=== PATIENT | female | born 1955 | race Caucasian/White ===

== ENCOUNTER 2017-11-18 17:45 | Emergency (ER) | payer OTHER, SELFPAY ==
[2017-11-18] MEDS ORDERED: NA CHLORIDE 0.9% 1,000 ML ONE (18:39)
[2017-11-18 18:56] LABS: Absolute Lymphocytes (CBC) 1.9 K/uL (0.7-4.9); Absolute Monocytes 0.8 K/uL (0.1-1.3); Absolute Neutrophil 6.5 K/uL (1.8-8.0); Basophils % 1.4 % (0-1.3); Eosinophils % 2.8 % (0-4.4); Hematocrit 41.7 % (36.0-45.0); Lymphocytes % 19.9 % (15.3-44.8); MCH 32.5 pg (27.0-35.0); MCV 95.5 fL (80-100); MPV 9.7 fL (7.6-11.3); Monocytes % 8.4 % (3.3-12.3); RBC Red Blood Cell Count 4.37 M/uL (3.86-4.86)
--- NOTE | 2017-11-18 18:59 | RAD REPORT ---
EXAM DESCRIPTION: RAD - Chest Single View - 11/18/2017 6:53 pm CLINICAL HISTORY: COUGH Chest pain. COMPARISON: <Comparisons> FINDINGS: Portable technique limits examination quality. The lungs are grossly clear. The heart is normal in size. No displaced fractures. IMPRESSION: No acute intrathoracic process suspected.
[2017-11-18 19:07] LABS: Protime INR 0.9
[2017-11-18 19:08] LABS: ALT/SGPT 48 U/L (12-78); AST/SGOT 67 U/L (15-37); Albumin 2.7 g/dL (3.4-5.0); Alkaline Phosphatase 821 U/L (45-117); BUN Blood Urea Nitrogen 10 mg/dL (7-18); Bicarbonate 29 mmol/L (21-32); Bilirubin Direct 1.7 mg/dL (0-0.2); CKMB Creatine Kinase MB 1.7 ng/mL (0.3-3.6); Creatine Phosphokinase 54 U/L (26-192); Glucose Level 81 mg/dL (74-106); Magnesium 1.9 mg/dL (1.8-2.4); NT PRO-BNP 77 pg/mL (<125); Phosphorus 3.3 mg/dL (2.5-4.9); Potassium 3.4 mmol/L (3.5-5.1); Sodium Level 144 mmol/L (136-145)
--- NOTE | 2017-11-18 19:50 | RAD REPORT ---
EXAM DESCRIPTION: US - Renal Ultrasound-Complete - 11/18/2017 7:35 pm CLINICAL HISTORY: hyperkalemia COMPARISON: ABDOMINAL EXAM COMPLETE dated 07/14/2011BDOMINAL EXAM COMPLETE dated 07/14/2011 FINDINGS: Both kidneys are normal in size, shape and echotexture. The right kidney measures 9.4 x 4.7 x 3.0 cm. No hydronephrosis. Echogenic structure measuring 7 mm i n the inferior pole could represent a stone. The left kidney measures 10.0 x 5.3 x 5.1 cm. No hydronephrosis, focal mass or perinephric fluid. The urinary bladder is incompletely distended without gross abnormality seen. IMPRESSION: 7 mm echogenic structure in the inferior pole right kidney may represent a stone.
--- NOTE | 2017-11-18 19:57 | ER ---
Nurse's Notes [facility] Name: Adilene Vines Age: 62 yrs Sex: Female : 1955 Arrival Date: 11/18/2017 Time: 17:49 Bed 16 Private MD: Gurvinder Black Diagnosis: Person with feared health complaint in whom no diagnosis is made;Liver disease, unspecified Presentation: 11/18 17:54 Presenting complaint: Patient states: Sent by PCP for high K+. Transition of care: aj patient was not received from another setting of care. Onset of symptoms was November 18, 2017. Risk Assessment: Do you want to hurt yourself or someone else? Patient reports no desire to harm self or others. Initial Sepsis Screen: Does the patient meet any 2 criteria? No. Patient's initial sepsis screen is negative. Does the patient have a suspected source of infection? No. Patient's initial sepsis screen is negative. Care prior to arrival: None. 17:54 Method Of Arrival: Ambulatory 17:54 Acuity: ESAU 3 aj Triage Assessment: 17:55 General: Appears in no apparent distress. comfortable, Behavior is calm, cooperative, aj appropriate for age. Pain: Denies pain. Neuro: Level of Consciousness is awake, alert, obeys commands, Oriented to person, place, time, situation, Appropriate for age. Cardiovascular: Denies chest pain. Respiratory: Airway is patent Respiratory effort is even, unlabored, Respiratory pattern is regular, symmetrical. Derm: Skin is intact, is healthy with good turgor, Skin is pink, warm \T\ dry. normal. Historical: - Allergies: 17:55 PENICILLINS; aj 17:55 Sulfa (Sulfonamide Antibiotics); aj 17:55 Bactrim; aj - Home Meds: 17:55 metoprolol tartrate 25 mg Oral tab 1 tab 2 times per day [Active]; losartan 50 mg oral aj tab 1 tab once daily [Active]; Prednisone Oral [Active]; - PMHx: 17:55 Hypertension; aj 18:00 Polio; rb1 - PSHx: 18:00 Tubal ligation; rb1 - Immunization history:: Adult Immunizations up to date. - Social history:: Smoking status: Patient uses tobacco products, smokes one pack cigarettes per day. - Ebola Screening: : Patient negative for fever greater than or equal to 101.5 degrees Fahrenheit, and additional compatible Ebola Virus Disease symptoms Patient denies exposure to infectious person Patient denies travel to an Ebola-affected area in the 21 days before illness onset No symptoms or risks identified at this time. Screenin:00 Abuse screen: Denies threats or abuse. Nutritional screening: No deficits noted. rb1 Tuberculosis screening: No symptoms or risk factors identified. Fall Risk None identified. Assessment: 18:00 General: Appears in no apparent distress. comfortable, slender, Behavior is calm, rb1 cooperative. Pain: Denies pain. Neuro: Level of Consciousness is awake, alert, obeys commands, Oriented to person, place, time, situation. Cardiovascular: Capillary refill < 3 seconds is brisk in bilateral fingers. Respiratory: Airway is patent Respiratory effort is even, unlabored, Respiratory pattern is regular, symmetrical. GI: No signs and/or symptoms were reported involving the gastrointestinal system. : No signs and/or symptoms were reported regarding the genitourinary system. Derm: Skin is pink, warm \T\ dry. Musculoskeletal: Range of motion: limited in right leg Due to polio. 19:46 Reassessment: Patient appears in no apparent distress at this time. Patient and/or aa1 family updated on plan of care and expected duration. Pain level reassessed. Patient is alert, oriented x 3, equal unlabored respirations, skin warm/dry/pink. Awaiting provider reassessment. 20:14 Reassessment: Patient appears in no apparent distress at this time. Patient is alert, aa1 oriented x 3, equal unlabored respirations, skin warm/dry/pink. Discussed d/c \T\ f/u instructions with pt; denies questions or concerns at this time. Vital Signs: 17:55 BP 186 / 105; Pulse 90; Resp 20; Temp 98.8; Pulse Ox 99% on R/A; Weight 43.54 kg; aj Height 5 ft. 4 in. (162.56 cm); 19:46 BP 170 / 87; Pulse 81; Resp 16; Pulse Ox 100% on R/A; Pain 0/10; aa1 20:14 BP 160 / 90; Pulse 79; Resp 16; Pulse Ox 100% on R/A; Pain 0/10; aa1 17:55 Body Mass Index 16.48 (43.54 kg, 162.56 cm) ED Course: 17:49 Patient arrived in ED. as 17:50 Gurvinder Black is Private Physician. as 17:54 Triage completed. aj 17:55 Arm band placed on left wrist. Patient placed in an exam room. aj 18:00 Patient has correct armband on for positive identification. Bed in low position. Call rb1 light in reach. Side rails up X 1. teletypesetter monitor on. Pulse ox on. NIBP on. 18:06 Tiffany Brown FNP-C is [facility]. snw 18:06 Yogi Nagy MD is Attending Physician. snw 18:33 Marie Vega, ANGIE is Primary Nurse. rb1 18:44 Initial lab(s) drawn, by nm, sent to lab. Inserted saline lock: 22 gauge in left dh3 antecubital area, using aseptic technique. Blood collected. 18:46 Ultrasound completed. Patient tolerated well. sg3 18:51 X-ray completed. Portable x-ray completed in exam room. Patient tolerated procedure la2 well. 18:54 XRAY Chest (1 view) In Process Unspecified. EDWI 18:54 EKG done, by ED staff, reviewed by Tiffany WETZEL. 3 19:00 Report given to ANGIE Herron. rb1 19:40 Urine collected: clean catch specimen, alisa colored. aa1 19:54 Gurvinder Black is Referral Physician. snw 20:14 No provider procedures requiring assistance completed. IV discontinued, intact, aa1 bleeding controlled, No redness/swelling at site. Pressure dressing applied. Administered Medications: 18:40 Drug: NS 0.9% 1000 ml Route: IV; Rate: 75 ml/hr; Site: left antecubital; rb1 20:13 Follow up: IV Status: Completed infusion aa1 Outcome: 19:56 Discharge ordered by . snw 20:14 Discharged to home ambulatory. aa1 20:14 Condition: good 20:14 Discharge instructions given to patient, Instructed on discharge instructions, follow up and referral plans. medication usage, Demonstrated understanding of instructions, follow-up care, medications, Prescriptions given X 1. 20:16 Patient left the ED. aa1 Signatures: Dispatcher [employer] EDWI Germaine Carty RN RN aa1 Cyn Delong RN RN Tiffany Hand FNP-C FNP-Chuckw Esther Johnson Rebecca, RN RN rb1 Mey Penn [address] [facility] Carolee Machuca sg3 Corrections: (The following items were deleted from the chart) 19:35 19:34 In radiology for Rp Exam Complete+US.RAD.BRZ. EDMS sg3
--- NOTE | 2017-11-18 19:57 | EDPHYS ---
Physician Documentation [facility] Name: Adilene Vines Age: 62 yrs Sex: Female : 1955 Arrival Date: 11/18/2017 Time: 17:49 Bed 16 Private MD: Gurvinder Black ED Physician Yogi Nagy HPI: 11/18 18:20 This 62 yrs old Female presents to ER via Ambulatory with complaints of snw Abnormal Lab Results. 18:20 Pt states she went to [place] PCP yesterday for some labwork 2nd to severe itching. Pt snw was dx autoimmune hepatitis three years ago but "didn't do anything about that information" because she feels okay. Dr. Boyce called pt to day with K+ level of 7.1 and directed her to come to ED immediately. Onset: The symptoms/episode began/occurred at an unknown time. Severity of symptoms: At their worst the symptoms were very mild. It is unknown whether or not the patient has had similar symptoms in the past. as noted. Historical: - Allergies: 17:55 PENICILLINS; aj 17:55 Sulfa (Sulfonamide Antibiotics); aj 17:55 Bactrim; aj - Home Meds: 17:55 metoprolol tartrate 25 mg Oral tab 1 tab 2 times per day [Active]; losartan 50 mg oral aj tab 1 tab once daily [Active]; Prednisone Oral [Active]; - PMHx: 17:55 Hypertension; aj 18:00 Polio; rb1 - PSHx: 18:00 Tubal ligation; rb1 - Immunization history:: Adult Immunizations up to date. - Social history:: Smoking status: Patient uses tobacco products, smokes one pack cigarettes per day. - Ebola Screening: : Patient negative for fever greater than or equal to 101.5 degrees Fahrenheit, and additional compatible Ebola Virus Disease symptoms Patient denies exposure to infectious person Patient denies travel to an Ebola-affected area in the 21 days before illness onset No symptoms or risks identified at this time. ROS: 18:17 Constitutional: Negative for fever, chills, and weight loss, Eyes: Negative for injury, snw pain, redness, and discharge, ENT: Negative for injury, pain, and discharge, Neck: Negative for injury, pain, and swelling, Cardiovascular: Negative for chest pain, palpitations, and edema, Respiratory: Negative for shortness of breath, cough, wheezing, and pleuritic chest pain, Abdomen/GI: Negative for abdominal pain, nausea, vomiting, diarrhea, and constipation, Back: Negative for injury and pain, : Negative for injury, bleeding, discharge, and swelling, MS/Extremity: Negative for injury and deformity, Skin: Negative for injury, rash, and discoloration, severe itching Neuro: Negative for headache, weakness, numbness, tingling, and seizure, Psych: Negative for depression, anxiety, suicide ideation, homicidal ideation, and hallucinations. Exam: 18:17 Head/Face: Normocephalic, atraumatic. Eyes: Pupils equal round and reactive to light, snw extra-ocular motions intact. Lids and lashes normal. Conjunctiva and sclera are non-icteric and not injected. Cornea within normal limits. Periorbital areas with no swelling, redness, or edema. 18:17 Neck: Trachea midline, no thyromegaly or masses palpated, and no cervical lymphadenopathy. Supple, full range of motion without nuchal rigidity, or vertebral point tenderness. No Meningismus. Chest/axilla: Normal chest wall appearance and motion. Nontender with no deformity. No lesions are appreciated. Cardiovascular: Regular rate and rhythm with a normal S1 and S2. No gallops, murmurs, or rubs. Normal PMI, no JVD. No pulse deficits. Respiratory: Lungs have equal breath sounds bilaterally, clear to auscultation and percussion. No rales, rhonchi or wheezes noted. No increased work of breathing, no retractions or nasal flaring. Abdomen/GI: Soft, non-tender, with normal bowel sounds. No distension or tympany. No guarding or rebound. No evidence of tenderness throughout. Back: No spinal tenderness. No costovertebral tenderness. Full range of motion. MS/ Extremity: Pulses equal, no cyanosis. Neurovascular intact. Full, normal range of motion. Neuro: Awake and alert, GCS 15, oriented to person, place, time, and situation. Cranial nerves II-XII grossly intact. Motor strength 5/5 in all extremities. Sensory grossly intact. Cerebellar exam normal. Normal gait. Psych: Awake, alert, with orientation to person, place and time. Behavior, mood, and affect are within normal limits. 18:17 Constitutional: The patient appears alert, awake, comfortable. 18:17 Constitutional: The patient appears frail, cachectic 18:17 ENT: Mouth: is normal, Dental exam: missing teeth, diffusely. 18:17 Skin: Appearance: Color: dusky, Temperature: normal temperature, Moisture: dry, swelling, is not appreciated. Vital Signs: 17:55 BP 186 / 105; Pulse 90; Resp 20; Temp 98.8; Pulse Ox 99% on R/A; Weight 43.54 kg; aj Height 5 ft. 4 in. (162.56 cm); 19:46 BP 170 / 87; Pulse 81; Resp 16; Pulse Ox 100% on R/A; Pain 0/10; aa1 20:14 BP 160 / 90; Pulse 79; Resp 16; Pulse Ox 100% on R/A; Pain 0/10; aa1 17:55 Body Mass Index 16.48 (43.54 kg, 162.56 cm) aj MDM: 18:06 Patient medically screened. snw 20:01 Data reviewed: vital signs, nurses notes. Data interpreted: Pulse oximetry: on room air snw is 100 %. Interpretation: normal. Counseling: I had a detailed discussion with the patient and/or guardian regarding: the historical points, exam findings, and any diagnostic results supporting the discharge/admit diagnosis, the presence of at least one elevated blood pressure reading (>120/80) during this emergency department visit, lab results, the need for outpatient follow up, for definitive care, to return to the emergency department if symptoms worsen or persist or if there are any questions or concerns that arise at home. Special discussion: Based on the history and exam findings, there is no indication for further emergent testing or inpatient evaluation. I discussed with the patient/guardian the need to see the primary care provider for further evaluation of the symptoms. 11/18 18:12 Order name: Basic Metabolic Panel; Complete Time: 19:14 snw 11/18 18:12 Order name: CBC with Diff; Complete Time: 19:05 snw 11/18 18:12 Order name: Ckmb; Complete Time: 19:14 snw 11/18 18:12 Order name: CPK; Complete Time: 19:14 snw 11/18 18:12 Order name: LFT's; Complete Time: 19:14 snw 11/18 18:12 Order name: Magnesium; Complete Time: 19:14 11/18 18:12 Order name: NT PRO-BNP; Complete Time: 19:14 11/18 18:12 Order name: PT-INR; Complete Time: 19:14 11/18 18:12 Order name: Ptt, Activated; Complete Time: 19:14 11/18 18:12 Order name: Troponin (emerg Dept Use Only); Complete Time: 19:23 11/18 18:12 Order name: Phosphorus; Complete Time: 19:14 11/18 18:12 Order name: Hepatitis Panel 11/18 18:13 Order name: LDH; Complete Time: 19:14 11/18 18:13 Order name: Uric Acid; Complete Time: 19:14 11/18 18:12 Order name: XRAY Chest (1 view); Complete Time: 19:01 11/18 18:12 Order name: EKG; Complete Time: 18:13 11/18 18:12 Order name: Cardiac monitoring; Complete Time: 18:45 11/18 18:12 Order name: EKG - Nurse/Tech; Complete Time: 18:45 11/18 18:12 Order name: IV Saline Lock; Complete Time: 18:45 11/18 18:12 Order name: Labs collected and sent; Complete Time: 18:45 11/18 18:12 Order name: O2 Per Protocol; Complete Time: 18:45 11/18 18:12 Order name: O2 Sat Monitoring; Complete Time: 18:45 11/18 18:12 Order name: Urine Dipstick-Ancillary (obtain specimen); Complete Time: 19:45 11/18 18:17 Order name: US Rp Exam Complete; Complete Time: 19:52 11/18 19:49 Order name: Urine Dipstick--Ancillary (enter results); Complete Time: 21:34 ms Administered Medications: 18:40 Drug: NS 0.9% 1000 ml Route: IV; Rate: 75 ml/hr; Site: left antecubital; rb1 20:13 Follow up: IV Status: Completed infusion aa1 Disposition: 11/19 07:12 Co-signature as Attending Physician, Yogi Nagy MD I agree with the assessment and kdr plan of care. Disposition: 11/18/17 19:56 Discharged to Home. Impression: Person with feared health complaint in whom no diagnosis is made, Liver disease, unspecified. - Condition is Stable. - Discharge Instructions: Pruritus. - Prescriptions for Vistaril 25 mg Oral capsule - take 1 capsule by ORAL route At bedtime; 14 capsule. - Medication Reconciliation Form, Thank You Letter, Antibiotic Education, Prescription Opioid Use form. - Follow up: Gurvinder Black; When: 2 - 3 days; Reason: Recheck today's complaints, Continuance of care, Re-evaluation by your physician. Follow up: Emergency Department; When: As needed; Reason: Worsening of condition. Signatures: Dispatcher [employer] EDMS Germaine Carty RN RN aa1 Cyn Delong RN RN aj Rittger, Kevin, MD MD kdr Tiffany Brown, INVESTIGATOR NARCOTICS-C INVESTIGATOR NARCOTICS-Csnw Marie Vega, RN RN rb1 Corrections: (The following items were deleted from the chart) 11/18 20:16 19:56 11/18/2017 19:56 Discharged to Home. Impression: Person with feared health aa1 complaint in whom no diagnosis is made; Liver disease, unspecified. Condition is Stable. Forms are Medication Reconciliation Form, Thank You Letter, Antibiotic Education, Prescription Opioid Use. Follow up: Gurvinder Black; When: 2 - 3 days; Reason: Recheck today's complaints, Continuance of care, Re-evaluation by your physician. Follow up: Emergency Department; When: As needed; Reason: Worsening of condition. snw
[2017-11-18 20:08] LABS: Urine Blood NEGATIVE (NEG); Urine Glucose NEGATIVE (NEG); Urine Protein NEGATIVE (NEG); Urine Specific Gravity 1.015 (1.005-1.030); Urine pH 6.5 (5.0-7.0)
--- NOTE | 2017-11-19 09:32 | EKG ---
Test Date: 2017-11-18 Test Time: 18:50:07 Graphics Coordinator: MARIA ELENA MEASUREMENT RESULTS: Intervals: Rate: 75 CA: 130 QRSD: 74 QT: 402 QTc: 448 [place]: P: 72 CA: 130 QRS: 50 T: -69 INTERPRETIVE STATEMENTS: Normal sinus rhythm Possible Anterior infarct, age undetermined T wave abnormality, consider inferolateral ischemia Abnormal ECG No previous ECG available for comparison Electronically Signed On 11-19-17 09:31:45 CDT by Paulo Lawton
[2017-11-21 18:06] LABS: HBsAG Nonreactive (Nonreactive); Hepatitis A IgM Antibody Nonreactive
== END 2017-11-18 20:16 | disposition home or self-care (01) ==
LOC: ER 17:45
DX: Z71.1 Person with feared health complaint in whom no diagnosis is made (principal); K76.9 Liver disease, unspecified; I10 Essential (primary) hypertension; F17.210 Nicotine dependence, cigarettes, uncomplicated
CPT/HCPCS: 36415; 71045; 76770; 80048; 80074; 80076; 81003; 82550; 82553; 83615; 83735; 83880; 84100; 84484; 84550; 85025; 85610; 85730; 93005; 96360; 96361; 99284; J7030

== ENCOUNTER 2018-11-25 10:33 | Emergency (ER) | payer SELFPAY ==
[2018-11-25] MEDS ORDERED: SILVER NITRATE 1 APPL TOP ONE (10:59)
--- NOTE | 2018-11-25 11:12 | EDPHYS ---
Physician Documentation [facility] Name: Adilene Vines Age: 63 yrs Sex: Female : 1955 Arrival Date: 11/25/2018 Time: 10:35 Bed 18 Private MD: ED Physician Antony Hernandez HPI: 11/25 11:05 This 63 yrs old Female presents to ER via Ambulatory with complaints of Nose cp Bleed. 11:05 The patient presents with a nose bleed, occurred from an unknown cause, causative cp factors include: unknown, and the bleeding resolved prior to arrival. Onset: The symptoms/episode began/occurred today, but patient reports frequent nose bleeds over past 3 days. Associated signs and symptoms: Pertinent negatives: fever, trauma. Severity of symptoms: in the emergency department the symptoms have resolved. Historical: - Allergies: 10:38 Bactrim; hj 10:38 PENICILLINS; hj 10:38 Sulfa (Sulfonamide Antibiotics); hj - PMHx: 10:38 Hypertension; Polio; hj - PSHx: 10:38 Tubal ligation; hj - Immunization history:: Adult Immunizations. - Social history:: Smoking status: Patient uses tobacco products, Patient/guardian denies using alcohol, street drugs. - Ebola Screening: : Patient negative for fever greater than or equal to 101.5 degrees Fahrenheit, and additional compatible Ebola Virus Disease symptoms Patient denies exposure to infectious person Patient denies travel to an Ebola-affected area in the 21 days before illness onset. ROS: 11:07 Constitutional: Negative for body aches, chills, fever, poor PO intake. cp 11:07 ENT: Positive for nose bleed, Negative for drainage from ear(s), ear pain, difficulty cp swallowing, difficulty handling secretions. 11:07 Respiratory: Negative for cough, shortness of breath, wheezing. 11:07 Abdomen/GI: Negative for abdominal pain, nausea, vomiting, and diarrhea. 11:07 Skin: Negative for rash. 11:07 Neuro: Negative for dizziness, headache, weakness. 11:07 All other systems are negative. Exam: 11:09 Constitutional: The patient appears in no acute distress, alert, awake, non-toxic, well cp developed, well nourished. 11:09 Head/Face: Normocephalic, atraumatic. cp 11:09 Eyes: Periorbital structures: appear normal, Conjunctiva: normal, no exudate, no injection, Sclera: no appreciated abnormality, Lids and lashes: appear normal, bilaterally. 11:09 ENT: External ear(s): are unremarkable, Ear canal(s): are normal, clear, TM's: dullness, bilaterally, Nose: External nose: no obvious acute abnormality, Nasal septum: is midline, Nasal mucosa: Dried blood. bleeding, is not appreciated, is noted from both nares, nasal drainage, is not appreciated, and is seen coming from both nares, Mouth: Lips: moist, Oral mucosa: pink and intact, moist, Posterior pharynx: is normal, airway is patent, no erythema, no exudate. 11:09 Neck: ROM/movement: is normal, is supple, without pain, no range of motions limitations, no nuchal rigidity. 11:09 Chest/axilla: Inspection: normal. 11:09 Cardiovascular: Rate: normal. 11:09 Respiratory: the patient does not display signs of respiratory distress, Respirations: normal, no use of accessory muscles, no retractions, no splinting, no tachypnea. 11:09 Skin: no rash present. Vital Signs: 10:38 BP 155 / 80; Pulse 71; Resp 18; Temp 97.9(O); Pulse Ox 100% on R/A; Weight 44.45 kg; hj Height 5 ft. 4 in. (162.56 cm); Pain 0/10; 10:38 Body Mass Index 16.82 (44.45 kg, 162.56 cm) hj MDM: 10:43 Patient medically screened. cp 11:11 Data reviewed: vital signs, nurses notes, and as a result, I will discharge patient. cp 11:11 Counseling: I had a detailed discussion with the patient and/or guardian regarding: the cp historical points, exam findings, and any diagnostic results supporting the discharge/admit diagnosis, to return to the emergency department if symptoms worsen or persist or if there are any questions or concerns that arise at home. 11/25 11:03 Order name: Urine Dipstick--Ancillary (enter results) bd Administered Medications: No medications were administered Disposition: 11:30 Chart complete. cp Disposition: 11/25/18 11:11 Discharged to Home. 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 - Condition is Stable. - Discharge Instructions: Nosebleed, Adult. - Medication Reconciliation Form, Thank You Letter, Antibiotic Education, Prescription Opioid Use form. - Follow up: Emergency Department; When: As needed; Reason: Worsening of condition. - Problem is new. - Symptoms are resolved. Addendum: 11/27/2018 19:41 Co-signature as Attending Physician, Antony Hernandez MD. r n Signatures: Dispatcher [employer] EDND William Stubbs, BIT TAPPER BIT TAPPER em Antony Hernandez MD MD rn Joaquin, Henry, RN RN Tyrese Almanzar PA PA cp Corrections: (The following items were deleted from the chart) 11/25 10:40 10:39 Social history: Smoking status: Patient uses tobacco products, Patient/guardian denies using street drugs, 11:24 11:11 11/25/2018 11:11 Discharged to Home. 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 em Condition is Stable. Forms are Medication Reconciliation Form, Thank You Letter, Antibiotic Education, Prescription Opioid Use. Follow up: Emergency Department; When: As needed; Reason: Worsening of condition. Problem is new. Symptoms are resolved. cp
--- NOTE | 2018-11-25 11:12 | ER ---
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 Transition of care: patient was not received from another setting of care. Onset of symptoms was November 25, 2018. Risk Assessment: Do you want to hurt yourself or someone else? Patient reports no desire to harm self or others. Initial Sepsis Screen: Does the patient meet any 2 criteria? No. Patient's initial sepsis screen is negative. Does the patient have a suspected source of infection? No. Patient's initial sepsis screen is negative. Care prior to arrival: None. 10:35 Method Of Arrival: Ambulatory 10:35 Acuity: ESAU 4 hj Triage Assessment: 10:39 General: Appears in no apparent distress. uncomfortable, slender, Behavior is calm, hj cooperative, appropriate for age. Pain: Denies pain. Historical: - Allergies: 10:38 Bactrim; hj 10:38 PENICILLINS; hj 10:38 Sulfa (Sulfonamide Antibiotics); hj - PMHx: 10:38 Hypertension; Polio; hj - PSHx: 10:38 Tubal ligation; hj - Immunization history:: Adult Immunizations. - Social history:: Smoking status: Patient uses tobacco products, Patient/guardian denies using alcohol, street drugs. - Ebola Screening: : Patient negative for fever greater than or equal to 101.5 degrees Fahrenheit, and additional compatible Ebola Virus Disease symptoms Patient denies exposure to infectious person Patient denies travel to an Ebola-affected area in the 21 days before illness onset. Screenin:39 Abuse screen: Denies threats or abuse. Denies injuries from another. Nutritional hj screening: No deficits noted. Tuberculosis screening: No symptoms or risk factors identified. Fall Risk None identified. Assessment: 10:55 General: Appears in no apparent distress. comfortable, Behavior is calm, cooperative. em Pain: Denies pain. Neuro: Level of Consciousness is awake, alert, obeys commands, Oriented to person, place, time, situation. Cardiovascular: Capillary refill < 3 seconds Patient's skin is warm and dry. Respiratory: Airway is patent Respiratory effort is even, unlabored, Respiratory pattern is regular, symmetrical. GI: Abdomen is flat, Patient currently denies nausea, vomiting. EENT: Nares are clear Oral mucosa is moist. Throat is clear is pink. Derm: Skin is intact, is healthy with good turgor, Skin is pink, warm \T\ dry. Musculoskeletal: Capillary refill < 3 seconds, Range of motion: intact in all extremities. Vital Signs: 10:38 BP 155 / 80; Pulse 71; Resp 18; Temp 97.9(O); Pulse Ox 100% on R/A; Weight 44.45 kg; hj Height 5 ft. 4 in. (162.56 cm); Pain 0/10; 10:38 Body Mass Index 16.82 (44.45 kg, 162.56 cm) ED Course: 10:35 Patient arrived in ED. hj 10:38 Triage completed. hj 10:38 Arm band placed on. hj 10:40 Patient has correct armband on for positive identification. Bed in low position. Call hj light in reach. Side rails up X 1. Adult w/ patient. 10:42 William Stubbs LVN is Primary Nurse. em 10:42 Tyrese Gay PA is PHCP. cp 10:43 Antony Hernandez MD is Attending Physician. cp 11:19 No provider procedures requiring assistance completed. Patient did not have IV access em during this emergency room visit. 11:23 No provider procedures requiring assistance completed. Patient did not have IV access em during this emergency room visit. Administered Medications: No medications were administered Outcome: 11:11 Discharge ordered by MD. cp 11:23 Discharged to home ambulatory, with friend. em 11:23 Condition: good 11:23 Discharge instructions given to patient, friend, Instructed on discharge instructions, follow up and referral plans. Demonstrated understanding of instructions, follow-up care. 11:24 Patient left the ED. em Signatures: William Stubbs LVN LVN em Shayne Olivera RN RN hj Tyrese Gay PA PA cp Corrections: (The following items were deleted from the chart) 10:40 10:39 Social history: Smoking status: Patient uses tobacco products, Patient/guardian hj denies using street drugs, 10:40 10:38 44.45 kg; Height 5 ft. 4 in.; BMI: 16.8; Pain 0/10; hj hj 10:41 10:38 Pulse 71bpm; Resp 18bpm; Pulse Ox 100% RA; Temp 97.9F Oral; 44.45 kg; Height 5 hj ft. 4 in.; BMI: 16.8; Pain 0/10; hj
[2018-11-25 12:20] LABS: Urine Blood TRACE (NEG); Urine Glucose NEGATIVE (NEG); Urine Protein NEGATIVE (NEG)
== END 2018-11-25 11:24 | disposition home or self-care (01) ==
LOC: ER 10:33
DX: R04.0 Epistaxis (principal); I10 Essential (primary) hypertension; Z72.0 Tobacco use; Z88.1 Allergy status to other antibiotic agents; Z88.0 Allergy status to penicillin; Z88.2 Allergy status to sulfonamides
CPT/HCPCS: 81003; 99281

== ENCOUNTER 2019-02-28 08:30 | Day surgery (SDC) | payer OTHER ==
[2019-02-28] MEDS ORDERED: NA CHLORIDE 0.9% 1,000 ML ONE (09:13)
[2019-02-28] MEDS ORDERED: FENTANYL CITR 100 MCG/2 ML ONE (09:45)
[2019-02-28] MEDS ORDERED: MIDAZOLAM HCL 2 MG/2 ML INJ ONE (09:45)
[2019-02-28] MEDS ORDERED: NALOXONE 0.4 MG/ML VIAL ONE (09:46)
[2019-02-28] MEDS ORDERED: FLUMAZENIL 0.1 MG/ML (5 mL VIAL) IV ONE (09:46)
--- NOTE | 2019-02-28 11:14 | RAD REPORT ---
EXAM DESCRIPTION: US - Liver Biopsy Procedure - 02/28/2019 10:39 am CLINICAL HISTORY: N Elevated liver function tests, right upper quadrant pain COMPARISON: No comparisons FINDINGS: Preoperative diagnosis: Elevated liver function tests.. Post operative diagnosis: Same. Conscious Sedation: IV conscious sedation was utilized for 45 minutes with fentanyl and midazolam. Fluoroscopy time: None Contrast used: None Estimated blood loss: Minimal Specimens:2x 18 gauge 2 cm specimens The right upper quadrant was prepped and draped in the usual sterile fashion. 1% lidocaine was infilt rated into the subcutaneous tissues for local anesthesia. Real time ultrasound scanning of the right upper quadrant demonstrated fatty infiltration of the liver. Under ultrasound guidance, using a 18-ga uge, 6 cm long, 2 cm throw core biopsy gun, 2 specimens were obtained of this lesion and sent to path ology for evaluation. There were no complications. IMPRESSION: Successful ultrasound-guided nonfocal liver biopsy. 45 minutes of IV conscious sedation was utilized.
[2019-02-28 13:37] VITALS: BP 104/50; TEMP 97.7; O2SAT 100
== END 2019-02-28 14:00 | disposition home or self-care (01) ==
LOC: DS 08:30
PROVIDERS: ATTEND Internal Medicine Gastroenterology
DX: K73.9 Chronic hepatitis, unspecified (principal); K74.60 Unspecified cirrhosis of liver; K83.09 Other cholangitis; K76.0 Fatty (change of) liver, not elsewhere classified
CPT/HCPCS: 88313; 88307; 47000; J2250; J3010; J7030; 88305; J2310

== ENCOUNTER 2019-07-04 17:11 | Emergency (ER) | payer OTHER ==
--- NOTE | 2019-07-04 18:23 | ER ---
Nurse's Notes [facility] Name: Adilene Vines Age: 64 yrs Sex: Female : 1955 Arrival Date: 07/04/2019 Time: 17:14 Bed 10 Private MD: Diagnosis: Low back pain Presentation: 07/03 17:21 Chief complaint: Patient states: Lifted something the wrong way about a month ago and jl7 my back is still hurting. Coronavirus screen: The patient has NOT traveled to a country currently being monitored by the [facility] within the last 14 days. Proceed with normal triage procedures. The patient has NOT had contact with any known and/or suspected case of coronavirus. Proceed with normal triage procedures. Ebola Screen: No symptoms or risks identified at this time. Initial Sepsis Screen: Does the patient meet any 2 criteria? No. Patient's initial sepsis screen is negative. Does the patient have a suspected source of infection? No. Patient's initial sepsis screen is negative. Risk Assessment: Do you want to hurt yourself or someone else? Patient reports no desire to harm self or others. Onset of symptoms was June 05, 2019. 17:21 Method Of Arrival: Ambulatory [facility] 17:21 Acuity: ESAU 3 jl7 Triage Assessment: 17:25 General: Appears in no apparent distress. uncomfortable, Behavior is calm, cooperative, jl7 appropriate for age. Pain: Complains of pain in back Pain currently is 3 out of 10 on a pain scale. at worst was 10 out of 10 on a pain scale. Musculoskeletal: Range of motion: intact in all extremities. Historical: - Allergies: 17:25 Bactrim; jl7 17:25 PENICILLINS; jl7 17:25 Sulfa (Sulfonamide Antibiotics); jl7 17:25 Levaquin; jl7 - Home Meds: 17:25 losartan 50 mg Oral tab 1 tab once daily [Active]; metoprolol tartrate 25 mg Oral tab 1 jl7 tab 2 times per day [Active]; Prednisone Oral [Active]; - PMHx: 17:25 Hypertension; Polio; jl7 - PSHx: 17:25 Tubal ligation; jl7 - Immunization history:: Adult Immunizations not up to date. - Social history:: Smoking status: Patient reports the use of cigarette tobacco products, smokes one pack cigarettes per day. Screenin/13 00:08 Abuse screen: Denies threats or abuse. Denies injuries from another. ls4 Assessment: 07/03 18:19 Neuro: Level of Consciousness is awake, alert, obeys commands, Oriented to person, ls4 place, time, situation, Floor Director are equal bilaterally Moves all extremities. Gait is steady, Speech is normal, Facial symmetry appears normal, Pupils are PERRLA, Reports Denies. Respiratory: No deficits noted. Airway is patent Respiratory effort is even, unlabored, Breath sounds are clear bilaterally. Musculoskeletal: Circulation, motion, and sensation intact. Capillary refill < 3 seconds, Range of motion: intact in all extremities, Swelling absent Reports. Vital Signs: 17:21 BP 192 / 100; Pulse 86; Resp 16 S; Temp 98.5(TE); Pulse Ox 99% on R/A; Weight 42.64 kg jl7 (R); Height 5 ft. 4 in. (162.56 cm) (R); Pain 3/10; 17:21 Body Mass Index 16.13 (42.64 kg, 162.56 cm) jl7 ED Course: 17:14 Patient arrived in ED. mr 17:24 Triage completed. jl7 17:25 Arm band placed on right wrist. jl7 17:26 Patient placed in waiting room, Patient notified of wait time. jl7 17:42 Andreia Lowery RN is Primary Nurse. ls4 17:44 Yogi Ngay MD is Attending Physician. kdr Administered Medications: 18:25 Drug: Motrin 600 mg Route: PO; aj1 18:35 Not Given (Other intervention used): TORadol 10 mg PO once dm5 Outcome: 18:22 Discharge ordered by . kdr 18:54 Patient left the ED. aj1 Signatures: Jo Arango RN RN aj1 Yogi Nagy MD MD [facility] Mavis Butler ANGIE Cruz RN jl7 Andreia Lowery RN RN ls4 Deedee Tesfaye RN dm5
--- NOTE | 2019-07-04 18:24 | EDPHYS ---
Physician Documentation [facility] Name: Adilene Vines Age: 64 yrs Sex: Female : 1955 Arrival Date: 07/04/2019 Time: 17:14 Bed 10 Private MD: ED Physician Yogi Nagy HPI: 07/04 07:09 This 64 yrs old Female presents to ER via Ambulatory with complaints of Back kdr Pain. 07:09 The patient presents with pain that is chronic, and decreased range of motion, and an kdr injury. The symptoms are located in the low back. Onset: The symptoms/episode began/occurred gradually, 1 month(s) ago. The pain does not radiate. Associated signs and symptoms: The patient has no apparent associated signs or symptoms. The problem was sustained when bending over, when lifting heavy object. Modifying factors: The patient symptoms are alleviated by nothing, the patient symptoms are aggravated by any movement, bending, lifting, movement. Severity of symptoms: At their worst the symptoms were mild, in the emergency department the symptoms are unchanged. The patient has not experienced similar symptoms in the past. The patient has not recently seen a physician. Historical: - Allergies: 07/03 17:25 Bactrim; jl7 17:25 PENICILLINS; jl7 17:25 Sulfa (Sulfonamide Antibiotics); jl7 17:25 Levaquin; jl7 - Home Meds: 17:25 losartan 50 mg Oral tab 1 tab once daily [Active]; metoprolol tartrate 25 mg Oral tab 1 jl7 tab 2 times per day [Active]; Prednisone Oral [Active]; - PMHx: 17:25 Hypertension; Polio; jl7 - PSHx: 17:25 Tubal ligation; jl7 - Immunization history:: Adult Immunizations not up to date. - Social history:: Smoking status: Patient reports the use of cigarette tobacco products, smokes one pack cigarettes per day. ROS: 07/04 07:09 Constitutional: Negative for fever, chills, and weight loss, Eyes: Negative for injury, kdr pain, redness, and discharge, Neck: Negative for injury, pain, and swelling, Cardiovascular: Negative for chest pain, palpitations, and edema, Respiratory: Negative for shortness of breath, cough, wheezing, and pleuritic chest pain, Abdomen/GI: Negative for abdominal pain, nausea, vomiting, diarrhea, and constipation, : Negative for injury, bleeding, discharge, and swelling, MS/Extremity: Negative for injury and deformity, Skin: Negative for injury, rash, and discoloration, Neuro: Negative for headache, weakness, numbness, tingling, and seizure activity. Psych: Negative for depression, anxiety, suicide ideation, homicidal ideation, and hallucinations, Allergy/Immunology: Negative for hives, rash, and allergies, Endocrine: Negative for neck swelling, polydipsia, polyuria, polyphagia, and marked weight changes. Back: Positive for injury or acute deformity, pain at rest, pain with movement, of the low back area. Exam: 07:09 Constitutional: This is a well developed, well nourished patient who is awake, alert, kdr and in no acute distress. Head/Face: Normocephalic, atraumatic. Eyes: Pupils equal round and reactive to light, extra-ocular motions intact. Lids and lashes normal. Conjunctiva and sclera are non-icteric and not injected. Cornea within normal limits. Periorbital areas with no swelling, redness, or edema. Neck: Trachea midline, no thyromegaly or masses palpated, and no cervical lymphadenopathy. Supple, full range of motion without nuchal rigidity, or vertebral point tenderness. No Meningismus. Chest/axilla: Normal chest wall appearance and motion. Nontender with no deformity. No lesions are appreciated. Cardiovascular: Regular rate and rhythm with a normal S1 and S2. No gallops, murmurs, or rubs. Normal PMI, no JVD. No pulse deficits. Respiratory: Lungs have equal breath sounds bilaterally, clear to auscultation and percussion. No rales, rhonchi or wheezes noted. No increased work of breathing, no retractions or nasal flaring. Abdomen/GI: Soft, non-tender, with normal bowel sounds. No distension or tympany. No guarding or rebound. No evidence of tenderness throughout. Skin: Warm, dry with normal turgor. Normal color with no rashes, no lesions, and no evidence of cellulitis. MS/ Extremity: Pulses equal, no cyanosis. Neurovascular intact. Full, normal range of motion. Neuro: Awake and alert, GCS 15, oriented to person, place, time, and situation. Cranial nerves II-XII grossly intact. Motor strength 5/5 in all extremities. Sensory grossly intact. Cerebellar exam normal. Normal gait. Psych: Awake, alert, with orientation to person, place and time. Behavior, mood, and affect are within normal limits. 07:09 Back: pain, that is very mild, of the low back area, ROM is painful, with all movement, normal spinal alignment noted, CVA tenderness, is absent. Vital Signs: 07/03 17:21 BP 192 / 100; Pulse 86; Resp 16 S; Temp 98.5(TE); Pulse Ox 99% on R/A; Weight 42.64 kg jl7 (R); Height 5 ft. 4 in. (162.56 cm) (R); Pain 3/10; 17:21 Body Mass Index 16.13 (42.64 kg, 162.56 cm) jl7 MDM: 18:22 Patient medically screened. kdr 07/04 07:18 Data reviewed: vital signs, nurses notes. Counseling: I had a detailed discussion with kdr the patient and/or guardian regarding: the historical points, exam findings, and any diagnostic results supporting the discharge/admit diagnosis, the need for outpatient follow up. Administered Medications: 07/03 18:25 Drug: Motrin 600 mg Route: PO; aj1 18:35 Not Given (Other intervention used): TORadol 10 mg PO once dm5 Disposition: 07/04/19 18:22 Discharged to Home. Impression: Low back pain. - Condition is Stable. - Discharge Instructions: Musculoskeletal Pain, Back Pain, Adult, Gnyr-rn-[id number]. - Prescriptions for Cyclobenzaprine 10 mg Oral Tablet - take 1 tablet by ORAL route every 8 hours As needed; 15 tablet. Tramadol 50 mg Oral Tablet - take 1 tablet by ORAL route every 8 hours as needed; 12 tablet. - Medication Reconciliation Form, Thank You Letter form. - Follow up: Private Physician; When: 2 - 3 days; Reason: If symptoms return, Further diagnostic work-up, Recheck today's complaints, Continuance of care, Re-evaluation by your physician. - Problem is an ongoing problem. - Symptoms have improved. Signatures: Jo Arango RN RN aj1 Deedee Tesfaye RN RN dm5 Yogi Nagy MD MD kdr Leal, Jahala, RN RN jl7 Corrections: (The following items were deleted from the chart) 18:54 18:22 07/04/2019 18:22 Discharged to Home. Impression: Low back pain. Condition is aj1 Stable. Forms are Medication Reconciliation Form, Thank You Letter, Antibiotic Education, Prescription Opioid Use. Follow up: Private Physician; When: 2 - 3 days; Reason: If symptoms return, Further diagnostic work-up, Recheck today's complaints, Continuance of care, Re-evaluation by your physician. Problem is an ongoing problem. Symptoms have improved. kdr
[2019-07-04] MEDS ORDERED: IBUPROFEN 200 MG TAB PO ONE (18:42)
[2019-07-04] MEDS ORDERED: IBUPROFEN 400 MG TAB ONE (18:43)
[2019-07-04] MEDS ORDERED: KETOROLAC 10 MG TAB PO ONE (19:00)
== END 2019-07-04 18:54 | disposition home or self-care (01) ==
LOC: ER 17:11
DX: M54.5 Low back pain (principal); I10 Essential (primary) hypertension; F17.210 Nicotine dependence, cigarettes, uncomplicated; Z88.0 Allergy status to penicillin; Z88.1 Allergy status to other antibiotic agents; Z88.2 Allergy status to sulfonamides
CPT/HCPCS: 99282

== ENCOUNTER 2020-09-02 14:01 | Emergency (ER) | payer OTHER ==
--- OUTSIDE RECORDS SUMMARY | 2020-09-02 14:03 | XMS REPORT | Continuity of Care Document ---
:1955 Author Organization [facility] t Address [address] [place] [address] Care Team Providers Name Role Phone Radiology Attending Clinician Unavailable Problems Condition Condition Condition Status Onset Resolution Last Treating Co mments Source Name Details Category Date Date Treatment Clinician Date Underweigh Underweigh Problem Active 2020-0 [facility] t t 7-13 Family 00:00: Practic 00 e Chronic Chronic Problem Active 2020-0 [facility] insomnia Insomnia - Family 00:00: Practic 00 e At risk At Risk Problem Active 2020-0 [facility] [place] 09-18 Fami ly 00:00: Practic 00 e Hyperlipid Hyperlipid Problem Active 2020-0 [facility] emia emia - Family 00:00: Practic 00 e Hypertensi Hypertensi Problem Active 2020-0 [facility] ve ve -27 Family disorder Disorder 00:00: Practi c 00 e Gastroesop Gastroesop Problem Active 2020-0 [facility] hageal hageal - Family reflux Reflux 00:00: Practic disease Disease 00 e Cirrhosis Cirrhosis Problem Active 2020-0 [facility] liver of Liver 5- Family 00:00: Practic 00 e Arthritis Arthritis Problem Active 2020-0 Roshni debora 5-27 Family 00:00: Practic 00 e Allergies, Adverse Reactions, Alerts Allergy Allergy Status Severity Reaction(s) Onset Inactive Treating Comm ents Source Name Type Date Date Clinician Bactrim Allergy Active Moderate Itching Harrsi ge to Family substanc Practic e e Levaquin Allergy Active Moderate Nausea Harris ge to to severe Family substanc Practic e e PENICILL Allergy Active Mild to Hives Vill[facility] e INS to moderate Family substanc Practic e e SULFA Allergy Active Mild to Itching [place] (SULFONA to moderate Family MIDE substanc Practic ANTIBIOT e e ICS) Social History Smoking Status Start Date Stop Date Source Light Tobacco Smoker [facility] josselyn Practice Medications Ordered Filled Start Stop Current Ordering Indication Dosage Frequency Signature Comments Components Source Medication Medication Date Date Medication? Clinician (SIG) Name Name acetaminoph acetaminoph No 1 Q6H acetaminop [place] en 300 en 300 hen 300 Family mg-codeine mg-codeine mg-codeine Practic 30 mg 30 mg 30 mg e tablet Take tablet Take tablet 1 tablet 1 tablet Take 1 every 6 every 6 tablet hours by hours by every 6 oral route oral route hours by as needed. as needed. oral route as needed. atorvastati atorvastati No [address] [facility] n 40 mg n 40 mg in 40 mg Famil y tablet Take tablet Take tablet Practic 1 tablet 1 tablet Take 1 e every day every day tablet by oral by oral every day route. route. by oral route. cholestyram cholestyram No 1packet cholestyra [facility] ine (with ine (with (s) mine (with Family sugar) 4 sugar) 4 sugar) 4 Pra ctic gram powder gram powder gram e for susp in for susp in powder for a packet a packet susp in a Take 1 Take 1 packet packet by packet by Take 1 oral route. oral route. packet by oral route. hydroxyzine hydroxyzine hydroxyzin [facility] HCl 50 mg HCl 50 mg e HCl 50 F amily tablet Take tablet Take mg tablet Practic 1 tablet 1 tablet Take 1 e twice a day twice a day tablet by oral by oral twice a route. route. day by oral route. lactulose lactulose No 15mL Q1D lactulose [facility] 10 gram/15 10 gram/15 10 gram/15 Family mL (15 mL) mL (15 mL) mL (15 mL) Practic oral oral oral e solution solution solution Take 15 mL Take 15 mL Take 15 mL every day every day every day by oral by oral by oral route. route. route. lisinopril lisinopril lisinopril [facility] 20 mg 20 mg 20 mg Family tablet Take tablet Take tablet Practic 1 tablet 1 tablet Take 1 e every day every day tablet by oral by oral every day route. route. by oral route. melatonin melatonin No 1capsul Q1D melatonin [facility] 10 mg 10 mg e(s) 10 mg Family capsule capsule capsule Practi c Take 1 Take 1 Take 1 e capsule capsule capsule every day every day every day by oral by oral by oral route as route as route as needed. needed. needed. metoprolol metoprolol No [address] [facility] tartrate 25 tartrate 25 tartrate Family mg tablet mg tablet 25 mg Prac tic Take 1 Take 1 tablet e tablet tablet Take 1 twice a day twice a day tablet by oral by oral twice a route. route. day by oral route. omeprazole omeprazole No omeprazole [facility] 40 mg 40 mg 40 mg Family capsule,del capsule,del capsule,de Practic ayed ayed layed e release release release Take 1 Take 1 Take 1 capsule capsule capsule every day every day every day by oral by oral by oral route. route. route. ursodiol ursodiol No 1capsul BID ursodiol [facility] 300 mg 300 mg e(s) 300 mg Family capsule capsule capsule Practi c Take 1 Take 1 Take 1 e capsule capsule capsule twice a day twice a day twice a by oral by oral day by route. route. oral route. Vital Signs Vital Name Observation Time Observation Value Comments Source Height 2019-11-04 00:00:00 64 [in_i] [facility] BMI (Body Mass 2019-11-04 00:00:00 14.8 kg/m2 [facility] Practice Body Weight 2019-11-04 00:00:00 86 [lb_av] [facility] Procedures This patient has no known procedures. Encounters Start End Encounter Admission Attending Care Care Encounter Source Date/Time Date/Time Type Type Clinicians Facility Department ID 2020-08-03 2020-08-03 Outpatient [facility] [id number] [facility] 00:00:00 00[facility]00[facility]00 [facility] 2020-07-02 2020-07-02 Outpatient [facility] [id number] [facility] 00:00:00 00[facility]00[facility] 2020-07-01 2020-07-01 Outpatient [facility] [id number] [facility] 00:00:00 00[facility]00:00 [facility] 2020-02-11 2020-02-[address] [facility] [id number] [facility] 13:23:00 13:23:00 2020-01-30 2020-01-[address] [facility] [id number] [facility] 12:38:00 12:38:00 2019-11-04 2019-11-04 Newton Alexander [facility] [place] - [id number] 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 [address] [facility] [email or web address] [address] [phone] , Ph. 2019-09-18 2019-09-18 Salima Corea [facility] [place] - [id number] [facility] 00:00:00 00:00:00 Ige-Odunug [facility] josselyn seay SPOOLING SUPERVISOR: Medical - [place] ho [address] [email or web address] [address] [phone] , Ph. 2019-07-16 2019-07-16 [facility] Radiology [facility] [id number] 16:41:00 23:59:00 Encounter [place] [id number] [place] [id number] [place] [id number] Results This patient has no known results.
--- NOTE | 2020-09-02 14:17 | EDPHYS ---
Physician Documentation [facility] Name: Adilene Vines Age: 65 yrs Sex: Female : 1955 Arrival Date: 09/02/2020 Time: 14:02 Bed Waiting Private MD: ED Physician Tyrese Ferro HPI: 09/02 14:33 This 65 yrs old Female presents to ER via Ambulatory with complaints of Poss kb Shingles. 14:33 The patient's rash thought to be caused by an unknown cause. The rash is located on the kb right jaw and right cheek. The rash can be described as erythematous, vesicular. Onset: The symptoms/episode began/occurred 1 week(s) ago. Associated signs and symptoms: Pertinent positives: burning sensation, itching, Pain. Severity of symptoms: At their worst the symptoms were moderate in the emergency department the symptoms are unchanged. The patient has not experienced similar symptoms in the past. The patient has not recently seen a physician. Historical: - Allergies: 14:13 Bactrim; em 14:13 Levaquin; em 14:13 PENICILLINS; em 14:13 Sulfa (Sulfonamide Antibiotics); em - PMHx: 14:13 Hypertension; Polio; Cirrhosis; em - PSHx: 14:13 Tubal ligation; em - Immunization history:: Adult Immunizations up to date. - Social history:: Smoking status: Patient reports the use of cigarette tobacco products, smokes one pack cigarettes per day. ROS: 14:32 Constitutional: Negative for fever, chills, and weight loss, Eyes: Negative for injury, kb pain, redness, and discharge. 14:32 Skin: Positive for rash, of the right jaw and right cheek. 14:32 All other systems are negative. Exam: 14:31 Constitutional: This is a well developed, well nourished patient who is awake, alert, kb and in no acute distress. Head/Face: Normocephalic, atraumatic. ENT: Moist Mucous membranes Respiratory: Respirations even and unlabored. No increased work of breathing, no retractions or nasal flaring. MS/ Extremity: Pulses equal, no cyanosis. Neurovascular intact. Full, normal range of motion. Neuro: Awake and alert, GCS 15, oriented to person, place, time, and situation. Moves all extremities. Normal gait. Psych: Awake, alert, with orientation to person, place and time. Behavior, mood, and affect are within normal limits. 14:31 Skin: consistent with zoster, on the right cheek and right jaw. Vital Signs: 14:10 BP 203 / 111; Pulse 80; Resp 18; Temp 97.3; Pulse Ox 100% on R/A; Weight 44 kg; Height em 5 ft. 4 in. (162.56 cm); Pain 7/10; 14:10 Body Mass Index 16.65 (44.00 kg, 162.56 cm) em MDM: 14:16 Patient medically screened. kb 14:31 Data reviewed: vital signs, nurses notes. Data interpreted: Pulse oximetry: on room air kb is 100 %. Interpretation: normal. Counseling: I had a detailed discussion with the patient and/or guardian regarding: the historical points, exam findings, and any diagnostic results supporting the discharge/admit diagnosis, the need for outpatient follow up, a family practitioner, to return to the emergency department if symptoms worsen or persist or if there are any questions or concerns that arise at home. Administered Medications: No medications were administered Disposition: 09/03 09:21 Co-signature as Attending Physician, Tyrese Ferro MD I agree with the assessment and derek plan of care. Disposition: 09/02/20 14:16 Discharged to Home. Impression: Zoster [herpes zoster]. - Condition is Stable. - Discharge Instructions: Shingles. - Prescriptions for Prednisone 20 mg Oral Tablet - take 1 tablet by ORAL route once daily for 5 days; 5 tablet. Valtrex 1 g Oral Tablet - take 1 tablet by ORAL route every 8 hours for 7 days; 21 tablet. - Medication Reconciliation Form, Thank You Letter, Antibiotic Education, Prescription Opioid Use form. - Follow up: Emergency Department; When: As needed; Reason: Worsening of condition. Follow up: Private Physician; When: 2 - 3 days; Reason: Recheck today's complaints, Continuance of care, Re-evaluation by your physician. Signatures: Leana Kumari, PACKAGING SUPERVISOR-C PACKAGING SUPERVISOR-Tyrese Kelley MD MD cha Munoz, Edgar, RN RN em Corrections: (The following items were deleted from the chart) 09/02 14:21 14:16 09/02/2020 14:16 Discharged to Home. Impression: Zoster [herpes zoster]. em Condition is Stable. Forms are Medication Reconciliation Form, Thank You Letter, Antibiotic Education, Prescription Opioid Use. Follow up: Emergency Department; When: As needed; Reason: Worsening of condition. Follow up: Private Physician; When: 2 - 3 days; Reason: Recheck today's complaints, Continuance of care, Re-evaluation by your physician. kb
--- NOTE | 2020-09-02 14:17 | ER ---
Nurse's Notes [facility] Name: Adilene Vines Age: 65 yrs Sex: Female : 1955 Arrival Date: 09/02/2020 Time: 14:02 Bed Waiting Private MD: Diagnosis: Zoster [herpes zoster] Presentation: 09/02 14:10 Chief complaint: Patient states: rash that started on face that itches/taylor/stings, em told her to come to the ED for possible shingles, denies fever. Coronavirus screen: Client denies travel out of the [place] in the last 14 days. Ebola Screen: Patient negative for fever greater than or equal to 101.5 degrees Fahrenheit, and additional compatible Ebola Virus Disease symptoms Patient denies exposure to infectious person. Patient denies travel to an Ebola-affected area in the 21 days before illness onset. No symptoms or risks identified at this time. Initial Sepsis Screen: Does the patient meet any 2 criteria? No. Patient's initial sepsis screen is negative. Does the patient have a suspected source of infection? No. Patient's initial sepsis screen is negative. Risk Assessment: Do you want to hurt yourself or someone else? Patient reports no desire to harm self or others. Onset of symptoms was September 02, 2020. 14:10 Method Of Arrival: Ambulatory em 14:10 Acuity: ESAU 4 em Historical: - Allergies: 14:13 Bactrim; em 14:13 Levaquin; em 14:13 PENICILLINS; em 14:13 Sulfa (Sulfonamide Antibiotics); em - PMHx: 14:13 Hypertension; Polio; Cirrhosis; em - PSHx: 14:13 Tubal ligation; em - Immunization history:: Adult Immunizations up to date. - Social history:: Smoking status: Patient reports the use of cigarette tobacco products, smokes one pack cigarettes per day. Screenin:10 Abuse screen: Denies threats or abuse. Nutritional screening: No deficits noted. em Tuberculosis screening: No symptoms or risk factors identified. Fall Risk None identified. Assessment: 14:10 General: Appears in no apparent distress. comfortable, Behavior is calm, cooperative, em appropriate for age, Denies fever. Pain: Complains of pain in face Pain currently is 7 out of 10 on a pain scale. Neuro: Level of Consciousness is awake, alert, obeys commands, Oriented to person, place, time, situation, Denies weakness paresthesias headache. Cardiovascular: Denies chest pain, Capillary refill < 3 seconds Patient's skin is warm and dry. Respiratory: Airway is patent Respiratory effort is even, unlabored, Respiratory pattern is regular, symmetrical. GI: Patient currently denies nausea, vomiting. Derm: Skin is intact, Skin is pink, warm \T\ dry. Rash noted that is itchy, vesicular, on face. Musculoskeletal: Capillary refill < 3 seconds, Range of motion: intact in all extremities. Vital Signs: 14:10 BP 203 / 111; Pulse 80; Resp 18; Temp 97.3; Pulse Ox 100% on R/A; Weight 44 kg; Height em 5 ft. 4 in. (162.56 cm); Pain 7/10; 14:10 Body Mass Index 16.65 (44.00 kg, 162.56 cm) em ED Course: 14:02 Patient arrived in ED. ds1 14:10 Patient has correct armband on for positive identification. em 14:12 Triage completed. em 14:13 Arm band placed on. em 14:13 No provider procedures requiring assistance completed. Patient did not have IV access em during this emergency room visit. 14:15 Leana Kumari FNP-C is [facility]. kb 14:15 Tyrese Ferro MD is Attending Physician. kb Administered Medications: No medications were administered Outcome: 14:13 Discharged to home ambulatory. em 14:13 Condition: good 14:13 Discharge instructions given to patient, Instructed on discharge instructions, follow up and referral plans. medication usage, Demonstrated understanding of instructions, follow-up care, medications, wound care, Prescriptions given X 2. 14:16 Discharge ordered by . kb 14:21 Patient left the ED. em Signatures: Leana Kumari FNP-C FNP-Ckb Munoz, Edgar RN RN Kelly Henderson ds1
[2020-09-02 14:52] VITALS: BP 203/111; TEMP 97.3; O2SAT 100
== END 2020-09-02 14:21 | disposition home or self-care (01) ==
LOC: ER 14:01
DX: B02.9 Zoster without complications (principal); I10 Essential (primary) hypertension; F17.210 Nicotine dependence, cigarettes, uncomplicated; Z88.0 Allergy status to penicillin; Z88.1 Allergy status to other antibiotic agents; Z88.2 Allergy status to sulfonamides
CPT/HCPCS: 99282

== ENCOUNTER 2020-09-14 17:21 | Emergency (ER) | payer OTHER ==
--- OUTSIDE RECORDS SUMMARY | 2020-09-14 17:24 | XMS REPORT | Continuity of Care Document ---
:1955 Author Organization [facility] t Address [address] [place] [address] Care Team Providers Name Role Phone Radiology Attending Clinician Unavailable Problems Condition Condition Condition Status Onset Resolution Last Treating Co mments Source Name Details Category Date Date Treatment Clinician Date Underweigh Underweigh Problem Active 2020-0 [facility] t t 7-13 Family 00:00: Practic 00 e Chronic Chronic Problem Active 2020-0 [facility] insomnia Insomnia - Family 00:00: Practic 00 e At risk At Risk Problem Active 2020-0 [facility] Fami ly 00:00: Practic 00 e Hyperlipid [...] Date Clinician Bactrim Allergy Active Moderate Itching Harris ge to Family substanc Practic e e [...] Date Stop Date Source Light Tobacco Smoker [facility] josselyn Practice Medications Ordered Filled Start [...] needed. atorvastati atorvastati No 1 Q1D atorvastat [facility] n 40 mg n 40 mg in 40 mg Famil y tablet Take tablet Take tablet Practic 1 tablet 1 tablet Take 1 e every day every day tablet by oral by oral every day route. route. by oral route. cholestyram cholestyram No 1packet cholestyra [facility] ine (with ine (with (s) mine (with Family sugar) 4 sugar) 4 sugar) 4 Pra ctic gram powder gram powder gram e for susp in for susp in powder for a packet a packet susp in a Take 1 Take 1 packet packet by packet by Take 1 oral route. oral route. packet by oral route. hydroxyzine hydroxyzine hydroxyzin [facility] HCl 50 mg HCl 50 mg e HCl 50 F amily tablet Take tablet Take mg tablet Practic 1 tablet 1 tablet Take 1 e twice a day twice a day tablet by oral by oral twice a route. route. day by oral route. lactulose lactulose No 15mL Q1D lactulose [facility] 10 gram/15 10 gram/15 10 gram/15 Family mL (15 mL) mL (15 mL) mL (15 mL) Practic oral oral oral e solution solution solution Take 15 mL Take 15 mL Take 15 mL every day every day every day by oral by oral by oral route. route. route. lisinopril lisinopril lisinopril [facility] 20 mg 20 mg 20 mg Family tablet Take tablet Take tablet Practic 1 tablet 1 tablet Take 1 e every day every day tablet by oral by oral every day route. route. by oral route. melatonin melatonin No 1capsul Q1D melatonin [facility] 10 mg 10 mg e(s) 10 mg Family capsule capsule capsule Practi c Take 1 Take 1 Take 1 e capsule capsule capsule every day every day every day by oral by oral by oral route as route as route as needed. needed. needed. metoprolol metoprolol No 1 BID metoprolol [facility] tartrate 25 tartrate 25 tartrate Family mg tablet mg tablet 25 mg Prac tic Take 1 Take 1 tablet e tablet tablet Take 1 twice a day twice a day tablet by oral by oral twice a route. route. day by oral route. omeprazole omeprazole No omeprazole [facility] 40 mg 40 mg 40 mg Family capsule,del capsule,del capsule,de Practic ayed ayed layed e release release release Take 1 Take 1 Take 1 capsule capsule capsule every day every day every day by oral by oral by oral route. route. route. ursodiol ursodiol No 1capsul BID ursodiol [facility] 300 mg 300 mg e(s) 300 mg Family capsule capsule capsule Practi c Take 1 Take 1 Take 1 e capsule capsule capsule twice a day twice a day twice a by oral by oral day by route. route. oral route. Vital Signs Vital Name Observation Time Observation Value Comments Source Height 2019-11-04 00:00:00 64 [in_i] [facility] BMI (Body Mass 2019-11-04 00:00:00 14.8 kg/m2 [facility]) Practice Body Weight 2019-11-04 00:00:00 86 [lb_av] [facility] Procedures This patient has no known procedures. Encounters Start End Encounter Admission Attending Care Care Encounter Source Date/Time Date/Time Type Type Clinicians Facility Department ID 2020-09-02 2020-09-02 Outpatient [facility] [id number] [facility] 00:00:00 [facility]00:00 [facility] 2020-08-03 2020-08-03 Outpatient [facility] [id number] [facility] 00:00:00 00[facility]00:00 [facility] 2020-07-02 2020-07-02 Outpatient [facility] [id number] [facility] St 00:00:00 00[facility]00:00 [facility] 2020-07-01 2020-07-01 Outpatient [facility] [id number] [facility] 00:00:00 00:00:00 [facility] 2020-02-11 2020-02-11 Outpatient [facility] MED [id number] [facility] 13:23:00 13:23:00 2020-01-30 2020-01-30 Outpatient [facility] MED [id number] [facility] 12:38:00 12:38:00 2019-11-04 2019-11-04 Newton Alexander [facility] [place] - [id number] [facility] 00:00:00 00:00:00 Jamaal INSULATION POWER UNIT TENDER: [facility] [address] [facility] - Prac tic [facility] [email or web address] [address] [place] [id number] , Ph. 2019-09-18 2019-09-18 Salima Corea [facility] [place] - [id number] [facility] 00:00:00 00:00:00 Ige-Odunug [facility] josselyn seay NP: Medical - Practi [address] [email or web address] [facility], [address] [id number] , Ph. 2019-07-16 2019-07-16 [facility] Radiology [facility] [id number] 16:41:00 23:59:00 Encounter Camilo [id number] Mike [id number] [place] [id number] Results This patient has no known results.
--- NOTE | 2020-09-14 18:38 | RAD REPORT ---
EXAM DESCRIPTION: RAD - Shoulder Left 2 View - 09/14/2020 6:26 pm CLINICAL HISTORY: Pain;Deformity FINDINGS: Mildly impacted fracture of the proximal left humerus is seen. No dislocation is evident.
--- NOTE | 2020-09-14 19:12 | EDPHYS ---
Physician Documentation [facility] Name: Adilene Vines Age: 65 yrs Sex: Female : 1955 Arrival Date: 09/14/2020 Time: 17:21 Bed 18 Private MD: ED Physician Tyrese Ferro HPI: 09/14 19:08 This 65 yrs old Female presents to ER via Wheelchair with complaints of Fall pm1 Injury, Arm Pain. 19:08 Details of fall: The patient fell from an upright position, while walking. Onset: The pm1 symptoms/episode began/occurred just prior to arrival. Associated injuries: The patient sustained proximal left bicep. Severity of symptoms: in the emergency department the symptoms are unchanged. The patient has not experienced similar symptoms in the past. The patient has not recently seen a physician. Patient with fall prior to arrival. braced her fall with right arm stretched out. No headache, head injury, neck pain, LOC. Historical: - Allergies: 17:56 Levaquin; ca1 17:56 Bactrim; ca1 17:56 PENICILLINS; ca1 17:56 Sulfa (Sulfonamide Antibiotics); ca1 - Home Meds: 17:56 losartan 50 mg Oral tab 1 tab once daily [Active]; metoprolol tartrate 25 mg Oral tab 1 ca1 tab 2 times per day [Active]; 17:57 atorvastatin oral oral [Active]; ca1 - PMHx: 17:56 Cirrhosis; Hypertension; Polio; ca1 17:57 High Cholesterol; ca1 - PSHx: 17:56 Tubal ligation; ca1 - Immunization history:: Client reports receiving the 1st dose of the Covid vaccine, Blaze Pneumococcal vaccine is not up to date, Flu vaccine is not up to date. - Social history:: Smoking status: Patient reports the use of cigarette tobacco products, smokes one pack cigarettes per day. ROS: 19:08 Constitutional: Negative for fever, chills, and weight loss, Cardiovascular: Negative pm1 for chest pain, palpitations, and edema, Respiratory: Negative for shortness of breath, cough, wheezing, and pleuritic chest pain, Abdomen/GI: Negative for abdominal pain, nausea, vomiting, diarrhea, and constipation, Back: Negative for injury and pain. 19:08 Skin: Negative for injury, rash, and discoloration, Neuro: Negative for headache, weakness, numbness, tingling, and seizure. 19:08 MS/extremity: Positive for pain, of the left shoulder, Negative for deformity. Exam: 19:08 Constitutional: This is a well developed, well nourished patient who is awake, alert, pm1 and in no acute distress. Head/Face: Normocephalic, atraumatic. Eyes: Pupils equal round and reactive to light, extra-ocular motions intact. Lids and lashes normal. Conjunctiva and sclera are non-icteric and not injected. Cornea within normal limits. Periorbital areas with no swelling, redness, or edema. ENT: Nares patent. No nasal discharge, no septal abnormalities noted. Tympanic membranes are normal and external auditory canals are clear. Oropharynx with no redness, swelling, or masses, exudates, or evidence of obstruction, uvula midline. Mucous membranes moist. Neck: Trachea midline, no thyromegaly or masses palpated, and no cervical lymphadenopathy. Supple, full range of motion without nuchal rigidity, or vertebral point tenderness. No Meningismus. Chest/axilla: Normal chest wall appearance and motion. Nontender with no deformity. No lesions are appreciated. 19:08 Back: No spinal tenderness. No costovertebral tenderness. Full range of motion. Skin: Warm, dry with normal turgor. Normal color with no rashes, no lesions, and no evidence of cellulitis. 19:08 Cardiovascular: Exam negative for acute changes, Rate: normal, Rhythm: regular, Pulses: no pulse deficits are appreciated. 19:08 Respiratory: Exam negative for acute changes, respiratory distress, shortness of breath. 19:08 Musculoskeletal/extremity: Extremities: grossly normal except: noted in the left bicep: tenderness, There is no evidence of laceration, puncture, the left hand Sensation intact. 19:08 Neuro: Exam negative for acute changes, Orientation: is normal, Mentation: is normal, Motor: is normal, moves all fours. Vital Signs: 17:53 BP 152 / 90; Pulse 70; Resp 18 S; Temp 97.8(TE); Pulse Ox 100% on R/A; Weight 44.45 kg ca1 (R); Height 5 ft. 4 in. (162.56 cm) (R); Pain 8/10; 17:53 Body Mass Index 16.82 (44.45 kg, 162.56 cm) ca1 MDM: 19:02 Patient medically screened. pm1 19:08 Data reviewed: vital signs. Data interpreted: Pulse oximetry: on room air is 100 %. pm1 Interpretation: normal. Counseling: I had a detailed discussion with the patient and/or guardian regarding: the historical points, exam findings, and any diagnostic results supporting the discharge/admit diagnosis, radiology results, the need for outpatient follow up, for definitive care, a orthopedic surgeon, to return to the emergency department if symptoms worsen or persist or if there are any questions or concerns that arise at home. 09/14 17:57 Order name: Shoulder Left (2 View) XRAY; Complete Time: 19:01 ca1 09/14 19:08 Order name: Sling; Complete Time: 19:26 pm1 Administered Medications: 19:23 Drug: traMADol 50 mg Route: PO; jm8 Disposition: 09/15 10:03 Co-signature as Attending Physician, Tyrese Ferro MD I agree with the assessment and derek plan of care. Disposition: 09/14/20 19:11 Discharged to Home. Impression: Mildly impacted fracture of proximal left humerus. - Condition is Stable. - Discharge Instructions: Humerus Fracture Treated With Immobilization, How to Use a Sling. - Prescriptions for Tramadol 50 mg Oral Tablet - take 1 tablet by ORAL route every 8 hours as needed; 12 tablet. - Medication Reconciliation Form, Thank You Letter, Antibiotic Education, Prescription Opioid Use form. - Follow up: Emergency Department; When: As needed; Reason: Worsening of condition. Follow up: Private Physician; When: 2 - 3 days; Reason: Recheck today's complaints, Continuance of care, Re-evaluation by your physician. - Problem is new. - Symptoms have improved. Signatures: Dispatcher [employer] [facility] Tyrese Ferro MD MD cha Marinas, Patrick, NUCLEAR RADIATION ENGINEER NUCLEAR RADIATION ENGINEER pm1 Dulce Ramirez RN RN ca1 Marcos Johnson RN RN jm8 Corrections: (The following items were deleted from the chart) 09/14 19:44 19:11 09/14/2020 19:11 Discharged to Home. Impression: Mildly impacted fracture of jm8 proximal left humerus. Condition is Stable. Forms are Medication Reconciliation Form, Thank You Letter, Antibiotic Education, Prescription Opioid Use. Follow up: Emergency Department; When: As needed; Reason: Worsening of condition. Follow up: Private Physician; When: 2 - 3 days; Reason: Recheck today's complaints, Continuance of care, Re-evaluation by your physician. Problem is new. Symptoms have improved. pm1
--- NOTE | 2020-09-14 19:12 | ER ---
Nurse's Notes [facility] Name: Adilene Vines Age: 65 yrs Sex: Female : 1955 Arrival Date: 09/14/2020 Time: 17:21 Bed 18 Private MD: Diagnosis: Mildly impacted fracture of proximal left humerus Presentation: 09/14 17:53 Chief complaint: Patient states: Slipped and fell 3 - 4 hrs [employer]. Swelling and pain on L ca1 shoulder. Denies LOC. Denies hitting head. Coronavirus screen: Client denies travel out of the [place] in the last 14 days. At this time, the client does not indicate any symptoms associated with coronavirus-19. Ebola Screen: Patient negative for fever greater than or equal to 101.5 degrees Fahrenheit, and additional compatible Ebola Virus Disease symptoms Patient denies exposure to infectious person. Patient denies travel to an Ebola-affected area in the 21 days before illness onset. No symptoms or risks identified at this time. Initial Sepsis Screen: Does the patient meet any 2 criteria? No. Patient's initial sepsis screen is negative. Does the patient have a suspected source of infection? No. Patient's initial sepsis screen is negative. Risk Assessment: Do you want to hurt yourself or someone else? Patient reports no desire to harm self or others. Onset of symptoms was September 14, 2020. 17:53 Method Of Arrival: Wheelchair ca1 17:53 Acuity: ESAU 3 ca1 Historical: - Allergies: 17:56 Levaquin; ca1 17:56 Bactrim; ca1 17:56 PENICILLINS; ca1 17:56 Sulfa (Sulfonamide Antibiotics); ca1 - Home Meds: 17:56 losartan 50 mg Oral tab 1 tab once daily [Active]; metoprolol tartrate 25 mg Oral tab 1 ca1 tab 2 times per day [Active]; 17:57 atorvastatin oral oral [Active]; ca1 - PMHx: 17:56 Cirrhosis; Hypertension; Polio; ca1 17:57 High Cholesterol; ca1 - PSHx: 17:56 Tubal ligation; ca1 - Immunization history:: Client reports receiving the 1st dose of the Covid vaccine, [place] Pneumococcal vaccine is not up to date, Flu vaccine is not up to date. - Social history:: Smoking status: Patient reports the use of cigarette tobacco products, smokes one pack cigarettes per day. Screenin:42 Abuse screen: Denies threats or abuse. Denies injuries from another. Nutritional jm8 screening: No deficits noted. Tuberculosis screening: No symptoms or risk factors identified. Fall Risk Fall in past 12 months (25 points). Assessment: 19:38 General: Appears in no apparent distress. uncomfortable, Behavior is calm, cooperative, jm8 appropriate for age. Pain: Complains of pain in left shoulder Pain began 3 hours ago. Aggravated by repositioning, weight bearing. Neuro: No deficits noted. Level of Consciousness is awake, alert, obeys commands, Oriented to person, place, time. Cardiovascular: No deficits noted. Respiratory: No deficits noted. Reports Airway is patent Trachea midline Respiratory effort is even, unlabored, Respiratory pattern is regular, symmetrical. GI: No deficits noted. No signs and/or symptoms were reported involving the gastrointestinal system. : No deficits noted. No signs and/or symptoms were reported regarding the genitourinary system. EENT: No deficits noted. No signs and/or symptoms were reported regarding the EENT system. Derm: No deficits noted. No signs and/or symptoms reported regarding the dermatologic system. Musculoskeletal: Range of motion: limited in left shoulder and left elbow Bony deformity noted of left shoulder Swelling present in left shoulder. Vital Signs: 17:53 BP 152 / 90; Pulse 70; Resp 18 S; Temp 97.8(TE); Pulse Ox 100% on R/A; Weight 44.45 kg ca1 (R); Height 5 ft. 4 in. (162.56 cm) (R); Pain 8/10; 17:53 Body Mass Index 16.82 (44.45 kg, 162.56 cm) ca1 ED Course: 17:21 Patient arrived in ED. as 17:55 Triage completed. ca1 17:56 Arm band placed on right wrist. ca1 17:56 Affected limb iced. ca1 18:15 Patient placed in an exam room, on a stretcher. ll1 18:26 Shoulder Left (2 View) XRAY In Process Unspecified. EDMS 18:41 Nancy Lang RN is Primary Nurse. jl7 19:00 Ronal Cormier NP is PHCP. pm1 19:00 Tyrese Ferro MD is Attending Physician. pm1 19:42 Patient has correct armband on for positive identification. Bed in low position. Call jm8 light in reach. Side rails up X2. 19:42 No provider procedures requiring assistance completed. Patient did not have IV access jm8 during this emergency room visit. Administered Medications: 19:23 Drug: traMADol 50 mg Route: PO; jm8 Outcome: 19:11 Discharge ordered by . pm1 19:43 Discharged to home ambulatory, with family. jm8 19:43 Condition: good 19:43 Discharge instructions given to patient, Instructed on discharge instructions, follow up and referral plans. medication usage, Demonstrated understanding of instructions, follow-up care, medications. 19:44 Patient left the ED. jm8 Signatures: Dispatcher [employer] EDMS Esther Johnson Patrick, SHARIFA PAPER FINAL INSPECTOR pm1 Nancy Lang RN RN jl7 Dulce Ramirez RN RN ca1 Odessa Whitman RN RN ll1 Marcos Johnson RN RN jm8 Corrections: (The following items were deleted from the chart) 19:42 19:38 Pain: Complains of pain in left shoulder Pain currently is 10 out of 10 on a pain jm8 scale. Pain began 1 hour ago. Aggravated by repositioning, weight bearing, jm8
[2020-09-14] MEDS ORDERED: TRAMADOL HCL 50 MG TAB ONE (19:37)
[2020-09-14 20:31] VITALS: BP 152/90; TEMP 97.8; O2SAT 100
== END 2020-09-14 19:44 | disposition home or self-care (01) ==
LOC: ER 17:21
DX: S42.202A Unspecified fracture of upper end of left humerus, initial encounter for closed fracture (principal); I10 Essential (primary) hypertension; E78.00 Pure hypercholesterolemia, unspecified; F17.210 Nicotine dependence, cigarettes, uncomplicated; W19.XXXA Unspecified fall, initial encounter; Y93.01 Activity, walking, marching and hiking; Z88.0 Allergy status to penicillin; Z88.1 Allergy status to other antibiotic agents; Z88.2 Allergy status to sulfonamides
CPT/HCPCS: 99283

== ENCOUNTER 2020-10-10 13:32 | Emergency (ER) | payer OTHER ==
--- OUTSIDE RECORDS SUMMARY | 2020-10-10 13:35 | XMS REPORT | Continuity of Care Document ---
:1955 Author Organization [facility] t Address [address] [place] [address] Care Team Providers Name Role Phone Mena Russo Attending Clinician Radiology Attending Clinician Unavailable Problems Condition Condition Condition Status Onset Resolution Last Treating Co mments Source Name Details Category Date Date Treatment Clinician Date LAB Diagnosis Active 2019-042020-02-11 Mem oria 0-20 13:31:00 l LABH 00:00: Keldron 00 Active 02/11/2020 [facility] Diagnosis Active 2019-042020-09-29 Mem oria VISIT 0-09 14:02:00 l CLINIC 00:00: Keldron VISIT 00 Active 01/31/2020 [facility] K74.60 - Diagnosis Active 2019-11-18 M emoria UNSPECIFIE 11-03 13:56:00 l D K74.60 - 00:01: Celso jacobs CIRRHOSIS UNSPECIFIE 00 OF LIVER D CIRRHOSIS OF LIVER Active 11/04/2019 [facility] Donn Underweigh Underweigh Problem Active 2020- V illage t t 7- Family 00:00: Practic 00 e Chronic Chronic Problem Active 2019- [place] insomnia Insomnia - Family 00:00: Practic 00 e At risk At Risk Problem Active 2019- [place] for falls for Falls 09-18 Fami ly 00:00: Practic 00 e Gastroesop Gastroesop Problem Active 2019- V illage hageal hageal 09-17 Family reflux Reflux 00:00: Practic disease Disease 00 e Arthritis Arthritis Problem Active 2020- Roshni debora -27 Family 00:00: Practic 00 e NEW Diagnosis Active 2019-10-28 Mem oria ENCOUTNER/ 09-07 12:31:00 l REFERRAL NEW 00:00: Donn ENCOUTNER/ 00 REFERRAL Active 09/08/2019 [facility] Cirrhosis Problem Active 2020-02-20 Me moria of liver 23:55:53 l (disorder) Celso jacobs Cirrhosis of liver (disorder) Active Problem 02/20/2020 [facility] EDDC Esophageal Problem Active 2020-02-20 M emoria varices 23:55:53 l (disorder) Celso n Esophageal varices (disorder) Active Problem 02/20/2020 [facility] Hyperlipid Problem Active 2020-02-20 M emoria emia 23:55:53 l (disorder) Celso jacobs Hyperlipid emia (disorder) Active Problem 02/20/2020 [facility] EDPR Hypertensi Problem Active 2020-02-20 M emoria ve 23:55:53 l disorder, Donn systemic Hypertensi arterial ve (disorder) disorder, systemic arterial (disorder) Active Problem 02/20/2020 [facility] EDPR Portal Problem Active 2020-02-20 Memor ia hypertensi 23:55:53 l on Portal Donn (disorder) hypertensi on (disorder) Active Problem 02/20/2020 [facility] Primary Problem Active 2020-02-20 Lew janneth biliary 23:55:53 l cirrhosis Primary Herm lois (disorder) biliary cirrhosis (disorder) Active Problem 02/20/2020 [facility] EDPR PERSONS Diagnosis Active 2020-02-11 Az moria ENCOUNTERI 13:31:00 l NG HEALTH PERSONS Herm lois SERVICES ENCOUNTERI IN HEALTH SERVICES IN Active [facility] Imaging of Problem Resolve 2020-02-20 2020-02-20 Memoria genitourin d 7-14 23:55:53 23:55:53 l gary system Imaging 00:00: Her calvert abnormal of 00 (finding) genitourin gary system abnormal (finding) Resolved 11/05/2019 Problem 02/20/2020 [facility] EDPR Allergies, Adverse Reactions, Alerts Allergy Allergy Status [...] MIDE substanc Practic ANTIBIOT e e ICS) penicill penicill Active Memori a ins<sup> ins<sup> l 1</sup> 1</sup> Donn sulfa sulfa Active Memoria drugs<sheth drugs<sheth l p>2</sup p>2</sup Celso n > > Levaquin Levaquin Active Memori a <sup>3</ <sup>3</ l sup> sup> Donn Bactrim< Bactrim< Active Memori a sup>4</s sup>4</s l up> up> Donn Social History Social Habit Start Date Stop Date Quantity Comments Source Social History 2019-10-28 2019-10-28 [facility] ermann 19:06:57 19:06:57 Smoking Status Start Date Stop Date Source Light Tobacco Smoker [facility] Medications Ordered Filled Start Stop Current Ordering Indication Dosage Frequency Signature Comments Components Source Medication Medication Date Date Medication? Clinician (SIG) Name Name obeticholic 2019-04 Yes See Memori a acid 5 mg 0-27 Instructio l oral tablet 18:58: ns, 1 tab H ermann 00 PO three times per week, # 36 tab, 3 Refill(s), Pharmacy: [facility] [place], 162.56, cm, 01/30/20 12:37:00 CDT, Height, 41.136, kg, 01/30/20 12:37:00 CDT, Weight Melatonin 5 2019-04 Yes 5 mg = 1 Me moria MG 0-08 tab, SL, l Sublingual 17:47: Bedtime, 0 H ermann Tablet 00 Refill(s) acetaminoph acetaminoph No 1 Q6H acetaminop [place] [...] needed. atorvastati atorvastati No 1 Q1D atorvastat [facility] n 40 mg n 40 mg in 40 mg Famil y tablet Take tablet Take tablet Practic 1 tablet 1 tablet Take 1 e every day every day tablet by oral by oral every day route. route. by oral route. cholestyram cholestyram No 1packet cholestyra [place] ine (with ine (with (s) mine (with Family sugar) 4 sugar) 4 sugar) 4 Pra ctic gram powder gram powder gram e for susp in for susp in powder for a packet a packet susp in a Take 1 Take 1 packet packet by packet by Take 1 oral route. oral route. packet by oral route. hydroxyzine hydroxyzine No hydroxyzin [place] HCl 50 mg HCl 50 mg e HCl 50 F amily tablet Take tablet Take mg tablet Practic 1 tablet 1 tablet Take 1 e twice a day twice a day tablet by oral by oral twice a route. route. day by oral route. lactulose lactulose No 15mL Q1D lactulose [facility] 10 gram/15 10 gram/15 10 gram/15 Family mL (15 mL) mL (15 mL) mL (15 mL) Practic oral oral oral e solution solution solution Take 15 mL Take 15 mL Take 15 mL every day every day every day by oral by oral by oral route. route. route. lisinopril lisinopril No lisinopril [facility] 20 mg 20 mg 20 mg Family tablet Take tablet Take tablet Practic 1 tablet 1 tablet Take 1 e every day every day tablet by oral by oral every day route. route. by oral route. melatonin melatonin No 1capsul Q1D melatonin [facility] 10 mg 10 mg e(s) 10 mg Family capsule capsule capsule Practi c Take 1 Take 1 Take 1 e capsule capsule capsule every day every day every day by oral by oral by oral route as route as route as needed. needed. needed. metoprolol metoprolol No 1 BID metoprolol [facility] tartrate 25 tartrate 25 tartrate Family mg tablet mg tablet 25 mg Prac tic Take 1 Take 1 tablet e tablet tablet Take 1 twice a day twice a day tablet by oral by oral twice a route. route. day by oral route. omeprazole omeprazole omeprazole [facility] 40 mg 40 mg 40 mg Family capsule,del capsule,del capsule,de Practic ayed ayed layed e release release release Take 1 Take 1 Take 1 capsule capsule capsule every day every day every day by oral by oral by oral route. route. route. ursodiol ursodiol No 1capsul BID ursodiol [place] 300 mg 300 mg e(s) 300 mg Family capsule capsule capsule Practi c Take 1 Take 1 Take 1 e capsule capsule capsule twice a day twice a day twice a by oral by oral day by route. route. oral route. Vital Signs Vital Name Observation Time Observation Value Comments Source Height 2019-11-04 00:00:00 64 [in_i] [facility] BMI (Body Mass 2019-11-04 00:00:00 14.8 kg/m2 [facility] Family Index) Practice Body Weight 2019-11-04 00:00:00 86 [lb_av] [facility] Height 2020-01-30 17:37:00 162.56 cm Petra Pop Weight 2020-01-30 17:37:00 Petra Pop BMI Calculated 2020-01-30 17:37:00 Yvonne Johansen Procedures Procedure Date / Time Performed Performing Clinician [place] e EGD 2019-12-16 05:00:00 Petra calvert (esophagogastroduodenosco py) gastric outlet reduction Colonoscopy 2019-12-06 05:00:00 Petra calvert Biopsy 2019-01-16 05:00:00 Petra calvert MRI Petra Pop Ultrasound [facility] Donn Encounters Start End Encounter Admission Attending Care Care Encounter Source Date/Time Date/Time Type Type Clinicians Facility Department ID 2020-09-29 Outpatient [facility] MED [id number] 14:00:11 2020-09-02 2020-09-02 Outpatient [facility] [id number] 2020-08-03 2020-08-03 Outpatient [facility] [id number] [facility] 2020-07-02 2020-07-02 Outpatient [facility] [id number] [facility] 2020-07-01 2020-07-01 Outpatient [facility] [id number] [facility] 2020-02-17 2020-02-18 Outpatient [id number] 14:12:51 23:59:59 00 2020-02-11 2020-02-11 Outpatient Russo, [facility] [id number] 13:23:00 23:59:00 Shira 94 Mena 2020-02-11 2020-02-11 Outpatient [facility] MED [id number] [facility] 13:23:00 13:23:00 2020-01-30 2020-01-30 Outpatient Russo, [facility] [id number] 12:38:00 23:59:00 Shira 00 Mena 2020-01-30 2020-01-30 Outpatient [facility] MED [id number] [facility] 12:38:00 12:38:00 2019-11-04 2019-11-04 Newton Alexander [facility] [place] - [id number] [facility] 00:00:00 00:00:00 Jamaal VISUAL DEVELOPER: [facility] [address] [facility], [facility] [email or web address] [address] [place] [phone] , Ph. 2019-09-18 2019-09-18 Salima Corea [facility] [place] [id number] [facility] 00:00:00 00:00:00 [facility]ena VISUAL DEVELOPER: Medical - Practi c [address] [email or web address] [facility], [address] [address] , Ph. 2019-07-16 2019-07-[address] [facility] [id number] 16:41:00 23:59:00 Encounter [place] [id number] [place] [id number] [place] [id number] Results Test Description Test Time Test Comments Results Result Comments Source CHEM PANEL 2020-01-30 19:50:00 Test Item Value Reference Range Interpretation Comme nts A/G Ratio (test code = A/G Ratio) 0.7 1 0.7-1.6 [facility]UAOVUIBTJH6330-71-44 19:[facility].2[facility] 2020-01-30 19:50:0016.4[facility] XcthcyyXZHEWACRYK9107-36-12 19:50:0011.5[facility] CdxulpoVCFFIIZVMI6982-99-46 19:50:005.0[facility] VgydcgvOOCFBYKVOG6394-03-00 19:50:000.9[facility] GqislooHHVPTOONGZ5969-31-77 19:50:003.4[facility] Keldron [id number] 19:50:000.8[facility] OfwbkklENJVQDENUO6227-07-56 19:50:000.6 [facility] NingofeEAOAXXYLAC3955-21-25 19:50:000.3[facility]ann[facility]OLOGY 2020-01-30 19:50:005.1[facility] VpltxrvRKBAKAFASG3617-68-58 19:50:004.48[facility] OwvriqoIGOMEVNWWR2256-43-02 19:50:0012.5[facility] KfnhgpeNPYJLMONOK4738-09-75 19:50:0038.5[facility] GobytnkFMAVQDVMNQ6119-65-06 19:50:0086.0[facility] Donn [id number] 19:50:00 Test Item Value Reference Range Interpretation Comments MCH (test code = MCH) 28.0 pg 27.0-31.0 [facility] IdcgoaiSEHNQSUFOY0602-47-35 19:50:0032.5[facility]ann[facility]OLOGY 2020-01-30 19:50:0020.2[facility] UrwhdtuXGIQGTSBSJ3323-63-83 19:50:40789Biikdnwl UbkbmcjSEAEATGTOU1397-30-02 19:50:009.4[facility] MojzetiAQCEFNOXJM7463-32-83 19:50:00 Test Item Value Reference Range Interpretation Comments PT (test code = PT) 12.4 s 12.0-14.7 [facility] FdjwseuPVMMFKVVVC2513-84-09 19:50:00 Test Item Value Reference Range Interpretation Comments INR (test code = INR) 0.92 1 0.85-1.17 [facility]annTUMOR [id number] 19:50:003.6[facility]annCHEM PANEL 2020-01-30 19:50:0082[facility] HermannCHEM [id number] 19:50:009[facility] HermannCHEM [id number] 19:50:000.73[facility]annCHEM [id number] 19:50:00973Zfmemadf HermannCHEM LZBWE9536-83-11 19:50:004.4[facility] HermannCHEM [id number] 19:50:17415Ndqdvvig HermannCHEM YFKEZ6079-59-40 19:50:0027 [facility]annCHEM [id number] 19:50:009.1[facility]annCHEM PANEL 2020-01-30 19:50:009.4[facility]annCHEM [id number] 19:50:0086[facility]annCHEM [id number] 19:50:008.2[facility]annCHEM [id number] 19:50:003.3[facility]annCHEM [id number] 19:50:0037[facility]annCHEM [id number] 19:50:0059[facility]annCHEM [id number] 19:50:74052 [facility]annCHE[facility] UXMJI0112-22-11 19:50:002.0[facility]annCHEM PANEL 2020-01-30 19:50:001.6[facility] HermannCHEM [id number] 19:50:000.4[facility] HermannCHEM [id number] 19:50:004.9[facility] Keldron
--- NOTE | 2020-10-10 14:14 | RAD REPORT ---
EXAM DESCRIPTION: Gay Single View10/10/2020 1:54 pm CLINICAL HISTORY: Shortness of breath COMPARISON: 2014 FINDINGS: Small bilateral pleural effusions with mild bibasilar atelectasis. Upper lobes appear clear. Heart is normal size. Old left humeral fracture
[2020-10-10] MEDS ORDERED: NA CHLORIDE 0.9% 1,000 ML ONE (14:48)
[2020-10-10] MEDS ORDERED: CEFTRIAXONE/SWI 1gm 1 GM/10 ML SYR ONE (14:48)
[2020-10-10 15:20] LABS: Absolute Lymphocytes (CBC) 3.1 K/uL (0.7-4.9); Basophils % 0.1 % (0-1.3); Hematocrit 36.2 % (36.0-45.0); Lymphocytes % 21.2 % (15.3-44.8); MPV 9.1 fL (7.6-11.3); RBC Red Blood Cell Count 3.98 M/uL (3.86-4.86)
[2020-10-10 15:29] LABS: Protime INR 1.04
[2020-10-10 15:45] LABS: Bilirubin Direct 5.1 mg/dL (0-0.2); CKMB Creatine Kinase MB 2.3 ng/mL (1.0-3.6); Protein, Total 6.2 g/dL (6.4-8.2); Troponin (Emerg Dept Use Only) 0.22 ng/mL (0.0-0.045)
[2020-10-10 15:46] LABS: Potassium 2.9 mmol/L (3.5-5.1)
[2020-10-10 15:47] LABS: Bilirubin Total 5.7 mg/dL (0.2-1.0)
[2020-10-10] MEDS ORDERED: D50W 50 ML IV ONE (15:55)
[2020-10-10] MEDS ORDERED: D5 0.45 NS 1,000 ML IV ONE ×2 (15:56→22:07)
[2020-10-10] MEDS ORDERED: KCL 20 MEQ/100 mL IVPB 20 MEQ/100 ML BAG IV ONE ×2 (16:25→19:50)
[2020-10-10] MEDS ORDERED: METRONIDAZOLE 500mg IVPB 500 MG/100 ML BAG IV ONE (16:26)
[2020-10-10 16:33] LABS: Thyroid Stimulating Hormone 1.59 uIU/mL (0.360-3.740)
[2020-10-10 16:39] LABS: Urine Blood Negative (Negative); Urine Glucose Trace (Negative); Urine Protein Trace (Negative); Urine Specific Gravity 1.015 (1.005-1.030)
[2020-10-10 16:41] LABS: Platelet Estimate DECR; Toxic Granulation PRESENT
[2020-10-10 16:43] LABS: Anisocytosis 1+; Blood Morphology Comment NOTED (NOT SEEN); Polychromasia SLIGHT
--- NOTE | 2020-10-10 17:05 | RAD REPORT ---
EXAM DESCRIPTION: US - Abdomen Exam Limited - 10/10/2020 4:44 pm CLINICAL HISTORY: Abdominal pain. COMPARISON: 2019 FINDINGS: Small stone within the neck the gallbladder. The gallbladder wall is not thickened. Common bile duct measures millimeters. Liver has a nodular contour. Hepatopetal flow Tiny amount of ascites IMPRESSION: Cholelithiasis Mild dilatation of the common bile duct may indicate a nonvisualized stone within the duct. Liver has a nodular contour probably indicating cirrhosis.
[2020-10-10] MEDS ORDERED: NOREPINEPHRINE 4mg/D5W 250mL 4 MG/250 ML BAG IV ONE (17:20)
[2020-10-10] MEDS ORDERED: NA CHLORIDE 0.9% 250 ML ONE (18:30)
[2020-10-10] MEDS ORDERED: VANCOMYCIN 1 GM/VIAL ONE (18:30)
[2020-10-10] MEDS ORDERED: ONDANSETRON 4 MG/2 ML VIAL ONE (19:07)
[2020-10-10] MEDS ORDERED: FENTANYL CITR 100 MCG/2 ML ONE (19:07)
--- NOTE | 2020-10-10 20:55 | EDPHYS ---
Physician Documentation [facility] Name: Adilene Vines Age: 65 yrs Sex: Female : 1955 Arrival Date: 10/10/2020 Time: 13:35 Bed 4 Private MD: ED Physician Maximino Silva HPI: 10/10 13:39 This 65 yrs old Female presents to ER via Unassigned with complaints of Low ma2 Blood Sugar, Blood Pressure Problem. 13:39 Onset: The symptoms/episode began/occurred gradually, 3 hour(s) ago. Associated signs ma2 and symptoms: Pertinent negatives: anorexia, diarrhea, dry skin. The patient has experienced similar episodes in the past. here with weakness and bp was 80/50 by ems, feels lightheaded, bs was low, does not take any hypoglycemics. Historical: - Allergies: 13:45 Bactrim; ph 13:45 Levaquin; ph 13:45 PENICILLINS; ph 13:45 Sulfa (Sulfonamide Antibiotics); ph - Home Meds: 13:45 atorvastatin 40 mg oral tab 1 tab [Active]; ursodiol 300 mg Oral cap 1 cap 2 times per ph day [Active]; omeprazole 40 mg Oral cpDR 1 cap once daily [Active]; hydroxyzine HCl 50 mg Oral tab 1 tab 4 times per day for Urticaria [Active]; lisinopril-hydrochlorothiazide 10-12.5 mg oral tab 1 tab once daily [Active]; benzonatate 100 mg oral cap 1 cap 3 times per day [Active]; metoprolol tartrate 25 mg Oral tab 1 tab 2 times per day [Active]; Tylenol-Codeine #3 300-30 mg oral tab 1 tab every 4-6 hours [Active]; - PMHx: 13:45 Cirrhosis; High Cholesterol; Hypertension; Polio; ph - PSHx: 13:45 Tubal ligation; ph - Immunization history:: Client reports receiving the 1st dose of the Covid vaccine, Nba and Nba vaccine. - Social history:: The patient lives alone, Smoking status: Patient reports the use of cigarette tobacco products, smokes one pack cigarettes per day. Patient/guardian denies using alcohol, street drugs. ROS: 13:39 Constitutional: Negative for fever, chills, and weight loss. ma2 13:39 All other systems are negative. Exam: 13:39 Constitutional: This is a well developed, well nourished patient who is awake, alert, ma2 and in no acute distress. Head/Face: Normocephalic, atraumatic. Eyes: Pupils equal round and reactive to light, extra-ocular motions intact. Lids and lashes normal. Conjunctiva and sclera are non-icteric and not injected. Cornea within normal limits. Periorbital areas with no swelling, redness, or edema. ENT: Nares patent. No nasal discharge, no septal abnormalities noted. Tympanic membranes are normal and external auditory canals are clear. Oropharynx with no redness, swelling, or masses, exudates, or evidence of obstruction, uvula midline. Mucous membranes moist. Neck: Trachea midline, no thyromegaly or masses palpated, and no cervical lymphadenopathy. Supple, full range of motion without nuchal rigidity, or vertebral point tenderness. No Meningismus. Chest/axilla: Normal chest wall appearance and motion. Nontender with no deformity. No lesions are appreciated. Cardiovascular: Regular rate and rhythm with a normal S1 and S2. No gallops, murmurs, or rubs. Normal PMI, no JVD. No pulse deficits. Respiratory: Lungs have equal breath sounds bilaterally, clear to auscultation and percussion. No rales, rhonchi or wheezes noted. No increased work of breathing, no retractions or nasal flaring. Abdomen/GI: Soft, non-tender, with normal bowel sounds. No distension or tympany. No guarding or rebound. No evidence of tenderness throughout. Back: No spinal tenderness. No costovertebral tenderness. Full range of motion. Female : Normal external genitalia. MS/ Extremity: Pulses equal, no cyanosis. Neurovascular intact. Full, normal range of motion. Neuro: Awake and alert, GCS 15, oriented to person, place, time, and situation. Cranial nerves II-XII grossly intact. Motor strength 5/5 in all extremities. Sensory grossly intact. Cerebellar exam normal. Normal gait. Vital Signs: 13:36 BP 84 / 53; Pulse 77; Resp 18; Temp 97.3; Pulse Ox 98% on R/A; Weight 40.82 kg; Height ph 5 ft. 4 in. (162.56 cm); 14:30 BP 71 / 52; Pulse 86; Resp 16; Pulse Ox 92% on R/A; ph 15:00 BP 67 / 44; Pulse 82; Resp 14; Pulse Ox 94% on R/A; ph 15:34 BP 85 / 62; Pulse 89; Resp 18; Pulse Ox 95% on R/A; ph 15:53 BP 74 / 48; Pulse 87; Resp 18; Pulse Ox 98% on 3 lpm NC; ph 16:21 BP 82 / 64; Pulse 95; Resp 19; Pulse Ox 97% on 3 lpm NC; ph 16:38 BP 80 / 48; Pulse 88; Resp 16; Pulse Ox 98% on 3 lpm NC; ph 17:00 BP 78 / 52; Pulse 86; Resp 18; Pulse Ox 96% on 3 lpm NC; ph 17:30 BP 72 / 48; Pulse 89; Resp 16; Pulse Ox 98% on 3 lpm NC; ph 18:00 BP 81 / 54; Pulse 85; Resp 18; Pulse Ox 100% on 3 lpm NC; ph 18:30 BP 79 / 55; Pulse 81; Resp 16; Pulse Ox 98% on 3 lpm NC; ph 19:07 BP 70 / 50; Pulse 83; Resp 18; Pulse Ox 97% on 3 lpm NC; ph 19:25 BP 80 / 55; Pulse 86; Resp 12; Temp 98(O); Pulse Ox 99% on 2 lpm NC; lp1 19:45 BP 93 / 52; Pulse 87; Resp 16; Pulse Ox 100% on 3 lpm NC; mw2 20:15 BP 100 / 58; Pulse 83; Resp 15; Pulse Ox 98% on 2 lpm NC; lp1 20:30 BP 106 / 56; Pulse 86; Resp 15; Pulse Ox 99% on 2 lpm NC; lp1 20:45 BP 116 / 62; Pulse 88; Resp 17; Pulse Ox 98% on 2 lpm NC; lp1 21:00 BP 105 / 57; Pulse 82; Resp 13; Pulse Ox 99% on 2 lpm NC; lp1 21:30 BP 106 / 60; Pulse 88; Resp 17; Pulse Ox 100% on 2 lpm NC; lp1 21:58 BP 104 / 53; Pulse 86; Resp 19; Pulse Ox 99% on 2 lpm NC; lp1 22:05 BP 113 / 55; Pulse 86; Resp 17; Pulse Ox 99% on 2 lpm NC; lp1 13:36 Body Mass Index 15.45 (40.82 kg, 162.56 cm) ph Procedures: 18:18 Central Line: the site was prepped with Betadine, in sterile fashion, a triple lumen ma2 catheter was inserted, in the right femoral vein, in 2 attempts. placement was verified, by blood return, the site was dressed with 4X4s, Tegaderm, using sterile technique, the patient tolerated the procedure, well. MDM: 13:39 Differential diagnosis: DKA, hyperglycemia, hyperthyroidism, hypoglycemic episode, ma2 hypothyroidism. 13:42 Patient medically screened. ut2 20:50 Data reviewed: vital signs, nurses notes, old medical records, lab test result(s), [facility] cardiac enzymes, CBC, electrolytes, urinalysis, EKG, radiologic studies, plain films, ultrasound. Data interpreted: Pulse oximetry: on room air is 100 %. Interpretation: normal. Counseling: I had a detailed discussion with the patient and/or guardian regarding: the historical points, exam findings, and any diagnostic results supporting the discharge/admit diagnosis, lab results, radiology results, the need to transfer to another facility, for higher level of care, [facility] does not immediately have the required specialist. Response to treatment: the patient's symptoms have mildly improved after treatment. 10/10 13:39 Order name: C-Reactive Protein [facility] 10/10 13:39 Order name: Amylase, Serum [facility] 10/10 13:39 Order name: Basic Metabolic Panel [facility] 10/10 13:39 Order name: Blood Culture Adult (2) [facility] 10/10 13:39 Order name: CBC with Diff [facility] 10/10 13:39 Order name: Ckmb [facility] 10/10 13:39 Order name: CPK [facility] 10/10 13:39 Order name: Lactate [facility] 10/10 13:39 Order name: LFT's [facility] 10/10 13:39 Order name: Lipase; Complete Time: 15:48 [facility] 10/10 13:39 Order name: Procalcitonin; Complete Time: 18:03 [facility] 10/10 13:39 Order name: Protime (+inr); Complete Time: 15:48 [facility] 10/10 13:39 Order name: Ptt, Activated; Complete Time: 15:48 [facility] 10/10 13:39 Order name: Troponin (emerg Dept Use Only); Complete Time: 15:48 ut2 10/10 13:39 Order name: C-Reactive Protein; Complete Time: 15:48 EDMS 10/10 13:39 Order name: Amylase; Complete Time: 15:48 [facility] 10/10 13:40 Order name: Basic Metabolic Panel; Complete Time: 15:48 EDMS 10/10 13:40 Order name: Blood Culture EDAL 10/10 13:40 Order name: CBC with Automated Diff; Complete Time: 18:03 MS 10/10 13:40 Order name: CKMB Creatine Kinase MB; Complete Time: 15:48 EDMS 10/10 13:40 Order name: Creatine Phosphokinase; Complete Time: 15:48 [facility] 10/10 13:40 Order name: Lactate; Complete Time: 15:27 [facility] 10/10 13:40 Order name: Liver (Hepatic) Function; Complete Time: 15:48 [facility] 10/10 13:41 Order name: TSH; Complete Time: 18:03 [facility] 10/10 13:41 Order name: T4 Free; Complete Time: 18:03 ut10/10 13:51 Order name: Glucose, Ancillary Testing; Complete Time: 14:12 [facility] 10/10 15:46 Order name: Glucose, Ancillary Testing [facility] 10/10 15:55 Order name: SARS-COV-2 RT PCR; Complete Time: 16:29 [facility] 10/10 13:39 Order name: Chest Single View XRAY; Complete Time: 15:27 [facility] 10/10 13:39 Order name: Accucheck; Complete Time: 13:48 [facility] 10/10 13:39 Order name: Cardiac monitoring; Complete Time: 13:48 [facility] 10/10 13:39 Order name: EKG - Nurse/Tech; Complete Time: 13:48 ut10/10 13:39 Order name: IV Saline Lock - Large Bore; Complete Time: 15:50 ut10/10 13:39 Order name: Labs collected and sent; Complete Time: 15:50 [facility] 10/10 13:39 Order name: O2 Per Protocol; Complete Time: 13:48 ut10/10 13:39 Order name: O2 Sat Monitoring; Complete Time: 13:48 [facility] 10/10 13:39 Order name: Urine Dipstick-Ancillary (obtain specimen); Complete Time: 16:37 ma2 10/10 15:51 Order name: US Abdomen Limited; Complete Time: 18:03 ma2 10/10 16:38 Order name: Urine Dipstick-Ancillary; Complete Time: 18:03 EDMS 10/10 16:41 Order name: Manual Differential; Complete Time: 18:03 EDMS 10/10 18:45 Order name: Lactate Sepsis 2 HR Follow-up; Complete Time: 19:19 EDMS 10/10 19:31 Order name: Glucose, Ancillary Testing; Complete Time: 19:49 EDMS Administered Medications: 14:55 Drug: NS 0.9% (30 ml/kg) 30 ml/kg Route: IV; Rate: bolus; Site: right wrist; ph 14:55 Drug: Rocephin (cefTRIAXone) 1 grams Route: IV; Rate: calculated rate; Site: right ph wrist; 15:30 Follow up: Response: No adverse reaction; IV Status: Completed infusion ph 15:41 Drug: D50W 50 ml Route: IVP; Site: right antecubital; jd3 19:28 Follow up: Response: No adverse reaction; Blood sugar is elevated ph 15:46 Drug: D5-1/2 NS 1000 ml Route: IV; Rate: 150 ml/hr; Site: right wrist; ph 22:16 Follow up: IV Status: Infusion continued upon transfer lp1 16:19 Drug: Potassium Chloride 20 mEq Route: IV; Rate: calculated rate; Site: right wrist; ph 19:24 Follow up: IV Status: Completed infusion; IV Intake: 100ml lp1 19:28 Follow up: IV Status: Completed infusion ph 16:20 Drug: Flagyl (metroNIDAZOLE) 500 mg Volume: 100 ml; Route: IVPB; Rate: 200 ml/hr; ph Infused Over: 30 mins; Site: right forearm; 17:00 Follow up: Response: No adverse reaction; IV Status: Completed infusion; IV Intake: ph 100ml 18:40 Drug: vancoMYCIN 1 grams Route: IVPB; Infused Over: 2 hrs; Site: right femoral; ph 18:40 Drug: Levophed (norepinephrine) (4 mg/250 mL D5W 4 mcg/min Route: IV; Rate: calculated ph rate; Site: right femoral; 19:24 Follow up: Rate change 10 mcg/min lp1 22:16 Follow up: IV Status: Infusion continued upon transfer lp1 18:58 Drug: Zofran (Ondansetron) 4 mg Route: IVP; Site: right antecubital; ph 19:27 Follow up: Response: No adverse reaction ph 19:00 Drug: fentaNYL (PF) 25 mcg Route: IVP; Site: right antecubital; ph 19:27 Follow up: Response: No adverse reaction; Pain is decreased ph 19:59 Drug: Potassium Chloride 20 mEq Route: IV; Rate: calculated rate; Site: right femoral; lp1 Disposition: 10/10/20 20:54 Transfer ordered to Other Acute Care Facility. Diagnosis are Sepsis, Choledocolithiasis, Cholangitis. - Reason for transfer: Higher level of care. - [facility] - Condition is Critical. - Problem is new. - Symptoms have improved. Signatures: Dispatcher [employer] EDMS Gretta Mclean RN RN lp1 Meredith Fong ph D, RN [employer]Navies, Jonathon, RN RN jd3 Miriam Crespo MD MD ma2 Maximino Silva MD MD [id number] Corrections: (The following items were deleted from the chart) 14:45 13:40 CORONAVIRUS+MR.LAB.BRZ ordered. EDAL EDMS 22:26 20:54 10/10/2020 20:54 Transfer ordered to Other Acute Care Facility. Diagnosis is lp1 Sepsis; Choledocolithiasis; Cholangitis. Reason for transfer: Higher level of care. [facility]. Condition is Critical. Problem is new. Symptoms have improved. mh7
--- NOTE | 2020-10-10 20:55 | ER ---
Nurse's Notes [facility] Name: Adilene Vines Age: 65 yrs Sex: Female : 1955 Arrival Date: 10/10/2020 Time: 13:35 Bed 4 Private MD: Diagnosis: Sepsis;Choledocolithiasis;Cholangitis Presentation: 10/10 13:36 Chief complaint: EMS states: Generalized weakness and decreased appetite x " a few ph weeks", worse today, initial BP 77/44 and BGL 55, IV to LAC and approx 500 mL NS given, 15 gram of oral glucose also given, pt A\\T\\O x 4 upon arrival to ED, sling to L arm from previous injury. Coronavirus screen: Client denies travel out of the [place] in the last 14 days. Ebola Screen: No symptoms or risks identified at this time. Initial Sepsis Screen: Does the patient meet any 2 criteria? Mean Arterial Pressure (MAP) < 65. Does the patient have a suspected source of infection? No. Patient's initial sepsis screen is negative. Risk Assessment: Do you want to hurt yourself or someone else? Patient reports no desire to harm self or others. Onset of symptoms was October 10, 2020. 13:36 Method Of Arrival: EMS: [facility] ph 13:36 Acuity: ESAU 2 ph 13:46 Care prior to arrival: IV initiated. 20 GA, in the right wrist, Glucose check: 55. ph Historical: - Allergies: 13:45 Bactrim; ph 13:45 Levaquin; ph 13:45 PENICILLINS; ph 13:45 Sulfa (Sulfonamide Antibiotics); ph - Home Meds: 13:45 atorvastatin 40 mg oral tab 1 tab [Active]; ursodiol 300 mg Oral cap 1 cap 2 times per ph day [Active]; omeprazole 40 mg Oral cpDR 1 cap once daily [Active]; hydroxyzine HCl 50 mg Oral tab 1 tab 4 times per day for Urticaria [Active]; lisinopril-hydrochlorothiazide 10-12.5 mg oral tab 1 tab once daily [Active]; benzonatate 100 mg oral cap 1 cap 3 times per day [Active]; metoprolol tartrate 25 mg Oral tab 1 tab 2 times per day [Active]; Tylenol-Codeine #3 300-30 mg oral tab 1 tab every 4-6 hours [Active]; - PMHx: 13:45 Cirrhosis; High Cholesterol; Hypertension; Polio; ph - PSHx: 13:45 Tubal ligation; ph - Immunization history:: Client reports receiving the 1st dose of the Covid vaccine, Nba and Nba vaccine. - Social history:: The patient lives alone, Smoking status: Patient reports the use of cigarette tobacco products, smokes one pack cigarettes per day. Patient/guardian denies using alcohol, street drugs. Screenin:46 Abuse screen: Denies threats or abuse. Denies injuries from another. Nutritional ph screening: No deficits noted. Tuberculosis screening: No symptoms or risk factors identified. Fall Risk Fall in past 12 months (25 points). No secondary diagnosis (0 pts). IV access (20 points). Ambulatory Aid- None/Bed Rest/Nurse Assist (0 pts). Gait- Weak (10 pts.). Mental Status- Oriented to own ability (0 pts). Total Crisostomo Fall Scale indicates High Risk Score (45 or more points). Fall prevention measures have been instituted. Side Rails Up X 2 Placed Close to Nursing Station Frequent Obs/Assessments Occuring As available patient and family educated on Fall Prevention Program and Strategies. Assessment: 13:47 General: Appears in no apparent distress. comfortable, slender, Behavior is calm, ph cooperative, appropriate for age, Denies fever, feeling ill. Pain: Complains of pain in left arm and right leg. Neuro: Level of Consciousness is awake, alert, obeys commands, Oriented to person, place, time, situation, Reports dizziness, weakness " all over". Cardiovascular: Capillary refill < 3 seconds in bilateral fingers Patient's skin is warm and dry. Respiratory: Airway is patent Respiratory effort is even, unlabored, Respiratory pattern is regular, symmetrical. GI: Reports decreased appetite Patient currently denies abdominal pain, diarrhea, nausea, vomiting. : No signs and/or symptoms were reported regarding the genitourinary system. Derm: Skin is intact, Skin is pink, warm \\T\\ dry. Musculoskeletal: Circulation, motion, and sensation intact. Range of motion: intact in all extremities. 14:45 Reassessment: Patient appears in no apparent distress at this time. Patient and/or ph family updated on plan of care and expected duration. Pain level reassessed. Patient is alert, oriented x 3, equal unlabored respirations, skin warm/dry/pink. Lab at bedside for blood draw. 15:45 Reassessment: Patient appears in no apparent distress at this time. Patient and/or ph family updated on plan of care and expected duration. Pain level reassessed. Pt in bed w/ eyes closed, warming blanket in place, pt drowsy/lethargic but responds to verbal stimuli, BP 74/48 and FSBG 43, ERP notified, see MAR for orders. 16:34 Reassessment: Patient appears in no apparent distress at this time. Patient and/or ph family updated on plan of care and expected duration. Pain level reassessed. Patient is alert, oriented x 3, equal unlabored respirations, skin warm/dry/pink. Pt m ore awake and alert, assisted onto bedpan but pt unable to urinate, straight cath preformed to drain bladder, approx 350 mL yellow urine obtained, US at bedside for abdominal study. 17:45 Reassessment: Patient appears in no apparent distress at this time. Patient and/or ph family updated on plan of care and expected duration. Pain level reassessed. Patient is alert, oriented x 3, equal unlabored respirations, skin warm/dry/pink. Dr Crespo at bedside for central line placement. 19:15 Reassessment: Patient talking on phone. General: Appears in no apparent distress. lp1 Behavior is calm, cooperative. Pain: Denies pain. Neuro: Level of Consciousness is awake, alert, obeys commands, Oriented to person, place, time, situation. Cardiovascular: Patient's skin is warm and dry. Respiratory: Respiratory effort is even, unlabored. GI: Abdomen is flat. : No signs and/or symptoms were reported regarding the genitourinary system. Derm: Skin is intact, is thin, Skin is dry, Skin is normal. Musculoskeletal: Circulation, motion, and sensation intact. 20:30 Reassessment: Patient talking on phone to family member. Neuro: Level of Consciousness 1 is awake, alert, obeys commands. Respiratory: Respiratory effort is even, unlabored. 21:20 Reassessment: Assisted patient with bedpan. 1 21:40 Reassessment: Nurse to Nurse report called to ANGIE Guzmán for patient transfer to [address] [facility]. 21:55 Reassessment: PHI at bedside for patient transfer. lp1 Vital Signs: 13:36 BP 84 / 53; Pulse 77; Resp 18; Temp 97.3; Pulse Ox 98% on R/A; Weight 40.82 kg; Height ph 5 ft. 4 in. (162.56 cm); 14:30 BP 71 / 52; Pulse 86; Resp 16; Pulse Ox 92% on R/A; ph 15:00 BP 67 / 44; Pulse 82; Resp 14; Pulse Ox 94% on R/A; ph 15:34 BP 85 / 62; Pulse 89; Resp 18; Pulse Ox 95% on R/A; ph 15:53 BP 74 / 48; Pulse 87; Resp 18; Pulse Ox 98% on 3 lpm NC; ph 16:21 BP 82 / 64; Pulse 95; Resp 19; Pulse Ox 97% on 3 lpm NC; ph 16:38 BP 80 / 48; Pulse 88; Resp 16; Pulse Ox 98% on 3 lpm NC; ph 17:00 BP 78 / 52; Pulse 86; Resp 18; Pulse Ox 96% on 3 lpm NC; ph 17:30 BP 72 / 48; Pulse 89; Resp 16; Pulse Ox 98% on 3 lpm NC; ph 18:00 BP 81 / 54; Pulse 85; Resp 18; Pulse Ox 100% on 3 lpm NC; ph 18:30 BP 79 / 55; Pulse 81; Resp 16; Pulse Ox 98% on 3 lpm NC; ph 19:07 BP 70 / 50; Pulse 83; Resp 18; Pulse Ox 97% on 3 lpm NC; ph 19:25 BP 80 / 55; Pulse 86; Resp 12; Temp 98(O); Pulse Ox 99% on 2 lpm NC; lp1 19:45 BP 93 / 52; Pulse 87; Resp 16; Pulse Ox 100% on 3 lpm NC; mw2 20:15 BP 100 / 58; Pulse 83; Resp 15; Pulse Ox 98% on 2 lpm NC; lp1 20:30 BP 106 / 56; Pulse 86; Resp 15; Pulse Ox 99% on 2 lpm NC; lp1 20:45 BP 116 / 62; Pulse 88; Resp 17; Pulse Ox 98% on 2 lpm NC; lp1 21:00 BP 105 / 57; Pulse 82; Resp 13; Pulse Ox 99% on 2 lpm NC; lp1 21:30 BP 106 / 60; Pulse 88; Resp 17; Pulse Ox 100% on 2 lpm NC; lp1 21:58 BP 104 / 53; Pulse 86; Resp 19; Pulse Ox 99% on 2 lpm NC; lp1 22:05 BP 113 / 55; Pulse 86; Resp 17; Pulse Ox 99% on 2 lpm NC; lp1 13:36 Body Mass Index 15.45 (40.82 kg, 162.56 cm) ph ED Course: 13:35 Patient arrived in ED. ph 13:37 Miriam Crespo MD is Attending Physician. ma2 13:40 Triage completed. ph 13:40 Arm band placed on Patient placed in an exam room, on a stretcher, on surveillance monitor, ph on pulse oximetry. 13:46 Patient has correct armband on for positive identification. Bed in low position. Call ph light in reach. Side rails up X 1. Pulse ox on. NIBP on. environmental monitoring technician on. Door closed. Noise minimized. Warm blanket given. 13:52 Chest Single View XRAY In Process Unspecified. EDMS 13:58 Initial lab(s) drawn, by ED staff, sent to lab. EKG done, by ED staff, reviewed by [facility] Miriam Crespo MD. 14:08 Emory Elizalde, ANGIE is Primary Nurse. jd3 14:46 COVID swab sent to lab. [facility] 15:59 Primary Nurse role handed off by Emory Elizalde, RN ph 15:59 Meredith Fong, RN is Primary Nurse. ph 16:44 US Abdomen Limited In Process Unspecified. EDMS 17:28 initiated transfer to [facility], per pts request. bd 18:10 Assisted provider with central line placement. Set up central line tray. Triple lumen ph line placed in right femoral. Line placed by Meredith Fong RN Placement verified by blood return, Dressed with Tape, Tegaderm, Blood was collected. Patient tolerated well. Before procedure, did Practitioner(s) obtain informed consent? Yes. Patient \\T\\ family education about procedure, CLABSI prevention and S/S of infection? Yes. Time-out/Briefing performed prior to start of procedure? Yes. Was handwashing/sanitizing done immediately prior to procedure? Yes. Was patient positioned to in a way to prevent air embolism? Yes. Was procedure site sterilized? Yes, with chlorhexidine. Was the site allowed to dry? Yes. Was local anesthetic and/or sedation utilized? Yes. During the procedure, did the Practitioner(s) maintain a sterile field? Yes. Were unused ports clamped during insertion? Yes. Was a 2nd qualified MD obtained after 3 unsuccessful insertion attempts? No. Was blood aspirated from each lumen? Yes. After the procedure, did the Practitioner(s) clean the site and apply a sterile dressing? Yes. Patient transferred, IV remains in place. 18:13 pt denied at [facility] due to no icu beds at this time, per Rafat Oconnell. bd 18:14 [place] [facility] bd 18:21 pt declined at [facility] due to no ICU beds, per RUTH Danielle. bd 18:23 initiated transfer to [facility]. bd 18:31 closest [facility] with available beds is [facility], per Ines, provider bd declines facility. 18:37 initiated transfer to [facility]. 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 bd 19:06 initiated transfer to [facility]. bd 19:08 Attending Physician role handed off by Miriam Crespo MD mh7 19:08 Maximino Silva MD is Attending Physician. mh7 19:16 Primary Nurse role handed off by Meredith Fong, RN mw2 19:23 Gretta Mclean, RN is Primary Nurse. lp1 19:44 [facility] denied. mw2 19:48 initiated a transfer with Akiko from [facility] Transfer Center. mw2 20:00 [facility] denied due to capacity. mw2 20:02 initiated a transfer with Yoly from [facility] Transfer Center. mw2 20:09 [facility] denied due to capacity. mw2 20:20 initiated a transfer with [place] from [facility] transfer. mw2 20:[address] Silva with Dr. Francisco from [facility]. mw2 20:42 administrative approval given by [place] Benites/ patient has been accepted to [address]/ Dr. Francisco accepted the patient in transfer/ report to be called to [phone]. Administered Medications: 14:55 Drug: NS 0.9% (30 ml/kg) 30 ml/kg Route: IV; Rate: bolus; Site: right wrist; ph 14:55 Drug: Rocephin (cefTRIAXone) 1 grams Route: IV; Rate: calculated rate; Site: right ph wrist; 15:30 Follow up: Response: No adverse reaction; IV Status: Completed infusion ph 15:41 Drug: D50W 50 ml Route: IVP; Site: right antecubital; jd3 19:28 Follow up: Response: No adverse reaction; Blood sugar is elevated ph 15:46 Drug: D5-1/2 NS 1000 ml Route: IV; Rate: 150 ml/hr; Site: right wrist; ph 22:16 Follow up: IV Status: Infusion continued upon transfer lp1 16:19 Drug: Potassium Chloride 20 mEq Route: IV; Rate: calculated rate; Site: right wrist; ph 19:24 Follow up: IV Status: Completed infusion; IV Intake: 100ml lp1 19:28 Follow up: IV Status: Completed infusion ph 16:20 Drug: Flagyl (metroNIDAZOLE) 500 mg Volume: 100 ml; Route: IVPB; Rate: 200 ml/hr; ph Infused Over: 30 mins; Site: right forearm; 17:00 Follow up: Response: No adverse reaction; IV Status: Completed infusion; IV Intake: ph 100ml 18:40 Drug: vancoMYCIN 1 grams Route: IVPB; Infused Over: 2 hrs; Site: right femoral; ph 18:40 Drug: Levophed (norepinephrine) (4 mg/250 mL D5W 4 mcg/min Route: IV; Rate: calculated ph rate; Site: right femoral; 19:24 Follow up: Rate change 10 mcg/min lp1 22:16 Follow up: IV Status: Infusion continued upon transfer lp1 18:58 Drug: Zofran (Ondansetron) 4 mg Route: IVP; Site: right antecubital; ph 19:27 Follow up: Response: No adverse reaction ph 19:00 Drug: fentaNYL (PF) 25 mcg Route: IVP; Site: right antecubital; ph 19:27 Follow up: Response: No adverse reaction; Pain is decreased ph 19:59 Drug: Potassium Chloride 20 mEq Route: IV; Rate: calculated rate; Site: right femoral; lp1 Intake: 17:00 IV: 100ml; Total: 100ml. ph 19:24 IV: 100ml; Total: 200ml. lp1 Outcome: 20:54 ER care complete, transfer ordered by . mh7 22:16 Transferred by helicopter to other acute care facility: [place] [address] Area. Transfer form completed. X-rays sent w/ patient. 22:16 critical 22:16 Instructed on the need for transfer. 22:26 Patient left the ED. 1 Signatures: Dispatcher [employer] EDMS Montse Terrazas Laura, RN RN 1 Meredith Fong RN RN Alex, [place] [facility] Emory Elizalde RN RN jd3 Miriam Crespo MD MD [facility] Melvin Carvalho [facility] Maximino Silva MD MD 7 Corrections: (The following items were deleted from the chart) 19:26 19:25 BP 80 / 55; Pulse 86bpm; Resp 12bpm; Pulse Ox 99% 2 lpm Nasal Cannula; 1 1 20:51 20:20 initiated a transfer with [place] from [facility] transfer [place] [id number] 22:15 22:14 Reassessment: PHI at bedside for patient transfer lp1 1
[2020-10-10 22:52] VITALS: TEMP 98
[2020-10-10 23:04] VITALS: O2SAT 99
[2020-10-10 23:06] VITALS: BP 113/55
== END 2020-10-10 22:26 ==
LOC: ER 13:32
PROC: 06HM33Z Insertion of Infusion Device into Right Femoral Vein, Percutaneous Approach (ICD-10-PCS; principal; 2020-10-10)
DX: A41.9 Sepsis, unspecified organism (principal); K80.30 Calculus of bile duct with cholangitis, unspecified, without obstruction; E78.00 Pure hypercholesterolemia, unspecified; I10 Essential (primary) hypertension; K74.60 Unspecified cirrhosis of liver; F17.210 Nicotine dependence, cigarettes, uncomplicated; Z20.822 Contact with and (suspected) exposure to COVID-19; Z88.0 Allergy status to penicillin; Z88.1 Allergy status to other antibiotic agents; Z88.2 Allergy status to sulfonamides
CPT/HCPCS: 93005; 87040 ×2; 85025; 80048; 36415; 82150; 82550; 87205 ×3; 85610; 82947 ×3; 80076; 83605 ×2; 85730; 84443; 81003; 84484; 82553; 84439; 83690; 84145; 86140; 71045; 76705; 36556; U0003; J3480 ×2; J3010; J3370; J0696; J7799 ×2; J7050; J7030; J2405

== ENCOUNTER 2020-12-28 19:19 | Inpatient (IN) | payer OTHER ==
--- OUTSIDE RECORDS SUMMARY | 2020-12-28 19:24 | XMS REPORT | Continuity of Care Document ---
:1955 Author Organization [facility] t Address [address] [place] [address] Care Team Providers Name Role Phone Catherine Matthew Attending Clinician Unavailable Robbie Francisco Attending Clinician Unavailable Radiology Attending Clinician Unavailable Catherine Matthew Admitting Clinician Unavailable Physician, Primary or Family Admitting Clinician Unavailabl e Payers Payer Name Policy Type Policy Number Effective Date Expiration Date S ource Problems Condition Condition Condition Status Onset Resolution Last Treating Co mments Source Name Details Category Date Date Treatment Clinician Date Underweigh Underweigh Problem Active 2019-0 [facility] ill[facility] t t - Family 00:00: Practic 00 e Chronic Chronic Problem Active 2019- [facility] insomnia Insomnia 11-03 Family 00:00: Practic 00 e At risk At Risk Problem Active [facility] for falls for Falls 09-18 Fami ly 00:00: Practic 00 e Hyperlipid Hyperlipid Problem Active 2020-0 V illage emia emia 09-17 Family 00:00: Practic 00 e Hypertensi Hypertensi Problem Active 2020-0 [facility] ill[facility] ve ve 09-17 Family disorder Disorder 00:00: Practi c 00 e Gastroesop Gastroesop Problem Active 2020-0 V illage hageal hageal 09-17 Family reflux Reflux 00:00: Practic disease Disease 00 e Cirrhosis Cirrhosis Problem Active 2020-0 Roshni debora of liver of Liver 09-17 Family 00:00: Practic 00 e Arthritis Arthritis Problem Active 2020-0 Roshni debora 5-27 Family 00:00: Practic 00 e Allergies, Adverse Reactions, Alerts Allergy Allergy Status Severity Reaction(s) Onset Inactive Treating Comm ents Source Name Type Date Date Clinician Penicill DA [facility] 10[facility]10 [facility] Sulfa DA Active U [facility] (Sulfona 10-10 Corpus mide 00:00: [facility] Antibiot 00 Medical ics) Center sulfamet DA Active [facility] hoxazole 10-10 [facility] 00:[facility] trimetho DA [facility] prim 10-10 [facility] 00:[facility] levoflox DA Active [facility] acin 10-10 [facility] Bactrim Allergy Active Moderate Itching Harris ge [...] Date Stop Date Source Light Tobacco Smoker [place] [facility] josselyn Practice Medications Ordered Filled Start Stop Current Ordering Indication Dosage Frequency Signature Comments Components Source Medication Medication Date Date Medication? Clinician (SIG) Name Name keo acetaminoph No 1 Q6H acetaminop [facility] en 300 en 300 hen 300 Family mg-codeine mg-codeine mg-codeine Practic 30 mg 30 mg 30 mg e tablet Take tablet Take tablet 1 tablet 1 tablet Take 1 every 6 every 6 tablet hours by hours by every 6 oral route oral route hours by as needed. as needed. oral route as needed. atorvastati atorvastati No 1 Q1D atorvastat [place] n 40 mg n 40 mg in 40 mg Famil y tablet Take tablet Take tablet Practic 1 tablet 1 tablet Take 1 e every day every day tablet by oral by oral every day route. route. by oral route. cholestyram cholestyram No 1packet cholestyra [facility] ine (with ine (with (s) mine (with Family sugar) 4 sugar) 4 sugar) 4 Pra ctic gram powder gram powder gram e for susp in for susp in powder for a packet a packet susp in a Take 1 Take 1 packet packet by packet by Take 1 oral route. oral route. packet by oral route. hydroxyzine hydroxyzine No hydroxyzin [facility] HCl 50 mg HCl 50 mg e HCl 50 F amily tablet Take tablet Take mg tablet Practic 1 tablet 1 tablet Take 1 e twice a day twice a day tablet by oral by oral twice a route. route. day by oral route. lactulose lactulose No 15mL Q1D lactulose [facility] 10 gram/15 10 gram/15 10 gram/15 Family mL (15 mL) mL (15 mL) mL (15 mL) Practic oral oral oral e solution solution solution Take 15 mL Take 15 mL Take 15 mL every day every day every day by oral by oral by oral route. route. route. lisinopril lisinopril No lisinopril [facility] 20 mg 20 mg 20 mg Family tablet Take tablet Take tablet Practic 1 tablet 1 tablet Take 1 e every day every day tablet by oral by oral every day route. route. by oral route. melatonin melatonin No 1capsul Q1D melatonin [facility] 10 mg 10 mg e(s) 10 mg Family capsule capsule capsule Practi c Take 1 Take 1 Take 1 e capsule capsule capsule every day every day every day by oral by oral by oral route as route as route as needed. needed. needed. metoprolol metoprolol No 1 BID metoprolol [facility] tartrate 25 tartrate 25 tartrate Family mg tablet mg tablet 25 mg Prac tic Take 1 Take 1 tablet e tablet tablet Take 1 twice a day twice a day tablet by oral by oral twice a route. route. day by oral route. omeprazole omeprazole omeprazole [facility] 40 mg 40 mg 40 mg Family capsule,del capsule,del capsule,de Practic ayed ayed layed e release release release Take 1 Take 1 Take 1 capsule capsule capsule every day every day every day by oral by oral by oral route. route. route. ursodiol ursodiol No 1capsul BID ursodiol [facility] 300 mg 300 mg e(s) 300 mg Family capsule capsule capsule Practi c Take 1 Take 1 Take 1 e capsule capsule capsule twice a day twice a day twice a by oral by oral day by route. route. oral route. Vital Signs Vital Name Observation Time Observation Value Comments Source Height 2019-11-04 00:00:00 64 [in_i] [facility] BMI (Body Mass 2019-11-04 00:00:00 14.8 kg/m2 [facility] Body Weight 2019-11-04 00:00:00 86 [lb_av] [facility] Procedures This patient has no known procedures. Encounters Start End Encounter Admission Attending Care Care Encounter Source Date/Time Date/Time Type Type Clinicians Facility Department ID 2020-09-29 Outpatient [facility] [id number] [facility] 14:00:11 2020-12-03 2020-12-03 Out[id number] 2020-12-03 2020-12-03 [facility] [id number] [facility] 2020-10-20 2020-10-20 [facility] [id number] [facility] 2020-10-11 2020-10-19 Inpatient EM Tiff, [facility] ICU [id number] [facility] 04:01:00 16:45:00 Rui [id number] [facility] 2020-10-10 2020-10-10 Emergency EM Nolan, [facility] ER [id number] [facility] 23:39:00 23:39:00 Heladio [id number] [facility] 2020-09-02 2020-09-02 [facility] [id number] [facility] 2020-08-03 2020-08-03 [facility] [id number] [facility] 2020-07-02 2020-07-02 [facility] [id number] [facility] 2020-07-01 2020-07-01 [facility] [id number] [facility] 2020-02-11 2020-02-11 Outpatient [facility] [id number] [facility] 13:23:00 13:23:00 2020-01-30 2020-01-30 Outpatient [facility] [id number] [facility] 12:38:00 12:38:00 2019-11-04 2019-11-04 Newton Alexander [facility] [place] - [id number] [facility] 00:00:00 00:00:00 Jamaal COMPANY DOCTOR: [facility] [address] [place] [facility] Prac tic [facility] [email or web address] [place] [phone] , Ph. 2019-09-18 2019-09-18 Salima Corea [facility] [place] - [id number] [facility] 00:00:00 00:00:00 Ige-Odunug [facility] josselyn seay COMPANY DOCTOR: Medical - Practi c [address] [email or web address], [address] [phone] , Ph. 2019-07-16 2019-07-16 Hospital Radiology [facility] [id number] 16:41:00 23:59:00 Encounter [place] [id number] [place] [id number] [place] [id number] Results Test Description Test Time Test Comments Results Result Comments Source COMPREHENSIVE METABOLIC PANEL 2020-10-19 05:57:00 Test Item Value Reference Range Interpretation Comme nts SODIUM (test code = NA) 143 MMOL/L 133-145 N POTASSIUM (test code = K) 4.2 MMOL/L 3.6-5.2 N CHLORIDE (test code = CL) 112 MMOL/L 100-108 H CARBON DIOXIDE (test code = 19 MMOL/L 22-32 L CO2) GLUCOSE (test code = GLU) 72 MG/DL 65-99 N Re sults of this assay method may be falsely depressed orelevated if p atient is taking sulfasal azine. BLOOD UREA NITROGEN (test code 9 MG/DL 6-20 N = BUN) GLOMERULAR FILTRATION RATE 129 45-104 H R eporting units: (test code = GFR) mL/min/1.7 3m\\S\\2 (Modified MDRD Formula) CREATININE (test code = CREAT) 0.48 MG/DL 0.60-1.00 L TOTAL PROTEIN (test code = 5.4 G/DL 6.4-8.2 L PROT) ALBUMIN (test code = ALB) 1.7 G/DL 3.4-5.0 L GLOBULIN (test code = GLOB) 3.7 G/DL 1.5-3.8 N ALBUMIN/GLOBULIN RATIO (test 0.5 1.1-2.2 L code = A/G) CALCIUM (test code = CA) 8.0 MG/DL 8.7-10.5 L BILIRUBIN TOTAL (test code = 2.5 MG/DL 0.0-1.0 H BILT) SGOT/AST (test code = AST) 49 Units/L 15-37 H R esults of this assay method may be falsely depressed orelevated if p atient is taking sulfasal azine. SGPT/ALT (test code = ALT) 34 Units/L 30-65 N R esults of this assay method may be falsely depressed orelevated if p atient is taking sulfasal azine. ALKALINE PHOSPHATASE TOTAL 578 Units/L 50-136 H (test code = ALKP) [id number] 05:57:00 Test Item Value Reference Range Interpretation Comments MAGNESIUM (test code = MAG) 1.3 MG/DL 1.8-2.4 L CBC W/AUTO [id number] 05:49:00 Test Item Value Reference Range Interpretation Comments WHITE BLOOD CELL (test code = 5.71 x10 3/uL 4.80-10.80 N WBC) RED BLOOD CELL (test code = 3.12 x10 6/uL 4.2-5.4 L RBC) HEMOGLOBIN (test code = HGB) 9.1 G/DL 12.0-16.0 L HEMATOCRIT (test code = HCT) 29.5 % 37-47 L MEAN CELL VOLUME (test code = 94.6 FL 81-99 N MCV) MEAN CELL HGB (test code = MCH) 29.2 PG 27-31 N MEAN CELL HGB CONCENTRATION 30.8 G/DL 33-37 L (test code = MCHC) RED CELL DISTRIBUTION WIDTH 21.4 % 11.5-14.5 H (test code = RDW) PLATELET COUNT (test code = 162 x10 3/uL 150-450 N PLT) MEAN PLATELET VOLUME (test code 10.4 FL 7.4-10.4 N = MPV) NEUTROPHIL % (test code = NT%) 69.6 % 42-86 N IMMATURE GRANULOCYTE % (test 0.5 % 0.0-2.0 N code = IG%) LYMPHOCYTE % (test code = LY%) 16.5 % 24-44 L MONOCYTE % (test code = MO%) 10.7 % 0.0-4.0 H EOSINOPHIL % (test code = EO%) 1.8 % 0.0-2.7 N BASOPHIL % (test code = BA%) 0.9 % 0.0-0.5 H NUCLEATED RBC % (test code = 0.0 % 0.0-0.0 N NRBC%) NEUTROPHIL # (test code = NT#) 3.98 x10 3/uL 1.8-7.7 N IMMATURE GRANULOCYTE # (test 0.03 x10 3/uL 0.00-0.03 N code = IG#) LYMPHOCYTE # (test code = LY#) 0.94 x10 3/uL 1.0-4.8 L MONOCYTE # (test code = MO#) 0.61 x10 3/uL 0.0-0.8 N EOSINOPHIL # (test code = EO#) 0.10 x10 3/uL 0.0-0.5 N BASOPHIL # (test code = BA#) 0.05 x10 3/uL 0.0-0.2 N NUCLEATED RBC # (test code = 0.0 X10 3/uL 0.0-0.2 N NRBC#) MANUAL DIFF REQUIRED (test code SCAN PLT_RBC TECH REVIEW = MDIFF) RBC [id number] 05:49:00 Test Item Value Reference Range Interpretation Comments HYPOCHROMIA (test code = HYPO) 1+ POIKILOCYTOSIS (test code = POIK) Occ ANISOCYTOSIS (test code = ANISO) 2+ OVALOCYTES (test code = OVAL) Occ PLATELET [id number] 05:49:00 Test Item Value Reference Range Interpretation Comments PLATELET ESTIMATE (test code = PLTEST) Norm ADEQ CBC W/AUTO [id number] 05:20:00 Test Item Value Reference Range Interpretation Comments WHITE BLOOD CELL (test code = 5.71 x10 3/uL 4.80-10.80 N WBC) RED BLOOD CELL (test code = 3.12 x10 6/uL 4.2-5.4 L RBC) HEMOGLOBIN (test code = HGB) 9.1 G/DL 12.0-16.0 L HEMATOCRIT (test code = HCT) 29.5 % 37-47 L MEAN CELL VOLUME (test code = 94.6 FL 81-99 N MCV) MEAN CELL HGB (test code = MCH) 29.2 PG 27-31 N MEAN CELL HGB CONCENTRATION 30.8 G/DL 33-37 L (test code = MCHC) RED CELL DISTRIBUTION WIDTH 21.4 % 11.5-14.5 H (test code = RDW) PLATELET COUNT (test code = 162 x10 3/uL 150-450 N PLT) MEAN PLATELET VOLUME (test code 10.4 FL 7.4-10.4 N = MPV) NEUTROPHIL % (test code = NT%) 69.6 % 42-86 N IMMATURE GRANULOCYTE % (test 0.5 % 0.0-2.0 N code = IG%) LYMPHOCYTE % (test code = LY%) 16.5 % 24-44 L MONOCYTE % (test code = MO%) 10.7 % 0.0-4.0 H EOSINOPHIL % (test code = EO%) 1.8 % 0.0-2.7 N BASOPHIL % (test code = BA%) 0.9 % 0.0-0.5 H NUCLEATED RBC % (test code = 0.0 % 0.0-0.0 N NRBC%) NEUTROPHIL # (test code = NT#) 3.98 x10 3/uL 1.8-7.7 N IMMATURE GRANULOCYTE # (test 0.03 x10 3/uL 0.00-0.03 N code = IG#) LYMPHOCYTE # (test code = LY#) 0.94 x10 3/uL 1.0-4.8 L MONOCYTE # (test code = MO#) 0.61 x10 3/uL 0.0-0.8 N EOSINOPHIL # (test code = EO#) 0.10 x10 3/uL 0.0-0.5 N BASOPHIL # (test code = BA#) 0.05 x10 3/uL 0.0-0.2 N NUCLEATED RBC # (test code = 0.0 X10 3/uL 0.0-0.2 N NRBC#) MANUAL DIFF REQUIRED (test code SCAN PLT_RBC TECH REVIEW = MDIFF) RBC [id number] 05:20:00 Test Item Value Reference Range Interpretation Comments RBC MORPHOLOGY COMMENT (test code = RBCM) PLATELET [id number] 05:20:00 Test Item Value Reference Range Interpretation Comments PLATELET ESTIMATE (test code = PLTEST) ADEQ CBC W/AUTO [id number] 05:20:00 Test Item Value Reference Range Interpretation Comments WHITE BLOOD CELL (test code = 5.71 x10 3/uL 4.80-10.80 N WBC) RED BLOOD CELL (test code = 3.12 x10 6/uL 4.2-5.4 L RBC) HEMOGLOBIN (test code = HGB) 9.1 G/DL 12.0-16.0 L HEMATOCRIT (test code = HCT) 29.5 % 37-47 L MEAN CELL VOLUME (test code = 94.6 FL 81-99 N MCV) MEAN CELL HGB (test code = MCH) 29.2 PG 27-31 N MEAN CELL HGB CONCENTRATION 30.8 G/DL 33-37 L (test code = MCHC) RED CELL DISTRIBUTION WIDTH 21.4 % 11.5-14.5 H (test code = RDW) PLATELET COUNT (test code = 162 x10 3/uL 150-450 N PLT) MEAN PLATELET VOLUME (test code 10.4 FL 7.4-10.4 N = MPV) NEUTROPHIL % (test code = NT%) 69.6 % 42-86 N IMMATURE GRANULOCYTE % (test 0.5 % 0.0-2.0 N code = IG%) LYMPHOCYTE % (test code = LY%) 16.5 % 24-44 L MONOCYTE % (test code = MO%) 10.7 % 0.0-4.0 H EOSINOPHIL % (test code = EO%) 1.8 % 0.0-2.7 N BASOPHIL % (test code = BA%) 0.9 % 0.0-0.5 H NUCLEATED RBC % (test code = 0.0 % 0.0-0.0 N NRBC%) NEUTROPHIL # (test code = NT#) 3.98 x10 3/uL 1.8-7.7 N IMMATURE GRANULOCYTE # (test 0.03 x10 3/uL 0.00-0.03 N code = IG#) LYMPHOCYTE # (test code = LY#) 0.94 x10 3/uL 1.0-4.8 L MONOCYTE # (test code = MO#) 0.61 x10 3/uL 0.0-0.8 N EOSINOPHIL # (test code = EO#) 0.10 x10 3/uL 0.0-0.5 N BASOPHIL # (test code = BA#) 0.05 x10 3/uL 0.0-0.2 N NUCLEATED RBC # (test code = 0.0 X10 3/uL 0.0-0.2 N NRBC#) MANUAL DIFF REQUIRED (test code SCAN PLT_RBC TECH REVIEW = MDIFF) RBC [id number] 05:20:00 Test Item Value Reference Range Interpretation Comments RBC MORPHOLOGY COMMENT (test code = RBCM) PLATELET [id number] 05:20:00 Test Item Value Reference Range Interpretation Comments PLATELET ESTIMATE (test code = PLTEST) ADEQ CBC W/AUTO [id number] 09:20:00 Test Item Value Reference Range Interpretation Comments WHITE BLOOD CELL (test code = 6.93 x10 3/uL 4.80-10.80 N WBC) RED BLOOD CELL (test code = 3.15 x10 6/uL 4.2-5.4 L RBC) HEMOGLOBIN (test code = HGB) 9.2 G/DL 12.0-16.0 L HEMATOCRIT (test code = HCT) 29.7 % 37-47 L MEAN CELL VOLUME (test code = 94.3 FL 81-99 N MCV) MEAN CELL HGB (test code = MCH) 29.2 PG 27-31 N MEAN CELL HGB CONCENTRATION 31.0 G/DL 33-37 L (test code = MCHC) RED CELL DISTRIBUTION WIDTH 21.2 % 11.5-14.5 H (test code = RDW) PLATELET COUNT (test code = 137 x10 3/uL 150-450 L PLT) MEAN PLATELET VOLUME (test code 11.0 FL 7.4-10.4 H = MPV) NEUTROPHIL % (test code = NT%) 74.2 % 42-86 N IMMATURE GRANULOCYTE % (test 0.9 % 0.0-2.0 N code = IG%) LYMPHOCYTE % (test code = LY%) 12.4 % 24-44 L MONOCYTE % (test code = MO%) 9.4 % 0.0-4.0 H EOSINOPHIL % (test code = EO%) 2.2 % 0.0-2.7 N BASOPHIL % (test code = BA%) 0.9 % 0.0-0.5 H NUCLEATED RBC % (test code = 0.0 % 0.0-0.0 N NRBC%) NEUTROPHIL # (test code = NT#) 5.15 x10 3/uL 1.8-7.7 N IMMATURE GRANULOCYTE # (test 0.06 x10 3/uL 0.00-0.03 H code = IG#) LYMPHOCYTE # (test code = LY#) 0.86 x10 3/uL 1.0-4.8 L MONOCYTE # (test code = MO#) 0.65 x10 3/uL 0.0-0.8 N EOSINOPHIL # (test code = EO#) 0.15 x10 3/uL 0.0-0.5 N BASOPHIL # (test code = BA#) 0.06 x10 3/uL 0.0-0.2 N NUCLEATED RBC # (test code = 0.0 X10 3/uL 0.0-0.2 N NRBC#) MANUAL DIFF REQUIRED (test code SCAN PLT_RBC TECH REVIEW = MDIFF) RBC [id number] 09:20:00 Test Item Value Reference Range Interpretation Comments ANISOCYTOSIS (test code = ANISO) 1+ MACROCYTOSIS (test code = MACR) 1+ PLATELET [id number] 09:20:00 Test Item Value Reference Range Interpretation Comments PLATELET ESTIMATE (test code = PLTEST) Norm ADEQ COMPREHENSIVE METABOLIC [id number] 07:45:00 Test Item Value Reference Range Interpretation Comments SODIUM (test code = 140 MMOL/L 133-145 N NA) POTASSIUM (test code = 4.4 MMOL/L 3.6-5.2 K) CHLORIDE (test code = 110 MMOL/L 100-108 H CL) CARBON DIOXIDE (test 18 MMOL/L 22-32 L code = CO2) GLUCOSE (test code = 90 MG/DL 65-99 N Results of this GLU) assay method ma y be falsely depress ed orelevated if patient is taki ng sulfasalazine. BLOOD UREA NITROGEN 9 MG/DL 6-20 N (test code = BUN) GLOMERULAR FILTRATION 121 45-104 H Report ing units: RATE (test code = GFR) mL/mi n/1.73m\\S\\2 (Modified MDRD Formula) CREATININE (test code 0.51 MG/DL 0.60-1.00 L = CREAT) TOTAL PROTEIN (test 5.6 G/DL 6.4-8.2 L code = PROT) ALBUMIN (test code = 1.8 G/DL 3.4-5.0 L ALB) GLOBULIN (test code = 3.8 G/DL 1.5-3.8 N GLOB) ALBUMIN/GLOBULIN RATIO 0.5 1.1-2.2 L (test code = A/G) CALCIUM (test code = 7.9 MG/DL 8.7-10.5 L CA) BILIRUBIN TOTAL (test 2.9 MG/DL 0.0-1.0 H code = BILT) SGOT/AST (test code = 59 Units/L 15-37 H Result s of this AST) assay method ma y be falsely depress ed orelevated if patient is taki ng sulfasalazine. SGPT/ALT (test code = 40 Units/L 30-65 N Result s of this ALT) assay method ma y be falsely depress ed orelevated if patient is taki ng sulfasalazine. ALKALINE PHOSPHATASE 642 Units/L 50-136 H TOTAL (test code = ALKP) [id number] 07:45:00 Test Item Value Reference Range Interpretation Comments MAGNESIUM (test code = MAG) 1.4 MG/DL 1.8-2.4 L CBC W/AUTO [id number] 07:09:00 Test Item Value Reference Range Interpretation Comments WHITE BLOOD CELL (test code = 6.93 x10 3/uL 4.80-10.80 N WBC) RED BLOOD CELL (test code = 3.15 x10 6/uL 4.2-5.4 L RBC) HEMOGLOBIN (test code = HGB) 9.2 G/DL 12.0-16.0 L HEMATOCRIT (test code = HCT) 29.7 % 37-47 L MEAN CELL VOLUME (test code = 94.3 FL 81-99 N MCV) MEAN CELL HGB (test code = MCH) 29.2 PG 27-31 N MEAN CELL HGB CONCENTRATION 31.0 G/DL 33-37 L (test code = MCHC) RED CELL DISTRIBUTION WIDTH 21.2 % 11.5-14.5 H (test code = RDW) PLATELET COUNT (test code = 137 x10 3/uL 150-450 L PLT) MEAN PLATELET VOLUME (test code 11.0 FL 7.4-10.4 H = MPV) NEUTROPHIL % (test code = NT%) 74.2 % 42-86 N IMMATURE GRANULOCYTE % (test 0.9 % 0.0-2.0 N code = IG%) LYMPHOCYTE % (test code = LY%) 12.4 % 24-44 L MONOCYTE % (test code = MO%) 9.4 % 0.0-4.0 H EOSINOPHIL % (test code = EO%) 2.2 % 0.0-2.7 N BASOPHIL % (test code = BA%) 0.9 % 0.0-0.5 H NUCLEATED RBC % (test code = 0.0 % 0.0-0.0 N NRBC%) NEUTROPHIL # (test code = NT#) 5.15 x10 3/uL 1.8-7.7 N IMMATURE GRANULOCYTE # (test 0.06 x10 3/uL 0.00-0.03 H code = IG#) LYMPHOCYTE # (test code = LY#) 0.86 x10 3/uL 1.0-4.8 L MONOCYTE # (test code = MO#) 0.65 x10 3/uL 0.0-0.8 N EOSINOPHIL # (test code = EO#) 0.15 x10 3/uL 0.0-0.5 N BASOPHIL # (test code = BA#) 0.06 x10 3/uL 0.0-0.2 N NUCLEATED RBC # (test code = 0.0 X10 3/uL 0.0-0.2 N NRBC#) MANUAL DIFF REQUIRED (test code SCAN PLT_RBC TECH REVIEW = MDIFF) RBC [id number] 07:09:00 Test Item Value Reference Range Interpretation Comments RBC MORPHOLOGY COMMENT (test code = RBCM) PLATELET [id number] 07:09:00 Test Item Value Reference Range Interpretation Comments PLATELET ESTIMATE (test code = PLTEST) ADEQ CBC W/AUTO [id number] 07:09:00 Test Item Value Reference Range Interpretation Comments WHITE BLOOD CELL (test code = 6.93 x10 3/uL 4.80-10.80 N WBC) RED BLOOD CELL (test code = 3.15 x10 6/uL 4.2-5.4 L RBC) HEMOGLOBIN (test code = HGB) 9.2 G/DL 12.0-16.0 L HEMATOCRIT (test code = HCT) 29.7 % 37-47 L MEAN CELL VOLUME (test code = 94.3 FL 81-99 N MCV) MEAN CELL HGB (test code = MCH) 29.2 PG 27-31 N MEAN CELL HGB CONCENTRATION 31.0 G/DL 33-37 L (test code = MCHC) RED CELL DISTRIBUTION WIDTH 21.2 % 11.5-14.5 H (test code = RDW) PLATELET COUNT (test code = 137 x10 3/uL 150-450 L PLT) MEAN PLATELET VOLUME (test code 11.0 FL 7.4-10.4 H = MPV) NEUTROPHIL % (test code = NT%) 74.2 % 42-86 N IMMATURE GRANULOCYTE % (test 0.9 % 0.0-2.0 N code = IG%) LYMPHOCYTE % (test code = LY%) 12.4 % 24-44 L MONOCYTE % (test code = MO%) 9.4 % 0.0-4.0 H EOSINOPHIL % (test code = EO%) 2.2 % 0.0-2.7 N BASOPHIL % (test code = BA%) 0.9 % 0.0-0.5 H NUCLEATED RBC % (test code = 0.0 % 0.0-0.0 N NRBC%) NEUTROPHIL # (test code = NT#) 5.15 x10 3/uL 1.8-7.7 N IMMATURE GRANULOCYTE # (test 0.06 x10 3/uL 0.00-0.03 H code = IG#) LYMPHOCYTE # (test code = LY#) 0.86 x10 3/uL 1.0-4.8 L MONOCYTE # (test code = MO#) 0.65 x10 3/uL 0.0-0.8 N EOSINOPHIL # (test code = EO#) 0.15 x10 3/uL 0.0-0.5 N BASOPHIL # (test code = BA#) 0.06 x10 3/uL 0.0-0.2 N NUCLEATED RBC # (test code = 0.0 X10 3/uL 0.0-0.2 N NRBC#) MANUAL DIFF REQUIRED (test code SCAN PLT_RBC TECH REVIEW = MDIFF) RBC [id number] 07:09:00 Test Item Value Reference Range Interpretation Comments RBC MORPHOLOGY COMMENT (test code = RBCM) PLATELET [id number] 07:09:00 Test Item Value Reference Range Interpretation Comments PLATELET ESTIMATE (test code = PLTEST) ADEQ COMPREHENSIVE METABOLIC [id number] 04:31:00 Test Item Value Reference Range Interpretation Comments SODIUM (test code = 139 MMOL/L 133-145 N NA) POTASSIUM (test code = 3.4 MMOL/L 3.6-5.2 L K) CHLORIDE (test code = 109 MMOL/L 100-108 H CL) CARBON DIOXIDE (test 19 MMOL/L 22-32 L code = CO2) GLUCOSE (test code = 126 MG/DL 65-99 H Results of this GLU) assay method vesna y be falsely depress ed orelevated if patient is taki ng sulfasalazine. BLOOD UREA NITROGEN 10 MG/DL 6-20 N (test code = BUN) GLOMERULAR FILTRATION 121 45-104 H Report ing units: RATE (test code = GFR) mL/mi n/1.73m\\S\\2 (Modified MDRD Formula) CREATININE (test code 0.51 MG/DL 0.60-1.00 L = CREAT) TOTAL PROTEIN (test 5.1 G/DL 6.4-8.2 L code = PROT) ALBUMIN (test code = 1.7 G/DL 3.4-5.0 L ALB) GLOBULIN (test code = 3.4 G/DL 1.5-3.8 N GLOB) ALBUMIN/GLOBULIN RATIO 0.5 1.1-2.2 L (test code = A/G) CALCIUM (test code = 7.6 MG/DL 8.7-10.5 L CA) BILIRUBIN TOTAL (test 2.6 MG/DL 0.0-1.0 H code = BILT) SGOT/AST (test code = 54 Units/L 15-37 H Result s of this AST) assay method ma y be falsely depress ed orelevated if patient is taki ng sulfasalazine. SGPT/ALT (test code = 33 Units/L 30-65 N Result s of this ALT) assay method ma y be falsely depress ed orelevated if patient is taki ng sulfasalazine. ALKALINE PHOSPHATASE 619 Units/L 50-136 H TOTAL (test code = ALKP) [id number] 04:31:00 Test Item Value Reference Range Interpretation Comments MAGNESIUM (test code = MAG) 1.4 MG/DL 1.8-2.4 L CBC W/AUTO [id number] 04:28:00 Test Item Value Reference Range Interpretation Comments WHITE BLOOD CELL (test code = 10.53 x10 3/uL 4.80-10.80 N WBC) RED BLOOD CELL (test code = 3.16 x10 6/uL 4.2-5.4 L RBC) HEMOGLOBIN (test code = HGB) 9.1 G/DL 12.0-16.0 L HEMATOCRIT (test code = HCT) 28.7 % 37-47 L MEAN CELL VOLUME (test code = 90.8 FL 81-99 N MCV) MEAN CELL HGB (test code = 28.8 PG 27-31 N MCH) MEAN CELL HGB CONCENTRATION 31.7 G/DL 33-37 L (test code = MCHC) RED CELL DISTRIBUTION WIDTH 20.5 % 11.5-14.5 H (test code = RDW) PLATELET COUNT (test code = 115 x10 3/uL 150-450 L PLT) MEAN PLATELET VOLUME (test 10.1 FL 7.4-10.4 N code = MPV) NEUTROPHIL % (test code = NT%) 78.5 % 42-86 N IMMATURE GRANULOCYTE % (test 1.6 % 0.0-2.0 N code = IG%) LYMPHOCYTE % (test code = LY%) 10.5 % 24-44 L MONOCYTE % (test code = MO%) 7.2 % 0.0-4.0 H EOSINOPHIL % (test code = EO%) 1.7 % 0.0-2.7 N BASOPHIL % (test code = BA%) 0.5 % 0.0-0.5 N NUCLEATED RBC % (test code = 0.0 % 0.0-0.0 N NRBC%) NEUTROPHIL # (test code = NT#) 8.26 x10 3/uL 1.8-7.7 H IMMATURE GRANULOCYTE # (test 0.17 x10 3/uL 0.00-0.03 H code = IG#) LYMPHOCYTE # (test code = LY#) 1.11 x10 3/uL 1.0-4.8 N MONOCYTE # (test code = MO#) 0.76 x10 3/uL 0.0-0.8 N EOSINOPHIL # (test code = EO#) 0.18 x10 3/uL 0.0-0.5 N BASOPHIL # (test code = BA#) 0.05 x10 3/uL 0.0-0.2 N NUCLEATED RBC # (test code = 0.0 X10 3/uL 0.0-0.2 N NRBC#) COMPREHENSIVE METABOLIC [id number] 05:38:00 Test Item Value Reference Range Interpretation Comments SODIUM (test code = 139 MMOL/L 133-145 N NA) POTASSIUM (test code = 3.9 MMOL/L 3.6-5.2 N K) CHLORIDE (test code = 109 MMOL/L 100-108 H CL) CARBON DIOXIDE (test 20 MMOL/L 22-32 L code = CO2) GLUCOSE (test code = 89 MG/DL 65-99 N Results of this GLU) assay method vesna burciaga be falsely depress ed orelevated if patient is taki ng sulfasalazine. BLOOD UREA NITROGEN 12 MG/DL 6-20 N (test code = BUN) GLOMERULAR FILTRATION 115 45-104 H Report ing units: RATE (test code = GFR) mL/mi n/1.73m\\S\\2 (Modified MDRD Formula) CREATININE (test code 0.53 MG/DL 0.60-1.00 L = CREAT) TOTAL PROTEIN (test 5.6 G/DL 6.4-8.2 L code = PROT) ALBUMIN (test code = 1.8 G/DL 3.4-5.0 L ALB) GLOBULIN (test code = 3.8 G/DL 1.5-3.8 N GLOB) ALBUMIN/GLOBULIN RATIO 0.5 1.1-2.2 L (test code = A/G) CALCIUM (test code = 7.9 MG/DL 8.7-10.5 L CA) BILIRUBIN TOTAL (test 2.9 MG/DL 0.0-1.0 H code = BILT) SGOT/AST (test code = 61 Units/L 15-37 H Result s of this AST) assay method vesna burciaga be falsely depress ed orelevated if patient is taki ng sulfasalazine. SGPT/ALT (test code = 36 Units/L 30-65 N Result s of this ALT) assay method ma y be falsely depress ed orelevated if patient is taki ng sulfasalazine. ALKALINE PHOSPHATASE 664 Units/L 50-136 H TOTAL (test code = ALKP) [id number] 05:38:00 Test Item Value Reference Range Interpretation Comments MAGNESIUM (test code = MAG) 1.9 MG/DL 1.8-2.4 N CBC W/AUTO [id number] 05:10:00 Test Item Value Reference Range Interpretation Comments WHITE BLOOD CELL (test code = 10.76 x10 3/uL 4.80-10.80 N WBC) RED BLOOD CELL (test code = 3.57 x10 6/uL 4.2-5.4 L RBC) HEMOGLOBIN (test code = HGB) 10.4 G/DL 12.0-16.0 L HEMATOCRIT (test code = HCT) 32.4 % 37-47 L MEAN CELL VOLUME (test code = 90.8 FL 81-99 N MCV) MEAN CELL HGB (test code = 29.1 PG 27-31 N MCH) MEAN CELL HGB CONCENTRATION 32.1 G/DL 33-37 L (test code = MCHC) RED CELL DISTRIBUTION WIDTH 20.2 % 11.5-14.5 H (test code = RDW) PLATELET COUNT (test code = 106 x10 3/uL 150-450 L PLT) MEAN PLATELET VOLUME (test 10.1 FL 7.4-10.4 N code = MPV) NEUTROPHIL % (test code = NT%) 75.4 % 42-86 N IMMATURE GRANULOCYTE % (test 3.6 % 0.0-2.0 H code = IG%) LYMPHOCYTE % (test code = LY%) 11.1 % 24-44 L MONOCYTE % (test code = MO%) 7.5 % 0.0-4.0 H EOSINOPHIL % (test code = EO%) 1.7 % 0.0-2.7 N BASOPHIL % (test code = BA%) 0.7 % 0.0-0.5 H NUCLEATED RBC % (test code = 0.3 % 0.0-0.0 H NRBC%) NEUTROPHIL # (test code = NT#) 8.12 x10 3/uL 1.8-7.7 H IMMATURE GRANULOCYTE # (test 0.39 x10 3/uL 0.00-0.03 H code = IG#) LYMPHOCYTE # (test code = LY#) 1.19 x10 3/uL 1.0-4.8 N MONOCYTE # (test code = MO#) 0.81 x10 3/uL 0.0-0.8 H EOSINOPHIL # (test code = EO#) 0.18 x10 3/uL 0.0-0.5 N BASOPHIL # (test code = BA#) 0.07 x10 3/uL 0.0-0.2 N NUCLEATED RBC # (test code = 0.0 X10 3/uL 0.0-0.2 N NRBC#) COMPREHENSIVE METABOLIC [id number] 07:52:00 Test Item Value Reference Range Interpretation Comments SODIUM (test code = 141 MMOL/L 133-145 N NA) POTASSIUM (test code = 3.6 MMOL/L 3.6-5.2 N K) CHLORIDE (test code = 109 MMOL/L 100-108 H CL) CARBON DIOXIDE (test 19 MMOL/L 22-32 L code = CO2) GLUCOSE (test code = 83 MG/DL 65-99 N Results of this GLU) assay method ma y be falsely depress ed orelevated if patient is taki ng sulfasalazine. BLOOD UREA NITROGEN 15 MG/DL 6-20 N (test code = BUN) GLOMERULAR FILTRATION 108 45-104 H Report ing units: RATE (test code = GFR) mL/mi n/1.73m\\S\\2 (Modified MDRD Formula) CREATININE (test code 0.56 MG/DL 0.60-1.00 L = CREAT) TOTAL PROTEIN (test 5.5 G/DL 6.4-8.2 L code = PROT) ALBUMIN (test code = 1.8 G/DL 3.4-5.0 L ALB) GLOBULIN (test code = 3.7 G/DL 1.5-3.8 N GLOB) ALBUMIN/GLOBULIN RATIO 0.5 1.1-2.2 L (test code = A/G) CALCIUM (test code = 8.1 MG/DL 8.7-10.5 L CA) BILIRUBIN TOTAL (test 3.1 MG/DL 0.0-1.0 H code = BILT) SGOT/AST (test code = 52 Units/L 15-37 H Result s of this AST) assay method ma y be falsely depress ed orelevated if patient is taki ng sulfasalazine. SGPT/ALT (test code = 30 Units/L 30-65 N Result s of this ALT) assay method ma y be falsely depress ed orelevated if patient is taki ng sulfasalazine. ALKALINE PHOSPHATASE 612 Units/L 50-136 H TOTAL (test code = ALKP) [id number] 07:52:00 Test Item Value Reference Range Interpretation Comments MAGNESIUM (test code = MAG) 1.3 MG/DL 1.8-2.4 L CBC W/AUTO [id number] 07:44:00 Test Item Value Reference Range Interpretation Comments WHITE BLOOD CELL (test code = 10.52 x10 3/uL 4.80-10.80 N WBC) RED BLOOD CELL (test code = 3.43 x10 6/uL 4.2-5.4 L RBC) HEMOGLOBIN (test code = HGB) 9.8 G/DL 12.0-16.0 L HEMATOCRIT (test code = HCT) 30.8 % 37-47 L MEAN CELL VOLUME (test code = 89.8 FL 81-99 N MCV) MEAN CELL HGB (test code = 28.6 PG 27-31 N MCH) MEAN CELL HGB CONCENTRATION 31.8 G/DL 33-37 L (test code = MCHC) RED CELL DISTRIBUTION WIDTH 19.9 % 11.5-14.5 H (test code = RDW) PLATELET COUNT (test code = 104 x10 3/uL 150-450 L PLT) MEAN PLATELET VOLUME (test 10.5 FL 7.4-10.4 H code = MPV) NEUTROPHIL % (test code = NT%) 77.4 % 42-86 N IMMATURE GRANULOCYTE % (test 4.5 % 0.0-2.0 H code = IG%) LYMPHOCYTE % (test code = LY%) 9.6 % 24-44 L MONOCYTE % (test code = MO%) 6.7 % 0.0-4.0 H EOSINOPHIL % (test code = EO%) 1.4 % 0.0-2.7 N BASOPHIL % (test code = BA%) 0.4 % 0.0-0.5 N NUCLEATED RBC % (test code = 0.3 % 0.0-0.0 H NRBC%) NEUTROPHIL # (test code = NT#) 8.15 x10 3/uL 1.8-7.7 H IMMATURE GRANULOCYTE # (test 0.47 x10 3/uL 0.00-0.03 H code = IG#) LYMPHOCYTE # (test code = LY#) 1.01 x10 3/uL 1.0-4.8 N MONOCYTE # (test code = MO#) 0.70 x10 3/uL 0.0-0.8 N EOSINOPHIL # (test code = EO#) 0.15 x10 3/uL 0.0-0.5 N BASOPHIL # (test code = BA#) 0.04 x10 3/uL 0.0-0.2 N NUCLEATED RBC # (test code = 0.0 X10 3/uL 0.0-0.2 N NRBC#) [id number] 05:12:00 Test Item Value Reference Range Interpretation Comments HAPTOGLOBIN (test code 140 mg/dL 37-355 Perfo rmed At: DA = HAPT) [facility] [address] [place], [place] [id number] h JEANINE MIRANDA Ph:[phone] COMPREHENSIVE METABOLIC [id number] 05:25:00 Test Item Value Reference Range Interpretation Comments SODIUM (test code = 139 MMOL/L 133-145 N NA) POTASSIUM (test code = 4.2 MMOL/L 3.6-5.2 N K) CHLORIDE (test code = 109 MMOL/L 100-108 H CL) CARBON DIOXIDE (test 18 MMOL/L 22-32 L code = CO2) GLUCOSE (test code = 85 MG/DL 65-99 N Results of this GLU) assay method ma y be falsely depress ed orelevated if patient is taki ng sulfasalazine. BLOOD UREA NITROGEN 19 MG/DL 6-20 N (test code = BUN) GLOMERULAR FILTRATION 88 45-104 N Report ing units: RATE (test code = GFR) mL/mi n/1.73m\\S\\2 (Modified MDRD Formula) CREATININE (test code 0.67 MG/DL 0.60-1.00 N = CREAT) TOTAL PROTEIN (test 5.1 G/DL 6.4-8.2 L code = PROT) ALBUMIN (test code = 1.9 G/DL 3.4-5.0 L ALB) GLOBULIN (test code = 3.2 G/DL 1.5-3.8 N GLOB) ALBUMIN/GLOBULIN RATIO 0.6 1.1-2.2 L (test code = A/G) CALCIUM (test code = 8.5 MG/DL 8.7-10.5 L CA) BILIRUBIN TOTAL (test 3.8 MG/DL 0.0-1.0 H code = BILT) SGOT/AST (test code = 45 Units/L 15-37 H Result s of this AST) assay method ma y be falsely depress ed orelevated if patient is taki ng sulfasalazine. SGPT/ALT (test code = 26 Units/L 30-65 L Result s of this ALT) assay method ma y be falsely depress ed orelevated if patient is taki ng sulfasalazine. ALKALINE PHOSPHATASE 594 Units/L 50-136 H TOTAL (test code = ALKP) [id number] 05:25:00 Test Item Value Reference Range Interpretation Comments MAGNESIUM (test code = MAG) 1.8 MG/DL 1.8-2.4 N CBC W/AUTO [id number] 05:00:00 Test Item Value Reference Range Interpretation Comments WHITE BLOOD CELL (test code = 12.81 x10 3/uL 4.80-10.80 H WBC) RED BLOOD CELL (test code = 3.44 x10 6/uL 4.2-5.4 L RBC) HEMOGLOBIN (test code = HGB) 10.0 G/DL 12.0-16.0 L HEMATOCRIT (test code = HCT) 30.3 % 37-47 L MEAN CELL VOLUME (test code = 88.1 FL 81-99 N MCV) MEAN CELL HGB (test code = 29.1 PG 27-31 N MCH) MEAN CELL HGB CONCENTRATION 33.0 G/DL 33-37 N (test code = MCHC) RED CELL DISTRIBUTION WIDTH 19.4 % 11.5-14.5 H (test code = RDW) PLATELET COUNT (test code = 109 x10 3/uL 150-450 L PLT) MEAN PLATELET VOLUME (test 9.8 FL 7.4-10.4 N code = MPV) NEUTROPHIL % (test code = NT%) 76.8 % 42-86 N IMMATURE GRANULOCYTE % (test 5.0 % 0.0-2.0 H code = IG%) LYMPHOCYTE % (test code = LY%) 8.5 % 24-44 L MONOCYTE % (test code = MO%) 8.0 % 0.0-4.0 H EOSINOPHIL % (test code = EO%) 1.2 % 0.0-2.7 N BASOPHIL % (test code = BA%) 0.5 % 0.0-0.5 N NUCLEATED RBC % (test code = 0.3 % 0.0-0.0 H NRBC%) NEUTROPHIL # (test code = NT#) 9.84 x10 3/uL 1.8-7.7 H IMMATURE GRANULOCYTE # (test 0.64 x10 3/uL 0.00-0.03 H code = IG#) LYMPHOCYTE # (test code = LY#) 1.09 x10 3/uL 1.0-4.8 N MONOCYTE # (test code = MO#) 1.03 x10 3/uL 0.0-0.8 H EOSINOPHIL # (test code = EO#) 0.15 x10 3/uL 0.0-0.5 N BASOPHIL # (test code = BA#) 0.06 x10 3/uL 0.0-0.2 N NUCLEATED RBC # (test code = 0.0 X10 3/uL 0.0-0.2 N NRBC#) LACTIC DEHYDROGENASE(LDH)[id number] 11:42:00 Test Item Value Reference Range Interpretation Comments LACTIC DEHYDROGENASE(LDH) (test 169 Units/L 81-234 N code = LDH) [id number] 11:42:00 Test Item Value Reference Range Interpretation Comments FERRITIN (test code = HERNAN) 242 NG/ML 3-105 H TOTAL IRON BINDING [id number] 11:25:00 Test Item Value Reference Range Interpretation Comments SERUM IRON (test code = IRON) 79 MCG/DL 50-170 N TOTAL IRON BINDING CAPACITY (test 231 MCG/DL 280-400 L code = TIBC) IRON SATURATION (test code = 34 % 15-50 N FESAT) RETIC [id number] 08:12:00 Test Item Value Reference Range Interpretation Comments RETIC COUNT (AUTOMATED) 4.67 % 0.5-1.5 H (test code = RETICA) RETIC COUNT ABSOLUTE 0.14 % (test code = RET#) IMMATURE RETICULOCYTE 28.8 % 3.0-15.9 H Immatu re Retic Fraction FRACTION (test code = or "re tic maturation IRF) index" isexpres sed as a ratio of immatu re retics to total retics. COMPREHENSIVE METABOLIC [id number] 04:58:00 Test Item Value Reference Range Interpretation Comments SODIUM (test code = 138 MMOL/L 133-145 N NA) POTASSIUM (test code = 3.4 MMOL/L 3.6-5.2 L K) CHLORIDE (test code = 106 MMOL/L 100-108 N CL) CARBON DIOXIDE (test 16 MMOL/L 22-32 L code = CO2) GLUCOSE (test code = 67 MG/DL 65-99 N Results of this GLU) assay method vesna y be falsely depress ed orelevated if patient is taki ng sulfasalazine. BLOOD UREA NITROGEN 19 MG/DL 6-20 N (test code = BUN) GLOMERULAR FILTRATION 76 45-104 N Report ing units: RATE (test code = GFR) mL/mi n/1.73m\\S\\2 (Modified MDRD Formula) CREATININE (test code 0.76 MG/DL 0.60-1.00 N = CREAT) TOTAL PROTEIN (test 4.6 G/DL 6.4-8.2 L code = PROT) ALBUMIN (test code = 1.7 G/DL 3.4-5.0 L ALB) GLOBULIN (test code = 2.9 G/DL 1.5-3.8 N GLOB) ALBUMIN/GLOBULIN RATIO 0.6 1.1-2.2 L (test code = A/G) CALCIUM (test code = 8.0 MG/DL 8.7-10.5 L CA) BILIRUBIN TOTAL (test 3.9 MG/DL 0.0-1.0 H code = BILT) SGOT/AST (test code = 44 Units/L 15-37 H Result s of this AST) assay method vesna y be falsely depress ed orelevated if patient is taki ng sulfasalazine. SGPT/ALT (test code = 23 Units/L 30-65 L Result s of this ALT) assay method vesna y be falsely depress ed orelevated if patient is taki ng sulfasalazine. ALKALINE PHOSPHATASE 509 Units/L 50-136 H TOTAL (test code = ALKP) [id number] 04:58:00 Test Item Value Reference Range Interpretation Comments MAGNESIUM (test code = MAG) 1.6 MG/DL 1.8-2.4 L CBC W/AUTO [id number] 04:47:00 Test Item Value Reference Range Interpretation Comments WHITE BLOOD CELL (test code = 13.70 x10 3/uL 4.80-10.80 H WBC) RED BLOOD CELL (test code = 3.06 x10 6/uL 4.2-5.4 L RBC) HEMOGLOBIN (test code = HGB) 8.9 G/DL 12.0-16.0 L HEMATOCRIT (test code = HCT) 26.6 % 37-47 L MEAN CELL VOLUME (test code = 86.9 FL 81-99 N MCV) MEAN CELL HGB (test code = 29.1 PG 27-31 N MCH) MEAN CELL HGB CONCENTRATION 33.5 G/DL 33-37 N (test code = MCHC) RED CELL DISTRIBUTION WIDTH 19.2 % 11.5-14.5 H (test code = RDW) PLATELET COUNT (test code = 91 x10 3/uL 150-450 L PLT) MEAN PLATELET VOLUME (test 10.0 FL 7.4-10.4 N code = MPV) NEUTROPHIL % (test code = NT%) 84.3 % 42-86 N IMMATURE GRANULOCYTE % (test 2.3 % 0.0-2.0 H code = IG%) LYMPHOCYTE % (test code = LY%) 5.0 % 24-44 L MONOCYTE % (test code = MO%) 7.5 % 0.0-4.0 H EOSINOPHIL % (test code = EO%) 0.7 % 0.0-2.7 N BASOPHIL % (test code = BA%) 0.2 % 0.0-0.5 N NUCLEATED RBC % (test code = 0.2 % 0.0-0.0 H NRBC%) NEUTROPHIL # (test code = NT#) 11.54 x10 3/uL 1.8-7.7 H IMMATURE GRANULOCYTE # (test 0.32 x10 3/uL 0.00-0.03 H code = IG#) LYMPHOCYTE # (test code = LY#) 0.68 x10 3/uL 1.0-4.8 L MONOCYTE # (test code = MO#) 1.03 x10 3/uL 0.0-0.8 H EOSINOPHIL # (test code = EO#) 0.10 x10 3/uL 0.0-0.5 N BASOPHIL # (test code = BA#) 0.03 x10 3/uL 0.0-0.2 N NUCLEATED RBC # (test code = 0.0 X10 3/uL 0.0-0.2 N NRBC#) MANUAL DIFF REQUIRED (test SCAN PLT_RBC TECH REVIEW code = MDIFF) RBC [id number] 04:47:00 Test Item Value Reference Range Interpretation Comments RBC MORPHOLOGY COMMENT (test code See Comment = RBCM) ANISOCYTOSIS (test code = ANISO) Occ TARGET CELLS (test code = TGT) Slt PLATELET [id number] 04:47:00 Test Item Value Reference Range Interpretation Comments PLATELET ESTIMATE (test Dec ADEQ A MANU AL PLATELET code = PLTEST) ESTIMATE: 90, 000 PLATELET [id number] 04:47:00 Test Item Value Reference Range Interpretation Comments PLATELET MORPHOLOGY (test code = Normal Normal PLTMORPH) CBC W/AUTO [id number] 04:31:00 Test Item Value Reference Range Interpretation Comments WHITE BLOOD CELL (test code = 13.70 x10 3/uL 4.80-10.80 H WBC) RED BLOOD CELL (test code = 3.06 x10 6/uL 4.2-5.4 L RBC) HEMOGLOBIN (test code = HGB) 8.9 G/DL 12.0-16.0 L HEMATOCRIT (test code = HCT) 26.6 % 37-47 L MEAN CELL VOLUME (test code = 86.9 FL 81-99 N MCV) MEAN CELL HGB (test code = 29.1 PG 27-31 N MCH) MEAN CELL HGB CONCENTRATION 33.5 G/DL 33-37 N (test code = MCHC) RED CELL DISTRIBUTION WIDTH 19.2 % 11.5-14.5 H (test code = RDW) PLATELET COUNT (test code = 91 x10 3/uL 150-450 L PLT) MEAN PLATELET VOLUME (test 10.0 FL 7.4-10.4 N code = MPV) NEUTROPHIL % (test code = NT%) 84.3 % 42-86 N IMMATURE GRANULOCYTE % (test 2.3 % 0.0-2.0 H code = IG%) LYMPHOCYTE % (test code = LY%) 5.0 % 24-44 L MONOCYTE % (test code = MO%) 7.5 % 0.0-4.0 H EOSINOPHIL % (test code = EO%) 0.7 % 0.0-2.7 N BASOPHIL % (test code = BA%) 0.2 % 0.0-0.5 N NUCLEATED RBC % (test code = 0.2 % 0.0-0.0 H NRBC%) NEUTROPHIL # (test code = NT#) 11.54 x10 3/uL 1.8-7.7 H IMMATURE GRANULOCYTE # (test 0.32 x10 3/uL 0.00-0.03 H code = IG#) LYMPHOCYTE # (test code = LY#) 0.68 x10 3/uL 1.0-4.8 L MONOCYTE # (test code = MO#) 1.03 x10 3/uL 0.0-0.8 H EOSINOPHIL # (test code = EO#) 0.10 x10 3/uL 0.0-0.5 N BASOPHIL # (test code = BA#) 0.03 x10 3/uL 0.0-0.2 N NUCLEATED RBC # (test code = 0.0 X10 3/uL 0.0-0.2 N NRBC#) MANUAL DIFF REQUIRED (test SCAN PLT_RBC TECH REVIEW code = MDIFF) RBC [id number] 04:31:00 Test Item Value Reference Range Interpretation Comments RBC MORPHOLOGY COMMENT (test code = RBCM) PLATELET [id number] 04:31:00 Test Item Value Reference Range Interpretation Comments PLATELET ESTIMATE (test code = PLTEST) ADEQ CBC W/AUTO [id number] 04:31:00 Test Item Value Reference Range Interpretation Comments WHITE BLOOD CELL (test code = 13.70 x10 3/uL 4.80-10.80 H WBC) RED BLOOD CELL (test code = 3.06 x10 6/uL 4.2-5.4 L RBC) HEMOGLOBIN (test code = HGB) 8.9 G/DL 12.0-16.0 L HEMATOCRIT (test code = HCT) 26.6 % 37-47 L MEAN CELL VOLUME (test code = 86.9 FL 81-99 N MCV) MEAN CELL HGB (test code = 29.1 PG 27-31 N MCH) MEAN CELL HGB CONCENTRATION 33.5 G/DL 33-37 N (test code = MCHC) RED CELL DISTRIBUTION WIDTH 19.2 % 11.5-14.5 H (test code = RDW) PLATELET COUNT (test code = 91 x10 3/uL 150-450 L PLT) MEAN PLATELET VOLUME (test 10.0 FL 7.4-10.4 N code = MPV) NEUTROPHIL % (test code = NT%) 84.3 % 42-86 N IMMATURE GRANULOCYTE % (test 2.3 % 0.0-2.0 H code = IG%) LYMPHOCYTE % (test code = LY%) 5.0 % 24-44 L MONOCYTE % (test code = MO%) 7.5 % 0.0-4.0 H EOSINOPHIL % (test code = EO%) 0.7 % 0.0-2.7 N BASOPHIL % (test code = BA%) 0.2 % 0.0-0.5 N NUCLEATED RBC % (test code = 0.2 % 0.0-0.0 H NRBC%) NEUTROPHIL # (test code = NT#) 11.54 x10 3/uL 1.8-7.7 H IMMATURE GRANULOCYTE # (test 0.32 x10 3/uL 0.00-0.03 H code = IG#) LYMPHOCYTE # (test code = LY#) 0.68 x10 3/uL 1.0-4.8 L MONOCYTE # (test code = MO#) 1.03 x10 3/uL 0.0-0.8 H EOSINOPHIL # (test code = EO#) 0.10 x10 3/uL 0.0-0.5 N BASOPHIL # (test code = BA#) 0.03 x10 3/uL 0.0-0.2 N NUCLEATED RBC # (test code = 0.0 X10 3/uL 0.0-0.2 N NRBC#) MANUAL DIFF REQUIRED (test SCAN PLT_RBC TECH REVIEW code = MDIFF) RBC [id number] 04:31:00 Test Item Value Reference Range Interpretation Comments RBC MORPHOLOGY COMMENT (test code = RBCM) PLATELET [id number] 04:31:00 Test Item Value Reference Range Interpretation Comments PLATELET ESTIMATE (test code = PLTEST) ADEQ UA RFLX [id number] 20:02:00 Test Item Value Reference Range Interpretation Comments UA COLOR (test code = COLU) Yellow YELLOW UA APPEARANCE (test code = CLEAR CLEAR APPU) UA GLUCOSE DIPSTICK (test NORMAL mg/dL NEGATIVE code = DGLUU) UA BILIRUBIN DIPSTICK (test NEGATIVE NEGATIVE code = BILU) UA KETONE DIPSTICK (test code NEGATIVE mg/dL NEGATIVE = KETU) UA SPECIFIC GRAVITY (test 1.011 1.001-1.035 N code = SGU) UA BLOOD DIPSTICK (test code NEGATIVE NEGATIVE = BOBBY) UA PH DIPSTICK (test code = 6.5 5.5-7.0 N MORGAN) UA PROTEIN DIPSTICK (test NEGATIVE mg/dL NEGATIVE code = PROU) UA UROBILINOGEN DIPSTICK NORMAL mg/dL NORMAL (test code = URO) UA NITRITE DIPSTICK (test NEGATIVE NEGATIVE code = CHUCHO) UA LEUKOCYTE ESTERASE NEGATIVE NEGATIVE DIPSTICK (test code = LEUU) UA COMMENT (test code = COMU) VOLUME 10-12 ML URINE SPECIMEN DESCRIPTION Indwelling Cath (test code = UASPEC) URINE SOURCE: Indwelling CathUR SODIUM [id number] 19:41:00 Test Item Value Reference Range Interpretation Comments UR SODIUM RANDOM 74 MMOL/L No establis hed reference (test code = DIPTI) range for random urine specimen. UR POTASSIUM [id number] 19:41:00 Test Item Value Reference Range Interpretation Comments UR POTASSIUM RANDOM 32 MMOL/L No estab lished (test code = KU) reference r patti for random urine sp ecimen. UR CHLORIDE [id number] 19:41:00 Test Item Value Reference Range Interpretation Comments UR CHLORIDE RANDOM 99 MMOL/L No establ ished (test code = CLU) reference range for random urine sp ecimen. UR CREATININE [id number] 19:41:00 Test Item Value Reference Range Interpretation Comments UR CREATININE RANDOM 18.24 MG/DL No esta blished (test code = CREATU) referen ce range for random urine specimen. NT PRO-BRAIN NATRIURETIC [id number] 17:20:00 Test Item Value Reference Range Interpretation Comments NT PRO-BRAIN 3456 PG/ML 0-125 H Results of this assay NATRIURETIC PEPTI method may be falsely (test code = PROBNP) depress ed orelevated if patient is t aking high doses of B iotin. [id number] 17:12:00 Test Item Value Reference Range Interpretation Comments ACETAMINOPHEN (test < 1 MCG/ML 10-30 L Acetamin ophen is code = ACET) possibly toxic at levels of: 1. m ore than 150 MCG/ML 4 hours post sriram stion. 2. more than 5 0 MCG/ML 12 hours post ingestion. [id number] 17:12:00 Test Item Value Reference Range Interpretation Comments SALICYLATE (test code = < 3 MG/DL 0-20 N Refe rence Range: SOPHIA) Analgesic...... ...... ...... < 10 mg /dl Therapeutic.... ...... ...... 15-20 mg /dl Mild Toxicity....... ...... . > 30 mg/dl Severe Toxicity....... ..... > 60 mg/dl - XR CHEST 1 [id number] 16:02:00 [facility] 1955 Sex: F Patient Name: ANUM HESTER Unit No: [id number] EXAMS: CPT CODE: [id number] XR CHEST 1 V 05544 Reason: sob , needing 3l NC Location of dictation: B2 Portable chest one view. HISTORY: sob , needing 3l NC COMMENT: Compared to one day prior. The heart is slightly enlarged. There is persistent pulmonary edema with increasing left effusion. No pneumothorax seen. IMPRESSION: Persistent CHF with increasing left effusion. Electronically Signed by Liv Valdez 10/12/2020 at 1602 Reported and signed by: Liv Mcgovern MD CC: Virginia Zuñiga MD; Rui Matthew MD Technologist: Lee Ann Arango RT Trscrpt Dt/ ([id number])[facility] Orig Print D/T: S: 10/12/2020 ([id number]) [facility] NAME: ANUM HESTER [address] PH[address]: Celestina [place] [address] : 1955 AGE: 65 SEX: F LOC: D.U 14 PHONE #: [phone] EXAM DATE: 10/12/2020 STATUS: ADM IN FAX #: RAD NO: DC Dt: PAGE 1 Signed Report- HEPA IMAG INCL [id number] [facility]29[facility] 1955 Sex: F Patient Name: ANUM HESTER Unit No: [id number] EXAMS: CPT CODE: [id number] [place] [id number] Reason: RUQ abd pain HEPATOBILIARY STUDY CLINICAL HISTORY: Right upper quadrant pain COMPARISON STUDIES: Prior ultrasound Technique: 5.0 mCi technetium 99m Choletec was administered IV per protocol. Dynamic images of the anterior abdomen were obtained over 60 minutes per protocol. A dditional spot views in the left anterior oblique and right lateral projections were also obtained. The patient then received mcg of sincalide IV and a gallbladder ejection fraction was obtained. Findings: There is prompt uptake and excretion uptake of radiopharmac eutical within the liver. Common bile duct, gallbladder and small bowel are visualized. There is no evidence of common duct or cystic duct obstruction. There is no evidence of significant enterogastric reflux. IMPRESSIONS: Normal hepatobiliary scan. at 1429 Reported and signed by: Armando Crocker MD CC: Arley Regan Jr, MD; Virginia [employer] DOCTOR; Rui Matthew MD Technologist: Barron Nazario RT NM Trscrpt Dt/ ([id number] Orig Print D/T: S: 10/12/2020 ([id number]) [facility] NAME: ANUM HESTER [address] PHYS: REAL.Brandi - Arley Regan Jr [place] [id number] : 1955 AGE: 65 SEX: F LOC: D.U 14 PHONE #: [phone] EXAM DATE: 10/12/2020 STATUS: ADM IN FAX #: RAD NO: DC Dt: PAGE 1 Signed ReportLACTIC ACID 2020-10-12 14:00:00 Test Item Value Reference Range Interpretation Comments LACTIC ACID (test code = LACT) 1.0 MMOL/L 0.5-2.2 N ARTERIAL BLOOD [id number] 13:47:00 Test Item Value Reference Range Interpretation Comments ARTERIAL BLOOD GAS PH 7.35 7.35-7.45 N (test code = PHA) ARTERIAL BLOOD GAS PCO2 22.6 mmHg 35.0-45.0 LL (test code = PCO2A) ARTERIAL BLOOD GAS PO2 67.9 mmHg 60.0-80.0 N (test code = PO2A) BICARBONATE TOTAL HCO3 12.2 mmol/L 20.0-26.0 L (test code = HCO3) BASE EXCESS (test code = -11.7 mmol/L -3.0-3.0 L HOWARD) ABG TYPE (test code = Arterial TYPEA) FIO2 (test code = FIO2A) 21.0 % MODE (test code = MODE) ROOM AIR DIPAK TEST (test code = NA ALN) ABG SITE (test code = RB SITEA) TOTAL HGB (test code = 10.7 G/DL 12.0-16.0 L THB) OXYHEMOGLOBIN (test code 92.4 % 92.0-98.0 N = OOHGBT) CARBOXYHEMOGLOBIN (test 0.7 % 0.5-1.5 N code = HOHGBT) METHEMOGLOBIN (test code 0.3 % 0.4-1.5 L = METHGB) CV CALL BG (test code = Called Resu lts called CVCBG) to and read jeniffer k by Selvin VITALE 10/12/2020; by Augusta VEGA, OFFSET LABEL REWINDER ARTERIAL BLOOD [id number] 13:47:00 Test Item Value Reference Range Interpretation Comments ARTERIAL BLOOD GAS PH 7.35 7.35-7.45 N (test code = PHA) ARTERIAL BLOOD GAS PCO2 22.6 mmHg 35.0-45.0 LL (test code = PCO2A) ARTERIAL BLOOD GAS PO2 67.9 mmHg 60.0-80.0 N (test code = PO2A) BICARBONATE TOTAL HCO3 12.2 mmol/L 20.0-26.0 L (test code = HCO3) BASE EXCESS (test code = -11.7 mmol/L -3.0-3.0 L HOWARD) ABG TYPE (test code = Arterial TYPEA) FIO2 (test code = FIO2A) 21.0 % MODE (test code = MODE) ROOM AIR DIPAK TEST (test code = NA ALN) ABG SITE (test code = RB SITEA) TOTAL HGB (test code = 10.7 G/DL 12.0-16.0 L THB) OXYHEMOGLOBIN (test code 92.4 % 92.0-98.0 N = OOHGBT) CARBOXYHEMOGLOBIN (test 0.7 % 0.5-1.5 N code = HOHGBT) METHEMOGLOBIN (test code 0.3 % 0.4-1.5 L = METHGB) CV CALL BG (test code = Called Resu lts called CVCBG) to and read jeniffer k by Selvin VITALE 10/12/2020; by Augusta VEGA, OFFSET LABEL REWINDER COMPREHENSIVE METABOLIC [id number] 07:11:00 Test Item Value Reference Range Interpretation Comments SODIUM (test code = 134 MMOL/L 133-145 NA) POTASSIUM (test code = 3.5 MMOL/L 3.6-5.2 L K) CHLORIDE (test code = 104 MMOL/L 100-108 N CL) CARBON DIOXIDE (test 13 MMOL/L 22-32 L code = CO2) GLUCOSE (test code = 71 MG/DL 65-99 N Results of this GLU) assay method vesna burciaga be falsely depress ed orelevated if patient is taki ng sulfasalazine. BLOOD UREA NITROGEN 27 MG/DL 6-20 H (test code = BUN) GLOMERULAR FILTRATION 61 45-104 N Report ing units: RATE (test code = GFR) mL/mi n/1.73m\\S\\2 (Modified MDRD Formula) CREATININE (test code 0.92 MG/DL 0.60-1.00 N = CREAT) TOTAL PROTEIN (test 5.2 G/DL 6.4-8.2 L code = PROT) ALBUMIN (test code = 2.0 G/DL 3.4-5.0 L ALB) GLOBULIN (test code = 3.2 G/DL 1.5-3.8 N GLOB) ALBUMIN/GLOBULIN RATIO 0.6 1.1-2.2 L (test code = A/G) CALCIUM (test code = 7.5 MG/DL 8.7-10.5 L CA) BILIRUBIN TOTAL (test 4.4 MG/DL 0.0-1.0 H code = BILT) SGOT/AST (test code = 48 Units/L 15-37 H Result s of this AST) assay method vesna burciaga be falsely depress ed orelevated if patient is taki ng sulfasalazine. SGPT/ALT (test code = 24 Units/L 30-65 L Result s of this ALT) assay method vesna burciaga be falsely depress ed orelevated if patient is taki ng sulfasalazine. ALKALINE PHOSPHATASE 520 Units/L 50-136 H TOTAL (test code = ALKP) [id number] 07:11:00 Test Item Value Reference Range Interpretation Comments MAGNESIUM (test code = MAG) 1.9 MG/DL 1.8-2.4 N COMPREHENSIVE METABOLIC [id number] 07:07:00 Test Item Value Reference Range Interpretation Comments SODIUM (test code = MMOL/L 133-145 NA) POTASSIUM (test code = MMOL/L 3.6-5.2 L K) CHLORIDE (test code = 104 MMOL/L 100-108 N CL) CARBON DIOXIDE (test 13 MMOL/L 22-32 L code = CO2) GLUCOSE (test code = 71 MG/DL 65-99 N Results of this GLU) assay method vesna burciaga be falsely depress ed orelevated if patient is taki ng sulfasalazine. BLOOD UREA NITROGEN 27 MG/DL 6-20 H (test code = BUN) GLOMERULAR FILTRATION 61 45-104 N Report ing units: RATE (test code = GFR) mL/mi n/1.73m\\S\\2 (Modified MDRD Formula) CREATININE (test code 0.92 MG/DL 0.60-1.00 N = CREAT) TOTAL PROTEIN (test 5.2 G/DL 6.4-8.2 L code = PROT) ALBUMIN (test code = 2.0 G/DL 3.4-5.0 L ALB) GLOBULIN (test code = 3.2 G/DL 1.5-3.8 N GLOB) ALBUMIN/GLOBULIN RATIO 0.6 1.1-2.2 L (test code = A/G) CALCIUM (test code = 7.5 MG/DL 8.7-10.5 L CA) BILIRUBIN TOTAL (test 4.4 MG/DL 0.0-1.0 H code = BILT) SGOT/AST (test code = 48 Units/L 15-37 H Result s of this AST) assay method vesna burciaga be falsely depress ed orelevated if patient is taki ng sulfasalazine. SGPT/ALT (test code = 24 Units/L 30-65 L Result s of this ALT) assay method vesna burciaga be falsely depress ed orelevated if patient is taki ng sulfasalazine. ALKALINE PHOSPHATASE 520 Units/L 50-136 H TOTAL (test code = ALKP) [id number] 07:07:00 Test Item Value Reference Range Interpretation Comments MAGNESIUM (test code = MAG) 1.9 MG/DL 1.8-2.4 N CBC W/AUTO [id number] 06:27:00 Test Item Value Reference Range Interpretation Comments WHITE BLOOD CELL 25.09 x10 3/uL 4.80-10.80 H (test code = WBC) RED BLOOD CELL (test 3.53 x10 6/uL 4.2-5.4 L code = RBC) HEMOGLOBIN (test 10.0 G/DL 12.0-16.0 L code = HGB) HEMATOCRIT (test 30.7 % 37-47 L code = HCT) MEAN CELL VOLUME 87.0 FL 81-99 N (test code = MCV) MEAN CELL HGB (test 28.3 PG 27-31 N code = MCH) MEAN CELL HGB 32.6 G/DL 33-37 L CONCENTRATION (test code = MCHC) RED CELL 19.0 % 11.5-14.5 H DISTRIBUTION WIDTH (test code = RDW) PLATELET COUNT (test 131 x10 3/uL 150-450 L code = PLT) MEAN PLATELET VOLUME 10.5 FL 7.4-10.4 H (test code = MPV) NEUTROPHIL % (test 87.2 % 42-86 H code = NT%) IMMATURE GRANULOCYTE 3.3 % 0.0-2.0 H % (test code = IG%) LYMPHOCYTE % (test 3.3 % 24-44 L code = LY%) MONOCYTE % (test 5.5 % 0.0-4.0 H code = MO%) EOSINOPHIL % (test 0.2 % 0.0-2.7 N code = EO%) BASOPHIL % (test 0.5 % 0.0-0.5 N code = BA%) NUCLEATED RBC % 0.0 % 0.0-0.0 N (test code = NRBC%) NEUTROPHIL # (test 21.90 x10 3/uL 1.8-7.7 H code = NT#) IMMATURE GRANULOCYTE 0.82 x10 3/uL 0.00-0.03 H # (test code = IG#) LYMPHOCYTE # (test 0.83 x10 3/uL 1.0-4.8 L code = LY#) MONOCYTE # (test 1.37 x10 3/uL 0.0-0.8 H code = MO#) EOSINOPHIL # (test 0.05 x10 3/uL 0.0-0.5 N code = EO#) BASOPHIL # (test 0.12 x10 3/uL 0.0-0.2 N code = BA#) NUCLEATED RBC # 0.0 X10 3/uL 0.0-0.2 N (test code = NRBC#) MANUAL DIFF REQUIRED AUTODIFF TECH REVIEW Auto (test code = MDIFF) VERIFIED Differen tial verified by xochitl h review of smear . CBC W/AUTO [id number] 05:59:00 Test Item Value Reference Range Interpretation Comments WHITE BLOOD CELL (test code = 25.09 x10 3/uL 4.80-10.80 H WBC) RED BLOOD CELL (test code = 3.53 x10 6/uL 4.2-5.4 L RBC) HEMOGLOBIN (test code = HGB) 10.0 G/DL 12.0-16.0 L HEMATOCRIT (test code = HCT) 30.7 % 37-47 L MEAN CELL VOLUME (test code = 87.0 FL 81-99 N MCV) MEAN CELL HGB (test code = 28.3 PG 27-31 N MCH) MEAN CELL HGB CONCENTRATION 32.6 G/DL 33-37 L (test code = MCHC) RED CELL DISTRIBUTION WIDTH 19.0 % 11.5-14.5 H (test code = RDW) PLATELET COUNT (test code = 131 x10 3/uL 150-450 L PLT) MEAN PLATELET VOLUME (test 10.5 FL 7.4-10.4 H code = MPV) NEUTROPHIL % (test code = NT%) % 42-86 H IMMATURE GRANULOCYTE % (test % 0.0-2.0 H code = IG%) LYMPHOCYTE % (test code = LY%) % 24-44 L MONOCYTE % (test code = MO%) % 0.0-4.0 H EOSINOPHIL % (test code = EO%) % 0.0-2.7 N BASOPHIL % (test code = BA%) % 0.0-0.5 N NUCLEATED RBC % (test code = % 0.0-0.0 N NRBC%) NEUTROPHIL # (test code = NT#) x10 3/uL 1.8-7.7 H IMMATURE GRANULOCYTE # (test x10 3/uL 0.00-0.03 H code = IG#) LYMPHOCYTE # (test code = LY#) x10 3/uL 1.0-4.8 L MONOCYTE # (test code = MO#) x10 3/uL 0.0-0.8 H EOSINOPHIL # (test code = EO#) x10 3/uL 0.0-0.5 N BASOPHIL # (test code = BA#) x10 3/uL 0.0-0.2 N NUCLEATED RBC # (test code = X10 3/uL 0.0-0.2 N NRBC#) PROTHROMBIN [id number] 19:32:00 Test Item Value Reference Range Interpretation Comments PROTHROMBIN TIME 14.6 SECONDS 9.6-12.3 H PATIENT (test code = PTP) INTERNATIONAL NORMAL 1.29 Recomme nded INR range RATIO (test code = (warfarin therapy): INR) 2.0 - 3.0I NR (International Normalized Rati o) should beused w hen interpreting or al anticoaglulant therapy. For at rial fibrillation an d treatment orprevention of deep vein thrombosis . Patients with Palmaz-Drew s tent *: 2 .0 - 3.0 Patients wi th mechanical hear t valve *: 2.5 - 3.5 Patients with flex-stent *: 3.0 - 4.0(*) = shop firer/fireman's suggested range Is patient on anticoagulants? No Anticoagulants- MRI MRCP [id number] [facility] 1955 Sex: F Patient Name: ANUM HESTER Unit No: [id number] EXAMS: CPT CODE: [id number] MRI MRCP CON 06097 Reason: choleangitis/stone PROCEDURE INFORMATION: Exam: MR Abdomen Without Contrast Exam date and time: 10/11/2020 2:17 PM Age: 65 years old Clinical indication: Other: Choleangitis/stone TECHNIQUE: Imaging protocol: MR of the abdomen without contrast. Total images: 192 COMPARISON: CT ABD PELVIS W/O CONT 10/11/2020 1:53 AM FINDINGS: Heart: Heart size normal. Mediastinal space: Moderate-sized hiatal hernia. Liver: Hepatic cirrhosis. No mass lesions areidentified. No intrahepatic biliary ductal dilatation. Gallbladder and bile ducts: Thecommon bile duct is normal in caliber measuring 4.5 mm diameter. No duct stones are identified. The 6 mm gallstone seen in the gallbladder neck on CT and ultrasound is again noted.Borderline gallbladder wall thickness at 4 mm, with mild pericholecystic fluid/edema although this may relate to generalized ascites. Cannot exclude cholecystitis. Pancreas: Pancreas demonstrates no acute abnormalities. No pancreatic ductal dilatation. Spleen:Splenomegaly measuring 15.1 cm craniocaudal. Adrenal glands: The adrenal glands are unremarkable. Kidneys and ureters: The visualized kidneys are unremarkable. Intraperitoneal space: Small to moderate ascites around the liver and spleen. Arteries: Mild aortic tortuosity. The IVC is unremarkable. Lymph nodes: No adenopathy. Bones/joints: Moderate-severe compression fracture of T9. Mild superior endplate compression fracture of T8 and T7. Mild superior endplate compression fracture of T11. Mild superior endplate compression fractures of L1-L5. These are age indeterminate on the available pulse sequences. Soft tissues: Mild soft tissue stranding/edema in the peripheral subcutaneous tissues suggesting volume overload or anasarca.. Other findings: Small bilateral pleural effusions.IMPRESSION: 1. No biliary duct stones are identified. There is no biliary dilatation. 2. Hepatic cirrhosis with splenomegaly and ascites suggesting portal hypertension. 3. 6 mm gallstone in the gallbladder lumen near the neck. The gallbladder wall appears borderline thickened. Mild fluid around the gallbladder, however this may simply relate to the generalized ascites. Cannot exclude cholecystitis. 4. Small bilateral pleural effusions. 5. Numerous vertebral compression fractures in the thoracic [facility] [place] NAME: ANUM HESTER [address] [facility] PHYS: [place] [address] : 1955 AGE: 65 SEX: F LOC: D.HCU 14 PHONE #: [phone] EXAM DATE: 10/11/2020 STATUS: ADM IN FAX #: RAD NO: DC Dt: PAGE 1 Signed Report (CONTINUED) Patient Name: ANUM HESTER Unit No: [id number] EXAMS: CPT CODE: [id number] [place] 20362 <Continued> Reason: choleangitis/stone and lumbar spine again noted. These are age indeterminate on the MRI pulse sequences available. The demonstrated chronic CT features on the recent CT exam. INTERNAL CODING PURPOSES ONLY RESULT CODE: CVR at 1713 Reported and signed by: Sergio CONTRERASAD CC: Roseanne Eaton [employer] DOCTOR; Rui Matthew MD Technologist: Alida Herring MR RT Trscrpt Dt/ (1712)[email or web address].VR Orig Print D/T: S: 10/11/2020 (1712) [facility] NAME: ANUM HESTER [address] PHYS: Rui [place] [address] : 1955 AGE: 65 SEX: F LOC: D.U 14 PHONE #: [phone] EXAM DATE: 10/11/2020 STATUS: ADM IN FAX #: RAD NO: DC Dt: PAGE 2 Signed ReportLACTIC [id number] 10:15:00 Test Item Value Reference Range Interpretation Comments LACTIC ACID (test code = LACT) 1.5 MMOL/L 0.5-2.2 N BASIC METABOLIC [id number] 10:08:00 Test Item Value Reference Range Interpretation Comments SODIUM (test code = 127 MMOL/L 133-145 L NA) POTASSIUM (test code = 3.0 MMOL/L 3.6-5.2 L K) CHLORIDE (test code = 97 MMOL/L 100-108 L CL) CARBON DIOXIDE (test 12 MMOL/L 22-32 L code = CO2) GLUCOSE (test code = 108 MG/DL 65-99 H Results of this assay GLU) method may be f alsely depressed orele vated if patient is t aking sulfasalazine. BLOOD UREA NITROGEN 42 MG/DL 6-20 H (test code = BUN) GLOMERULAR FILTRATION 49 45-104 N Report ing units: RATE (test code = GFR) mL/mi n/1.73m\\S\\2 (Modified MDRD Formula) CREATININE (test code 1.11 MG/DL 0.60-1.00 H = CREAT) CALCIUM (test code = 7.0 MG/DL 8.7-10.5 L CA) [id number] 10:08:00 Test Item Value Reference Range Interpretation Comments AMMONIA (test code = 57 UMOL/L 11-35 H Results of this assay AMM) method may be f alsely depressed orele vated if patient is taki ng sulfasalazine. [id number] 10:08:00 Test Item Value Reference Range Interpretation Comments LIPASE (test code = LIP) 228 Units/L 73-393 N [id number] 10:08:00 Test Item Value Reference Range Interpretation Comments MAGNESIUM (test code = MAG) 2.6 MG/DL 1.8-2.4 H - XR HUMERUS 2+V [id number] 07:32:00 [facility] 1955 Sex: F Patient Name: ANUM HETSER Unit No: [id number] EXAMS: CPT CODE: [id number] XR HUMERUS 2+V LT [address] Reason: FALL - XR HUMERUS 2+V LT PROVIDED REASON FOR EXAM: FALL COMPARISON: Same day chest radiograph FINDINGS: .Impacted comminuted intra-articular left humeral neck and head fracture. No radiopaque foreign body. Glenohumeral relationship appears anatomic. Regional soft tissues are unremarkable. IMPRESSION: Impacted comminuted intra-articular left humeral head and neck fracture. Location: H13 at 0732 Reported and signed by: Francisco Kimble [facility]: Heladio Francisco MD; Rui Matthew MD Technologist: Thi Amanda (Krista) RT Trscrpt Dt/ (0732)[email or web address] Orig Print D/T: S: 10/11/2020 (0736) [facility] [address] [facility] PH[facility]: Heladio Hall MD [facility] [address] : 1955 AGE: 65 SEX: F LOC: D.HCU 14 PHONE #: [phone] EXAM DATE: 10/11/2020 STATUS: ADM IN FAX #: RAD NO: DC Dt: PAGE 1 Signed Report- CT ABD PELVIS W/O [id number] 02:41:00 [facility] 1955 Sex: F Patient Name: ANUM HESTER Unit No: [id number] EXAMS: CPT CODE: [id number] CT ABD PELVIS W/O CONT 88450 Reason: abd pain PROCEDURE INFORMATION: Exam: CT Abdomen And Pelvis Without Contrast Exam date and time: 10/11/2020 1:53 AM Age: 65 years old Clinical indication: Abdominal pain; Generalized; Additional info: Abd pain TECHNIQUE: Imaging protocol: Computed tomography of the abdomen and pelvis without contrast. Radiation optimization: All CT scans at this facility use at least one of these dose optimization techniques: automated exposure control; mA and/or kV adjustment per patient size (includes targeted exams where dose is matched to clinical indication); or iterative reconstruction. Other contrast: Oral, GASTRO, 30; COMPARISON: US ABDOMEN LTD 10/11/2020 1:38 AM FINDINGS: Tubes, catheters and devices: A right femoral venous catheter is present. Liver: The liver demonstrates a nodular surface contour. No parenchymal lesion is detected. Gallbladder and bile ducts: A small gallstone is present in the ga llbladder. The common bile duct is slightly dilated measuring up to 7.5 mm in diameter. No ductal stone is visualized. Pancreas: Normal. No ductal dilation. Spleen: Normal. No splenomegaly. Adrenal glands: Normal. No mass. Kidneys and ureters: Normal. No renalstone or hydronephrosis. Stomach and bowel: No intestinal obstruction. Diverticulosis coli is seen, without evidence of diverticulitis. Appendix: No evidence of appendicitis. Intraperitoneal space: Small volume ascites is noted. No free air. No localized fluid collection is seen to suggest an abscess. Vasculature: Atherosclerotic calcific changes are seen in the abdominal aorta and iliac arteries. No aneurysm is visualized. Lymph nodes: Unremarkable. No enlarged lymph nodes. Urinary bladder: Unremarkable as visualized. Reproductive: A partially calcified uterine fibroid is appreciated. Bones/joints: Mild chronic superior endplate compression deformities of L1-L5 are appreciated. No acute fracture is detected. Soft tissues: Mild anasarca is appreciated. IMPRESSION: 1. Possible chronic liver disease, correlate with LFTs. 2. Cholelithiasis and mild biliary ductal dilatation. 3. Small volume ascites and mild anasarca. 4. Diverticulosis coli. [facility] NAME: ANUM HESTER [address] [facility] PHYS: [place] [address] : 1955 AGE: 65 SEX: F LOC: IAN PHONE #: [phone] EXAM DATE: 10/11/2020 STATUS: REG ER FAX #: RAD NO: DC Dt: PAGE 1 Signed Report (CONTINUED) Patient Name: ANUM HESTER Unit No: [id number] EXAMS: CPT CODE: [id number] CTABD PELVIS W/O CONT 52202 <Continued> Reason: abd pain 5. Atherosclerosis. 6. Leiomyomatous uterus. INTERNAL CODING PURPOSES ONLY RESULT CODE: CVR at 0241 Reported and signed by: Kyleigh Yoo CC: Heladio Francisco MD Technologist: Cherie Bryant Trscrpt Dt/ (240)[email or web address].VR Orig Print D/T: S: 10/11/2020 (240) CTDI: DLP: [facility] NAME: ANUM HESTER [address] PHYS: [place] [address] : 1955 AGE: 65 SEX: F LOC: IAN PHONE #: [phone] EXAM DATE: 10/11/2020 STATUS: REG ER FAX #: RAD NO: DC Dt: PAGE 2 Signed Report- CT CHEST W/O [id number] 02:36:00 [facility] 1955 Sex: F Patient Name: ANUM HESTER Unit No: [id number] EXAMS: CPT CODE: [id number] CT CHEST W/O CONTRAST 22139 Reason: fever PROCEDURE INFORMATION: Exam: CT ChestWithout Contrast; Diagnostic Exam date and time: 10/11/2020 1:53 AM Age: 65 years old Clinical indication: Fever TECHNIQUE: Imaging protocol: Diagnostic computed tomography of the chest without contrast. Radiation optimization: All CT scans at this facility use at least one of these dose optimization techniques: automated exposure control;mA and/or kV adjustment per patient size (includes targeted exams where dose is matched to clinical indication); or iterative reconstruction. COMPARISON: CR XR CHEST 1 V 10/11/2020 12:15 AM FINDINGS: Lungs: Mild centrilobular emphysema is noted. Bibasilar atelectasis is appreciated. Pleural spaces: Small bilateral pleural effusions are noted (slightly larger on the left compared to the right). No pneumothorax. Heart: The heart is normal in size. Mediastinal space: A moderate- sized hiatal hernia is present. Aorta: Unremarkable. No aortic aneurysm. Lymph nodes: Unremarkable. No enlarged lymph nodes. Bones/joints: T5, T7-T9 and T11 chronic compression deformities are appreciated. Left humeral neck acute fracture is noted. Soft tissues: Unremarkable. IMPRESSION: 1. Small bilateral pleural effusions and bibasilar atelectasis. 2. Mildcentrilobular emphysema. 3. Moderate sized hiatal hernia. 4. Left humeral neck fracture. INTERNAL CODING PURPOSES ONLY RESULT CODE:CVR Electronically Signed by Kyleigh Coffman on 10/11/2020 at 0236 Reported and signed by: Kyleigh Yoo CC: Heladio Francisco MD Technologist: Cherie Bryant Trscrpt Dt/ (235)ALEXANDRA.BEN Clarke Print D/T: S: 10/11/2020 (023) CTDI: DLP: [facility] [address] PHYS: [place] [address] : 1955 AGE: 65 SEX: F LOC: IAN PHONE #: [phone] EXAM DATE: 10/11/2020 STATUS: REG ER FAX #: RAD NO: DC Dt: PAGE 1 Signed Report- US ABDOMEN [id number] 02:03:00 [facility] : 1955 Sex: F Patient Name: ANUM HESTER Unit No: [id number] EXAMS: CPT CODE: [id number] US ABDOMEN LTD 02044 PROCEDURE INFORMATION: Exam: US Abdomen; Limited Exam date and time: 10/11/2020 1:38 AM Age: 65 years old Clinical indication: Abdominal pain;Epigastric; Additional info: Ruq pain TECHNIQUE: Imaging protocol: US abdomen. Real time ultrasound with image documentation. Limited exam focused on the region of clinical interest. COMPARISON: No relevant prior studies available. FINDINGS: Gallbladder: A small gallstone is present in the gallbladder. No gallbladder wall thickening or pericholecystic fluid. Common bile duct: The common bile duct is mildly dilated measuring up to 8.3 mm. IMPRESSION: Cholelithiasis and mild common bile duct dilatation. MRCP may allow further assessment. INTERNAL CODING PURPOSES ONLY RESULT CODE: CVR at 0203 Reported and signed by: Kyleigh Yoo CC: Heladio Francisco MD Technologist: Carolee Davis Trnscrbd D/ (020) ALEXANDRA.BEN Clarke Print D/T: S: 10/11/2020 (0203) Probe: [facility] NAME: ANUM HESTER [address] PHYS: [place] [address] : 0 1955 AGE: 65 SEX: F LOC: IAN PHONE #: [phone] EXAM DATE: 10/11/2020 STATUS: REG ER FAX #: RAD NO: Page 1 Signed Report- XR CHEST 1 [id number] 01:49:00 [facility] 1955 Sex: F Patient Name: ANUM HESTER Unit No: [id number] EXAMS: CPT CODE: [id number] XR CHEST 1 V 90948 Reason: CODE SEPSIS PROCEDURE INFORMATION: Exam: XR Chest Exam date and time: 10/11/2020 12:15 AM Age: 65 years old Clinical indication: Other: Code sepsis TECHNIQUE: Imaging protocol: XR of the chest. Views: 1 view. COMPARISON: No relevant prior studies available. FINDINGS: Lungs: The lungs are underinflated causing vascular crowding. Left basilar atelectasis is appreciated. Pleural spaces: A small left pleural effusion is noted. No pneumothorax. Heart/Mediastinum: Unremarkable. No cardiomegaly. Bones/joints: Left humeral neck fracture is noted. Soft tissues: A 2.1 cm linear metallic density object projects over the right lung apex, which is likely external to the patient, or possibly subcutaneous. IMPRESSION: 1. Left basilar atelectasis and small left pleural effusion. 2. Left humeral neck fracture. 3. Linear metallic density object in the superior right chest may be external or subcutaneous. Correlate clinically. INTERNAL CODING PURPOSES ONLY RESULT CODE: CVR at 0149 Reported and signed by: Kyleigh Yoo CC: Heladio Francisco MD Technologist: Yolette Green RT Trscrpt Dt/ (148)[email or web address].VR Orig Print D/T: S: 10/11/2020 (148) [facility] NAME: ANUM HESTER [address] PHYS: [place]ad[place] [address] : 1955 AGE: 65 SEX: F LOC: IAN PHONE #: [phone] EXAM DATE: 10/10/2020 STATUS: REG ER FAX #: RAD NO: DC Dt: PAGE 1 Signed ReportBASIC METABOLIC [id number] 01:22:00 Test Item Value Reference Range Interpretation Comments SODIUM (test code = 122 MMOL/L 133-145 L NA) POTASSIUM (test code = 2.9 MMOL/L 3.6-5.2 LL K) CHLORIDE (test code = 92 MMOL/L 100-108 L CL) CARBON DIOXIDE (test 18 MMOL/L 22-32 L code = CO2) GLUCOSE (test code = 141 MG/DL 65-99 H Results of this assay GLU) method may be f alsely depressed orele vated if patient is t aking sulfasalazine. BLOOD UREA NITROGEN 56 MG/DL 6-20 H (test code = BUN) GLOMERULAR FILTRATION 27 45-104 L Report ing units: RATE (test code = GFR) mL/mi n/1.73m\\S\\2 (Modified MDRD Formula) CREATININE (test code 1.88 MG/DL 0.60-1.00 H = CREAT) CALCIUM (test code = 6.8 MG/DL 8.7-10.5 L CA) HEPATIC FUNCTION [id number] 01:22:00 Test Item Value Reference Range Interpretation Comments TOTAL PROTEIN (test 5.5 G/DL 6.4-8.2 L code = PROT) ALBUMIN (test code = 1.6 G/DL 3.4-5.0 L ALB) GLOBULIN (test code = 3.9 G/DL 1.5-3.8 H GLOB) ALBUMIN/GLOBULIN RATIO 0.4 1.1-2.2 L (test code = A/G) BILIRUBIN TOTAL (test 5.0 MG/DL 0.0-1.0 H code = BILT) BILIRUBIN DIRECT (test 4.7 MG/DL 0.0-0.3 H code = BILD) BILIRUBIN INDIRECT 0.3 MG/DL 0.0-0.7 N (test code = BILIND) SGOT/AST (test code = 56 Units/L 15-37 H Result s of this AST) assay method ma y be falsely depress ed orelevated if patient is taki ng sulfasalazine. SGPT/ALT (test code = 22 Units/L 30-65 L Result s of this ALT) assay method ma y be falsely depress ed orelevated if patient is taki ng sulfasalazine. ALKALINE PHOSPHATASE 552 Units/L 50-136 H TOTAL (test code = ALKP) [id number] 01:22:00 Test Item Value Reference Range Interpretation Comments TROPONIN-I (test 0.12 NG/ML 0.00-0.06 H Results samson led to and read code = TROPI) back by WILLIAM TSAI RN;0122, , Altagracia Noguera . Results above 0.06 are consistent with NACB IFCC Committee recommendations to use the 99th percentile of a normal populati on as a reference decis ion-limit. - The use of ser ial sampling and testing pro tocol is a recommended pra ctice.- An elevated tropon in level alone is often not sufficient fo r diagnosis of myocardial i nfarction. Results of this assay method may be f alsely depressed orele vated if patient is taki ng high doses of Biotin . CV CALL [id number] 01:22:00 Test Item Value Reference Range Interpretation Comments CV CALL CHEM (test code = CVC) BASIC METABOLIC [id number] 01:22:00 Test Item Value Reference Range Interpretation Comments SODIUM (test code = 122 MMOL/L 133-145 L NA) POTASSIUM (test code = 2.9 MMOL/L 3.6-5.2 LL K) CHLORIDE (test code = 92 MMOL/L 100-108 L CL) CARBON DIOXIDE (test 18 MMOL/L 22-32 L code = CO2) GLUCOSE (test code = 141 MG/DL 65-99 H Results of this assay GLU) method may be f alsely depressed orele vated if patient is t aking sulfasalazine. BLOOD UREA NITROGEN 56 MG/DL 6-20 H (test code = BUN) GLOMERULAR FILTRATION 27 45-104 L Report ing units: RATE (test code = GFR) mL/mi n/1.73m\\S\\2 (Modified MDRD Formula) CREATININE (test code 1.88 MG/DL 0.60-1.00 H = CREAT) CALCIUM (test code = 6.8 MG/DL 8.7-10.5 L CA) HEPATIC FUNCTION [id number] 01:22:00 Test Item Value Reference Range Interpretation Comments TOTAL PROTEIN (test 5.5 G/DL 6.4-8.2 L code = PROT) ALBUMIN (test code = 1.6 G/DL 3.4-5.0 L ALB) GLOBULIN (test code = 3.9 G/DL 1.5-3.8 H GLOB) ALBUMIN/GLOBULIN RATIO 0.4 1.1-2.2 L (test code = A/G) BILIRUBIN TOTAL (test 5.0 MG/DL 0.0-1.0 H code = BILT) BILIRUBIN DIRECT (test 4.7 MG/DL 0.0-0.3 H code = BILD) BILIRUBIN INDIRECT 0.3 MG/DL 0.0-0.7 N (test code = BILIND) SGOT/AST (test code = 56 Units/L 15-37 H Result s of this AST) assay method ma y be falsely depress ed orelevated if patient is taki ng sulfasalazine. SGPT/ALT (test code = 22 Units/L 30-65 L Result s of this ALT) assay method ma y be falsely depress ed orelevated if patient is taki ng sulfasalazine. ALKALINE PHOSPHATASE 552 Units/L 50-136 H TOTAL (test code = ALKP) [id number] 01:22:00 Test Item Value Reference Range Interpretation Comments TROPONIN-I (test 0.12 NG/ML 0.00-0.06 H Results samson led to and read code = TROPI) back by WILLIAM TSAI RN;, Altagracia Noguera . Results above 0.06 are consistent with NACB IFCC Committee recommendations to use the 99th percentile of a normal populati on as a reference decis ion-limit. - The use of ser ial sampling and testing pro tocol is a recommended pra ctice.- An elevated tropon in level alone is often not sufficient fo r diagnosis of myocardial i nfarction. Results of this assay method may be f alsely depressed orele vated if patient is taki ng high doses of Biotin . CV CALL [id number] 01:22:00 Test Item Value Reference Range Interpretation Comments CV CALL CHEM (test Called Results c alled to and code = CVC) read back by SE KATEY TSAI RN;.for analyte(s): K/H IGH TROP .at 09/23; by D.[facility]. UA RFLX MICROSCOPIC [id number] 01:17:00 Test Item Value Reference Range Interpretation Comments UA COLOR (test code = COLU) Yellow YELLOW UA APPEARANCE (test code = CLEAR CLEAR APPU) UA GLUCOSE DIPSTICK (test NORMAL mg/dL NEGATIVE code = DGLUU) UA BILIRUBIN DIPSTICK (test NEGATIVE NEGATIVE code = BILU) UA KETONE DIPSTICK (test code NEGATIVE mg/dL NEGATIVE = KETU) UA SPECIFIC GRAVITY (test 1.007 1.001-1.035 N code = SGU) UA BLOOD DIPSTICK (test code TRACE NEGATIVE = BOBBY) UA PH DIPSTICK (test code = 7.0 5.5-7.0 N MORGAN) UA PROTEIN DIPSTICK (test NEGATIVE mg/dL NEGATIVE code = PROU) UA UROBILINOGEN DIPSTICK NORMAL mg/dL NORMAL (test code = URO) UA NITRITE DIPSTICK (test NEGATIVE NEGATIVE code = CHUCHO) UA LEUKOCYTE ESTERASE 250 NEGATIVE A DIPSTICK (test code = LEUU) UA COMMENT (test code = COMU) VOLUME 10-12 ML URINE SPECIMEN DESCRIPTION Clean Catch (test code = UASPEC) UA WBC (test code = WBCU) 11 - 20 #/HPF 0-10 A UA SQUAMOUS CELLS (test code 0 - 20 #/LPF <100 = SQU) UA CULTURE NEEDED? (test code Criteria met = UACULT) Indication for culture: RiskForSepsis-no oth srcURINE SOURCE: Clean CatchUA [id number] 01:17:00 Test Item Value Reference Range Interpretation Comments UA RBC (test code = RBCU) 0-2 #/HPF NONE SEEN UA BACTERIA (test code = BACU) Trace HPF NONE SEEN Indication for culture: RiskForSepsis-no oth srcURINE SOURCE: Clean CatchUA RFLX MICROSCOPIC [id number] 01:15:00 Test Item Value Reference Range Interpretation Comments UA COLOR (test code = COLU) Yellow YELLOW UA APPEARANCE (test code = CLEAR CLEAR APPU) UA GLUCOSE DIPSTICK (test NORMAL mg/dL NEGATIVE code = DGLUU) UA BILIRUBIN DIPSTICK (test NEGATIVE NEGATIVE code = BILU) UA KETONE DIPSTICK (test code NEGATIVE mg/dL NEGATIVE = KETU) UA SPECIFIC GRAVITY (test 1.007 1.001-1.035 N code = SGU) UA BLOOD DIPSTICK (test code TRACE NEGATIVE = BOBBY) UA PH DIPSTICK (test code = 7.0 5.5-7.0 N MORGAN) UA PROTEIN DIPSTICK (test NEGATIVE mg/dL NEGATIVE code = PROU) UA UROBILINOGEN DIPSTICK NORMAL mg/dL NORMAL (test code = URO) UA NITRITE DIPSTICK (test NEGATIVE NEGATIVE code = CHUCHO) UA LEUKOCYTE ESTERASE 250 NEGATIVE A DIPSTICK (test code = LEUU) UA COMMENT (test code = COMU) VOLUME 10-12 ML URINE SPECIMEN DESCRIPTION Clean Catch (test code = UASPEC) UA WBC (test code = WBCU) #/hpf <10 UA SQUAMOUS CELLS (test code #/lpf <100 = SQU) UA CULTURE NEEDED? (test code = UACULT) Indication for culture: RiskForSepsis-no oth srcURINE SOURCE: Clean CatchUA [id number] 01:15:00 Test Item Value Reference Range Interpretation Comments UA RBC (test code = RBCU) #/HPF NONE SEEN Indication for culture: RiskForSepsis-no oth srcURINE SOURCE: Clean CatchUA RFLX MICROSCOPIC [id number] 01:15:00 Test Item Value Reference Range Interpretation Comments UA COLOR (test code = COLU) Yellow YELLOW UA APPEARANCE (test code = CLEAR CLEAR APPU) UA GLUCOSE DIPSTICK (test NORMAL mg/dL NEGATIVE code = DGLUU) UA BILIRUBIN DIPSTICK (test NEGATIVE NEGATIVE code = BILU) UA KETONE DIPSTICK (test code NEGATIVE mg/dL NEGATIVE = KETU) UA SPECIFIC GRAVITY (test 1.007 1.001-1.035 N code = SGU) UA BLOOD DIPSTICK (test code TRACE NEGATIVE = BOBBY) UA PH DIPSTICK (test code = 7.0 5.5-7.0 N MORGAN) UA PROTEIN DIPSTICK (test NEGATIVE mg/dL NEGATIVE code = PROU) UA UROBILINOGEN DIPSTICK NORMAL mg/dL NORMAL (test code = URO) UA NITRITE DIPSTICK (test NEGATIVE NEGATIVE code = CHUCHO) UA LEUKOCYTE ESTERASE 250 NEGATIVE A DIPSTICK (test code = LEUU) UA COMMENT (test code = COMU) VOLUME 10-12 ML URINE SPECIMEN DESCRIPTION Clean Catch (test code = UASPEC) UA WBC (test code = WBCU) #/hpf <10 UA SQUAMOUS CELLS (test code #/lpf <100 = SQU) UA CULTURE NEEDED? (test code = UACULT) Indication for culture: RiskForSepsis-no oth srcURINE SOURCE: Clean CatchUA [id number] 01:15:00 Test Item Value Reference Range Interpretation Comments UA RBC (test code = RBCU) #/HPF NONE SEEN Indication for culture: RiskForSepsis-no oth srcURINE SOURCE: Clean CatchCBC W/AUTO [id number] 01:08:00 Test Item Value Reference Range Interpretation Comments WHITE BLOOD CELL (test 34.66 x10 3/uL 4.80-10.80 H Res ults called to code = WBC) and read back Jaycee CREPSO;0048, 10/11/20, DSantiagoLAB.ANDRE. RED BLOOD CELL (test 3.32 x10 6/uL 4.2-5.4 L code = RBC) HEMOGLOBIN (test code 9.8 G/DL 12.0-16.0 L = HGB) HEMATOCRIT (test code 28.5 % 37-47 L = HCT) MEAN CELL VOLUME (test 85.8 FL 81-99 N code = MCV) MEAN CELL HGB (test 29.5 PG 27-31 N code = MCH) MEAN CELL HGB 34.4 G/DL 33-37 N CONCENTRATION (test code = MCHC) RED CELL DISTRIBUTION 18.5 % 11.5-14.5 H WIDTH (test code = RDW) PLATELET COUNT (test 113 x10 3/uL 150-450 L code = PLT) MEAN PLATELET VOLUME 10.3 FL 7.4-10.4 N (test code = MPV) MANUAL DIFF REQUIRED ADD MANUAL DIFF TECH REVIEW (test code = MDIFF) WBC [id number] 01:08:00 Test Item Value Reference Range Interpretation Comments TOTAL CELLS COUNTED (test code 100 #CELLS = TCC) SEGMENTED NEUTROPHILS (test 97 % 42-86 H code = SEG) LYMPHOCYTE (test code = LYMPH) 1 % 24-44 L MONOCYTE (test code = MON) 2 % 0-4 N BAND ABSOLUTE (test code = 0.00 x10 3/uL 0.0-0.7 N BAND#) NEUTROPHIL ABSOLUTE (test code 33.62 x10 3/uL 6.0-26.0 H = NEUTR#) LYMPH ABSOLUTE (test code = 0.34 x10 3/uL 2.0-17.0 L LYMPH#) ATYPICAL LYMPH ABSOLUTE (test 0.00 x10 3/uL 0.0-0.0 N code = ALYMPH#) MONOCYTE ABSOLUTE (test code = 0.69 x10 3/uL 0.4-3.1 N MON#) BASOPHIL ABSOLUTE (test code = 0.00 x10 3/uL 0.0-0.2 N BASO#) EOSINOPHIL ABSOLUTE (test code 0.00 x10 3/uL 0.0-0.5 N = EOS#) METAMYELO ABSOLUTE (test code 0.00 x10 3/uL 0.0-0.0 N = META#) MYELOCYTE ABSOLUTE (test code 0.00 x10 3/uL 0.0-0.0 N = MYELO#) PROMYELOCYTE ABSOLUTE (test 0.00 x10 3/uL 0.0-0.0 N code = PROM#) BLASTS ABSOLUTE (test code = 0.00 x10 3/uL 0.0-0.0 N BLAST#) OTHER CELLS ABSOLUTE (test 0.00 x10 3/uL 0.0-0.0 N code = OCT#) PLATELET ESTIMATE (test code = Dec ADEQ A PLTEST) WBC [id number] 00:48:00 Test Item Value Reference Range Interpretation Comments RBC MORPHOLOGY COMMENT (test code = RBCM) PLATELET ESTIMATE (test code = PLTEST) ADEQ CBC W/AUTO [id number] 00:48:00 Test Item Value Reference Range Interpretation Comments WHITE BLOOD CELL (test x10 3/uL 4.80-10.80 H Resul ts called to code = WBC) and read back Jaycee CRESPO;0048, 10/11/20, DSantiagoLAB.ANDRE. RED BLOOD CELL (test 3.32 x10 6/uL 4.2-5.4 L code = RBC) HEMOGLOBIN (test code 9.8 G/DL 12.0-16.0 L = HGB) HEMATOCRIT (test code 28.5 % 37-47 L = HCT) MEAN CELL VOLUME (test 85.8 FL 81-99 N code = MCV) MEAN CELL HGB (test 29.5 PG 27-31 N code = MCH) MEAN CELL HGB 34.4 G/DL 33-37 N CONCENTRATION (test code = MCHC) RED CELL DISTRIBUTION 18.5 % 11.5-14.5 H WIDTH (test code = RDW) PLATELET COUNT (test 113 x10 3/uL 150-450 L code = PLT) MEAN PLATELET VOLUME 10.3 FL 7.4-10.4 N (test code = MPV) NEUTROPHIL % (test % 42-86 H code = NT%) IMMATURE GRANULOCYTE % % 0.0-2.0 N (test code = IG%) LYMPHOCYTE % (test % 24-44 L code = LY%) MONOCYTE % (test code % 0.0-4.0 H = MO%) EOSINOPHIL % (test % 0.0-2.7 N code = EO%) BASOPHIL % (test code % 0.0-0.5 N = BA%) NUCLEATED RBC % (test % 0.0-0.0 N code = NRBC%) NEUTROPHIL # (test x10 3/uL 1.8-7.7 H code = NT#) IMMATURE GRANULOCYTE # x10 3/uL 0.00-0.03 H (test code = IG#) LYMPHOCYTE # (test x10 3/uL 1.0-4.8 L code = LY#) MONOCYTE # (test code x10 3/uL 0.0-0.8 H = MO#) EOSINOPHIL # (test x10 3/uL 0.0-0.5 N code = EO#) BASOPHIL # (test code x10 3/uL 0.0-0.2 N = BA#) NUCLEATED RBC # (test X10 3/uL 0.0-0.2 N code = NRBC#) MANUAL DIFF REQUIRED ADD MANUAL DIFF TECH REVIEW (test code = MDIFF) WBC [id number] 00:48:00 Test Item Value Reference Range Interpretation Comments RBC MORPHOLOGY COMMENT (test code = RBCM) PLATELET ESTIMATE (test code = PLTEST) ADEQ CBC W/AUTO [id number] 00:48:00 Test Item Value Reference Range Interpretation Comments WHITE BLOOD CELL (test x10 3/uL 4.80-10.80 H Resul ts called to code = WBC) and read back Jaycee CRESPO;0048, 10/11/20, D.LAB.ANDRE. RED BLOOD CELL (test 3.32 x10 6/uL 4.2-5.4 L code = RBC) HEMOGLOBIN (test code 9.8 G/DL 12.0-16.0 L = HGB) HEMATOCRIT (test code 28.5 % 37-47 L = HCT) MEAN CELL VOLUME (test 85.8 FL 81-99 N code = MCV) MEAN CELL HGB (test 29.5 PG 27-31 N code = MCH) MEAN CELL HGB 34.4 G/DL 33-37 N CONCENTRATION (test code = MCHC) RED CELL DISTRIBUTION 18.5 % 11.5-14.5 H WIDTH (test code = RDW) PLATELET COUNT (test 113 x10 3/uL 150-450 L code = PLT) MEAN PLATELET VOLUME 10.3 FL 7.4-10.4 N (test code = MPV) NEUTROPHIL % (test % 42-86 H code = NT%) IMMATURE GRANULOCYTE % % 0.0-2.0 N (test code = IG%) LYMPHOCYTE % (test % 24-44 L code = LY%) MONOCYTE % (test code % 0.0-4.0 H = MO%) EOSINOPHIL % (test % 0.0-2.7 N code = EO%) BASOPHIL % (test code % 0.0-0.5 N = BA%) NUCLEATED RBC % (test % 0.0-0.0 N code = NRBC%) NEUTROPHIL # (test x10 3/uL 1.8-7.7 H code = NT#) IMMATURE GRANULOCYTE # x10 3/uL 0.00-0.03 H (test code = IG#) LYMPHOCYTE # (test x10 3/uL 1.0-4.8 L code = LY#) MONOCYTE # (test code x10 3/uL 0.0-0.8 H = MO#) EOSINOPHIL # (test x10 3/uL 0.0-0.5 N code = EO#) BASOPHIL # (test code x10 3/uL 0.0-0.2 N = BA#) NUCLEATED RBC # (test X10 3/uL 0.0-0.2 N code = NRBC#) MANUAL DIFF REQUIRED ADD MANUAL DIFF TECH REVIEW (test code = MDIFF)
[2020-12-28 21:34] LABS: Albumin 2.2 g/dL (3.4-5.0); Bilirubin Direct 3.3 mg/dL (0-0.2); Protein, Total 6.4 g/dL (6.4-8.2)
[2020-12-28 21:46] LABS: SARS-COV-2 RT PCR NEGATIVE (NEGATIVE)
[2020-12-28] MEDS ORDERED: NA CHLORIDE 0.9% 500 ML ONE (22:06)
[2020-12-28] MEDS ORDERED: ONDANSETRON 4 MG/2 ML VIAL ONE (22:06)
[2020-12-28 22:09] LABS: Absolute Lymphocytes (CBC) 1.4 K/uL (0.7-4.9); Basophils % 0.2 % (0-1.3); Hematocrit 41.4 % (36.0-45.0); Lymphocytes % 8.3 % (15.3-44.8); MPV 9.2 fL (7.6-11.3); RBC Red Blood Cell Count 4.64 M/uL (3.86-4.86)
--- NOTE | 2020-12-28 22:18 | RAD REPORT ---
EXAM DESCRIPTION: RAD - Chest Single View - 12/28/2020 10:10 pm CLINICAL HISTORY: hypotension Chest pain. COMPARISON: Chest Single View dated 10/10/2020; Chest Single View dated 11/18/2017 FINDINGS: Portable technique limits examination quality. The lungs are grossly clear. Moderate chronic left pleural effusion noted. The heart is normal in siz e. No displaced fractures.
[2020-12-28 22:36] LABS: Potassium 3.6 mmol/L (3.5-5.1)
[2020-12-28 22:37] LABS: Troponin I 2.43 ng/mL (0.0-0.045)
[2020-12-28] MEDS ORDERED: FENTANYL CITR 100 MCG/2 ML ONE (23:00)
[2020-12-28 23:26] LABS: Anisocytosis 1+; Blood Morphology Comment NOTED (NOT SEEN); Platelet Estimate ADEQ; White Blood Cell Scan OK (OK)
[2020-12-29] MEDS ORDERED: CEFTRIAXONE 1000 MG/VIAL ONE (00:29)
[2020-12-29 00:30] LABS: Urine Blood 2+ (Negative); Urine Glucose Trace (Negative); Urine Protein 2+ (Negative); Urine Specific Gravity 1.025 (1.005-1.030)
[2020-12-29] MEDS ORDERED: NA CHLORIDE 0.9% 500 ML ONE (00:35)
[2020-12-29] MEDS ORDERED: NA CHLORIDE 0.9% 250 ML ONE ×2 (02:11→03:38)
[2020-12-29] MEDS ORDERED: NOREPINEPHRINE 4 MG/4 ML VIAL ONE (02:11)
[2020-12-29 02:56] LABS: Protime INR 1.32
[2020-12-29] MEDS ORDERED: SODIUM BICARB 50 MEQ/50ML VIAL ONE (02:57)
[2020-12-29] MEDS ORDERED: METRONIDAZOLE 500mg IVPB 500 MG/100 ML BAG IV ONE ×2 (02:58→18:57)
[2020-12-29 03:13] LABS: Blood Gas Oxyhemoglobin 96.2 % (94-97); Blood O2 Saturation 98.3 % (92-98.5)
--- NOTE | 2020-12-29 03:28 | EDPHYS ---
Physician Documentation [facility] Name: Adilene Vines Age: 65 yrs Sex: Female : 1955 Arrival Date: 12/28/2020 Time: 19:37 Bed 20 Private MD: ED Physician HPI: 12/28 21:45 This 65 yrs old Female presents to ER via EMS with complaints of Diarrhea, cp General Weakness. 21:45 The patient presents to the emergency department with nausea, that is moderate, cp diarrhea, that is continuous. Possible causes: history of chronic cirrhosis. Associated signs and symptoms: Pertinent positives: anorexia, constipation, Pertinent negatives: fever. 21:45 Severity of symptoms: in the emergency department the symptoms are unchanged despite cp home interventions. Historical: - Allergies: 20:20 Bactrim; kg 20:20 PENICILLINS; kg 20:20 Sulfa (Sulfonamide Antibiotics); kg 20:20 Levaquin; kg - Home Meds: 20:20 ursodiol 300 mg Oral cap 1 cap 2 times per day [Active]; omeprazole 40 mg Oral cpDR 1 kg cap once daily [Active]; atorvastatin 40 mg Oral tab 1 tab [Active]; lisinopril-hydrochlorothiazide 10-12.5 mg Oral tab 1 tab once daily [Active]; metoprolol tartrate 25 mg Oral tab 1 tab 2 times per day [Active]; hydroxyzine HCl 50 mg Oral tab 1 tab 4 times per day for Urticaria [Active]; - PMHx: 20:20 Cirrhosis; High Cholesterol; Hypertension; Polio; kg - PSHx: 20:20 Ligation of fallopian tube; kg - Immunization history:: Adult Immunizations not up to date, Client reports receiving the Nba \T\ Nba single-dose vaccine. - Social history:: Smoking status: Patient reports the use of cigarette tobacco products, smokes one pack cigarettes per day. ROS: 21:50 Constitutional: Positive for poor PO intake, Negative for body aches, chills, fever. cp 21:50 Eyes: Negative for injury, pain, redness, and discharge. cp 21:50 ENT: Negative for ear pain, sore throat, difficulty swallowing, difficulty handling secretions. 21:50 Cardiovascular: Negative for chest pain, edema, palpitations. 21:50 Respiratory: Negative for cough, shortness of breath, wheezing. 21:50 Abdomen/GI: Positive for nausea, diarrhea, anorexia, Negative for abdominal pain, vomiting, constipation, hematemesis, black/tarry stool, rectal bleeding. 21:50 Back: Positive for pain at rest, pain with movement, of the mid back area. 21:50 Skin: Negative for cellulitis, rash. 21:50 Neuro: Positive for weakness, Negative for altered mental status, headache, syncope. 21:50 All other systems are negative. Exam: 21:55 Constitutional: The patient appears in no acute distress, alert, awake, cp non-diaphoretic, non-toxic, well developed, frail. 21:55 Head/Face: Normocephalic, atraumatic. cp 21:55 Eyes: Periorbital structures: appear normal, Pupils: equal, round, and reactive to cp light and accomodation, Extraocular movements: intact throughout, Conjunctiva: normal, no exudate, no injection, Sclera: no appreciated abnormality, Lids and lashes: appear normal, bilaterally. 21:55 ENT: External ear(s): are unremarkable, Nose: is normal, Mouth: Lips: dry, Oral mucosa: cp dry, Posterior pharynx: Airway: no evidence of obstruction, patent. 21:55 Neck: ROM/movement: is normal, is supple, without pain, no range of motions limitations. 21:55 Chest/axilla: Inspection: normal, Palpation: is normal, no crepitus, no tenderness. 21:55 Cardiovascular: Rate: normal, Rhythm: regular, Edema: is not appreciated, JVD: is not appreciated. 21:55 Respiratory: the patient does not display signs of respiratory distress, Respirations: normal, no use of accessory muscles, no retractions, labored breathing, is not present, Breath sounds: decreased breath sounds, that are mild, throughout, stridor, is not appreciated, wheezing: is not appreciated. 21:55 Abdomen/GI: Inspection: distension, that is mild, in the right lower quadrant and left lower quadrant, Bowel sounds: active, all quadrants, Palpation: abdomen is soft and non-tender, in all quadrants. 21:55 Back: pain, that is moderate, of the mid back area, ROM is normal. 21:55 Skin: no rash present. 21:55 Neuro: Orientation: to person, place \T\ time. Mentation: is normal, Cerebellar function: is grossly normal, Motor: moves all fours, general weakness without focal deficits, Sensation: is normal. 12/29 03:31 ECG was reviewed by the Attending Physician. cp Vital Signs: 12/28 20:14 Weight 38.1 kg; Height 5 ft. 4 in. (162.56 cm); Pain 7/10; kg 20:48 BP 74 / 44; Pulse 61; Resp 20; Temp 96.5(TE); Pulse Ox 97% on R/A; Weight 38.1 kg; kg Height 5 ft. 4 in. (162.56 cm); Pain 8/10; 12/29 00:33 BP 91 / 55; Pulse 75; Resp 18; Temp 97.1; Pulse Ox 100% ; Pain 0/10; ms4 01:00 BP 77 / 56; Pulse 77; Resp 18; Pulse Ox 100% on R/A; ms4 01:30 BP 67 / 48; Pulse 67; Resp 18; Pulse Ox 100% on R/A; Pain 0/10; ms4 02:00 BP 71 / 66; Pulse 77; Resp 18; Pulse Ox 100% on R/A; ms4 02:15 BP 94 / 62; Pulse 78; Resp 18; Pulse Ox 100% on R/A; ms4 03:09 BP 93 / 61; Pulse 76; Resp 18; Pulse Ox 100% on R/A; Pain 0/10; ms4 12/28 20:48 Body Mass Index 14.42 (38.10 kg, 162.56 cm) kg Procedures: 02:20 Central Line: the site was prepped with Betadine, in sterile fashion, a triple lumen cp catheter was inserted, in the right femoral vein, in 1 attempts. placement was verified, by blood return, the site was dressed with using sterile technique, the patient tolerated the procedure, well. MDM: 12/28 21:31 Patient medically screened. cp 22:00 Differential diagnosis: sepsis, pneumonia, hepatic failure. cp 12/29 03:15 Data reviewed: vital signs, nurses notes, lab test result(s), EKG, radiologic studies, cp CT scan, plain films. 12/28 20:39 Order name: Amylase, Serum; Complete Time: 22:39 kg 12/28 20:39 Order name: Hepatic Function; Complete Time: 22:39 kg 12/28 22:39 Interpretation: Normal except: AST 157; ALK 736; BILIT 4.0; BILID 3.3; ALB 2.2; GLOB cp 4.2; A/G 0.5. 12/28 20:39 Order name: Lipase; Complete Time: 22:39 kg 12/28 20:51 Order name: Flu kg 12/28 21:38 Order name: Troponin I cp 12/28 21:38 Order name: AMMONIA; Complete Time: 02:55 cp 12/28 21:38 Order name: Lactate; Complete Time: 03:12 cp 12/28 21:38 Order name: Procalcitonin; Complete Time: 23:41 cp 12/29 00:29 Interpretation: Abnormal: Procalcitonin 0.91. cp 12/28 21:38 Order name: Blood Culture Adult (2); Complete Time: 19:01 cp 12/28 21:38 Order name: Urine Microscopic Only cp 12/28 21:38 Order name: PT-INR; Complete Time: 03:04 cp 12/29 03:04 Interpretation: Reviewed. cp 12/28 21:38 Order name: Ptt, Activated; Complete Time: 03:04 cp 12/29 03:04 Interpretation: Reviewed. cp 12/28 21:38 Order name: CBC with Diff; Complete Time: 23:41 cp 12/28 23:08 Interpretation: Normal except: WBC 16.70; MCHC 31.2; RDW 21.0; LYM% 8.3; NEUT A 14.3; cp EDGAR% 85.8. 12/28 21:38 Order name: BMP; Complete Time: 22:39 cp 12/28 22:40 Interpretation: Normal except: CL 118; CO2 8; BUN 25; CRE 2.43; GFR 20; CA 7.9. cp 12/28 21:38 Order name: Occult Blood; Complete Time: 19:01 cp 12/28 21:38 Order name: Ova And Parasites cp 12/28 21:38 Order name: Rotavirus Antigen; Complete Time: 19:01 cp 12/28 21:38 Order name: Stool Culture; Complete Time: 19:01 cp 12/28 21:38 Order name: CDIFF; Complete Time: 19:01 cp 12/28 21:38 Order name: Troponin I; Complete Time: 22:39 EDMS 12/29 00:29 Interpretation: Abnormal: TROP 2.43. cp 12/28 21:46 Order name: COVID-19/FLU A+B; Complete Time: 22:39 EDMS / 22:19 Order name: CBC Smear Scan; Complete Time: 23:41 EDMS 12/28 23:17 Order name: ABG; Complete Time: 14:32 cp 12/29 00:31 Order name: Urine Dipstick-Ancillary; Complete Time: 00:52 EDMS 12/29 00:52 Interpretation: Normal except: UKET 1+; UBLD 2+; UPROT 2+. cp 12/29 00:32 Order name: Urine Dipstick-Ancillary EDMS 12/29 01:13 Order name: Urine Microscopic Only; Complete Time: 14:32 ms4 12/29 03:35 Order name: Urine Culture; Complete Time: 19:01 EDMS 12/29 05:43 Order name: CBC with Automated Diff; Complete Time: 14:32 EDMS 12/29 06:01 Order name: Lactate Sepsis 2 HR Follow-up; Complete Time: 14:32 EDMS 12/29 06:16 Order name: Comprehensive Metabolic Panel; Complete Time: 14:32 EDMS 12/29 06:16 Order name: Phosphorus; Complete Time: 14:32 EDMS 12/29 06:16 Order name: Troponin I; Complete Time: 14:32 EDMS 12/29 06:16 Order name: NT PRO-BNP; Complete Time: 14:32 EDMS 12/29 06:16 Order name: T4 Free; Complete Time: 14:32 EDMS 12/29 06:16 Order name: Magnesium; Complete Time: 14:32 EDMS 12/29 06:16 Order name: Thyroid Stimulating Hormone; Complete Time: 14:32 EDMS 12/29 10:39 Order name: Manual Differential; Complete Time: 14:32 EDMS 12/29 13:36 Order name: Troponin I; Complete Time: 14:32 EDMS 12/29 14:32 Order name: Basic Metabolic Panel; Complete Time: 14:33 EDMS 12/29 14:54 Order name: Cortisol; Complete Time: 17:34 EDMS 12/29 15:54 Order name: ABG Arterial Blood Gas; Complete Time: 17:34 EDMS 12/29 17:42 Order name: Uric Acid; Complete Time: 19:01 EDMS 12/29 17:43 Order name: Ammonia; Complete Time: 19:01 EDMS 12/29 18:12 Order name: Basic Metabolic Panel; Complete Time: 19:01 EDMS 12/30 04:01 Order name: CBC with Automated Diff; Complete Time: 19:01 EDMS 12/30 04:01 Order name: Retic Count; Complete Time: 19:01 EDMS 12/30 04:44 Order name: PTH Intact; Complete Time: 19:01 EDMS 12/30 04:58 Order name: Comprehensive Metabolic Panel; Complete Time: 19:01 EDMS 12/30 04:58 Order name: Renal Panel; Complete Time: 19:01 EDMS 12/30 04:58 Order name: Creatine Phosphokinase; Complete Time: 19:01 EDMS 12/30 04:58 Order name: Lipid Profile; Complete Time: 19: EDMS 12/30 04:58 Order name: Magnesium; Complete Time: 19:01 EDMS 12/30 04:58 Order name: Transferrin Sat/Iron Binding; Complete Time: 19:01 EDMS 12/30 04:58 Order name: Ferritin; Complete Time: 19: EDMS 12/30 04:58 Order name: Folic Acid, (Folate); Complete Time: 19: EDMS 12/30 04:58 Order name: Vitamin B12 Level; Complete Time: 19: EDMS 12/30 08:32 Order name: Rheumatoid Factor; Complete Time: 19: EDMS 12/30 11:00 Order name: CBC with Automated Diff; Complete Time: 19: EDMS 12/30 11:48 Order name: Basic Metabolic Panel; Complete Time: 19: EDMS 12/28 21:38 Order name: XRAY Chest (1 view); Complete Time: 22:39 cp 12/28 21:38 Order name: Urine Dipstick-Ancillary (obtain specimen); Complete Time: 00:33 cp 12/28 22:43 Order name: CT Chest Abdomen Pelvis W/O Contrast; Complete Time: 14:32 cp 12/29 01:21 Order name: Alfredo; Complete Time: 02:24 cp 12/29 04:07 Order name: CONS Physician Consult EDMS 12/29 07:06 Order name: US; Complete Time: 14:32 EDMS 12/30 11:48 Order name: Troponin I; Complete Time: 19:01 EDMS 12/30 11:48 Order name: NT PRO-BNP; Complete Time: 19: EDMS 12/30 11:48 Order name: Magnesium; Complete Time: : EDMS 12/30 12:43 Order name: ABO/RH no charge; Complete Time: : EDMS 12/30 12:43 Order name: Type and Screen; Complete Time: : EDMS 12/31 06:13 Order name: CBC with Automated Diff; Complete Time: : EDMS 12/31 07:06 Order name: Comprehensive Metabolic Panel; Complete Time: : EDMS 12/31 07:06 Order name: Renal Panel; Complete Time: : EDMS 12/31 07:06 Order name: Magnesium; Complete Time: : EDMS 12/31 08:23 Order name: Manual Differential; Complete Time: : EDMS 12/31 12:19 Order name: RAD; Complete Time: : EDMS 12/31 14:20 Order name: UR SODIUM; Complete Time: : EDMS 12/31 14:20 Order name: UR POTASSIUM; Complete Time: : EDMS 01/01 03:48 Order name: CBC with Automated Diff; Complete Time: : EDMS 01/01 03:59 Order name: Comprehensive Metabolic Panel; Complete Time: : EDMS 01/01 03:59 Order name: Renal Panel; Complete Time: : EDMS 01/01 03:59 Order name: Magnesium; Complete Time: : EDMS 01/01 11:42 Order name: C-ANCA Anti-Proteinase 3; Complete Time: : EDMS 01/01 11:42 Order name: P-ANCA Anti-Myeloperoxidase Ab; Complete Time: : EDMS 01/01 11:42 Order name: Glomerular Basement Membrane; Complete Time: : EDMS 01/01 12:03 Order name: HIV AG/AB, 4th Gen W/ Reflex; Complete Time: : EDMS 01/01 12:46 Order name: Lactic Dehydrogenase; Complete Time: : EDMS 01/01 13:20 Order name: Anti-Double Strand DNA Antibod; Complete Time: 19: EDMS EC:31 Rate is 79 beats/min. Rhythm is regular. MD interval is normal. QRS interval is normal. cp QT interval is normal. Interpreted by me. Reviewed by me. Administered Medications: 12/28 21:40 Drug: NS 0.9% 500 ml Route: IV; Rate: bolus; Site: left hand; ea 21:40 Drug: Zofran (Ondansetron) 4 mg Route: IVP; Site: left hand; ea 22:42 Drug: fentaNYL (PF) 25 mcg Route: IVP; Site: left wrist; ea 12/29 00:32 Drug: NS 0.9% 500 ml Route: IV; Rate: bolus; Site: left hand; ms4 00:33 Drug: Rocephin - (cefTRIAXone) 1 grams Route: IVPB; Infused Over: 30 mins; Site: left ms4 hand; 01:13 Not Given (Patient Refused): fentaNYL (PF) 25 mcg IVP once; RASS on ADMIN: Combtv4, ms4 Very Agttd3, Agttd2, Rstlss1, AlertClm0, Drwsy-1, Lt Sdtn-2, Mod Sdtn-3, Dp Sdtn-4, UnArsble-5 02:25 Drug: Levophed (norepinephrine) (4 mg/250 mL D5W 4 mcg/min Route: IV; Rate: calculated ms4 rate; Site: right femoral; 02:50 Drug: metroNIDAZOLE 500 mg Volume: 100 ml; Route: IVPB; Infused Over: 30 mins; Site: ms4 right femoral; 02:50 Drug: Sodium Bicarbonate 1 amp Route: IVP; Site: right femoral; ms4 03:36 Drug: NS 0.9% 250 ml Route: IV; Rate: bolus; Site: right femoral; ms4 04:32 Drug: NS 0.9% 1000 ml Route: IV; Rate: 75 ml/hr; Site: right femoral; ms4 Disposition Summary: 12/29/20 03:28 Hospitalization Ordered Hospitalization Status: Inpatient Admission cp Provider: Evangelist Arango cp Condition: Serious cp Problem: new cp Symptoms: have improved cp Bed/Room Type: Standard cp Location: Telemetry/MedSurg (Inpatient)(01/01/21 13:20) dw Room Assignment: [facility](01/01/21 13:20) dw Diagnosis - Severe sepsis with septic shock cp - Unspecified kidney failure cp - Pericardial effusion (noninflammatory) cp Forms: - Medication Reconciliation Form cp - SBAR form cp Critical care time excluding procedures: 03:35 Critical care time: Bedside Care: 10 minutes, Consultation: 35 minutes. Total time: 45 cp minutes Addendum: 01/04/2021 19:01 Co-signature as Attending Physician, Tyrese pugh Signatures: Dispatcher [employer] EDMS Leana Kumari, SHEET R[employer] HANGER-C SHE[employer] R[employer] HANGER-Ckb Maddi Leger, RN RN Jeremiah Victor MD MD pkl Page, Corey, PA PA cp Garcia, Cindy, RN RN Ashley Morataya RN aCndace Pisano ea, RN RN kg Myra Chinchilla RN RN ms4 Corrections: (The following items were deleted from the chart) 12/28 21:03 20:52 Influenza Screen (A ordered. EDMS EDMS 21:04 20:54 CORONAVIRUS ordered. EDMS EDMS 23:08 23:08 Normal except: WBC 16.70; MCHC 31.2; RDW 21.0. cp cp 23:08 23:08 Normal except: WBC 16.70; MCHC 31.2; RDW 21.0; LYM% 8.3; NEUT A 14.3. cp cp 12/29 05:18 03:28 Intensive Care Unit cp cg 05:18 03:28 cp cg 01/01 13:20 12/29 05:18 [facility] ER HOLD cg dw 01/01 13:20 12/29 05:18 ERHOLD- cg dw
--- NOTE | 2020-12-29 03:28 | ER ---
Nurse's Notes [facility] Name: Adilene Vines Age: 65 yrs Sex: Female : 1955 Arrival Date: 12/28/2020 Time: 19:37 Bed 20 Private MD: Diagnosis: Severe sepsis with septic shock;Unspecified kidney failure;Pericardial effusion (noninflammatory) Presentation: 12/28 20:14 Chief complaint: EMS states: Diarrhea, nausea x 2 wks. Coronavirus screen: Vaccine kg status: Patient reports receiving the 1st dose of the Covid vaccine. Nba \T\ Nba. Ebola Screen: Patient negative for fever greater than or equal to 101.5 degrees Fahrenheit, and additional compatible Ebola Virus Disease symptoms Patient denies exposure to infectious person. Patient denies travel to an Ebola-affected area in the 21 days before illness onset. Initial Sepsis Screen: Does the patient meet any 2 criteria? Systolic BP < 90 mmHg. Does the patient have a suspected source of infection? No. Patient's initial sepsis screen is negative. Risk Assessment: Do you want to hurt yourself or someone else? Patient reports no desire to harm self or others. Onset of symptoms was December 14, 2020. 20:14 Method Of Arrival: EMS: [facility] kg 20:14 Acuity: ESAU 3 kg 12/29 02:45 Note Contacted [facility] for ICU transfer and both were at wg capacity. Historical: - Allergies: 12/28 20:20 Bactrim; kg 20:20 PENICILLINS; kg 20:20 Sulfa (Sulfonamide Antibiotics); kg 20:20 Levaquin; kg - Home Meds: 20:20 ursodiol 300 mg Oral cap 1 cap 2 times per day [Active]; omeprazole 40 mg Oral cpDR 1 kg cap once daily [Active]; atorvastatin 40 mg Oral tab 1 tab [Active]; lisinopril-hydrochlorothiazide 10-12.5 mg Oral tab 1 tab once daily [Active]; metoprolol tartrate 25 mg Oral tab 1 tab 2 times per day [Active]; hydroxyzine HCl 50 mg Oral tab 1 tab 4 times per day for Urticaria [Active]; - PMHx: 20:20 Cirrhosis; High Cholesterol; Hypertension; Polio; kg - PSHx: 20:20 Ligation of fallopian tube; kg - Immunization history:: Adult Immunizations not up to date, Client reports receiving the Nba \T\ Nba single-dose vaccine. - Social history:: Smoking status: Patient reports the use of cigarette tobacco products, smokes one pack cigarettes per day. Screenin/07 02:28 Abuse screen: Denies threats or abuse. Denies injuries from another. Nutritional ms4 screening: No deficits noted. Tuberculosis screening: No symptoms or risk factors identified. Fall Risk None identified. Assessment: 02:27 Reassessment: Patient appears in no apparent distress at this time. No changes from ms4 previously documented assessment. Patient and/or family updated on plan of care and expected duration. Pain level reassessed. General: Appears in no apparent distress. Behavior is calm, cooperative. Pain: Denies pain. Neuro: Reports weakness. Respiratory: No deficits noted. GI: No deficits noted. Vital Signs: 12/28 20:14 Weight 38.1 kg; Height 5 ft. 4 in. (162.56 cm); Pain 7/10; kg 20:48 BP 74 / 44; Pulse 61; Resp 20; Temp 96.5(TE); Pulse Ox 97% on R/A; Weight 38.1 kg; kg Height 5 ft. 4 in. (162.56 cm); Pain 8/10; 12/29 00:33 BP 91 / 55; Pulse 75; Resp 18; Temp 97.1; Pulse Ox 100% ; Pain 0/10; ms4 01:00 BP 77 / 56; Pulse 77; Resp 18; Pulse Ox 100% on R/A; ms4 01:30 BP 67 / 48; Pulse 67; Resp 18; Pulse Ox 100% on R/A; Pain 0/10; ms4 02:00 BP 71 / 66; Pulse 77; Resp 18; Pulse Ox 100% on R/A; ms4 02:15 BP 94 / 62; Pulse 78; Resp 18; Pulse Ox 100% on R/A; ms4 03:09 BP 93 / 61; Pulse 76; Resp 18; Pulse Ox 100% on R/A; Pain 0/10; ms4 12/28 20:48 Body Mass Index 14.42 (38.10 kg, 162.56 cm) kg ED Course: 12/28 19:37 Patient arrived in ED. wm 20:20 Triage completed. kg 20:42 Inserted saline lock: 22 gauge in left wrist, using aseptic technique. kg 21:29 [facility] cp 21:29 Jeremiah Chandler MD is Attending Physician. cp 21:53 Ashley Laguna, RN is Primary Nurse. ea 22:10 XRAY Chest (1 view) In Process Unspecified. EDMS 23:55 CT Chest Abdomen Pelvis W/O Contrast In Process Unspecified. EDMS 12/29 00:33 Urine Dipstick-Ancillary Sent. ms4 01:30 Assisted provider with central line placement. Set up central line tray. Triple lumen ms4 line placed in right femoral. Line placed by Tyrese GOMEZ Placement verified by blood return, Dressed with 4X4s, Tape, Tegaderm, Blood was collected. Patient tolerated well. Before procedure, did Practitioner(s) obtain informed consent? Yes. Patient \T\ family education about procedure, CLABSI prevention and S/S of infection? Yes. Time-out/Briefing performed prior to start of procedure? Yes. Was handwashing/sanitizing done immediately prior to procedure? Yes. Was patient positioned to in a way to prevent air embolism? Yes. Was procedure site sterilized? Yes, with chlorhexidine. Was the site allowed to dry? Yes. Was local anesthetic and/or sedation utilized? Yes. During the procedure, did the Practitioner(s) maintain a sterile field? Yes. Were unused ports clamped during insertion? Yes. Was a 2nd qualified MD obtained after 3 unsuccessful insertion attempts? No. Was blood aspirated from each lumen? Yes. After the procedure, did the Practitioner(s) clean the site and apply a sterile dressing? Yes. 02:29 Patient has correct armband on for positive identification. ms4 02:31 Alfredo cath inserted, using sterile technique, 16 Fr., by ga, balloon inflated, to ms4 gravity drainage, returned alisa urine. Patient tolerated well. 02:32 Troponin I Sent. ms4 03:27 Evangelist Arango PA is Hospitalizing Provider. cp 03:34 Thermoregulation: Jeffrey blanket applied. ms4 12/30 07:18 Primary Nurse role handed off by Ashley Laguna, RN bp 07:18 Edinson Siddiqi, RN is Primary Nurse. bp 19:17 Primary Nurse role handed off by Edinson Siddiqi, ANGIE mw2 01/01 07:48 Odessa Whitman, RN is Primary Nurse. ll1 14:52 Attending Physician role handed off by Jeremiah Chandler MD ll1 Administered Medications: 12/28 21:40 Drug: NS 0.9% 500 ml Route: IV; Rate: bolus; Site: left hand; ea 21:40 Drug: Zofran (Ondansetron) 4 mg Route: IVP; Site: left hand; ea 22:42 Drug: fentaNYL (PF) 25 mcg Route: IVP; Site: left wrist; ea 12/29 00:32 Drug: NS 0.9% 500 ml Route: IV; Rate: bolus; Site: left hand; ms4 00:33 Drug: Rocephin - (cefTRIAXone) 1 grams Route: IVPB; Infused Over: 30 mins; Site: left ms4 hand; 01:13 Not Given (Patient Refused): fentaNYL (PF) 25 mcg IVP once; RASS on ADMIN: Combtv4, ms4 Very Agttd3, Agttd2, Rstlss1, AlertClm0, Drwsy-1, Lt Sdtn-2, Mod Sdtn-3, Dp Sdtn-4, UnArsble-5 02:25 Drug: Levophed (norepinephrine) (4 mg/250 mL D5W 4 mcg/min Route: IV; Rate: calculated ms4 rate; Site: right femoral; 02:50 Drug: metroNIDAZOLE 500 mg Volume: 100 ml; Route: IVPB; Infused Over: 30 mins; Site: ms4 right femoral; 02:50 Drug: Sodium Bicarbonate 1 amp Route: IVP; Site: right femoral; ms4 03:36 Drug: NS 0.9% 250 ml Route: IV; Rate: bolus; Site: right femoral; ms4 04:32 Drug: NS 0.9% 1000 ml Route: IV; Rate: 75 ml/hr; Site: right femoral; ms4 Outcome: 03:28 Decision to Hospitalize by Provider. cp 01/01 14:39 Patient left the ED. eb 14:53 Patient left the ED. ll1 Signatures: Dispatcher [employer] EDMS Tyrese Gay PA PA cp Antunez, Elena, RN RN ea Peltier, Brian, RN Melvin Argueta mw2 MilesCielo Lynsay, RN RN ll1 Candace Mcdonnell RN RN kg Love Hua Myra Chinchilla RN RN ms4 Garth Bazan RN wg Corrections: (The following items were deleted from the chart) 12/29 02:29 02:00 BP 94 / 62; Pulse 78bpm; Resp 18bpm; Pulse Ox 100% RA; ms4 ms4
[2020-12-29 03:34] LABS: Urine Amorphous Sediment 2+ /HPF (NONE SEEN); Urine Bacteria >50 /HPF (<20); Urine Mucus 2+ /HPF (NONE SEEN)
--- NOTE | 2020-12-29 04:22 | P.HP ---
Certification for Inpatient Patient admitted to: Inpatient With expected LOS: >2 Midnights Patient will require the following post-hospital care: Senior Living Practitioner: I am a practitioner with admitting privileges, knowledge of patient current condition, hospital course, and medical plan of care. Services: Services provided to patient in accordance with Admission requirements found in Title 42 Section 412.3 of the Code of Federal Regulations <Evangelist Arango Bashir - Last Filed: 12/29/20 04:34> Patient History Date of Service: 12/29/20 Primary Care Provider: Yogesh Reason for admission: severe sepsis History of Present Illness: Ms. Vines is a 65 yo F with PBC, HLD, HTN who presents with a few weeks of worsening weakness and intermittent diarrhea. She also reports diffuse abdominal pain to the touch, decreased urination and anorexia due to nausea when trying to eat. Denies vomiting, fever, chest pain. BP upon arrival was 74/44, now 93/61 at bedside. Patient is AOx4, comfortable, no acute distress. Was discharged from hospital in [place] with diagnosis of severe sepsis secondary to UTI after transfer from here. Blood cultures here grew salmonella. Has been at home since trying to increase strength. Denies antibiotic use since discharge in September. WBC 16.7. Cl 118, HCO3 8, BUN 25, Cr 2.43, GFR 20. Tbili 4, Dbili 3.3, AST 157, alk phos 736. Trop 2.43. procal 0.91. Lactate 3.5. CT scan shows small to moderate left pleural effusion and adjacent consolidation (atelectasis and/or i nfiltrate), moderate to large pericardial effusion, finding suggestive of hepatic cirrhosis and small amount of abdominal and pelvic ascites, and healing right sacral and pelvic fractures. - Past Medical/Surgical History Diabetic: No -: PBC -: HLD -: HTN -: polio -: tubal ligation - Family History Family History: Reviewed- Non-Contributory - Social History Smoking Status: Current every day smoker Alcohol use: No CD- Drugs: No Caffeine use: Yes Place of Residence: Home <Evangelist Arango - Last Filed: 12/29/20 04:34> Date of Service: 12/29/20 <Miriam Maki - Last Filed: 12/31/20 07:48> Allergies Penicillins Allergy (Verified 02/28/19 09:42) Unknown sulfamethoxazole [From Bactrim] Allergy (Verified 02/28/19 09:42) facial swelling trimethoprim [From Bactrim] Allergy (Verified 02/28/19 09:42) Hives Alvarado Allergy (Uncoded 11/18/17 20:22) Unknown Home Medications: Atorvastatin Calcium [Lipitor] 40 mg PO DAILY 02/28/19 Lisinopril/Hydrochlorothiazide [Lisinopril-Hctz 10-12.5 mg Tab] 1 tab PO DAILY 02/28/19 Metoprolol Succinate [Toprol Xl*] 25 mg PO BID 02/28/19 Omeprazole [Prilosec] 40 mg PO DAILY 02/28/19 Tramadol HCl [Ultram] 50 mg PO Q8H PRN 02/28/19 hydrOXYzine HCL [Atarax] 50 mg PO QID 02/28/19 Review of Systems 10-point ROS is otherwise unremarkable General: Chills Gastrointestinal: Nausea, Abdominal Pain, Diarrhea Neurological: Weakness <Evangelist Arango - Last Filed: 12/29/20 04:34> Physical Examination - Physical Exam General: Alert, In no apparent distress, Oriented x3, Cooperative, Cachectic HEENT: Atraumatic, PERRLA, Mucous membr. moist/pink, EOMI, Sclerae nonicteric Neck: Supple, 2+ carotid pulse no bruit, No LAD, Without JVD or thyroid abnormality Respiratory: Normal air movement, Crackles/rales Cardiovascular: No edema, Regular rate/rhythm, Normal S1 S2, No gallops, No rubs, No murmurs Gastrointestinal: Normal bowel sounds, Soft and benign, Non-distended, No masses, No rebound, No guarding, Tenderness Musculoskeletal: No clubbing, No swelling, No contractures, No erythema, No warmth, Tenderness Integumentary: No rashes, No breakdown, No significant lesion, No tenderness/swelling, No erythema, No warmth, No cyanosis Neurological: Normal speech, Normal tone, Sensation intact, Cranial nerves 3-12 intact, Normal affect Lymphatics: No axilla or inguinal lymphadenopathy Urinary: Alfredo catheter - Studies Laboratory Data (last 24 hrs) 12/29/20 02:21: PT 15.2 H, INR 1.32, APTT 35.5 12/28/20 20:43: WBC 16.70 H, Hgb 12.9, Hct 41.4, Plt Count 281 12/28/20 20:43: Sodium 143, Potassium 3.6, BUN 25 H, Creatinine 2.43 H, Glucose 99, Troponin I 2.43 H* 12/28/20 20:42: Total Bilirubin 4.0 H, AST 157 H, ALT 61, Alkaline Phosphatase 736 H, Amylase 84, Lipase 304 Microbiology Data (last 24 hrs): 12/28/20 21:38 Stool Stool Occult Blood (GALINDO) - Final COMB CAPPER <Evangelist Arango - Last Filed: 12/29/20 04:34> Assessment and Plan - Problems (Diagnosis) (1) Primary biliary cirrhosis Current Visit: Yes Status: Chronic (2) HLD (hyperlipidemia) Current Visit: Yes Status: Chronic Qualifiers: Hyperlipidemia type: unspecified Qualified Code(s): E78.5 - Hyperlipidemia, unspecified (3) HTN (hypertension) Current Visit: Yes Status: Chronic Qualifiers: Hypertension type: primary hypertension Qualified Code(s): I10 - Essential (primary) hypertension (4) Severe sepsis Current Visit: Yes Status: Acute (5) NOE (acute kidney injury) Current Visit: Yes Status: Acute (6) Elevated troponin Current Visit: Yes Status: Acute (7) Diarrhea Current Visit: Yes Status: Acute Qualifiers: Diarrhea type: unspecified type Qualified Code(s): R19.7 - Diarrhea, unspecified (8) Weakness Current Visit: Yes Status: Acute - Plan ID consulted, continue IV metronidazole, IV ceftriaxone, and PO vancomycin stool studies and cdiff, blood cultures, urine cultures pending nephrology consulted, await further recommendations, continue gentle IVF hydration, repeat BMP in the AM GI consulted cardiology consulted, trend troponins, repeat EKG, on tele, ECHO in the AM continue levophed to maintain MAP >65 repeat lactate reconcile and continue home medications hold BP medications will likely need PT, and possible LTAC placement DVT ppx Discharge Plan: LTAC Plan to discharge in: Greater than 2 days - Advance Directives Does patient have a Living Will: No Does patient have a Durable POA for Healthcare: No - Code Status/Comfort Care Code Status Assessed: Yes (full code) Critical Care: Yes Time Spent Managing Pts Care (In Minutes): 70 <Evangelist Arango - Last Filed: 12/29/20 04:34> - Problems (Diagnosis) (1) Septic shock Current Visit: Yes Status: Acute (2) Hypocalcemia Current Visit: Yes Status: Acute (3) Hypokalemia Current Visit: Yes Status: Acute (4) HLD (hyperlipidemia) Current Visit: Yes Status: Chronic Qualifiers: Hyperlipidemia type: unspecified Qualified Code(s): E78.5 - Hyperlipidemia, unspecified (5) HTN (hypertension) Current Visit: Yes Status: Chronic Qualifiers: Hypertension type: primary hypertension Qualified Code(s): I10 - Essential (primary) hypertension (6) Primary biliary cirrhosis Current Visit: Yes Status: Chronic <Miriam Maki - Last Filed: 12/31/20 07:48> Date of Service: 12/29/20 Subjective Chart reviewed; events of the last 24hrs noted Review of Systems 10-point ROS is otherwise unremarkable Physical Examination - Vital Signs reviewed - Physical Exam General: Alert, In no apparent distress, Oriented x3 Respiratory: Diminished Cardiovascular: Regular rate/rhythm, Normal S1 S2, No murmurs Gastrointestinal: Normal bowel sounds, Soft and benign, Non-distended, No tenderness Musculoskeletal: No clubbing, No swelling, No tenderness Neurological: Sensation intact, Cranial nerves 3-12 intact - Studies Medications List Reviewed: Yes Assessment & Plan - Problems (Diagnosis) (1) Septic shock Current Visit: Yes Status: Acute (2) Hypocalcemia Current Visit: Yes Status: Acute (3) Hypokalemia Current Visit: Yes Status: Acute (4) HLD (hyperlipidemia) Current Visit: Yes Status: Chronic Qualifiers: Hyperlipidemia type: unspecified Qualified Code(s): E78.5 - Hyperlipidemia, unspecified (5) HTN (hypertension) Current Visit: Yes Status: Chronic Qualifiers: Hypertension type: primary hypertension Qualified Code(s): I10 - Essential (primary) hypertension (6) Primary biliary cirrhosis Current Visit: Yes Status: Chronic - Plan Plan: 1. Continue with IV fluids 2. Continue with PPI and octreotide drip 3. Supplement electrolytes 4. Monitor H&H 5. Continue with IV antibiotic therapy 6. Transfuse 2 units of packed red blood cells 7. GI and DVT prophylaxis Discharge Plan: Home Plan to discharge in: Greater than 2 days - Advance Directives Does patient have a Living Will: No Does patient have a Durable POA for Healthcare: No - Code Status/Comfort Care Code Status Assessed: Yes Code Status: Full Code Critical Care: No Time Spent Managing PTS Care (In Minutes): 45 <Miriam Maki - Last Filed: 12/31/20 07:48>
[2020-12-29] MEDS ORDERED: ACETAMINOPHEN 500 MG TAB PO PRN (04:39)
[2020-12-29] MEDS ORDERED: NOREPINEPHRINE 4 MG in D5W 250 ML IV PRN (04:39)
[2020-12-29] MEDS ORDERED: ONDANSETRON 4 MG/2 ML VIAL IV PRN (04:39)
[2020-12-29] MEDS ORDERED: NA CHLORIDE 0.9% 1,000 ML IV SCH (05:00)
[2020-12-29] MEDS ORDERED: NA CHLORIDE 0.9% 1,000 ML ONE ×2 (05:15→14:22)
[2020-12-29] MEDS ORDERED: NOREPINEPHRINE 4mg/D5W 250mL 4 MG/250 ML BAG IV ONE (05:15)
--- NOTE | 2020-12-29 05:34 | P.INFCA ---
Sepsis Focused Assessment - Focused Assessment Complete? Sepsis Focused Assessment Completed?: Yes - Sepsis Screen Result Severe Sepsis: Positive Septic Shock: Negative - Evaluation Current stage of sepsis: Severe sepsis - Vital Signs Reviewed: Yes - Examination Heart: Regular rate/rhythm, S1, S2 Lungs: Crackles Peripheral pulses: 2+ Slightly diminished Peripheral pulse location: Radial Capillary refill: <2 Seconds Skin examination: Normal turgor <Evangelist Arango - Last Filed: 12/29/20 05:33> - Examination Date exam was performed: 12/29/20 Comments: Pt without new complaints; agree with above <Miriam Maki - Last Filed: 12/31/20 07:49>
[2020-12-29 05:40] LABS: Basophils % 0.2 % (0-1.3); Hematocrit 34.4 % (36.0-45.0); Lymphocytes % 7.4 % (15.3-44.8); MPV 8.9 fL (7.6-11.3); RBC Red Blood Cell Count 4.02 M/uL (3.86-4.86)
[2020-12-29] MEDS ORDERED: D5W 1,000 ML with NA BICARB 8.4% 150 MEQ IV SCH ×2 (06:04)
[2020-12-29 06:12] LABS: Bilirubin Total 3.8 mg/dL (0.2-1.0); Magnesium 1.8 mg/dL (1.8-2.4); Phosphorus 4.6 mg/dL (2.5-4.9); Protein, Total 5.5 g/dL (6.4-8.2)
[2020-12-29 06:13] LABS: Thyroid Stimulating Hormone 3.88 uIU/mL (0.360-3.740)
[2020-12-29 06:14] LABS: Potassium 2.8 mmol/L (3.5-5.1)
[2020-12-29 06:16] LABS: Troponin I 3.03 ng/mL (0.0-0.045)
[2020-12-29] MEDS ORDERED: KCL 20 MEQ/100 mL IVPB 20 MEQ/100 ML BAG IV ONE ×4 (06:55→14:32)
[2020-12-29] MEDS ORDERED: D5W 1,000 ML IV ONE (06:58)
[2020-12-29] MEDS ORDERED: THIAMINE 200 MG/2 ML INJ IVP ONE (07:00)
[2020-12-29] MEDS ORDERED: KCL 20 MEQ/100 mL IVPB 20 MEQ/100 ML BAG IV SCH (07:00)
--- NOTE | 2020-12-29 07:05 | RAD REPORT ---
EXAM DESCRIPTION: US - Renal Ultrasound-Complete - 12/29/2020 6:36 am CLINICAL HISTORY: NOE COMPARISON: Abdomen Exam Limited dated 10/10/2020; Chest Abd Pelvis Wo Con dated 12/28/2020bdomen Exam Limited dated 10/10/2020; Chest Abd Pelvis Wo Con dated 12/28/2020; Abdomen Exam Complete dated 08/13/19 20 FINDINGS: The right kidney measures 9.1 cm. Re- demonstrated echogenic focus in the lower pole of the right kid jf measuring 8 millimeters. No stone is seen in the contemporaneous CT. 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 The left kidney measures 8.2. No hydronephrosis, focal mass or perinephric fluid. The bladder is decompressed with a Alfredo catheter. IMPRESSION: No evidence of hydronephrosis. No significant change from prior.
[2020-12-29] MEDS ORDERED: HEPARIN 5000 UNIT/ML 1 ML VIAL ONE ×2 (08:47→18:57)
[2020-12-29] MEDS: HEPARIN 5000 UNIT/ML 1 ML VIAL SQ SCH ×2 (08:47→18:00)
[2020-12-29] MEDS ORDERED: THIAMINE HCL 100 MG TABLET ONE (08:48)
[2020-12-29] MEDS: VANCOMYCIN ORAL SOLN 250 MG/5 ML OSYR PO SCH ×2 (09:00→19:01)
[2020-12-29 10:39] LABS: Anisocytosis 1+; Blood Morphology Comment NOTED (NOT SEEN); Platelet Estimate ADEQ
[2020-12-29] MEDS: METRONIDAZOLE 500mg IVPB 500 MG/100 ML BAG IV SCH ×2 (11:00→18:52)
[2020-12-29] MEDS: NOREPINEPHRINE 8 MG in Dextrose 5%-Water 500 ML IV PRN (11:03)
--- NOTE | 2020-12-29 11:49 | P.CNS ---
Date of Consult: 12/29/20 Primary Care Provider: Yogesh Chief Complaint: severe sepsis History of Present Illness: The patient is a 65-year-old female with a past medical history of PBC, hyperlipidemia, hypertension who presented to the emergency department due to worsening weakness and intermittent diarrhea. Patient states that this been has been ongoing for the past few weeks. She also reports diffuse abdominal pain, decrease urination, and decreased appetite due to nausea. Patient denies vomiting, fever, chest pain. Patient was recently discharged from a hospital in [place] in September due to severe sepsis secondary to urinary tract infection. Blood cultures there grew salmonella. In the ED labs were significant of WBC 16.7, BUN 25, creatinine 2.43, a GFR 20, bicarb 8, troponin 2.43, procalcitonin 0.91, lactate 3.4. Infectious disease has been consulted to manage patient's antibiotic regimen. Patient empirically placed on vancomycin, Flagyl, and Rocephin. Patient reports diffuse abdominal pain, nausea and decreased appetite. Patient denies difficulty breathing, cough, shortness of breath, chest pain. Allergies Penicillins Allergy (Verified 02/28/19 09:42) Unknown sulfamethoxazole [From Bactrim] Allergy (Verified 02/28/19 09:42) facial swelling trimethoprim [From Bactrim] Allergy (Verified 02/28/19 09:42) Hives Alvarado Allergy (Uncoded 11/18/17 20:22) Unknown Home Medications: Atorvastatin Calcium [Lipitor] 40 mg PO DAILY 02/28/19 Lisinopril/Hydrochlorothiazide [Lisinopril-Hctz 10-12.5 mg Tab] 1 tab PO DAILY 02/28/19 Metoprolol Succinate [Toprol Xl*] 25 mg PO BID 02/28/19 Omeprazole [Prilosec] 40 mg PO DAILY 02/28/19 Tramadol HCl [Ultram] 50 mg PO Q8H PRN 02/28/19 hydrOXYzine HCL [Atarax] 50 mg PO QID 02/28/19 - Past Medical/Surgical History Diabetic: No -: PBC -: HLD -: HTN -: polio -: tubal ligation - Social History Smoking Status: Current every day smoker Alcohol use: No CD- Drugs: No Caffeine use: Yes Place of Residence: Home Review of Systems 10-point ROS is otherwise unremarkable Physical Examination Temp Pulse Resp BP Pulse Ox 97.9 F 91 H 14 96/65 99 12/29/20 05:59 12/29/20 08:00 12/29/20 08:00 12/29/20 08:00 12/29/20 08:00 General: Alert, In no apparent distress, Oriented x3, Cachectic HEENT: Atraumatic, Normocephalic, Scleral icterus Neck: Supple, 2+ carotid pulse no bruit Respiratory: Clear to auscultation bilaterally, Normal air movement Cardiovascular: No edema, Regular rate/rhythm, Normal S1 S2 Capillary refill: <2 Seconds Gastrointestinal: Rigidity, Distended, Tenderness Musculoskeletal: No clubbing, No swelling, No contractures Integumentary: No rashes, No breakdown, No significant lesion Neurological: Normal gait, Normal speech Urinary: Alfredo catheter External genitalia: Other (right femoral centeral line ) Laboratory Data (last 24 hrs) 12/29/20 02:21: PT 15.2 H, INR 1.32, APTT 35.5 12/28/20 20:43: WBC 16.70 H, Hgb 12.9, Hct 41.4, Plt Count 281 12/28/20 20:43: Sodium 143, Potassium 3.6, BUN 25 H, Creatinine 2.43 H, Glucose 99, Troponin I 2.43 H* 12/28/20 20:42: Total Bilirubin 4.0 H, AST 157 H, ALT 61, Alkaline Phosphatase 736 H, Amylase 84, Lipase 304 Conclusions/Impression: Assessment/plan Severe sepsis On admission patient found to be in severe sepsis with NOE, hypotension, and elevated lactic acid. Patient empirically placed on vancomycin, Flagyl, Rocephin. Blood and urine cultures pending. Chest x-ray showed a left pleural effusion, CT chest abdomen and pelvis pending. Leukocytosis with left shift Continue to monitor WBC trend. Patient remains afebrile, cultures pending. Severe malnutrition Low albumin, recommend supplemental Ensure protein drinks PBC, NOE, anemia, liver cirrhosis Medical management per primary team Plan of care discussed with Dr. Ricks Thank you for consultation
--- NOTE | 2020-12-29 12:11 | RAD REPORT ---
EXAM DESCRIPTION: CT - Chest Abd Pelvis Wo Con - 12/29/2020 6:17 am CLINICAL HISTORY: Back pain; Abdominal distention TECHNIQUE: Axial computed tomography images of the chest, abdomen and pelvis without intravenous con trast. Sagittal and coronal reformatted images were created and reviewed. This CT exam was perfor med using one or more of the following dose reduction techniques: automated exposure control, adjus tment of the mA and/or kV according to patient size, and/or use of iterative reconstruction technique . COMPARISON: No relevant prior studies available. FINDINGS: CHEST: Lungs: Mild centrilobular emphysema. Minimal biapical cortical thinning/scar. Mild left basilar c onsolidation. Small gallstone. No gallbladder wall thickening or pericholecystic fluid. No ductal dilation. Pancreas: Mild pancreatic parenchymal atrophy. No ductal dilation. Spleen: Unremarkable. No splenomegaly. Adrenals: Unremarkable. No mass. Kidneys and ureters: Unremarkable. No obstructing stones. No hydronephrosis. Stomach and bowel: Distal small bowel and colonic diverticula without adjacent inflammatory change. No obstruction. No mucosal thickening. PELVIS: Appendix: Normal caliber appendix. No findings to suggest acute appendicitis. Bladder: The urinary bladder is decompressed. No stones. Reproductive: Calcified uterine fibroid. CHEST, ABDOMEN and PELVIS: Intraperitoneal space: Small amount of free fluid within the abdomen and pelvis. No free air. Bones/joints: Osseous structures are osteopenic. Multilevel spondylosis. Anterior compression fract ures at T5, T6, T7, T8, T9 and T11. Remote appearing right lateral 7th and 8th rib fractures. Anter ior superior compression fractures at L1, L2, L3 and to a lesser extent at L4 and L5. Healing right sacral, right parasymphyseal, right superior pubic ramus acetabular junction and inferior pubic rami fractures. Mild widening of the right SI joint. No dislocation. Soft tissues: Lipoma located between the scapular portion of the deltoid muscle and the infraspinat us muscle on the right. Vasculature: Mild to moderate atherosclerotic disease. No thoracic aortic aneurysm. Moderate to s evere atherosclerotic disease. No abdominal aortic aneurysm. Lymph nodes: Unremarkable. No enlarged lymph nodes. IMPRESSION: 1. Small to moderate left pleural effusion and adjacent consolidation (atelectasis and /or infiltrate). 2. Moderate to large pericardial effusion. 3. Findings suggestive of hepatic cirrhosis. Small amount of abdominal and pelvic ascites. 4. Healing right sacral and pelvic fractures. Mild widening of the SI joint. Multiple thoracolumbar compression deformities. Given generalized osteopenia, the possibility of underlying acute or subacu te components cannot be excluded. 5. Other findings as above. Electronically signed by: Josue Mayer MD 12/29/2020 12:31 AM CDT Due to temporary technical issues with the PACS/Fluency reporting system, reports are being signed by the in house radiologist without review as a courtesy to ensure prompt reporting. The interpreting r adiologist is fully responsible for the content of the report.
[2020-12-29] MEDS ORDERED: ALBUMIN HUMAN 25% 100 ML IV ONE (12:15)
[2020-12-29] MEDS ORDERED: MAGNESIUM SULFATE 1 gm IVPB 1 GM/100 ML BAG IV ONE (12:16)
[2020-12-29] MEDS ORDERED: ACETAMINOPHEN 500 MG TAB ONE (12:44)
[2020-12-29] MEDS ORDERED: Magnesium Sulfate 2gm IVPB 2 G/50 ML BAG IV ONE (12:56)
[2020-12-29] MEDS ORDERED: ALBUMIN HUMAN 25% 50 ML IV ONE (12:56)
[2020-12-29] MEDS: KCL 20 MEQ/100 mL IVPB 20 MEQ/100 ML BAG IV SCH ×2 (13:15→15:25)
[2020-12-29] MEDS ORDERED: NA CHLORIDE 0.9% 1,000 ML IV ONE (13:27)
[2020-12-29] MEDS: ALBUMIN HUMAN 25% 100 ML IV SCH ×2 (14:00→21:48)
[2020-12-29] MEDS ORDERED: WATER FOR INJ,STERILE 1,000 ML with NA BICARB 8.4% 150 MEQ IV SCH ×2 (14:00)
[2020-12-29] MEDS: MIDODRINE HCL 5 MG TABLET PO SCH ×2 (14:00→20:49)
[2020-12-29 14:32] LABS: Potassium 2.4 mmol/L (3.5-5.1)
[2020-12-29 15:53] LABS: Arterial Blood Carboxyhemoglob 1.2 % (0-1.5); Blood Gas Oxyhemoglobin 93.2 % (94-97); Blood O2 Saturation 95.6 % (92-98.5)
--- NOTE | 2020-12-29 16:01 | CON ---
Date of Consultation: 12/29/2020 Reason For Consultation: Elevated BUN and creatinine, fluid management. History Of Present Illness: This is a 65-year-old female with significant past medical history of primary biliary cirrhosis, hyperlipidemia, hypertension, the patient follows up with GI doctor, Dr. Mcintyre. The patient upon arrival to the hospital found to have elevation in BUN and creatinine. For that reason, we have been consulted. Creatinine 2.4. Reviewing the record for the patient back in September, creatinine 2.5 with GFR of 20. Apparently, the patient recently admitted to the hospital in [place] secondary to UTI. The patient denied taking any nonsteroidal. No IV contrast. The patient at home being on lisinopril, hydrochlorothiazide, and PPI. Upon arrival to the hospital, blood pressure was on the lower side. The patient has to be started on Levophed. The patient is still producing urine output. Past Medical History: Includes; 1. Primary biliary cirrhosis. 2. Hyperlipidemia. 3. Hypertension. 4. Chronic kidney disease, baseline creatinine back in September 2019, GFR of 20 with creatinine of 2.5. Allergies: TO PENICILLIN, SULFA. Home Medications: Include atorvastatin, lisinopril, hydrochlorothiazide, metoprolol, omeprazole, tramadol. Past Surgical History: Includes tubal ligation. Social History: Active smoker. Denied alcohol. Denied drugs abuse. Review of Systems: Head and Neck: No red eye. No ear pain. GI: No polyuria. No dysuria. No hematuria. Corporate Director Of Pharmacy: No vaginal discharge. Respiratory: Has shortness of breath. Musculoskeletal: Generalized weakness, fatigue. The patient had polio. Neuro: No tremor. Physical Examination: General: When I saw the patient; the patient lying in bed. Vital Signs: Blood pressure 84/56, pulse of 94, afebrile. The patient had urine output of 200. Chest: Clear to auscultation. Heart: S1, S2. Regular. Systolic murmur. Abdomen: Soft, nontender. Could not appreciate any ascites. Extremity: No edema. Neurologic: Alert. No focality. No tremor. Laboratory Data: Chest x-ray; no cardiomegaly, no congestion. Renal ultrasound, 9.1, echogenic/8.2. No hydronephrosis. Sodium 146, potassium 2.8, bicarb 10, chloride 120, BUN is 27, creatinine 1.9, GFR 26, calcium of 7, albumin of 2, corrected calcium is 8.6. Troponin 3. TSH 3.8. WBC 27.3, H and H 11.1/34.4, platelets 274. Urinalysis; WBC of 10, bacteria more than 50, +2 protein. Serology back in 2011 was negative. Current Medications: The patient on include Levophed, bicarb drip, metronidazole, ceftriaxone, vancomycin 250 q.8, midodrine 5 mg t.i.d., magnesium oxide, thiamin. Assessment And Plan: 1. Acute kidney injury. Our differential diagnosis is prerenal/hepatorenal syndrome, superimposed with toxic ATN secondary to septic shock/cardiogenic shock, superimposed with ANIKET inhibitor and hydrochlorothiazide, nonoliguric, no hyperkalemia, has severe acidosis secondary to GI loss and diarrhea. I am going to go ahead and start the patient on aggressive fluid resuscitation. I agreed on the current hydration. I am going to bolus the patient with 1 L of normal saline. Given the presence of low blood pressure and the presence of cirrhosis, hepatorenal syndrome needs to be treated. I am going to start the patient on fluid expansion, again bolus and albumin, and we will continue maintenance fluid with the presence of acidosis. Our maintenance of fluids going to be the bicarb drip. 2. Acidosis, high anion gap metabolic acidosis with non-anion gap metabolic acidosis secondary to renal failure/GI loss secondary to the diarrhea. I agree with bicarb drip. We will increase the drip and we will monitor the patient closely with the presence of hypokalemia. I am going to replace the potassium more aggressively and we will monitor the patient. We will repeat this chemistry done 5 in the morning. We will repeat chemistry as we spoke and we will follow up. I am going to send for full serology workup and we will send for urine electrolyte to evaluate for hepatorenal and we will follow up the patient closely. Keep holding AINKET inhibitor and hydrochlorothiazide and all other blood pressure medications given the low blood pressure. 3. Hypertension with the presence of the shock. Hold all blood pressure medications. 4. Anemia of chronic kidney disease with the presence of cirrhosis. GI loss needs to be ruled out. I am going to send for iron study. 5. Hypokalemia, possible secondary to diuresis and diarrhea, poor intake with the presence of the degree of the kidney function and acidosis. I am going to replace and we will follow up repeated level. 6. Elevation in troponin with the presence of the shock. Cardiac insult needs to be ruled out. We will follow up with Cardiology. Follow up echocardiogram. 7. Shock, multifactorial secondary to depletional/to rule out any cardiogenic/hypovolemic. I am going to start aggressive fluid resuscitation. We will follow up with primary. Continue Levophed for the time being. We will continue with antibiotics. Time spent examining the patient [id number] placing order discussing with the patient reviewing data discussing the case with all of our subspecialty including hospitalist 75 minutes CONCHA Voice ID: [id number] Report ID: [id number] ELSIE
[2020-12-29 18:10] LABS: Potassium 3.1 mmol/L (3.5-5.1)
--- NOTE | 2020-12-29 18:25 | CON ---
Date of Consultation: 12/29/2020 Reason For Consultation: Pericardial effusion. History Of Present Illness: Ms. Vines is a 65-year-old white woman. Has a history of hypertension , gastroesophageal reflux disease, and dyslipidemia. Came in with sepsis. Was found to have a peric ardial effusion on CT scans. Echocardiogram is pending. She had come in complaining of shortness of breath. No chest pain. No nausea, vomiting, diaphoresis, PND, orthopnea, pedal edema, palpitations , or syncope. Past Medical History: As stated above. Allergies: SHE IS ALLERGIC TO PENICILLIN AND BACTRIM. Review of Systems: Negative. Social History: Negative. Family History: Noncontributory. Medications: At home include Lipitor, lisinopril with hydrochlorothiazide, and metoprolol, Ultram, A tarax, and Prilosec. Physical Examination: General: She appeared to be completely asymptomatic. Vital Signs: Stable. She was afebrile. She was in sinus rhythm. HEENT: Negative. Neck: Supple with no bruit. Chest: Clear. Cardiac: Reveals a regular rhythm and rate. I did not detect any murmurs, gallops, or rubs. Abdomen: Benign. Extremities: Revealed 1+ edema. Diagnostic Data: Positive for UTI. Troponin was 2.43. Creatinine is 1.95. White count was 27,000. Her potassium was 2.8. Her glucose was 158. BNP was 17,325 and TSH was 3.08. Impression And Plan: 1.Pericardial effusion. Echocardiogram is pending. The patient does not appear to be in tamponade. 2.Hypothyroidism, on Synthroid. 3.Sepsis, on antibiotics. 4.Elevated troponin, elevated creatinine, elevated white count, low potassium, elevated BNP. All se condary to her sepsis. Her blood pressure is well controlled. She has gastroesophageal reflux disea se that is controlled. Her dyslipidemia is controlled. I will continue treatment with antibiotics, Levophed, heparin. Correct her potassium. Watch her renal function. Continue to treat her urinary tract infection. We will see what her echo shows before making further decisions. SOREN/GARRET Voice ID: [id number] Report ID: [id number]
[2020-12-29] MEDS ORDERED: HYDROCODONE/APAP 10/325 TAB ONE (18:44)
[2020-12-30] MEDS ORDERED: CEFTRIAXONE 1 GM/NS 50 ML 1 GM/50 ML BAG IV SCH
[2020-12-30] MEDS: CEFTRIAXONE/SWI 1gm 1 GM/10 ML SYR IVP SCH
[2020-12-30] MEDS: VANCOMYCIN ORAL SOLN 250 MG/5 ML OSYR PO SCH ×3 (00:53→17:00)
[2020-12-30] MEDS: HEPARIN 5000 UNIT/ML 1 ML VIAL SQ SCH (00:53)
[2020-12-30] MEDS ORDERED: CEFTRIAXONE 1000 MG/VIAL ONE (01:07)
[2020-12-30] MEDS ORDERED: HEPARIN 5000 UNIT/ML 1 ML VIAL ONE (01:07)
[2020-12-30] MEDS ORDERED: D5W 1,000 ML IV ONE (01:29)
[2020-12-30] MEDS: NOREPINEPHRINE 8 MG in Dextrose 5%-Water 500 ML IV PRN (01:33)
[2020-12-30] MEDS ORDERED: NOREPINEPHRINE 4 MG/4 ML VIAL ONE (01:40)
[2020-12-30] MEDS ORDERED: D5W 1,000 ML with NA BICARB 8.4% 150 MEQ IV SCH ×4 (02:00→13:00)
[2020-12-30] MEDS: METRONIDAZOLE 500mg IVPB 500 MG/100 ML BAG IV SCH ×3 (03:00→20:41)
[2020-12-30] MEDS ORDERED: METRONIDAZOLE 500mg IVPB 500 MG/100 ML BAG IV ONE ×3 (03:38→21:00)
[2020-12-30 03:59] LABS: Absolute Lymphocytes (CBC) 0.9 K/uL (0.7-4.9); Basophils % 0.2 % (0-1.3); Hematocrit 24.9 % (36.0-45.0); Lymphocytes % 10.5 % (15.3-44.8); MPV 7.9 fL (7.6-11.3); RBC Red Blood Cell Count 2.99 M/uL (3.86-4.86)
[2020-12-30] MEDS ORDERED: FENTANYL CITR 100 MCG/2 ML IV PRN (04:33)
[2020-12-30 04:54] LABS: Albumin 3.1 g/dL (3.4-5.0); Bilirubin Total 2.4 mg/dL (0.2-1.0); Ferritin 167.8 ng/mL (8-388); Folic Acid, (Folate) 4.6 ng/mL (3.1-17.5); Magnesium 1.7 mg/dL (1.8-2.4); Phosphorus 1.2 mg/dL (2.5-4.9); Protein, Total 5.4 g/dL (6.4-8.2)
[2020-12-30 04:58] LABS: Potassium 2.3 mmol/L (3.5-5.1)
[2020-12-30] MEDS: KCL 20 MEQ/100 mL IVPB 20 MEQ/100 ML BAG IV SCH ×3 (05:06→09:06)
[2020-12-30] MEDS ORDERED: MAGNESIUM SULFATE 1 gm IVPB 1 GM/100 ML BAG IV ONE ×2 (05:15→05:43)
[2020-12-30] MEDS ORDERED: PANTOPRAZOLE 40 MG INJ IVP ONE (05:17)
[2020-12-30] MEDS ORDERED: FENTANYL CITR 100 MCG/2 ML ONE (05:17)
[2020-12-30] MEDS: ALBUMIN HUMAN 25% 100 ML IV SCH ×3 (05:37→22:00)
[2020-12-30] MEDS ORDERED: KCL 20 MEQ/100 mL IVPB 60 MEQ/300 ML BAG IV ONE (05:43)
[2020-12-30] MEDS: PANTOPRAZOLE INJ 80 MG in NA CHLORIDE 0.9% 250 ML IV SCH ×2 (06:00→16:00)
[2020-12-30] MEDS ORDERED: PANTOPRAZOLE 40 MG INJ ONE ×2 (06:32→07:09)
[2020-12-30] MEDS: OCTREOTIDE 500 MCG in NA CHLORIDE 0.9% 500 ML IV SCH ×2 (07:00→17:00)
[2020-12-30] MEDS ORDERED: NA CHLORIDE 0.9% 250 ML ONE ×2 (07:09→15:08)
[2020-12-30] MEDS ORDERED: OCTREOTIDE ACETATE 100 MCG/ML ONE (07:09)
[2020-12-30] MEDS ORDERED: NA CHLORIDE 0.9% 500 ML ONE (07:09)
--- NOTE | 2020-12-30 07:33 | ECHO ---
HEIGHT: 5 ft 4 in WEIGHT: 107 lb 0 oz DATE OF STUDY: 12/29/[address]: Miriam Maki MD 2-DIMENSIONAL: YES M.MODE: YES DOPPLER: YES COLOR FLOW: YES TDS: PORTABLE: DEFINITY: BUBBLE STUDY: DIAGNOSIS: LARGE PERICARDIAL EFFUSION, POSSIBLE TAMPONADE CARDIAC HISTORY: CATHERIZATION: NO SURGERY: NO PROSTHETIC VALVE: NO PACEMAKER: NO MEASUREMENTS (cm) DIASTOLIC (NORMALS) SYSTOLIC (NORMALS) IVSd 0.9 (0.6-1.2) LA Diam 2.3 (1.9-4.0) LVEF 77% LVIDd 3.4 (3.5-5.7) LVIDs 1.9 (2.0-3.5) %FS 45% LVPWd 0.9 (0.6-1.2) Ao Diam 2.6 (2.0-3.7) 2 DIMENSIONAL ASSESSMENT: RIGHT ATRIUM: NORMAL LEFT ATRIUM: NORMAL RIGHT VENTRICLE: NORMAL LEFT VENTRICLE: NORMAL TRICUSPID VALVE: NORMAL MITRAL VALVE: NORMAL PULMONIC VALVE: NORMAL AORTIC VALVE: NORMAL PERICARDIAL EFFUSION: MODERATE TO LARGE AORTIC ROOT: NORMAL LEFT VENTRICULAR WALL MOTION: NORMAL DOPPLER/COLOR FLOW: NORMAL COMMENTS: MODERATE TO LARGE PERICARDIAL EFFUSION - NO TAMPONADE. NORMAL LEFT VENTRICULAR SIZE AND FUNCTION. TECHNOLOGIST: MIGEL PEDERSEN
[2020-12-30 08:32] LABS: Rheumatoid Factor NEG (NEG)
[2020-12-30] MEDS: THIAMINE 200 MG/2 ML INJ IVP SCH (09:00)
[2020-12-30] MEDS: MIDODRINE HCL 5 MG TABLET PO SCH ×3 (09:00→21:00)
[2020-12-30] MEDS ORDERED: POTASSIUM 25 MEQ EFFERV TAB PO ONE (09:31)
[2020-12-30] MEDS ORDERED: EPOETIN ALFA-EPBX 10,000 UNIT/ML VIAL SQ ONE (10:00)
[2020-12-30] MEDS ORDERED: CALCITROL 0.25 MCG CAP PO SCH (10:00)
[2020-12-30] MEDS ORDERED: Magnesium Sulfate 2gm IVPB 2 G/50 ML BAG IV ONE ×2 (10:02→12:08)
[2020-12-30] MEDS ORDERED: THIAMINE 200 MG/2 ML INJ ONE (10:54)
[2020-12-30 10:59] LABS: Absolute Lymphocytes (CBC) 0.6 K/uL (0.7-4.9); Basophils % 0.3 % (0-1.3); Hematocrit 22.9 % (36.0-45.0); Lymphocytes % 9.7 % (15.3-44.8); MPV 8.1 fL (7.6-11.3); RBC Red Blood Cell Count 2.76 M/uL (3.86-4.86)
--- NOTE | 2020-12-30 11:40 | P.PN ---
Subjective Date of Service: 12/30/20 Primary Care Provider: Yogesh Chief Complaint: severe sepsis Patient seen examined at bedside, states she is doing well. Denies nausea, vomiting, diarrhea. Tolerating antibiotics well. Of note patient has severe hypokalemia and hypocalcemia. Review of Systems 10-point ROS is otherwise unremarkable Physical Examination - Vital Signs Temperature: 98.2 F Blood Pressure: 113/67 Pulse: 99 Respirations: 14 Pulse Ox (%): 96 - Studies Laboratory Last Values WBC 16.70 K/uL (4.3-10.9) H 12/28/20 20:43 RBC 4.64 M/uL (3.86-4.86) 12/28/20 20:43 Hgb 12.9 g/dL (12.0-15.0) 12/28/20 20:43 Hct 41.4 % (36.0-45.0) 12/28/20 20:43 MCV 89.2 fL (80-100) 12/28/20 20:43 MCH 27.8 pg (27.0-35.0) 12/28/20 20:43 MCHC 31.2 g/dL (32.0-36.0) L 12/28/20 20:43 RDW 21.0 % (12.1-15.2) H 12/28/20 20:43 Plt Count 281 K/uL (152-406) 12/28/20 20:43 MPV 9.2 fL (7.6-11.3) 12/28/20 20:43 Neutrophils % 85.8 % (41.7-73.7) H 12/28/20 20:43 Lymphocytes % 8.3 % (15.3-44.8) L 12/28/20 20:43 Monocytes % 5.6 % (3.3-12.3) 12/28/20 20:43 Eosinophils % 0.1 % (0-4.4) 12/28/20 20:43 Basophils % 0.2 % (0-1.3) 12/28/20 20:43 Absolute Neutrophils 14.3 K/uL (1.8-8.0) H 12/28/20 20:43 Absolute Lymphocytes 1.4 K/uL (0.7-4.9) 12/28/20 20:43 Absolute Monocytes 0.9 K/uL (0.1-1.3) 12/28/20 20:43 Absolute Eosinophils 0.0 K/uL (0-0.5) 12/28/20 20:43 Absolute Basophils 0.0 K/uL (0-0.5) 12/28/20 20:43 Platelet Estimate Adeq 12/28/20 20:43 Anisocytosis 1+ 12/28/20 20:43 Microcytosis 1+ 12/28/20 20:43 Morphology Comment Noted (NOT SEEN) 12/28/20 20:43 PT 15.2 SECONDS (9.5-12.5) H 12/29/20 02:21 INR 1.32 12/29/20 02:21 APTT 35.5 SECONDS (24.3-36.9) 12/29/20 02:21 pH 7.26 (7.35-7.45) L 12/29/20 03:00 pCO2 19.6 mmHG (35-45) L 12/29/20 03:00 pO2 123.0 mmHG (75-100) H 12/29/20 03:00 HCO3 8.6 mmol/L (22-28) L 12/29/20 03:00 Base Excess -17.2 mmol/L 12/29/20 03:00 Oxyhemoglobin 96.2 % (94-97) 12/29/20 03:00 ABG O2 Sat (Measured) 98.3 % (92-98.5) 12/29/20 03:00 ABG Carboxyhemoglobin 1.0 % (0-1.5) 12/29/20 03:00 ABG Methemoglobin 1.1 % (0-1.5) 12/29/20 03:00 Other Total Hgb 11.0 g/dl (12-18) L 12/29/20 03:00 Inspired O2 21.0 % 12/29/20 03:00 Sodium 143 mmol/L (136-145) 12/28/20 20:43 Potassium 3.6 mmol/L (3.5-5.1) 12/28/20 20:43 Chloride 118 mmol/L (98-107) H 12/28/20 20:43 Carbon Dioxide 8 mmol/L (21-32) L* 12/28/20 20:43 BUN 25 mg/dL (7-18) H 12/28/20 20:43 Creatinine 2.43 mg/dL (0.55-1.3) H 12/28/20 20:43 Estimated GFR 20 mL/min (=/>90) L 12/28/20 20:43 Glucose 99 mg/dL (74-106) 12/28/20 20:43 Lactic Acid 3.5 mmol/L (0.4-2.0) H 12/29/20 02:01 Calcium 7.9 mg/dL (8.5-10.1) L 12/28/20 20:43 Total Bilirubin 4.0 mg/dL (0.2-1.0) H 12/28/20 20:42 Direct Bilirubin 3.3 mg/dL (0-0.2) H 12/28/20 20:42 AST 157 U/L (15-37) H 12/28/20 20:42 ALT 61 U/L (12-78) 12/28/20 20:42 Alkaline Phosphatase 736 U/L (45-117) H 12/28/20 20:42 Ammonia 25 umol/L (19-54) 12/29/20 02:01 Troponin I 2.43 ng/mL (0.0-0.045) H* 12/28/20 20:43 Serum Total Protein 6.4 g/dL (6.4-8.2) 12/28/20 20:42 Albumin 2.2 g/dL (3.4-5.0) L 12/28/20 20:42 Globulin 4.2 g/dL (2.3-3.5) H 12/28/20 20:42 Albumin/Globulin Ratio 0.5 (1.1-1.8) L 12/28/20 20:42 Amylase 84 U/L (25-115) 12/28/20 20:42 Lipase 304 U/L (73-393) 12/28/20 20:42 Procalcitonin 0.91 ng/mL (<0.050) H 12/28/20 20:43 Urine pH 5.0 (5.0-7.0) 12/29/20 00:27 Ur Specific Kin[place] 1.025 (1.005-1.030) 12/29/20 00:27 Glucose (UA)(Auto) Trace (Negative) 12/29/20 00:27 Urine Ketones 1+ (Negative) H 12/29/20 00:27 Urine Blood 2+ (Negative) H 12/29/20 00:27 Urine Nitrite Negative (Negative) 12/29/20 00:27 Ur Leukocyte Esterase Negative (Negative) 12/29/20 00:27 Urine RBC 5-10 /HPF (NONE SEEN) H 12/29/20 00:20 Urine WBC 5-10 /HPF (<5) H 12/29/20 00:20 Ur Squamous Epith Cells 5-10 /HPF (NONE SEEN) H 12/29/20 00:20 Ur Urothelial Cells Cancelled 12/28/20 21:38 Calcium Oxalate Crystal Cancelled 12/28/20 21:38 Uric Acid Crystals Cancelled 12/28/20 21:38 Triple Phos Crystals Cancelled 12/28/20 21:38 Other Crystals Cancelled 12/28/20 21:38 Amorphous Sediment 2+ /HPF (NONE SEEN) H 12/29/20 00:20 Glitter Cells Cancelled 12/28/20 21:38 Urine Bacteria >50 /HPF (<20) H 12/29/20 00:20 Hyaline Casts 5-10 /LPF (NONE SEEN) 12/29/20 00:20 Fine Granular Casts Cancelled 12/28/20 21:38 Coarse Granular Casts Cancelled 12/28/20 21:38 Waxy Casts Cancelled 12/28/20 21:38 RBC Casts Cancelled 12/28/20 21:38 WBC Casts Cancelled 12/28/20 21:38 Urine Mucus 2+ /HPF (NONE SEEN) 12/29/20 00:20 Urine Other Cancelled 12/28/20 21:38 Urine Trichomonas Cancelled 12/28/20 21:38 Urine Yeast Cancelled 12/28/20 21:38 Ur Yeast w Hyphae Cancelled 12/28/20 21:38 Urine Yeast (Budding) Cancelled 12/28/20 21:38 Urine Sperm Cancelled 12/28/20 21:38 Urine Culture Reflexed Reflexed 12/29/20 00:20 Urine Total Volume Cancelled 12/28/20 21:38 Urine Total Protein 2+ (Negative) H 12/29/20 00:27 Influenza Type A RNA Negative (NEGATIVE) 12/28/20 20:40 Influenza Type B RNA Negative (NEGATIVE) 12/28/20 20:40 SARS-CoV-2 RNA (RT-PCR) Negative (NEGATIVE) 12/28/20 20:40 Smear Scan Ok (OK) 12/28/20 20:43 Assessment And Plan - Plan Physical Exam: General: Alert, In no apparent distress, Oriented x3, Cachectic HEENT: Atraumatic, Normocephalic, Scleral icterus Neck: Supple, 2+ carotid pulse no bruit Respiratory: Clear to auscultation bilaterally, Normal air movement Cardiovascular: No edema, Regular rate/rhythm, Normal S1 S2 Capillary refill: <2 Seconds Gastrointestinal: Rigidity, Distended, Tenderness Musculoskeletal: No clubbing, No swelling, No contractures Integumentary: No rashes, No breakdown, No significant lesion Neurological: Normal gait, Normal speech Urinary: Alfredo catheter External genitalia: Other (right femoral centeral line ) Conclusions/Impression: Assessment/plan Severe sepsis On admission patient found to be in severe sepsis with NOE, hypotension, and elevated lactic acid. Patient empirically placed on vancomycin, Flagyl, Rocephin. Blood cultures pending. Preliminary urine culture growing gram- negative bacilli awaiting full report. Chest x-ray showed a left pleural effusion, CT chest abdomen and pelvis pending. Will tailor antibiotics based on culture reports. Leukocytosis with left shift Continue to monitor WBC trend. WBC stabilize at 9.0. Patient remains afebrile. Severe malnutrition Low albumin, recommend supplemental Ensure protein drinks PBC, NOE, anemia, liver cirrhosis Medical management per primary team Plan of care discussed with Dr. Ricks Thank you for consultation
[2020-12-30 11:46] LABS: Magnesium 2.3 mg/dL (1.8-2.4); Potassium 3.1 mmol/L (3.5-5.1)
[2020-12-30 11:47] LABS: Troponin I 2.39 ng/mL (0.0-0.045)
[2020-12-30] MEDS ORDERED: POTASSIUM 25 MEQ EFFERV TAB ONE (12:08)
[2020-12-30 12:41] LABS: C.diff Antigen/Toxin Ag neg : Tox neg (NEG : NEG)
--- NOTE | 2020-12-30 15:01 | PN ---
Date of Progress Note: 12/30/2020 Subjective: The patient was admitted with acute kidney injury, multifactorial, secondary to prerenal /hepatorenal syndrome. The patient had shock secondary to GI loss/non-ST elevation [place] with severe ac idosis. The patient over the night was started on Levophed. The patient nonoliguric. Physical Examination: Vital Signs: Blood pressure 113/67, pulse of 99, afebrile. The patient had good urine output of 830 . Chest: Decreased entry bilateral base. Heart: S1, S2. Systolic murmur. Abdomen: Soft, nontender. Extremity: No edema. Neuro: Alert. No focality. Laboratory Data: Renal ultrasound, 9.1 x 8.2, no hydronephrosis, renal cyst. WBC 5.9, H and H 7.7/2 2.9. Sodium 138, potassium 3.1, bicarb 20, BUN 20, creatinine 1.3, GFR of 38. Calcium 6.1, iron sat uration 39. Troponin down to 2.3. BNP of 10,219. Serum protein electrophoresis is still pending. PTH 252. Vitamin D still pending. PC ratio not done yet. Current Medications: The patient on include Levophed, ceftriaxone, metronidazole, vancomycin ___ midodrine 5 t.i.d., octreotide, albumin, Tylenol, bicarb drip 150 mEq at a rate of 100 per hour, pantoprazole. Assessment And Plan: 1.Acute kidney injury, multifactorial, secondary to prerenal/hepatorenal syndrome, on recovery phase , nonoliguric. I am going to decrease the maintenance bicarb to 50 mL per hour and we will monitor. 2.Hypotension, shock secondary to sepsis/volume loss secondary to the diarrhea/cardiogenic. We will follow up with Cardiology. The patient started being euvolemic. Decrease bicarb drip and we will m onitor the patient closely. 3.Hypokalemia, hypomagnesemia, hypophosphatemia. We will supplement aggressively. 4.Possible GI bleed. Follow up with primary. Continue PPI. 5.Secondary hyperparathyroidism. Start calcitriol. 6.Anemia of chronic kidney disease. We will give the Retacrit. 7.Liver failure, as by primary. 8.Acidosis secondary to renal failure and diarrhea, on the recovery. I will decrease the bicarb dri p to 50 per hour and we will follow up. CONCHA Voice ID: [id number] Report ID: [id number]
[2020-12-30] MEDS ORDERED: ALBUMIN HUMAN 25% 50 ML IV ONE (17:31)
[2020-12-31] MEDS: CEFTRIAXONE/SWI 1gm 1 GM/10 ML SYR IVP SCH
[2020-12-31] MEDS: VANCOMYCIN ORAL SOLN 250 MG/5 ML OSYR PO SCH ×2 (01:00→09:00)
[2020-12-31] MEDS ORDERED: CEFTRIAXONE/SWI 1gm 1 GM/10 ML SYR ONE (01:03)
[2020-12-31] MEDS: ALBUTEROL 2.5 MG/3 ML NEB SOL NEB PRN ×3 (01:20→14:25)
[2020-12-31] MEDS: IPRATROPIUM BROM 0.5MG/2.5ML NEB SCH ×4 (01:20→21:20)
[2020-12-31] MEDS ORDERED: ALBUTEROL 2.5 MG/3 ML NEB SOL ONE ×3 (01:30→14:40)
[2020-12-31] MEDS ORDERED: IPRATROPIUM BROM 0.5MG/2.5ML ONE ×5 (01:49→21:46)
[2020-12-31] MEDS: PANTOPRAZOLE INJ 80 MG in NA CHLORIDE 0.9% 250 ML IV SCH ×3 (02:00→21:37)
[2020-12-31] MEDS ORDERED: PANTOPRAZOLE 40 MG INJ ONE (02:58)
[2020-12-31] MEDS ORDERED: NA CHLORIDE 0.9% 250 ML ONE (02:58)
[2020-12-31] MEDS: METRONIDAZOLE 500mg IVPB 500 MG/100 ML BAG IV SCH (03:00)
[2020-12-31] MEDS: OCTREOTIDE 500 MCG in NA CHLORIDE 0.9% 500 ML IV SCH ×3 (03:00→23:00)
[2020-12-31] MEDS ORDERED: NA CHLORIDE 0.9% 500 ML ONE (03:45)
[2020-12-31] MEDS ORDERED: OCTREOTIDE ACETATE 100 MCG/ML ONE (03:46)
[2020-12-31] MEDS ORDERED: METRONIDAZOLE 500mg IVPB 500 MG/100 ML BAG IV ONE (03:49)
[2020-12-31] MEDS: ALBUMIN HUMAN 25% 100 ML IV SCH (06:00)
[2020-12-31 06:10] LABS: Absolute Lymphocytes (CBC) 0.5 K/uL (0.7-4.9); Basophils % 0.2 % (0-1.3); Hematocrit 31.1 % (36.0-45.0); Lymphocytes % 7.9 % (15.3-44.8); MPV 7.7 fL (7.6-11.3); RBC Red Blood Cell Count 3.72 M/uL (3.86-4.86)
[2020-12-31 07:01] LABS: Albumin 3.1 g/dL (3.4-5.0); Bilirubin Total 2.2 mg/dL (0.2-1.0); Magnesium 2.1 mg/dL (1.8-2.4)
[2020-12-31 07:05] LABS: Potassium 2.7 mmol/L (3.5-5.1)
[2020-12-31] MEDS ORDERED: CALCIUM GLUC 10% INJ 9.3 MEQ in NA CHLORIDE 0.9% 100 ML IV ONE (07:30)
--- NOTE | 2020-12-31 07:40 | P.PN ---
Subjective Date of Service: 12/30/20 Patient is a 65-year-old female who presents to the hospital with septic shock. Patient with multiple metabolic abnormalities. Patient also with GI bleeding. Patient has been started on IV fluids and IV antibiotic therapy. Continue with current plan of care at this time. Review of Systems 10-point ROS is otherwise unremarkable Physical Examination - Vital Signs Temperature: 97.5 F Blood Pressure: 102/64 Pulse: 84 Respirations: 14 Pulse Ox (%): 99 - Physical Exam General: Alert, In no apparent distress, Oriented x3 Respiratory: Diminished Cardiovascular: Regular rate/rhythm, Normal S1 S2, No murmurs Gastrointestinal: Normal bowel sounds, Soft and benign, Non-distended, No tenderness Musculoskeletal: No clubbing, No swelling, No tenderness Neurological: Sensation intact, Cranial nerves 3-12 intact - Studies Medications List Reviewed: Yes Assessment & Plan - Problems (Diagnosis) (1) Septic shock Current Visit: Yes Status: Acute (2) Hypocalcemia Current Visit: Yes Status: Acute (3) Hypokalemia Current Visit: Yes Status: Acute (4) HLD (hyperlipidemia) Current Visit: Yes Status: Chronic Qualifiers: Hyperlipidemia type: unspecified Qualified Code(s): E78.5 - Hyperlipidemia, unspecified (5) HTN (hypertension) Current Visit: Yes Status: Chronic Qualifiers: Hypertension type: primary hypertension Qualified Code(s): I10 - Essential (primary) hypertension (6) Primary biliary cirrhosis Current Visit: Yes Status: Chronic - Plan Plan: 1. Continue with IV fluids 2. Continue with PPI and octreotide drip 3. Supplement electrolytes 4. Monitor H&H 5. Continue with IV antibiotic therapy 6. Transfuse 2 units of packed red blood cells 7. GI and DVT prophylaxis Discharge Plan: Home Plan to discharge in: Greater than 2 days - Advance Directives Does patient have a Living Will: No Does patient have a Durable POA for Healthcare: No - Code Status/Comfort Care Code Status Assessed: Yes Code Status: Full Code Critical Care: No Time Spent Managing PTS Care (In Minutes): 45
--- NOTE | 2020-12-31 07:46 | P.PN ---
Date of Service: 12/31/20 Subjective Pt is improving; hemoglobin is stabilizing. Currently we are trying to wean off of the Levophed. Transfer to general medical floor at that time. Review of Systems 10-point ROS is otherwise unremarkable Physical Examination - Vital Signs Reviewed - Physical Exam General: Alert, In no apparent distress, Oriented x3 Respiratory: Diminished Cardiovascular: Regular rate/rhythm, Normal S1 S2, No murmurs Gastrointestinal: Normal bowel sounds, Soft and benign, Non-distended, No tenderness Musculoskeletal: No clubbing, No swelling, No tenderness Neurological: no focal deficits Assessment & Plan - Problems (Diagnosis) (1) Septic shock Current Visit: Yes Status: Acute (2) Hypocalcemia Current Visit: Yes Status: Acute (3) Hypokalemia Current Visit: Yes Status: Acute (4) HLD (hyperlipidemia) Current Visit: Yes Status: Chronic Qualifiers: Hyperlipidemia type: unspecified Qualified Code(s): E78.5 - Hyperlipidemia, unspecified (5) HTN (hypertension) Current Visit: Yes Status: Chronic Qualifiers: Hypertension type: primary hypertension Qualified Code(s): I10 - Essential (primary) hypertension (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 Continue with IV fluids 2. Continue with PPI and octreotide drip 3. Supplement electrolytes 4. Monitor H&H; patient completed blood transfusion. Monitor H&H 5. Continue with IV antibiotic therapy; ESBL covered by meropenem 6. Monitor hemodynamics closely 7. GI and DVT prophylaxis
[2020-12-31] MEDS ORDERED: KCL 20 MEQ/100 mL IVPB 20 MEQ/100 ML BAG IV SCH (08:00)
[2020-12-31 08:23] LABS: Basophilic Stippling 1+; Blood Morphology Comment NOTED (NOT SEEN); Platelet Estimate DECR
[2020-12-31] MEDS ORDERED: Meropenem 1 GM/100 ML BAG IV SCH (09:00)
[2020-12-31] MEDS: MIDODRINE HCL 5 MG TABLET PO SCH ×3 (09:00→21:00)
[2020-12-31] MEDS: THIAMINE 200 MG/2 ML INJ IVP SCH (09:00)
[2020-12-31] MEDS ORDERED: ONDANSETRON 4 MG/2 ML VIAL ONE (09:18)
[2020-12-31] MEDS ORDERED: THIAMINE HCL 100 MG TABLET ONE (09:18)
[2020-12-31] MEDS ORDERED: Meropenem 0 MG/0 ML BAG ONE (09:18)
--- NOTE | 2020-12-31 09:29 | P.PN ---
Subjective Date of Service: 12/31/20 Primary Care Provider: Yogesh Chief Complaint: severe sepsis Patient seen examined at bedside, placed on oxygen this a.m., 3 L via nasal cannula. Patient has expiratory wheezing and bilateral crackles/rales. Blood culture show no growth, urine culture growing ESBL E coli. Meropenem started. Review of Systems 10-point ROS is otherwise unremarkable Physical Examination - Vital Signs Temperature: 97.5 F Blood Pressure: 146/96 Pulse: 88 Respirations: 23 Pulse Ox (%): 99 - Studies Microbiology Data (last 24 hrs): 12/29/20 00:20 Clean Catch Urine [place] Count - Final BETWEEN 10,000 & 100,000 CFU/ML 12/29/20 00:20 Clean Catch Urine - Final Escherichia Coli Esbl Medications List Reviewed: Yes Assessment And Plan - Plan Physical Exam: General: Alert, In no apparent distress, Oriented x3, Cachectic HEENT: Atraumatic, Normocephalic, Scleral icterus Neck: Supple, 2+ carotid pulse no bruit Respiratory: Expiratory wheezing, bilateral crackles/rales Cardiovascular: No edema, Regular rate/rhythm, Normal S1 S2 Capillary refill: <2 Seconds Gastrointestinal: Rigidity, Distended, Tenderness Musculoskeletal: No clubbing, No swelling, No contractures Integumentary: No rashes, No breakdown, No significant lesion Neurological: Normal gait, Normal speech Urinary: Alfredo catheter External genitalia: Other (right femoral centeral line ) Conclusions/Impression: Assessment/plan Severe sepsis On admission patient found to be in severe sepsis with NOE, hypotension, and elevated lactic acid. Patient empirically placed on oral vancomycin, Flagyl, Rocephin. Blood cultures show no growth, urine cultures growing ESBL E coli. Flagyl and oral vancomycin discontinued, patient placed on renal dose to meropenem, 1 g Q 12 hr. Patient currently has a creatinine clearance of 48.6%. P Leukocytosis with left shift Continue to monitor WBC trend. WBC now within normal range. Patient remains afebrile. Severe malnutrition Low albumin, recommend supplemental Ensure protein drinks PBC, NOE, anemia, liver cirrhosis Medical management per primary team Plan of care discussed with Dr. Ricks Thank you for consultation
[2020-12-31] MEDS ORDERED: Meropenem 1 GM/100 ML BAG ONE ×2 (09:34→17:32)
[2020-12-31] MEDS: POTASSIUM CL 40 MEQ in NA CHLORIDE 0.9% 500 ML IV SCH ×2 (09:45→14:49)
[2020-12-31] MEDS ORDERED: POTASSIUM 25 MEQ EFFERV TAB PO ONE (10:06)
--- NOTE | 2020-12-31 10:27 | PN ---
Date of Progress Note: 12/30/2020 Ms. Vines had came in with sepsis, noted a pericardial effusion on CT scan. Echocardiogram yesterd ay did indeed showed a [id number] pericardial effusion without any evidence of tamponade. Cli nically speaking, she is hemodynamically stable. She does not have any evidence of tamponade by EKG or symptoms. I would be careful with her medication with AR. She may have to have an echocardiogram repeated in the next month or 2 to see if her pericardial effusion persist, may need to be drained m ore for diagnostic purposes. For now, continue present regimen. SOREN/GARRET Voice ID: [id number] Report ID: [id number]
[2020-12-31] MEDS ORDERED: POTASSIUM 25 MEQ EFFERV TAB ONE (11:02)
[2020-12-31] MEDS ORDERED: MAGNESIUM SULFATE 1 gm IVPB 0 GM/0 ML BAG IV ONE (11:03)
[2020-12-31] MEDS ORDERED: FUROSEMIDE 40 MG/4 ML VIAL IV ONE (11:15)
[2020-12-31] MEDS ORDERED: NA CHLORIDE 0.9% 50 ML ONE (11:46)
[2020-12-31] MEDS ORDERED: MAGNESIUM 50% 3 GM in NA CHLORIDE 0.9% 100 ML IV ONE (12:00)
--- NOTE | 2020-12-31 12:18 | RAD REPORT ---
EXAM DESCRIPTION: RAD - Chest Single View - 12/31/2020 11:12 am CLINICAL HISTORY: Shortness of breath COMPARISON: CT chest December 28, portable chest December 28 TECHNIQUE: AP portable chest image was obtained 12/31/2020 11:12 am . FINDINGS: Lung volumes are low. Moderate size left pleural effusion is present. Right base and right upper lobe interstitial opacification is increased over comparison. Cardiac silhouette is enlarged. CT imaging showed a significant pericardial effusion. Upper lobe vasculature within normal limits. No pneumothorax seen. Small right pleural effusion present. No acute bony abnormality seen. No acute ao rtic findings suspected. IMPRESSION: Increased interstitial and patchy alveolar opacification in the right upper lobe and med ial right base increased over the baseline interstitial pattern. Findings are concerning for developing pneumonia. Asymmetric pulmonary edema or volume overload the l sunita considerations. Moderate left side and small right-sided pleural effusions accentuated by shallow inspiration.
[2020-12-31] MEDS ORDERED: CALCIUM CARBONATE CHEW 500MG TAB PO PRN (12:23)
--- NOTE | 2020-12-31 13:48 | PN ---
Date of Progress Note: 12/31/2020 Subjective: The patient was admitted with septic shock with acute kidney injury secondary to prerena l, hepatorenal. The patient had severe diarrhea, severe acidosis with hypokalemia. Also, the patien t had non-ST elevation [place]. The patient was started on aggressive resuscitation. The patient was on Levophed, weaned from Levophed. Physical Examination: Vital Signs: When I saw the patient; blood pressure 106/77, pulse of 96. The patient had good urine output of 1100. Chest: Clear to auscultation. Heart: S1, S2. Regular. Abdomen: Soft, nontender. No ascites. Extremities: No edema. Neuro: Alert. No focality. Laboratory Data: WBC 5.9, H and H 10.6/31.1. Sodium 140, potassium 2.7, bicarb 26, BUN 13, creatini ne down to 1, GFR of 54, calcium 5.7, phosphorus , magnesium 2.1. Troponin 2.3. BNP 10,21 9. Albumin 3.1. Corrected calcium is 6.5. Current Medications: The patient on include bicarb drip, meropenem, Tylenol, Zofran, pantoprazole, o ctreotide. Assessment And Plan: 1.Acute kidney injury, multifactorial, mostly prerenal, questionable of hepatorenal, recovered, reso lved, nonoliguric. It looked to me on the wet side. I am going to discontinue bicarb drip. We will minimize fluid and we will give the patient a single dose of Lasix. 2.Hypokalemia, hypophosphatemia, hypocalcemia. We will start supplement. We will add calcium gluco luisana and calcium carbonate oral. 3.Acidosis, resolved. Discontinue bicarb drip. 4.Non-ST elevation myocardial infarction. Follow up with Cardiology. 5.Pericardial effusion, moderate amount with the presence of low blood pressure. We will be cautiou s with the fluid status for the patient. We will follow up with Cardiology. 6.Cirrhosis. Follow up with primary. 7.Colitis. Continue current treatment. 8.Urinary tract infection secondary to Escherichia coli, multidrug-resistant. Continue meropenem. I am going to adjust the dose given the improvement in the kidney function. 9.Shock, multifactorial, secondary to tamponade , recovered. Continue midodrine. Off Jesus Manuel jaramillo. CODY/GARRET Voice ID: [id number] Report ID: [id number]
[2020-12-31] MEDS: CALCITROL 0.25 MCG CAP PO SCH (16:00)
[2020-12-31] MEDS ORDERED: POTASSIUM PHOS 40 MEQ in NA CHLORIDE 0.9% 500 ML IV ONE (16:00)
[2020-12-31] MEDS ORDERED: CALCITROL 0.25 MCG CAP PO ONE ×2 (16:04→16:08)
[2020-12-31] MEDS: Meropenem 1 GM/100 ML BAG IV SCH (17:50)
[2020-12-31] MEDS: CALCIUM GLUC 10% INJ 4.65 MEQ in NA CHLORIDE 0.9% 100 ML IV SCH (17:50)
[2020-12-31] MEDS: ENSURE ENLIVE 237 ML CAN PO SCH (21:00)
[2021-01-01] MEDS: CALCIUM GLUC 10% INJ 4.65 MEQ in NA CHLORIDE 0.9% 100 ML IV SCH ×3 (01:00→17:10)
[2021-01-01] MEDS: Meropenem 1 GM/100 ML BAG IV SCH ×3 (01:00→17:00)
[2021-01-01] MEDS: IPRATROPIUM BROM 0.5MG/2.5ML NEB SCH ×4 (01:30→20:00)
[2021-01-01] MEDS ORDERED: IPRATROPIUM BROM 0.5MG/2.5ML ONE ×4 (01:41→13:57)
[2021-01-01 03:45] LABS: Absolute Lymphocytes (CBC) 0.5 K/uL (0.7-4.9); Basophils % 0.2 % (0-1.3); Hematocrit 32.9 % (36.0-45.0); Lymphocytes % 7.3 % (15.3-44.8); MPV 7.9 fL (7.6-11.3); RBC Red Blood Cell Count 3.91 M/uL (3.86-4.86)
[2021-01-01 03:57] LABS: Albumin 3.2 g/dL (3.4-5.0); Magnesium 2.2 mg/dL (1.8-2.4); Potassium 4.4 mmol/L (3.5-5.1); Protein, Total 4.9 g/dL (6.4-8.2)
[2021-01-01] MEDS ORDERED: Meropenem 1000 MG/VIAL IV ONE (04:15)
[2021-01-01] MEDS ORDERED: CALCIUM GLUCONATE 1 GM IVPB 1 GM/50 ML BAG IV ONE (04:16)
[2021-01-01] MEDS ORDERED: NA CHLORIDE 0.9% 100 ML ONE (04:17)
[2021-01-01] MEDS ORDERED: THIAMINE 200 MG/2 ML INJ ONE (07:43)
[2021-01-01] MEDS: THIAMINE 200 MG/2 ML INJ IVP SCH (08:00)
[2021-01-01] MEDS: PANTOPRAZOLE INJ 80 MG in NA CHLORIDE 0.9% 250 ML IV SCH ×2 (08:00→20:52)
--- NOTE | 2021-01-01 08:36 | P.PN ---
Subjective Date of Service: 01/01/21 Primary Care Provider: Yogesh Chief Complaint: severe sepsis Subjective: No new changes Physical Examination - Vital Signs Temperature: 97.6 F Blood Pressure: 132/85 Pulse: 92 Respirations: 18 Pulse Ox (%): 95 - Physical Exam General: Other (appears as her stated age) HEENT: Atraumatic, Normocephalic Neck: Supple Respiratory: Other (symmetric chest expansion) Cardiovascular: No rubs, No murmurs Gastrointestinal: Soft and benign Musculoskeletal: No clubbing Integumentary: No warmth Neurological: Normal speech, Normal tone Urinary: Other (no bladder distention) External genitalia: Deferred Rectal: Deferred - Studies Microbiology Data (last 24 hrs): 12/29/20 00:20 Clean Catch Urine [place] Count - Final BETWEEN 10,000 & 100,000 CFU/ML 12/29/20 00:20 Clean Catch Urine - Final Escherichia Coli Esbl Medications List Reviewed: Yes Assessment And Plan - Plan # NOE secondary to prerenal state + ATN Resolved Monitor input and output, renal panel # Septic shock secondary to UTI Off IV vasopressor Urine culture grew ESBL E. coli On Merrem # Pericardial effusion, NSTEMI TTE on 12/29/2020 showed moderate to large precordial effusion BNP 17,000, troponin 2.4 F/u STUART Continue Lasix 40 m by mouth twice a day Recheck TTE at some point to reassess effusion Cardiology following # Liver cirrhosis Compensated, monitor # Anemia, thrombocytopenia Likely secondary to liver disease Follow-up serum haptoglobin and serum LDH
[2021-01-01] MEDS: ENSURE ENLIVE 237 ML CAN PO SCH ×2 (09:00→21:00)
[2021-01-01] MEDS: OCTREOTIDE 500 MCG in NA CHLORIDE 0.9% 500 ML IV SCH ×2 (09:00→20:53)
[2021-01-01] MEDS: MIDODRINE HCL 5 MG TABLET PO SCH ×3 (09:00→21:09)
[2021-01-01] MEDS ORDERED: ALBUTEROL 2.5 MG/3 ML NEB SOL ONE ×2 (09:04→13:57)
--- NOTE | 2021-01-01 09:19 | P.PN ---
Subjective Date of Service: 01/01/21 Primary Care Provider: Yogesh Chief Complaint: severe sepsis Patient seen examined at bedside, thrombocytopenia worsening. Review of Systems 10-point ROS is otherwise unremarkable Physical Examination - Vital Signs Temperature: 97.6 F Blood Pressure: 132/85 Pulse: 92 Respirations: 18 Pulse Ox (%): 95 - Studies Laboratory Last Values WBC 16.70 K/uL (4.3-10.9) H 12/28/20 20:43 RBC 4.64 M/uL (3.86-4.86) 12/28/20 20:43 Hgb 12.9 g/dL (12.0-15.0) 12/28/20 20:43 Hct 41.4 % (36.0-45.0) 12/28/20 20:43 MCV 89.2 fL (80-100) 12/28/20 20:43 MCH 27.8 pg (27.0-35.0) 12/28/20 20:43 MCHC 31.2 g/dL (32.0-36.0) L 12/28/20 20:43 RDW 21.0 % (12.1-15.2) H 12/28/20 20:43 Plt Count 281 K/uL (152-406) 12/28/20 20:43 MPV 9.2 fL (7.6-11.3) 12/28/20 20:43 Neutrophils % 85.8 % (41.7-73.7) H 12/28/20 20:43 Lymphocytes % 8.3 % (15.3-44.8) L 12/28/20 20:43 Monocytes % 5.6 % (3.3-12.3) 12/28/20 20:43 Eosinophils % 0.1 % (0-4.4) 12/28/20 20:43 Basophils % 0.2 % (0-1.3) 12/28/20 20:43 Absolute Neutrophils 14.3 K/uL (1.8-8.0) H 12/28/20 20:43 Absolute Lymphocytes 1.4 K/uL (0.7-4.9) 12/28/20 20:43 Absolute Monocytes 0.9 K/uL (0.1-1.3) 12/28/20 20:43 Absolute Eosinophils 0.0 K/uL (0-0.5) 12/28/20 20:43 Absolute Basophils 0.0 K/uL (0-0.5) 12/28/20 20:43 Platelet Estimate Adeq 12/28/20 20:43 Anisocytosis 1+ 12/28/20 20:43 Microcytosis 1+ 12/28/20 20:43 Morphology Comment Noted (NOT SEEN) 12/28/20 20:43 PT 15.2 SECONDS (9.5-12.5) H 12/29/20 02:21 INR 1.32 12/29/20 02:21 APTT 35.5 SECONDS (24.3-36.9) 12/29/20 02:21 pH 7.26 (7.35-7.45) L 12/29/20 03:00 pCO2 19.6 mmHG (35-45) L 12/29/20 03:00 pO2 123.0 mmHG (75-100) H 12/29/20 03:00 HCO3 8.6 mmol/L (22-28) L 12/29/20 03:00 Base Excess -17.2 mmol/L 12/29/20 03:00 Oxyhemoglobin 96.2 % (94-97) 12/29/20 03:00 ABG O2 Sat (Measured) 98.3 % (92-98.5) 12/29/20 03:00 ABG Carboxyhemoglobin 1.0 % (0-1.5) 12/29/20 03:00 ABG Methemoglobin 1.1 % (0-1.5) 12/29/20 03:00 Other Total Hgb 11.0 g/dl (12-18) L 12/29/20 03:00 Inspired O2 21.0 % 12/29/20 03:00 Sodium 143 mmol/L (136-145) 12/28/20 20:43 Potassium 3.6 mmol/L (3.5-5.1) 12/28/20 20:43 Chloride 118 mmol/L (98-107) H 12/28/20 20:43 Carbon Dioxide 8 mmol/L (21-32) L* 12/28/20 20:43 BUN 25 mg/dL (7-18) H 12/28/20 20:43 Creatinine 2.43 mg/dL (0.55-1.3) H 12/28/20 20:43 Estimated GFR 20 mL/min (=/>90) L 12/28/20 20:43 Glucose 99 mg/dL (74-106) 12/28/20 20:43 Lactic Acid 3.5 mmol/L (0.4-2.0) H 12/29/20 02:01 Calcium 7.9 mg/dL (8.5-10.1) L 12/28/20 20:43 Total Bilirubin 4.0 mg/dL (0.2-1.0) H 12/28/20 20:42 Direct Bilirubin 3.3 mg/dL (0-0.2) H 12/28/20 20:42 AST 157 U/L (15-37) H 12/28/20 20:42 ALT 61 U/L (12-78) 12/28/20 20:42 Alkaline Phosphatase 736 U/L (45-117) H 12/28/20 20:42 Ammonia 25 umol/L (19-54) 12/29/20 02:01 Troponin I 2.43 ng/mL (0.0-0.045) H* 12/28/20 20:43 Serum Total Protein 6.4 g/dL (6.4-8.2) 12/28/20 20:42 Albumin 2.2 g/dL (3.4-5.0) L 12/28/20 20:42 Globulin 4.2 g/dL (2.3-3.5) H 12/28/20 20:42 Albumin/Globulin Ratio 0.5 (1.1-1.8) L 12/28/20 20:42 Amylase 84 U/L (25-115) 12/28/20 20:42 Lipase 304 U/L (73-393) 12/28/20 20:42 Procalcitonin 0.91 ng/mL (<0.050) H 12/28/20 20:43 Urine pH 5.0 (5.0-7.0) 12/29/20 00:27 Ur Specific [place] 1.025 (1.005-1.030) 12/29/20 00:27 Glucose (UA)(Auto) Trace (Negative) 12/29/20 00:27 Urine Ketones 1+ (Negative) H 12/29/20 00:27 Urine Blood 2+ (Negative) H 12/29/20 00:27 Urine Nitrite Negative (Negative) 12/29/20 00:27 Ur Leukocyte Esterase Negative (Negative) 12/29/20 00:27 Urine RBC 5-10 /HPF (NONE SEEN) H 12/29/20 00:20 Urine WBC 5-10 /HPF (<5) H 12/29/20 00:20 Ur Squamous Epith Cells 5-10 /HPF (NONE SEEN) H 12/29/20 00:20 Ur Urothelial Cells Cancelled 12/28/20 21:38 Calcium Oxalate Crystal Cancelled 12/28/20 21:38 Uric Acid Crystals Cancelled 12/28/20 21:38 Triple Phos Crystals Cancelled 12/28/20 21:38 Other Crystals Cancelled 12/28/20 21:38 Amorphous Sediment 2+ /HPF (NONE SEEN) H 12/29/20 00:20 Glitter Cells Cancelled 12/28/20 21:38 Urine Bacteria >50 /HPF (<20) H 12/29/20 00:20 Hyaline Casts 5-10 /LPF (NONE SEEN) 12/29/20 00:20 Fine Granular Casts Cancelled 12/28/20 21:38 Coarse Granular Casts Cancelled 12/28/20 21:38 Waxy Casts Cancelled 12/28/20 21:38 RBC Casts Cancelled 12/28/20 21:38 WBC Casts Cancelled 12/28/20 21:38 Urine Mucus 2+ /HPF (NONE SEEN) 12/29/20 00:20 Urine Other Cancelled 12/28/20 21:38 Urine Trichomonas Cancelled 12/28/20 21:38 Urine Yeast Cancelled 12/28/20 21:38 Ur Yeast w Hyphae Cancelled 12/28/20 21:38 Urine Yeast (Budding) Cancelled 12/28/20 21:38 Urine Sperm Cancelled 12/28/20 21:38 Urine Culture Reflexed Reflexed 12/29/20 00:20 Urine Total Volume Cancelled 12/28/20 21:38 Urine Total Protein 2+ (Negative) H 12/29/20 00:27 Influenza Type A RNA Negative (NEGATIVE) 12/28/20 20:40 Influenza Type B RNA Negative (NEGATIVE) 12/28/20 20:40 SARS-CoV-2 RNA (RT-PCR) Negative (NEGATIVE) 12/28/20 20:40 Smear Scan Ok (OK) 12/28/20 20:43 Microbiology Data (last 24 hrs): 12/29/20 00:20 Clean Catch Urine [place] Count - Final BETWEEN 10,000 & 100,000 CFU/ML 12/29/20 00:20 Clean Catch Urine - Final Escherichia Coli Esbl Medications List Reviewed: Yes Assessment And Plan - Plan Physical Exam: General: Alert, In no apparent distress, Oriented x3, Cachectic HEENT: Atraumatic, Normocephalic, Scleral icterus Neck: Supple, 2+ carotid pulse no bruit Respiratory: Expiratory wheezing, bilateral crackles/rales Cardiovascular: No edema, Regular rate/rhythm, Normal S1 S2 Capillary refill: <2 Seconds Gastrointestinal: Rigidity, Distended, Tenderness Musculoskeletal: No clubbing, No swelling, No contractures Integumentary: No rashes, No breakdown, No significant lesion Neurological: Normal gait, Normal speech Urinary: Alfredo catheter External genitalia: Other (right femoral centeral line ) Conclusions/Impression: Assessment/plan Severe sepsis On admission patient found to be in severe sepsis with NOE, hypotension, and elevated lactic acid. Patient empirically placed on oral vancomycin, Flagyl, Rocephin. Blood cultures show no growth, urine cultures growing ESBL E coli. Flagyl and oral vancomycin discontinued. Kidney function improving, patient's current creatinine clearance is 53 milliliters/minute. Meropenem dose increased from 1 g q.12 hr 1 g Q 8. Leukocytosis with left shift Continue to monitor WBC trend. WBC now within normal range. Patient remains afebrile. Severe malnutrition Low albumin, recommend supplemental Ensure protein drinks PBC, NOE, anemia, liver cirrhosis Medical management per primary team Plan of care discussed with Dr. Ricks Thank you for consultation
[2021-01-01] MEDS ORDERED: ALBUTEROL 2.5 MG/3 ML NEB SOL NEB PRN (10:00)
[2021-01-01] MEDS ORDERED: ALBUMIN HUMAN 25% 12.5 GM, FUROSEMIDE 100 MG in NA CHLORIDE 0.9% 40 ML IV SCH (12:00)
[2021-01-01 12:03] LABS: HIV AG/AB 4TH GEN Non-reactive (Non-reactive)
[2021-01-01] MEDS ORDERED: NA CHLORIDE 0.9% 250 ML ONE (17:40)
[2021-01-01] MEDS: PROPRANOLOL HCL 10 MG TAB PO SCH (21:09)
[2021-01-01] MEDS: SPIRONOLACTONE 25 MG TABLET PO SCH (21:09)
[2021-01-02] MEDS: CALCIUM GLUC 10% INJ 4.65 MEQ in NA CHLORIDE 0.9% 100 ML IV SCH (00:21)
[2021-01-02] MEDS: Meropenem 1 GM/100 ML BAG IV SCH ×4 (00:53→17:21)
[2021-01-02] MEDS ORDERED: Meropenem 1 GM/100 ML BAG ONE (01:07)
[2021-01-02] MEDS: IPRATROPIUM BROM 0.5MG/2.5ML NEB SCH ×4 (02:00→20:00)
[2021-01-02 02:57] LABS: Albumin, (SPE) 3.3 g/dL (3.8-4.8); Alpha-1-Globulins 0.3 g/dL (0.2-0.3); Alpha-2-Globulins 0.4 g/dL (0.5-0.9); INTERPRETATION REPORT
--- NOTE | 2021-01-02 04:22 | P.PN ---
Subjective Date of Service: 01/02/21 Primary Care Provider: Yogesh Chief Complaint: severe sepsis Subjective: No new changes Physical Examination - Vital Signs Temperature: 97 F Blood Pressure: 134/80 Pulse: 72 Respirations: 18 Pulse Ox (%): 97 - Physical Exam General: Other (appears as her stated age) HEENT: Normocephalic Neck: Supple Respiratory: Other (symmetric chest expansion) Cardiovascular: No rubs, No murmurs Gastrointestinal: Soft and benign Musculoskeletal: No clubbing Integumentary: No warmth Neurological: Normal tone Lymphatics: No axilla or inguinal lymphadenopathy Urinary: Other (no bladder distention) External genitalia: Deferred Rectal: Deferred - Studies Medications List Reviewed: Yes Assessment And Plan - Plan # NOE secondary to prerenal state + ATN Resolved Monitor input and output, renal panel # Septic shock secondary to UTI Off IV vasopressor decrease midodrine to 5 mg by mouth twice a day Urine culture grew ESBL E. coli On Merrem # Pericardial effusion, NSTEMI TTE on 12/29/2020 showed moderate to large precordial effusion BNP 17,000, troponin 2.4 F/u STUART Continue Lasix 40 m by mouth twice a day Recheck TTE at some point to reassess effusion Cardiology following # Hypokalemia Repeat by KCl # Hypomagnesemia Replete when necessary # Hypocalcemia Corrected serum calcium 8.6 Repeat when necessary # Liver cirrhosis Compensated, monitor # Anemia, thrombocytopenia Likely secondary to liver disease Follow-up serum haptoglobin and serum LDH
[2021-01-02 05:26] LABS: Absolute Lymphocytes (CBC) 0.6 K/uL (0.7-4.9); Basophils % 0.1 % (0-1.3); Hematocrit 36.1 % (36.0-45.0); Lymphocytes % 8.2 % (15.3-44.8); MPV 7.9 fL (7.6-11.3); RBC Red Blood Cell Count 4.22 M/uL (3.86-4.86)
[2021-01-02 05:43] LABS: Albumin 3.3 g/dL (3.4-5.0); Bilirubin Total 2.4 mg/dL (0.2-1.0); Magnesium 1.7 mg/dL (1.8-2.4); Phosphorus 3.6 mg/dL (2.5-4.9); Potassium 3.1 mmol/L (3.5-5.1); Protein, Total 5.4 g/dL (6.4-8.2)
[2021-01-02] MEDS: OCTREOTIDE 500 MCG in NA CHLORIDE 0.9% 500 ML IV SCH ×3 (07:26→17:26)
[2021-01-02] MEDS: PANTOPRAZOLE INJ 80 MG in NA CHLORIDE 0.9% 250 ML IV SCH ×3 (07:26→17:28)
[2021-01-02] MEDS: FUROSEMIDE 40 MG TABLET PO SCH ×3 (08:00→17:21)
[2021-01-02] MEDS: MIDODRINE HCL 5 MG TABLET PO SCH ×2 (09:00→22:04)
[2021-01-02] MEDS: PROPRANOLOL HCL 10 MG TAB PO SCH ×2 (09:00→22:04)
[2021-01-02] MEDS ORDERED: MAGNESIUM SULFATE 1 gm IVPB 1 GM/100 ML BAG IV ONE (09:00)
[2021-01-02] MEDS ORDERED: POTASSIUM 25 MEQ EFFERV TAB PO ONE (09:00)
[2021-01-02] MEDS: SPIRONOLACTONE 25 MG TABLET PO SCH ×2 (09:00→22:04)
[2021-01-02] MEDS: THIAMINE 200 MG/2 ML INJ IVP SCH (09:00)
[2021-01-02] MEDS: ENSURE ENLIVE 237 ML CAN PO SCH ×2 (09:00→22:05)
[2021-01-02] MEDS: CALCITROL 0.25 MCG CAP PO SCH (10:09)
[2021-01-02 12:47] LABS: Vitamin D 1,25-Dihydroxy Total 12 pg/mL (18-72); Vitamin D,1,25-OH2, D2 <8 pg/mL
[2021-01-02 16:11] LABS: Hepatitis C Virus RNA (PCR)log <1.18 log IU/mL
[2021-01-02] MEDS: KCL 20 MEQ/100 mL IVPB 20 MEQ/100 ML BAG IV SCH (23:48)
[2021-01-03] MEDS: MELATONIN 5 MG TABLET PO PRN ×2 (01:02→21:34)
[2021-01-03] MEDS: Meropenem 1 GM/100 ML BAG IV SCH ×3 (01:02→17:04)
[2021-01-03] MEDS: KCL 20 MEQ/100 mL IVPB 20 MEQ/100 ML BAG IV SCH (01:50)
[2021-01-03] MEDS: IPRATROPIUM BROM 0.5MG/2.5ML NEB SCH ×2 (02:00→08:00)
[2021-01-03] MEDS: PANTOPRAZOLE INJ 80 MG in NA CHLORIDE 0.9% 250 ML IV SCH ×4 (02:15→12:34)
[2021-01-03] MEDS: OCTREOTIDE 500 MCG in NA CHLORIDE 0.9% 500 ML IV SCH ×4 (02:16→12:34)
[2021-01-03 04:59] LABS: Albumin 3.1 g/dL (3.4-5.0); Magnesium 1.5 mg/dL (1.8-2.4); Phosphorus 3.5 mg/dL (2.5-4.9); Potassium 3.7 mmol/L (3.5-5.1)
--- NOTE | 2021-01-03 05:25 | P.PN ---
Subjective Date of Service: 01/04/21 Primary Care Provider: Yogesh Chief Complaint: severe sepsis Subjective: Other (No c/o chest pain or SOB.) Physical Examination - Vital Signs Temperature: 97.0 F Blood Pressure: 134/81 Pulse: 66 Respirations: 16 Pulse Ox (%): 97 - Physical Exam General: Other (appears as her stated age) HEENT: Atraumatic, Normocephalic Neck: Supple Respiratory: Other (symmetric chest expansion) Cardiovascular: No rubs, No murmurs Gastrointestinal: Soft and benign Musculoskeletal: No clubbing Integumentary: No warmth Neurological: Normal speech, Normal tone Urinary: Other (no bladder distention) External genitalia: Deferred Rectal: Deferred - Studies Medications List Reviewed: Yes Assessment And Plan - Plan # NOE secondary to prerenal state + ATN Resolved Monitor input and output, renal panel # Septic shock secondary to UTI Off IV vasopressor Cont midodrine 5 mg by mouth twice a day Urine culture grew ESBL E. coli On Merrem # Pericardial effusion, NSTEMI TTE on 12/29/2020 showed moderate to large precordial effusion BNP 17,000, troponin 2.4 +STUART Continue Lasix 40 mg po bid Recheck TTE at some point to reassess effusion Cardiology following # Hypomagnesemia Replete prn # Hypocalcemia Corrected serum calcium 8.1 Replete prn # Liver cirrhosis Compensated, monitor # Anemia, thrombocytopenia Likely secondary to liver disease LDH wnl, f/u serum haptoglobin
[2021-01-03] MEDS ORDERED: Magnesium Sulfate 2gm IVPB 2 G/50 ML BAG IV ONE (06:00)
[2021-01-03] MEDS: THIAMINE 200 MG/2 ML INJ IVP SCH (09:20)
[2021-01-03] MEDS: PROPRANOLOL HCL 10 MG TAB PO SCH ×2 (09:20→21:32)
[2021-01-03] MEDS: MIDODRINE HCL 5 MG TABLET PO SCH ×2 (09:21→21:32)
[2021-01-03] MEDS: FUROSEMIDE 40 MG TABLET PO SCH ×2 (09:21→17:04)
[2021-01-03] MEDS: SPIRONOLACTONE 25 MG TABLET PO SCH ×2 (09:21→21:31)
[2021-01-03] MEDS: ENSURE ENLIVE 237 ML CAN PO SCH ×2 (09:22→21:33)
[2021-01-03] MEDS ORDERED: IPRATROPIUM BROM 0.5MG/2.5ML NEB PRN (09:28)
[2021-01-03 11:58] LABS: Magnesium 1.8 mg/dL (1.8-2.4); Potassium 3.4 mmol/L (3.5-5.1)
[2021-01-03] MEDS ORDERED: CALCIUM GLUC 10% INJ 4.65 MEQ in NA CHLORIDE 0.9% 100 ML IV ONE (12:00)
[2021-01-03] MEDS ORDERED: POTASSIUM CL SA 10 MEQ TAB PO ONE ×2 (13:00→23:25)
[2021-01-03] MEDS ORDERED: MAGNESIUM SULFATE 1 gm IVPB 1 GM/100 ML BAG IV ONE (13:00)
[2021-01-03] MEDS: PANTOPRAZOLE 40MG TABLET PO SCH (18:00)
[2021-01-03 18:26] LABS: HBsAG Nonreactive (Nonreactive)
--- NOTE | 2021-01-03 23:33 | P.PN ---
Date of Service: 01/03/21 Subjective Patient continues to improve. Patient strength is gradually getting better. We need physical therapy and occupational therapy to start working with the patient and we will arrange with case management regarding halfway facility placement. Review of Systems 10-point ROS is otherwise unremarkable Physical Examination - Vital Signs Reviewed - Physical Exam General: Alert, In no apparent distress, Oriented x3 Respiratory: Clear bilaterally Cardiovascular: Regular rate/rhythm, Normal S1 S2, No murmurs Gastrointestinal: Normal bowel sounds, Soft and benign, Non-distended, No tenderness Musculoskeletal: No clubbing, No swelling, No tenderness Neurological: no focal deficits; generalized weakness Assessment & Plan - Problems (Diagnosis) (1) Septic shock Current Visit: Yes Status: Acute (2) Hypocalcemia Current Visit: Yes Status: Acute (3) Hypokalemia Current Visit: Yes Status: Acute (4) HLD (hyperlipidemia) Current Visit: Yes Status: Chronic Qualifiers: Hyperlipidemia type: unspecified Qualified Code(s): E78.5 - Hyperlipidemia, unspecified (5) HTN (hypertension) Current Visit: Yes Status: Chronic Qualifiers: Hypertension type: primary hypertension Qualified Code(s): I10 - Essential (primary) hypertension (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 Hep-Lock IV and supplement electrolytes as needed 2. Dc Protonix drip and octreotide drip and change to Protonix p.o. b.i.d. 3. Supplement electrolytes 4. Monitor labs closely; 5. Continue with IV antibiotic therapy; urine cultures with ESBL E coli 6. Monitor hemodynamics closely; blood pressure has been stable and patient has been off the Levophed drip for couple of days 7. Outpatient follow with sanding line operator 8. GI and DVT prophylaxis
--- NOTE | 2021-01-03 23:39 | P.PN ---
Date of Service: 01/02/21 Subjective Patient was moved to the general medical floor yesterday evening & is clinically doing well. Patient continues to improve. Patient is off of Levophed. Patient is hemodynamically stable. No signs of active bleeding. Electrolytes are stabilizing. Review of Systems 10-point ROS is otherwise unremarkable Physical Examination - Vital Signs Reviewed - Physical Exam General: Alert, In no apparent distress, Oriented x3 Respiratory: Clear bilaterally Cardiovascular: Regular rate/rhythm, Normal S1 S2, No murmurs Gastrointestinal: Normal bowel sounds, Soft and benign, Non-distended, No tenderness Musculoskeletal: No clubbing, No swelling, No tenderness Neurological: no focal deficits; generalized weakness Assessment & Plan - Problems (Diagnosis) (1) Septic shock Current Visit: Yes Status: Acute (2) Hypocalcemia Current Visit: Yes Status: Acute (3) Hypokalemia Current Visit: Yes Status: Acute (4) HLD (hyperlipidemia) Current Visit: Yes Status: Chronic Qualifiers: Hyperlipidemia type: unspecified Qualified Code(s): E78.5 - Hyperlipidemia, unspecified (5) HTN (hypertension) Current Visit: Yes Status: Chronic Qualifiers: Hypertension type: primary hypertension Qualified Code(s): I10 - Essential (primary) hypertension (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 Hep-Lock IV and supplement electrolytes as needed 2. Continue Protonix drip and octreotide drip and change to Protonix p.o. b.i.d. in the morning 3. Supplement electrolytes; hypokalemia and hypomagnesemia 4. Monitor labs closely and supplement as needed; 5. Continue with IV antibiotic therapy-continue meropenem; urine cultures with ESBL E coli 6. Monitor hemodynamics closely; blood pressure has been stable and patient has been off the Levophed drip since yesterday 7. Outpatient follow with field cane scale clerk; patient is currently not on the transplant list. Will need to continue following up as an outpatient 8. GI and DVT prophylaxis
--- NOTE | 2021-01-03 23:41 | P.PN ---
Date of Service: 01/01/21 Subjective Patient doing well. We have Dc the Levophed and if patient stabilizes blood pressure through the afternoon then we will transfer to the general medical floor. H&H has been stable. Review of Systems 10-point ROS is otherwise unremarkable Physical Examination - Vital Signs Reviewed - Physical Exam General: Alert, In no apparent distress, Oriented x3 Respiratory: Basilar crackles Cardiovascular: Regular rate/rhythm, Normal S1 S2, No murmurs Gastrointestinal: Normal bowel sounds, Soft and benign, Non-distended, No tenderness Musculoskeletal: No clubbing, No swelling, No tenderness Neurological: no focal deficits; generalized weakness Assessment & Plan - Problems (Diagnosis) (1) Septic shock Current Visit: Yes Status: Acute (2) Hypocalcemia Current Visit: Yes Status: Acute (3) Hypokalemia Current Visit: Yes Status: Acute (4) HLD (hyperlipidemia) Current Visit: Yes Status: Chronic Qualifiers: Hyperlipidemia type: unspecified Qualified Code(s): E78.5 - Hyperlipidemia, unspecified (5) HTN (hypertension) Current Visit: Yes Status: Chronic Qualifiers: Hypertension type: primary hypertension Qualified Code(s): I10 - Essential (primary) hypertension (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 Hep-Lock IV 2. Continue Protonix drip and octreotide drip 3. Supplement electrolytes; hypokalemia and hypomagnesemia 4. Monitor labs closely and supplement as needed; 5. Continue with IV antibiotic therapy-continue meropenem; urine cultures with ESBL E coli 6. Monitor hemodynamics closely; patient was weaned off of Levophed 7. Outpatient follow-up with health and safety trainer; patient is currently not on the transplant list. Will need to continue following up as an outpatient 8. GI and DVT prophylaxis
[2021-01-04] MEDS: Meropenem 1 GM/100 ML BAG IV SCH ×3 (00:07→16:45)
[2021-01-04 04:16] VITALS: BMI 18.5
[2021-01-04 04:40] LABS: Absolute Lymphocytes (CBC) 1.1 K/uL (0.7-4.9); Basophils % 0.4 % (0-1.3); Hematocrit 37.2 % (36.0-45.0); Lymphocytes % 13.8 % (15.3-44.8); MPV 7.7 fL (7.6-11.3); RBC Red Blood Cell Count 4.36 M/uL (3.86-4.86)
[2021-01-04 04:51] LABS: Bilirubin Total 1.9 mg/dL (0.2-1.0); Magnesium 1.7 mg/dL (1.8-2.4); Potassium 3.5 mmol/L (3.5-5.1); Protein, Total 5.6 g/dL (6.4-8.2)
--- NOTE | 2021-01-04 06:06 | P.PN ---
Subjective Date of Service: 01/04/21 Primary Care Provider: Yogesh Chief Complaint: severe sepsis Subjective: Improving, Doing well Physical Examination - Vital Signs Temperature: 97.0 F Blood Pressure: 134/81 Pulse: 66 Respirations: 16 Pulse Ox (%): 97 - Studies Microbiology Data (last 24 hrs): 12/28/20 21:38 Blood - Blood Aerobic Blood Culture - Final No growth in 5 days. 12/28/20 21:38 Blood - Blood Anaerobic Blood Culture - Final No growth in 5 days. 12/28/20 21:38 Blood - Blood Aerobic Blood Culture - Final No growth in 5 days. 12/28/20 21:38 Blood - Blood Anaerobic Blood Culture - Final No growth in 5 days. Medications List Reviewed: Yes Assessment & Plan Discharge Plan: Home Plan to discharge in: 72 Hours Physician Review Additional Text: COVID: negative ECHO: MEASUREMENTS (cm) DIASTOLIC (NORMALS) SYSTOLIC (NORMALS) IVSd 0.9 (0.6-1.2) LA Diam 2.3 (1.9-4.0) LVEF 77% LVIDd 3.4 (3.5-5.7) LVIDs 1.9 (2.0-3.5) %FS 45% LVPWd 0.9 (0.6-1.2) Ao Diam 2.6 (2.0-3.7) 2 DIMENSIONAL ASSESSMENT: RIGHT ATRIUM: NORMAL LEFT ATRIUM: NORMAL RIGHT VENTRICLE: NORMAL LEFT VENTRICLE: NORMAL TRICUSPID VALVE: NORMAL MITRAL VALVE: NORMAL PULMONIC VALVE: NORMAL AORTIC VALVE: NORMAL PERICARDIAL EFFUSION: MODERATE TO LARGE AORTIC ROOT: NORMAL LEFT VENTRICULAR WALL MOTION: NORMAL DOPPLER/COLOR FLOW: NORMAL COMMENTS: MODERATE TO LARGE PERICARDIAL EFFUSION NO TAMPONADE. NORMAL LEFT VENTRICULAR SIZE AND FUNCTION. Renal US: COMPARISON: Abdomen Exam Limited dated 10/10/2020; Chest Abd Pelvis Wo Con dated 12/28/2020bdomen Exam Limited dated 10/10/2020; Chest Abd Pelvis Wo Con dated 12/28/2020; Abdomen Exam Complete dated 08/13/2019 FINDINGS: The right kidney measures 9.1 cm. Re- demonstrated echogenic focus in the lower pole of the right kidney measuring 8 millimeters. No stone is seen in the contemporaneous CT. 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 The left kidney measures 8.2. No hydronephrosis, focal mass or perinephric fluid. The bladder is decompressed with a Alfredo catheter. IMPRESSION: No evidence of hydronephrosis. No significant change from prior. CT scan: COMPARISON: No relevant prior studies available. FINDINGS: CHEST: Lungs: Mild centrilobular emphysema. Minimal biapical cortical thinning/scar. Mild left basilar consolidation. Small gallstone. No gallbladder wall thickening or pericholecystic fluid. No ductal dilation. Pancreas: Mild pancreatic parenchymal atrophy. No ductal dilation. Spleen: Unremarkable. No splenomegaly. Adrenals: Unremarkable. No mass. Kidneys and ureters: Unremarkable. No obstructing stones. No hydronephrosis. Stomach and bowel: Distal small bowel and colonic diverticula without adjacent inflammatory change. No obstruction. No mucosal thickening. PELVIS: Appendix: Normal caliber appendix. No findings to suggest acute appendicitis. Bladder: The urinary bladder is decompressed. No stones. Reproductive: Calcified uterine fibroid. CHEST, ABDOMEN and PELVIS: Intraperitoneal space: Small amount of free fluid within the abdomen and pelvis. No free air. Bones/joints: Osseous structures are osteopenic. Multilevel spondylosis. Anterior compression fractures at T5, T6, T7, T8, T9 and T11. Remote appearing right lateral 7th and 8th rib fractures. Anterior superior compression fractures at L1, L2, L3 and to a lesser extent at L4 and L5. Healing right sacral, right parasymphyseal, right superior pubic ramus acetabular junction and inferior pubic rami fractures. Mild widening of the right SI joint. No dislocation. Soft tissues: Lipoma located between the scapular portion of the deltoid muscle and the infraspinatus muscle on the right. Vasculature: Mild to moderate atherosclerotic disease. No thoracic aortic aneurysm. Moderate to severe atherosclerotic disease. No abdominal aortic aneurysm. Lymph nodes: Unremarkable. No enlarged lymph nodes. IMPRESSION: 1. Small to moderate left pleural effusion and adjacent consolidation (atelectasis and/or infiltrate). 2. Moderate to large pericardial effusion. 3. Findings suggestive of hepatic cirrhosis. Small amount of abdominal and pelvic ascites. 4. Healing right sacral and pelvic fractures. Mild widening of the SI joint. Multiple thoracolumbar compression deformities. Given generalized osteopenia, the possibility of underlying acute or subacute components cannot be excluded. 5. Other findings as above. Follow up CXR: COMPARISON: Chest Single View dated 12/31/2020; Chest Single View dated 12/28/2020; Chest Single View dated 10/10/2020; Chest Single View dated 11/18/2017; Chest Abd Pelvis Wo Con dated 12/28/2020 FINDINGS: Lines: None. Lungs: Improved aeration of the lungs likely representing some resolving edema. Pleural: Moderate left pleural effusions grossly similar. Cardiac: Enlarged cardiopericardial silhouette again noted. Bones: No acute fractures. IMPRESSION: Improved aeration lungs likely representing resolving edema. Similar moderate left pleural effusion and presumably underlying atelectasis. Physical Exam: General: Alert, In no apparent distress, Oriented x3 Respiratory: Clear bilaterally Cardiovascular: Regular rate/rhythm, Normal S1 S2, No murmurs Gastrointestinal: Normal bowel sounds, Soft and benign, Non-distended, No tenderness Musculoskeletal: No clubbing, No swelling, No tenderness Neurological: no focal deficits; generalized weakness Impression: Septic shock secondary to UTIE. coliESBL Hypocalcemia with hypokalemia Hypertension Hyperlipidemia History of primary biliary cirrhosis Moderate to large pericardial effusion Small to moderate left pleural effusion with atelectasis Plan: Septic shock secondary to UTIE. coliESBL: Continue with IV meropenem. Currently on day 6 out of 7. Physical therapy to ambulate. Encourage use of spirometer. Encourage ambulation. Patient desires to go home or consider skilled placement. Continue to wean off oxygen. We will continue to assess and evaluate. Will discuss with nephrology and cardiology. Hypocalcemia with hypokalemia: Continue with replacement. Will discuss with nephrology Hypertension: Overall stable. Currently off home medicationslisinopril hydrochlorothiazide. Continue midodrine Hyperlipidemia: Off Lipitor due to elevated liver function upon admission. This has improved. History of primary biliary cirrhosis: Currently on Aldactone, Lasix, Inderal Moderate to large pericardial effusion: No tamponade noted as per cardiology. This will need to be monitored closely. Will discuss with cardiology about plan of care. May need to repeat echocardiogram or consider further evaluation by cardiovascular surgery Small to moderate left pleural effusion with atelectasis: Encouraged to spirometer. Continue to wean off oxygen. DVT prophylaxis: SCD CODE STATUS: Full code Advance care [id number] minutes: Home versus skilled placement. Await physical therapy recommendation Time Spent Managing Pts Care (In Minutes): 55
[2021-01-04 06:10] LABS: Blood Morphology Comment NOT SEEN (NOT SEEN); Platelet Estimate DECR
--- NOTE | 2021-01-04 07:12 | RAD REPORT ---
EXAM DESCRIPTION: RAD - Chest Single View - 01/04/2021 4:50 am CLINICAL HISTORY: pneumonia COMPARISON: Chest Single View dated 12/31/2020; Chest Single View dated 12/28/2020; Chest Single View da virgen 10/10/2020; Chest Single View dated 11/18/2017; Chest Abd Pelvis Wo Con dated 12/28/2020 FINDINGS: Lines: None. Lungs: Improved aeration of the lungs likely representing some resolving edema. Pleural: Moderate left pleural effusions grossly similar. Cardiac: Enlarged cardiopericardial silhouette again noted. Bones: No acute fractures. Other: IMPRESSION: Improved aeration lungs likely representing resolving edema. Similar moderate left pleur al effusion and presumably underlying atelectasis.
[2021-01-04] MEDS: PROPRANOLOL HCL 10 MG TAB PO SCH ×2 (08:13→20:37)
[2021-01-04] MEDS: SPIRONOLACTONE 25 MG TABLET PO SCH ×2 (08:13→20:37)
[2021-01-04] MEDS: MIDODRINE HCL 5 MG TABLET PO SCH ×2 (08:13→20:38)
[2021-01-04] MEDS: PANTOPRAZOLE 40MG TABLET PO SCH ×2 (08:13→16:45)
[2021-01-04] MEDS: ENSURE ENLIVE 237 ML CAN PO SCH ×2 (08:14→20:38)
[2021-01-04] MEDS: FUROSEMIDE 40 MG TABLET PO SCH ×2 (08:15→16:45)
[2021-01-04] MEDS: THIAMINE 200 MG/2 ML INJ IVP SCH (08:15)
[2021-01-04] MEDS: CALCITROL 0.25 MCG CAP PO SCH (08:17)
[2021-01-04] MEDS ORDERED: POTASSIUM CL SA 10 MEQ TAB PO ONE (09:00)
[2021-01-04] MEDS ORDERED: MAGNESIUM SULFATE 1 gm IVPB 1 GM/100 ML BAG IV ONE (09:00)
--- NOTE | 2021-01-04 12:10 | P.PN ---
Subjective Date of Service: 01/04/21 Primary Care Provider: Yogesh Chief Complaint: severe sepsis Patient seen examined at bedside, doing well no acute complaints. Repeat UA pending. Review of Systems 10-point ROS is otherwise unremarkable Physical Examination - Vital Signs Temperature: 97.0 F Blood Pressure: 134/81 Pulse: 66 Respirations: 16 Pulse Ox (%): 97 - Studies Laboratory Last Values WBC 16.70 K/uL (4.3-10.9) H 12/28/20 20:43 RBC 4.64 M/uL (3.86-4.86) 12/28/20 20:43 Hgb 12.9 g/dL (12.0-15.0) 12/28/20 20:43 Hct 41.4 % (36.0-45.0) 12/28/20 20:43 MCV 89.2 fL (80-100) 12/28/20 20:43 MCH 27.8 pg (27.0-35.0) 12/28/20 20:43 MCHC 31.2 g/dL (32.0-36.0) L 12/28/20 20:43 RDW 21.0 % (12.1-15.2) H 12/28/20 20:43 Plt Count 281 K/uL (152-406) 12/28/20 20:43 MPV 9.2 fL (7.6-11.3) 12/28/20 20:43 Neutrophils % 85.8 % (41.7-73.7) H 12/28/20 20:43 Lymphocytes % 8.3 % (15.3-44.8) L 12/28/20 20:43 Monocytes % 5.6 % (3.3-12.3) 12/28/20 20:43 Eosinophils % 0.1 % (0-4.4) 12/28/20 20:43 Basophils % 0.2 % (0-1.3) 12/28/20 20:43 Absolute Neutrophils 14.3 K/uL (1.8-8.0) H 12/28/20 20:43 Absolute Lymphocytes 1.4 K/uL (0.7-4.9) 12/28/20 20:43 Absolute Monocytes 0.9 K/uL (0.1-1.3) 12/28/20 20:43 Absolute Eosinophils 0.0 K/uL (0-0.5) 12/28/20 20:43 Absolute Basophils 0.0 K/uL (0-0.5) 12/28/20 20:43 Platelet Estimate Adeq 12/28/20 20:43 Anisocytosis 1+ 12/28/20 20:43 Microcytosis 1+ 12/28/20 20:43 Morphology Comment Noted (NOT SEEN) 12/28/20 20:43 PT 15.2 SECONDS (9.5-12.5) H 12/29/20 02:21 INR 1.32 12/29/20 02:21 APTT 35.5 SECONDS (24.3-36.9) 12/29/20 02:21 pH 7.26 (7.35-7.45) L 12/29/20 03:00 pCO2 19.6 mmHG (35-45) L 12/29/20 03:00 pO2 123.0 mmHG (75-100) H 12/29/20 03:00 HCO3 8.6 mmol/L (22-28) L 12/29/20 03:00 Base Excess -17.2 mmol/L 12/29/20 03:00 Oxyhemoglobin 96.2 % (94-97) 12/29/20 03:00 ABG O2 Sat (Measured) 98.3 % (92-98.5) 12/29/20 03:00 ABG Carboxyhemoglobin 1.0 % (0-1.5) 12/29/20 03:00 ABG Methemoglobin 1.1 % (0-1.5) 12/29/20 03:00 Other Total Hgb 11.0 g/dl (12-18) L 12/29/20 03:00 Inspired O2 21.0 % 12/29/20 03:00 Sodium 143 mmol/L (136-145) 12/28/20 20:43 Potassium 3.6 mmol/L (3.5-5.1) 12/28/20 20:43 Chloride 118 mmol/L (98-107) H 12/28/20 20:43 Carbon Dioxide 8 mmol/L (21-32) L* 12/28/20 20:43 BUN 25 mg/dL (7-18) H 12/28/20 20:43 Creatinine 2.43 mg/dL (0.55-1.3) H 12/28/20 20:43 Estimated GFR 20 mL/min (=/>90) L 12/28/20 20:43 Glucose 99 mg/dL (74-106) 12/28/20 20:43 Lactic Acid 3.5 mmol/L (0.4-2.0) H 12/29/20 02:01 Calcium 7.9 mg/dL (8.5-10.1) L 12/28/20 20:43 Total Bilirubin 4.0 mg/dL (0.2-1.0) H 12/28/20 20:42 Direct Bilirubin 3.3 mg/dL (0-0.2) H 12/28/20 20:42 AST 157 U/L (15-37) H 12/28/20 20:42 ALT 61 U/L (12-78) 12/28/20 20:42 Alkaline Phosphatase 736 U/L (45-117) H 12/28/20 20:42 Ammonia 25 umol/L (19-54) 12/29/20 02:01 Troponin I 2.43 ng/mL (0.0-0.045) H* 12/28/20 20:43 Serum Total Protein 6.4 g/dL (6.4-8.2) 12/28/20 20:42 Albumin 2.2 g/dL (3.4-5.0) L 12/28/20 20:42 Globulin 4.2 g/dL (2.3-3.5) H 12/28/20 20:42 Albumin/Globulin Ratio 0.5 (1.1-1.8) L 12/28/20 20:42 Amylase 84 U/L (25-115) 12/28/20 20:42 Lipase 304 U/L (73-393) 12/28/20 20:42 Procalcitonin 0.91 ng/mL (<0.050) H 12/28/20 20:43 Urine pH 5.0 (5.0-7.0) 12/29/20 00:27 Ur Specific [place] 1.025 (1.005-1.030) 12/29/20 00:27 Glucose (UA)(Auto) Trace (Negative) 12/29/20 00:27 Urine Ketones 1+ (Negative) H 12/29/20 00:27 Urine Blood 2+ (Negative) H 12/29/20 00:27 Urine Nitrite Negative (Negative) 12/29/20 00:27 Ur Leukocyte Esterase Negative (Negative) 12/29/20 00:27 Urine RBC 5-10 /HPF (NONE SEEN) H 12/29/20 00:20 Urine WBC 5-10 /HPF (<5) H 12/29/20 00:20 Ur Squamous Epith Cells 5-10 /HPF (NONE SEEN) H 12/29/20 00:20 Ur Urothelial Cells Cancelled 12/28/20 21:38 Calcium Oxalate Crystal Cancelled 12/28/20 21:38 Uric Acid Crystals Cancelled 12/28/20 21:38 Triple Phos Crystals Cancelled 12/28/20 21:38 Other Crystals Cancelled 12/28/20 21:38 Amorphous Sediment 2+ /HPF (NONE SEEN) H 12/29/20 00:20 Glitter Cells Cancelled 12/28/20 21:38 Urine Bacteria >50 /HPF (<20) H 12/29/20 00:20 Hyaline Casts 5-10 /LPF (NONE SEEN) 12/29/20 00:20 Fine Granular Casts Cancelled 12/28/20 21:38 Coarse Granular Casts Cancelled 12/28/20 21:38 Waxy Casts Cancelled 12/28/20 21:38 RBC Casts Cancelled 12/28/20 21:38 WBC Casts Cancelled 12/28/20 21:38 Urine Mucus 2+ /HPF (NONE SEEN) 12/29/20 00:20 Urine Other Cancelled 12/28/20 21:38 Urine Trichomonas Cancelled 12/28/20 21:38 Urine Yeast Cancelled 12/28/20 21:38 Ur Yeast w Hyphae Cancelled 12/28/20 21:38 Urine Yeast (Budding) Cancelled 12/28/20 21:38 Urine Sperm Cancelled 12/28/20 21:38 Urine Culture Reflexed Reflexed 12/29/20 00:20 Urine Total Volume Cancelled 12/28/20 21:38 Urine Total Protein 2+ (Negative) H 12/29/20 00:27 Influenza Type A RNA Negative (NEGATIVE) 12/28/20 20:40 Influenza Type B RNA Negative (NEGATIVE) 12/28/20 20:40 SARS-CoV-2 RNA (RT-PCR) Negative (NEGATIVE) 12/28/20 20:40 Smear Scan Ok (OK) 12/28/20 20:43 Microbiology Data (last 24 hrs): 12/28/20 21:38 Blood - Blood Aerobic Blood Culture - Final No growth in 5 days. 12/28/20 21:38 Blood - Blood Anaerobic Blood Culture - Final No growth in 5 days. 12/28/20 21:38 Blood - Blood Aerobic Blood Culture - Final No growth in 5 days. 12/28/20 21:38 Blood - Blood Anaerobic Blood Culture - Final No growth in 5 days. Medications List Reviewed: Yes Assessment And Plan - Plan Physical Exam: General: Alert, In no apparent distress, Oriented x3, Cachectic HEENT: Atraumatic, Normocephalic, Scleral icterus Neck: Supple, 2+ carotid pulse no bruit Respiratory: Expiratory wheezing, bilateral crackles/rales Cardiovascular: No edema, Regular rate/rhythm, Normal S1 S2 Capillary refill: <2 Seconds Gastrointestinal: Rigidity, Distended, Tenderness Musculoskeletal: No clubbing, No swelling, No contractures Integumentary: No rashes, No breakdown, No significant lesion Neurological: Normal gait, Normal speech Urinary: Alfredo catheter External genitalia: Other (right femoral centeral line ) Conclusions/Impression: Assessment/plan Severe sepsis On admission patient found to be in severe sepsis with NOE, hypotension, and elevated lactic acid. Patient empirically placed on oral vancomycin, Flagyl, Rocephin. Blood cultures show no growth, urine cultures growing ESBL E coli. Flagyl and oral vancomycin discontinued. Kidney function improving, patient's current creatinine clearance is 53 milliliters/minute. Meropenem dose increased from 1 g q.12 hr 1 g Q 8. Today is patient's last day of antibiotics. Repeat UA pending. Leukocytosis with left shift Continue to monitor WBC trend. WBC now within normal range. Patient remains afebrile. Severe malnutrition Low albumin, recommend supplemental Ensure protein drinks PBC, NOE, anemia, liver cirrhosis Medical management per primary team Plan of care discussed with Dr. Ricks Thank you for consultation
[2021-01-04 13:18] LABS: Urine Appearance CLEAR (Clear); Urine Bilirubin NEGATIVE (Negative); Urine Blood NEGATIVE (Negative); Urine Color YELLOW (Yellow); Urine Glucose NEGATIVE (Negative); Urine Protein NEGATIVE (Negative); Urine Urobilinogen 0.2 mg/dL (0.2-1.0); Urine pH 7.5 (5.0-7.0)
[2021-01-04 13:23] LABS: Urine Microscopic Reflex NO UMIC
[2021-01-05] MEDS: Meropenem 1 GM/100 ML BAG IV SCH ×2 (00:56→08:30)
[2021-01-05] MEDS: MELATONIN 5 MG TABLET PO PRN (00:56)
--- NOTE | 2021-01-05 02:05 | PN ---
Date of Progress Note: 01/04/2021 Chief Complaint: Severe sepsis. History Of Present Illness: Patient came to the hospital because of chest pain, shortness of breath. Review of Systems: Denies fever, chills. Denies chest pain, palpitations today. Physical Examination: Lungs: Few crackles at bases. Heart: S1, S2. Abdomen: Soft, benign. Extremities: No edema. Impression And Plan: 1.Acute kidney injury secondary to prerenal state with acute tubular necrosis. Renal function has i mproved in response to IV fluids. Patient was treated with antibiotics for septic shock secondary to urinary tract infection patient is off vasopressor. Continue midodrine 5 mg twice a day. 2.Urinary tract infection, urine culture showed extended-spectrum beta-lactamases with Escherichia c olegario. 3.Pericardial effusion, [id number] myocardial infarction. The patient has a TTE on 12/29, whi ch showed [id number] pericardial effusion. Cardiology is following and plan is to recheck ERIKA . 4.Hypomagnesemia, replete as needed. 5.Hypocalcemia. Corrected calcium is in the low normal range. Continue replacement. 6.Liver cirrhosis, compensated. Monitor renal function. 7.Anemia, multifactorial, likely secondary to liver disease. The patient will have peripheral luís p to check iron deficiency. EB/MODL Voice ID: [id number] Report ID: [id number]
[2021-01-05 05:40] LABS: Absolute Lymphocytes (CBC) 1.1 K/uL (0.7-4.9); Basophils % 0.6 % (0-1.3); Hematocrit 39.2 % (36.0-45.0); Lymphocytes % 12.5 % (15.3-44.8); MPV 8.2 fL (7.6-11.3); RBC Red Blood Cell Count 4.54 M/uL (3.86-4.86)
--- NOTE | 2021-01-05 06:04 | P.PN ---
Subjective Date of Service: 01/05/21 Primary Care Provider: Yogesh Chief Complaint: severe sepsis Subjective: Improving Physical Examination - Vital Signs Temperature: 97.8 F Blood Pressure: 115/64 Pulse: 73 Respirations: 18 Pulse Ox (%): 97 - Studies Medications List Reviewed: Yes Assessment & Plan Discharge Plan: Home Physician Review Additional Text: COVID: negative ECHO: MEASUREMENTS (cm) DIASTOLIC (NORMALS) SYSTOLIC (NORMALS) IVSd 0.9 (0.6-1.2) LA Diam 2.3 (1.9-4.0) LVEF 77% LVIDd 3.4 (3.5-5.7) LVIDs 1.9 (2.0-3.5) %FS 45% LVPWd 0.9 (0.6-1.2) Ao Diam 2.6 (2.0-3.7) 2 DIMENSIONAL ASSESSMENT: RIGHT ATRIUM: NORMAL LEFT ATRIUM: NORMAL RIGHT VENTRICLE: NORMAL LEFT VENTRICLE: NORMAL TRICUSPID VALVE: NORMAL MITRAL VALVE: NORMAL PULMONIC VALVE: NORMAL AORTIC VALVE: NORMAL PERICARDIAL EFFUSION: MODERATE TO LARGE AORTIC ROOT: NORMAL LEFT VENTRICULAR WALL MOTION: NORMAL DOPPLER/COLOR FLOW: NORMAL COMMENTS: MODERATE TO LARGE PERICARDIAL EFFUSION NO TAMPONADE. NORMAL LEFT VENTRICULAR SIZE AND FUNCTION. Renal US: COMPARISON: Abdomen Exam Limited dated 10/10/2020; Chest Abd Pelvis Wo Con dated 12/28/2020bdomen Exam Limited dated 10/10/2020; Chest Abd Pelvis Wo Con dated 12/28/2020; Abdomen Exam Complete dated 08/13/2019 FINDINGS: The right kidney measures 9.1 cm. Re- demonstrated echogenic focus in the lower pole of the right kidney measuring 8 millimeters. No stone is seen in the contemporaneous CT. This may represent a small angiomyolipoma but is of no c linical significance and unchanged. The left kidney measures 8.2. No hydronephrosis, focal mass or perinephric fluid. The bladder is decompressed with a Alfredo catheter. IMPRESSION: No evidence of hydronephrosis. No significant change from prior. CT scan: COMPARISON: No relevant prior studies available. FINDINGS: CHEST: Lungs: Mild centrilobular emphysema. Minimal biapical cortical thinning/scar. Mild left basilar consolidation. Small gallstone. No gallbladder wall thickening or pericholecystic fluid. No ductal dilation. Pancreas: Mild pancreatic parenchymal atrophy. No ductal dilation. Spleen: Unremarkable. No splenomegaly. Adrenals: Unremarkable. No mass. Kidneys and ureters: Unremarkable. No obstructing stones. No hydron ephrosis. Stomach and bowel: Distal small bowel and colonic diverticula without adjacent inflammatory change. No obstruction. No mucosal thickening. PELVIS: Appendix: Normal caliber appendix. No findings to suggest acute appendicitis. Bladder: The urinary bladder is decompressed. No stones. Reproductive: Calcified uterine fibroid. CHEST, ABDOMEN and PELVIS: Intraperitoneal space: Small amount of free fluid within the abdomen and pelvis. No free air. Bones/joints: Osseous structures are osteopenic. Multilevel spondylosis. Anterior compression fractures at T5, T6, T7, T8, T9 and T11. Remote appearing right lateral 7th and 8th rib fractures. Anterior superior compression fractures at L1, L2, L3 and to a lesser extent at L4 and L5. Healing right sacral, right parasymphyseal, right superior pubic ramus acetabular junction and inferior pubic rami fractures. Mild widening of the right SI joint. No dislocation. Soft tissues: Lipoma located between the scapular portion of the deltoid muscle and the infraspinatus muscle on the right. Vasculature: Mild to moderate atherosclerotic disease. No thoracic aortic aneurysm. Moderate to severe atherosclerotic disease. No abdominal aortic aneurysm. Lymph nodes: Unremarkable. No enlarged lymph nodes. IMPRESSION: 1. Small to moderate left pleural effusion and adjacent consolidation (atelectasis and/or infiltrate). 2. Moderate to large pericardial effusion. 3. Findings suggestive of hepatic cirrhosis. Small amount of abdominal and pelvic ascites. 4. Healing right sacral and pelvic fractures. Mild widening of the SI joint. Multiple thoracolumbar compression deformities. Given generalized osteopenia, the possibility of underlying acute or subacute components cannot be excluded. 5. Other findings as above. Follow up CXR: COMPARISON: Chest Single View dated 12/31/2020; Chest Single View dated 12/28/2020; Chest Single View dated 10/10/2020; Chest Single View dated 11/18/2017; Chest Abd Pelvis Wo Con dated 12/28/2020 FINDINGS: Lines: None. Lungs: Improved aeration of the lungs likely representing some resolving edema. Pleural: Moderate left pleural effusions grossly similar. Cardiac: Enlarged cardiopericardial silhouette again noted. Bones: No acute fractures. IMPRESSION: Improved aeration lungs likely representing resolving edema. Similar moderate left pleural effusion and presumably underlying atelectasis. Physical Exam: General: Alert, In no apparent distress, Oriented x3 Respiratory: Clear bilaterally Cardiovascular: Regular rate/rhythm, Normal S1 S2, No murmurs Gastrointestinal: Normal bowel sounds, Soft and benign, Non-distended, No tenderness Musculoskeletal: No clubbing, No swelling, No tenderness Neurological: no focal deficits; generalized weakness Impression: Septic shock secondary to UTIE. coliESBL Hypocalcemia with hypokalemia Hypertension Hyperlipidemia History of primary biliary cirrhosis Moderate to large pericardial effusion Small to moderate left pleural effusion with atelectasis Plan: Septic shock secondary to UTIE. coliESBL: Continue with IV meropenem. Currently on day 7 out of 7. Continue physical therapy. Encourage incentive spirometer. Overall much improved and stable. Patient agreeable to skilled placement. Awaiting approval. Hypocalcemia with hypokalemia: Continue with replacement. Will discuss with nephrology Hypertension: Overall stable. Currently off home medicationslisinopril hydrochlorothiazide. Continue midodrine Hyperlipidemia: Off Lipitor due to elevated liver function upon admission. This has improved. History of primary biliary cirrhosis: Currently on Aldactone, Lasix, Inderal Moderate to large pericardial effusion: No tamponade noted as per cardiology. This will need to be monitored closely. Spoke with cardiology at length. Patient will require repeat echocardiogram in 1 month to monitor stability. Small to moderate left pleural effusion with atelectasis: Encouraged to spirometer. Continue to wean off oxygen. Now down to 1 L. DVT prophylaxis: SCD CODE STATUS: Full code Advance care [id number] minutes: skilled placement. Await approval Time Spent Managing Pts Care (In Minutes): 55
[2021-01-05 06:18] LABS: ALT/SGPT 33 U/L (12-78); AST/SGOT 42 U/L (15-37); Albumin 2.9 g/dL (3.4-5.0); Alkaline Phosphatase 555 U/L (45-117); BUN Blood Urea Nitrogen 15 mg/dL (7-18); Bicarbonate 37 mmol/L (21-32); Bilirubin Total 2.2 mg/dL (0.2-1.0); Glucose Level 132 mg/dL (74-106); Magnesium 1.5 mg/dL (1.8-2.4); Potassium 3.4 mmol/L (3.5-5.1); Protein, Total 5.8 g/dL (6.4-8.2); Sodium Level 137 mmol/L (136-145)
[2021-01-05] MEDS: THIAMINE 200 MG/2 ML INJ IVP SCH (08:30)
[2021-01-05] MEDS: FUROSEMIDE 40 MG TABLET PO SCH ×2 (08:30→17:08)
[2021-01-05] MEDS: PANTOPRAZOLE 40MG TABLET PO SCH ×2 (08:32→17:08)
[2021-01-05] MEDS: PROPRANOLOL HCL 10 MG TAB PO SCH ×2 (08:33→20:43)
[2021-01-05] MEDS: MIDODRINE HCL 5 MG TABLET PO SCH ×2 (08:34→20:45)
[2021-01-05] MEDS: SPIRONOLACTONE 25 MG TABLET PO SCH ×2 (08:34→20:45)
[2021-01-05] MEDS: ENSURE ENLIVE 237 ML CAN PO SCH ×2 (08:34→20:43)
[2021-01-05] MEDS ORDERED: Magnesium Sulfate 2gm IVPB 2 G/50 ML BAG IV ONE (09:00)
[2021-01-05] MEDS ORDERED: POTASSIUM CL SA 10 MEQ TAB PO ONE (09:00)
--- NOTE | 2021-01-05 11:26 | P.PN ---
Subjective Date of Service: 01/05/21 Primary Care Provider: Yogesh Chief Complaint: severe sepsis Patient seen examined at bedside, doing well no acute complaints. Repeat UA pending. Review of Systems 10-point ROS is otherwise unremarkable Physical Examination - Vital Signs Temperature: 97.8 F Blood Pressure: 115/64 Pulse: 73 Respirations: 18 Pulse Ox (%): 97 - Studies Laboratory Last Values WBC 16.70 K/uL (4.3-10.9) H 12/28/20 20:43 RBC 4.64 M/uL (3.86-4.86) 12/28/20 20:43 Hgb 12.9 g/dL (12.0-15.0) 12/28/20 20:43 Hct 41.4 % (36.0-45.0) 12/28/20 20:43 MCV 89.2 fL (80-100) 12/28/20 20:43 MCH 27.8 pg (27.0-35.0) 12/28/20 20:43 MCHC 31.2 g/dL (32.0-36.0) L 12/28/20 20:43 RDW 21.0 % (12.1-15.2) H 12/28/20 20:43 Plt Count 281 K/uL (152-406) 12/28/20 20:43 MPV 9.2 fL (7.6-11.3) 12/28/20 20:43 Neutrophils % 85.8 % (41.7-73.7) H 12/28/20 20:43 Lymphocytes % 8.3 % (15.3-44.8) L 12/28/20 20:43 Monocytes % 5.6 % (3.3-12.3) 12/28/20 20:43 Eosinophils % 0.1 % (0-4.4) 12/28/20 20:43 Basophils % 0.2 % (0-1.3) 12/28/20 20:43 Absolute Neutrophils 14.3 K/uL (1.8-8.0) H 12/28/20 20:43 Absolute Lymphocytes 1.4 K/uL (0.7-4.9) 12/28/20 20:43 Absolute Monocytes 0.9 K/uL (0.1-1.3) 12/28/20 20:43 Absolute Eosinophils 0.0 K/uL (0-0.5) 12/28/20 20:43 Absolute Basophils 0.0 K/uL (0-0.5) 12/28/20 20:43 Platelet Estimate Adeq 12/28/20 20:43 Anisocytosis 1+ 12/28/20 20:43 Microcytosis 1+ 12/28/20 20:43 Morphology Comment Noted (NOT SEEN) 12/28/20 20:43 PT 15.2 SECONDS (9.5-12.5) H 12/29/20 02:21 INR 1.32 12/29/20 02:21 APTT 35.5 SECONDS (24.3-36.9) 12/29/20 02:21 pH 7.26 (7.35-7.45) L 12/29/20 03:00 pCO2 19.6 mmHG (35-45) L 12/29/20 03:00 pO2 123.0 mmHG (75-100) H 12/29/20 03:00 HCO3 8.6 mmol/L (22-28) L 12/29/20 03:00 Base Excess -17.2 mmol/L 12/29/20 03:00 Oxyhemoglobin 96.2 % (94-97) 12/29/20 03:00 ABG O2 Sat (Measured) 98.3 % (92-98.5) 12/29/20 03:00 ABG Carboxyhemoglobin 1.0 % (0-1.5) 12/29/20 03:00 ABG Methemoglobin 1.1 % (0-1.5) 12/29/20 03:00 Other Total Hgb 11.0 g/dl (12-18) L 12/29/20 03:00 Inspired O2 21.0 % 12/29/20 03:00 Sodium 143 mmol/L (136-145) 12/28/20 20:43 Potassium 3.6 mmol/L (3.5-5.1) 12/28/20 20:43 Chloride 118 mmol/L (98-107) H 12/28/20 20:43 Carbon Dioxide 8 mmol/L (21-32) L* 12/28/20 20:43 BUN 25 mg/dL (7-18) H 12/28/20 20:43 Creatinine 2.43 mg/dL (0.55-1.3) H 12/28/20 20:43 Estimated GFR 20 mL/min (=/>90) L 12/28/20 20:43 Glucose 99 mg/dL (74-106) 12/28/20 20:43 Lactic Acid 3.5 mmol/L (0.4-2.0) H 12/29/20 02:01 Calcium 7.9 mg/dL (8.5-10.1) L 12/28/20 20:43 Total Bilirubin 4.0 mg/dL (0.2-1.0) H 12/28/20 20:42 Direct Bilirubin 3.3 mg/dL (0-0.2) H 12/28/20 20:42 AST 157 U/L (15-37) H 12/28/20 20:42 ALT 61 U/L (12-78) 12/28/20 20:42 Alkaline Phosphatase 736 U/L (45-117) H 12/28/20 20:42 Ammonia 25 umol/L (19-54) 12/29/20 02:01 Troponin I 2.43 ng/mL (0.0-0.045) H* 12/28/20 20:43 Serum Total Protein 6.4 g/dL (6.4-8.2) 12/28/20 20:42 Albumin 2.2 g/dL (3.4-5.0) L 12/28/20 20:42 Globulin 4.2 g/dL (2.3-3.5) H 12/28/20 20:42 Albumin/Globulin Ratio 0.5 (1.1-1.8) L 12/28/20 20:42 Amylase 84 U/L (25-115) 12/28/20 20:42 Lipase 304 U/L (73-393) 12/28/20 20:42 Procalcitonin 0.91 ng/mL (<0.050) H 12/28/20 20:43 Urine pH 5.0 (5.0-7.0) 12/29/20 00:27 Ur Specific [place] 1.025 (1.005-1.030) 12/29/20 00:27 Glucose (UA)(Auto) Trace (Negative) 12/29/20 00:27 Urine Ketones 1+ (Negative) H 12/29/20 00:27 Urine Blood 2+ (Negative) H 12/29/20 00:27 Urine Nitrite Negative (Negative) 12/29/20 00:27 Ur Leukocyte Esterase Negative (Negative) 12/29/20 00:27 Urine RBC 5-10 /HPF (NONE SEEN) H 12/29/20 00:20 Urine WBC 5-10 /HPF (<5) H 12/29/20 00:20 Ur Squamous Epith Cells 5-10 /HPF (NONE SEEN) H 12/29/20 00:20 Ur Urothelial Cells Cancelled 12/28/20 21:38 Calcium Oxalate Crystal Cancelled 12/28/20 21:38 Uric Acid Crystals Cancelled 12/28/20 21:38 Triple Phos Crystals Cancelled 12/28/20 21:38 Other Crystals Cancelled 12/28/20 21:38 Amorphous Sediment 2+ /HPF (NONE SEEN) H 12/29/20 00:20 Glitter Cells Cancelled 12/28/20 21:38 Urine Bacteria >50 /HPF (<20) H 12/29/20 00:20 Hyaline Casts 5-10 /LPF (NONE SEEN) 12/29/20 00:20 Fine Granular Casts Cancelled 12/28/20 21:38 Coarse Granular Casts Cancelled 12/28/20 21:38 Waxy Casts Cancelled 12/28/20 21:38 RBC Casts Cancelled 12/28/20 21:38 WBC Casts Cancelled 12/28/20 21:38 Urine Mucus 2+ /HPF (NONE SEEN) 12/29/20 00:20 Urine Other Cancelled 12/28/20 21:38 Urine Trichomonas Cancelled 12/28/20 21:38 Urine Yeast Cancelled 12/28/20 21:38 Ur Yeast w Hyphae Cancelled 12/28/20 21:38 Urine Yeast (Budding) Cancelled 12/28/20 21:38 Urine Sperm Cancelled 12/28/20 21:38 Urine Culture Reflexed Reflexed 12/29/20 00:20 Urine Total Volume Cancelled 12/28/20 21:38 Urine Total Protein 2+ (Negative) H 12/29/20 00:27 Influenza Type A RNA Negative (NEGATIVE) 12/28/20 20:40 Influenza Type B RNA Negative (NEGATIVE) 12/28/20 20:40 SARS-CoV-2 RNA (RT-PCR) Negative (NEGATIVE) 12/28/20 20:40 Smear Scan Ok (OK) 12/28/20 20:43 Medications List Reviewed: Yes Assessment And Plan - Plan Physical Exam: General: Alert, In no apparent distress, Oriented x3, Cachectic HEENT: Atraumatic, Normocephalic, Scleral icterus Neck: Supple, 2+ carotid pulse no bruit Respiratory: Expiratory wheezing, bilateral crackles/rales Cardiovascular: No edema, Regular rate/rhythm, Normal S1 S2 Capillary refill: <2 Seconds Gastrointestinal: Rigidity, Distended, Tenderness Musculoskeletal: No clubbing, No swelling, No contractures Integumentary: No rashes, No breakdown, No significant lesion Neurological: Normal gait, Normal speech Urinary: Alfredo catheter External genitalia: Other (right femoral centeral line ) Conclusions/Impression: Assessment/plan Severe sepsis On admission patient found to be in severe sepsis with NOE, hypotension, and elevated lactic acid. Patient empirically placed on oral vancomycin, Flagyl, Rocephin. Blood cultures show no growth, urine cultures growing ESBL E coli. Flagyl and oral vancomycin discontinued. Kidney function improving, patient's current creatinine clearance is 53 milliliters/minute. Meropenem dose increased from 1 g q.12 hr 1 g Q 8. Today is patient's last day of antibiotics. Repeat UA pending. Leukocytosis with left shift Continue to monitor WBC trend. WBC now within normal range. Patient remains afebrile. Severe malnutrition Low albumin, recommend supplemental Ensure protein drinks PBC, NOE, anemia, liver cirrhosis Medical management per primary team Plan of care discussed with Dr. Ricks Thank you for consultation
--- NOTE | 2021-01-05 12:32 | PN ---
Date of Progress Note: 01/05/2021 Subjective: The patient was admitted with septic shock, hepatorenal with acute kidney injury. The p atient did not require any renal replacement therapy. The patient had sepsis secondary to urosepsis, growing E coli. Physical Examination: Vital Signs: Blood pressure 115/64, pulse of 73, afebrile. The patient had good urine output of 440 0, negative of 1800. Chest: Faint rales bilateral base. Heart: S1, S2. Systolic murmur. Abdomen: Soft, nontender. Extremity: No edema. Neurological: Alert, oriented x3. No focal. Laboratory Data: WBC 8.7, H and H 13/39.2, platelets of 87. Sodium 137, potassium 3.4, bicarb 37, B UN 15, creatinine 0.5, calcium 7.4, magnesium 1.5. Albumin is 2.9, corrected calcium 8.2. Current Medications: The patient on include meropenem, spironolactone, midodrine 5 mg b.i.d., Tyleno l, Lasix 40 b.i.d., Zofran, pantoprazole. Assessment And Plan: 1.Acute kidney injury secondary to hepatorenal, prerenal/toxic ATN secondary to urinary tract infect ion, recovered, resolved. Currently responding to current dose of Lasix. We will monitor the patien t. 2.Hypertension, controlled, optimal. We will utilize the blood pressure to establish better volume control. Continue Lasix. 3.Hypomagnesemia, hypokalemia. We will supplement. 4.Acidosis secondary to renal failure, resolved. Off bicarb drip. We will continue to monitor. 5.Primary biliary cirrhosis. Follow up with primary. 6.Urosepsis/septic shock secondary to Escherichia coli, multidrug resistant. Continue meropenem for full treatment. 7.Deconditioning. Continue PT/OT. MA/MODL Voice ID: [id number] Report ID: [id number]
[2021-01-06 05:39] LABS: Absolute Lymphocytes (CBC) 1.2 K/uL (0.7-4.9); Basophils % 0.6 % (0-1.3); Hematocrit 41.3 % (36.0-45.0); Lymphocytes % 14.6 % (15.3-44.8); MPV 8.2 fL (7.6-11.3); RBC Red Blood Cell Count 4.73 M/uL (3.86-4.86)
[2021-01-06 05:57] LABS: ALT/SGPT 33 U/L (12-78); AST/SGOT 48 U/L (15-37); Albumin 3.1 g/dL (3.4-5.0); Alkaline Phosphatase 590 U/L (45-117); BUN Blood Urea Nitrogen 13 mg/dL (7-18); Bicarbonate 33 mmol/L (21-32); Bilirubin Total 2.5 mg/dL (0.2-1.0); Glucose Level 166 mg/dL (74-106); Magnesium 1.8 mg/dL (1.8-2.4); Potassium 3.2 mmol/L (3.5-5.1); Protein, Total 6.2 g/dL (6.4-8.2); Sodium Level 135 mmol/L (136-145)
--- NOTE | 2021-01-06 06:06 | P.PN ---
Subjective Date of Service: 01/06/21 Primary Care Provider: Yogesh Chief Complaint: severe sepsis Subjective: Improving, Doing well Physical Examination - Vital Signs Temperature: 97 F Blood Pressure: 130/78 Pulse: 83 Respirations: 18 Pulse Ox (%): 92 - Studies Medications List Reviewed: Yes Assessment & Plan Discharge Plan: Other (intermediate facility versus home with home health) Plan to discharge in: 24 Hours Physician Review Additional Text: COVID: negative ECHO: MEASUREMENTS (cm) DIASTOLIC (NORMALS) SYSTOLIC (NORMALS) IVSd 0.9 (0.6-1.2) LA Diam 2.3 (1.9-4.0) LVEF 77% LVIDd 3.4 (3.5-5.7) LVIDs 1.9 (2.0-3.5) %FS 45% LVPWd 0.9 (0.6-1.2) Ao Diam 2.6 (2.0-3.7) 2 DIMENSIONAL ASSESSMENT: RIGHT ATRIUM: NORMAL LEFT ATRIUM: NORMAL RIGHT VENTRICLE: NORMAL LEFT VENTRICLE: NORMAL TRICUSPID VALVE: NORMAL MITRAL VALVE: NORMAL PULMONIC VALVE: NORMAL AORTIC VALVE: NORMAL PERICARDIAL EFFUSION: MODERATE TO LARGE AORTIC ROOT: NORMAL LEFT VENTRICULAR WALL MOTION: NORMAL DOPPLER/COLOR FLOW: NORMAL COMMENTS: MODERATE TO LARGE PERICARDIAL EFFUSION NO TAMPONADE. NORMAL LEFT VENTRICULAR SIZE AND FUNCTION. Renal US: COMPARISON: Abdomen Exam Limited dated 10/10/2020; Chest Abd Pelvis Wo Con dated 12/28/2020bdomen Exam Limited dated 10/10/2020; Chest Abd Pelvis Wo Con dated 12/28/2020; Abdomen Exam Complete dated 08/13/2019 FINDINGS: The right kidney measures 9.1 cm. Re- demonstrated echogenic focus in the lower pole of the right kidney measuring 8 millimeters. No stone is seen in the contemporaneous CT. 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 The left kidney measures 8.2. No hydronephrosis, focal mass or perinephric fluid. The bladder is decompressed with a Alfredo catheter. IMPRESSION: No evidence of hydronephrosis. No significant change from prior. CT scan: COMPARISON: No relevant prior studies available. FINDINGS: CHEST: Lungs: Mild centrilobular emphysema. Minimal biapical cortical thinning/scar. Mild left basilar consolidation. Small gallstone. No gallbladder wall thickening or pericholecystic fluid. No ductal dilation. Pancreas: Mild pancreatic parenchymal atrophy. No ductal dilation. Spleen: Unremarkable. No splenomegaly. Adrenals: Unremarkable. No mass. Kidneys and ureters: Unremarkable. No obstructing stones. No hydronephrosis. Stomach and bowel: Distal small bowel and colonic diverticula without adjacent inflammatory change. No obstruction. No mucosal thickening. PELVIS: Appendix: Normal caliber appendix. No findings to suggest acute appendicitis. Bladder: The urinary bladder is decompressed. No stones. Reproductive: Calcified uterine fibroid. CHEST, ABDOMEN and PELVIS: Intraperitoneal space: Small amount of free fluid within the abdomen and pelvis. No free air. Bones/joints: Osseous structures are osteopenic. Multilevel spondylosis. Anterior compression fractures at T5, T6, T7, T8, T9 and T11. Remote appearing right lateral 7th and 8th rib fractures. Anterior superior compression fractures at L1, L2, L3 and to a lesser extent at L4 and L5. Healing right sacral, right parasymphyseal, right superior pubic ramus acetabular junction and inferior pubic rami fractures. Mild widening of the right SI joint. No dislocation. Soft tissues: Lipoma located between the scapular portion of the deltoid muscle and the infraspinatus muscle on the right. Vasculature: Mild to moderate atherosclerotic disease. No thoracic aortic aneurysm. Moderate to severe atherosclerotic disease. No abdominal aortic aneurysm. Lymph nodes: Unremarkable. No enlarged lymph nodes. IMPRESSION: 1. Small to moderate left pleural effusion and adjacent consolidation (atelectasis and/or infiltrate). 2. Moderate to large pericardial effusion. 3. Findings suggestive of hepatic cirrhosis. Small amount of abdominal and pelvic ascites. 4. Healing right sacral and pelvic fractures. Mild widening of the SI joint. Multiple thoracolumbar compression deformities. Given generalized osteopenia, the possibility of underlying acute or subacute components cannot be excluded. 5. Other findings as above. Follow up CXR: COMPARISON: Chest Single View dated 12/31/2020; Chest Single View dated 12/28/2020; Chest Single View dated 10/10/2020; Chest Single View dated 11/18/2017; Chest Abd Pelvis Wo Con dated 12/28/2020 FINDINGS: Lines: None. Lungs: Improved aeration of the lungs likely representing some resolving edema. Pleural: Moderate left pleural effusions grossly similar. Cardiac: Enlarged cardiopericardial silhouette again noted. Bones: No acute fractures. IMPRESSION: Improved aeration lungs likely representing resolving edema. Similar moderate left pleural effusion and presumably underlying atelectasis. Physical Exam: General: Alert, In no apparent distress, Oriented x3 Respiratory: Clear bilaterally. Currently on room air Cardiovascular: Regular rate/rhythm, Normal S1 S2, No murmurs Gastrointestinal: Normal bowel sounds, Soft and benign, Non-distended, No tenderness Musculoskeletal: No clubbing, No swelling, No tenderness Neurological: no focal deficits; generalized weakness Impression: Septic shock secondary to UTIE. coliESBL Hypocalcemia with hypokalemia Hypertension Hyperlipidemia History of primary biliary cirrhosis Moderate to large pericardial effusion Small to moderate left pleural effusion with atelectasis Plan: Septic shock secondary to UTIE. coliESBL: Patient has completed IV meropenem. Continue physical therapy. Encourage incentive spirometer. Awaiting skilled placement approval. If no answer today patient would rather go home with home health and physical therapy. Will discuss with web content & social media manager. Hypocalcemia with hypokalemia: Continue with replacement. Overall stable. Continue with nephrology recommendations. Hypertension: Overall stable. Currently off home medicationslisinopril hydrochlorothiazide. Continue midodrine Hyperlipidemia: Off Lipitor due to elevated liver function upon admission. This has improved. History of primary biliary cirrhosis: Currently on Aldactone, Lasix, Inderal Moderate to large pericardial effusion: No tamponade noted as per cardiology. This will need to be monitored closely. Spoke with cardiology at length. Patient will require repeat echocardiogram in 1 month to monitor stability. Small to moderate left pleural effusion with atelectasis: Encouraged to spirometer. Continue to wean off oxygen. Now down to 1 L. DVT prophylaxis: SCD CODE STATUS: Full code [facility] [id number] minutes: Skilled placement facility or home with home health. Time Spent Managing Pts Care (In Minutes): 55
[2021-01-06] MEDS: Magnesium Sulfate 2gm IVPB 2 G/50 ML BAG IV ONE ×2 (07:02→08:18)
[2021-01-06] MEDS: MIDODRINE HCL 5 MG TABLET PO SCH ×2 (08:19→21:16)
[2021-01-06] MEDS: PROPRANOLOL HCL 10 MG TAB PO SCH ×2 (08:19→21:16)
[2021-01-06] MEDS: PANTOPRAZOLE 40MG TABLET PO SCH ×2 (08:20→17:14)
[2021-01-06] MEDS: CALCITROL 0.25 MCG CAP PO SCH (08:20)
[2021-01-06] MEDS: SPIRONOLACTONE 25 MG TABLET PO SCH ×2 (08:20→21:16)
[2021-01-06] MEDS: FUROSEMIDE 40 MG TABLET PO SCH (08:20)
[2021-01-06] MEDS: THIAMINE 200 MG/2 ML INJ IVP SCH (08:21)
[2021-01-06] MEDS: ENSURE ENLIVE 237 ML CAN PO SCH ×2 (08:21→21:00)
[2021-01-06] MEDS: POTASSIUM 25 MEQ EFFERV TAB PO SCH (08:23)
[2021-01-06] MEDS ORDERED: MAGNESIUM SULFATE 1 gm IVPB 1 GM/100 ML BAG IV ONE (09:00)
[2021-01-06] MEDS ORDERED: Magnesium Sulfate 2gm IVPB 2 G/50 ML BAG IV ONE (09:45)
[2021-01-06] MEDS ORDERED: POTASSIUM CL SA 10 MEQ TAB PO ONE (09:46)
--- NOTE | 2021-01-06 10:45 | P.DS ---
Admission Date: 12/29/20 Discharge Date: 01/06/21 Primary Care Provider: Dr. Zuñiga Disposition: DC HOME/HOME HEALTH CARE Discharge Condition: GOOD Reason for Admission: severe sepsis Consultations: Nephrology-Dr. Butler Cardiology-Dr. Bernard GI-Dr. Mcintyre Procedures: COVID: negative ECHO: MEASUREMENTS (cm) DIASTOLIC (NORMALS) SYSTOLIC (NORMALS) IVSd 0.9 (0.6-1.2) LA Diam 2.3 (1.9-4.0) LVEF 77% LVIDd 3.4 (3.5-5.7) LVIDs 1.9 (2.0-3.5) %FS 45% LVPWd 0.9 (0.6-1.2) Ao Diam 2.6 (2.0-3.7) 2 DIMENSIONAL ASSESSMENT: RIGHT ATRIUM: NORMAL LEFT ATRIUM: NORMAL RIGHT VENTRICLE: NORMAL LEFT VENTRICLE: NORMAL TRICUSPID VALVE: NORMAL MITRAL VALVE: NORMAL PULMONIC VALVE: NORMAL AORTIC VALVE: NORMAL PERICARDIAL EFFUSION: MODERATE TO LARGE AORTIC ROOT: NORMAL LEFT VENTRICULAR WALL MOTION: NORMAL DOPPLER/COLOR FLOW: NORMAL COMMENTS: MODERATE TO LARGE PERICARDIAL EFFUSION NO TAMPONADE. NORMAL LEFT VENTRICULAR SIZE AND FUNCTION. Renal US: COMPARISON: Abdomen Exam Limited dated 10/10/2020; Chest Abd Pelvis Wo Con dated 12/28/2020bdomen Exam Limited dated 10/10/2020; Chest Abd Pelvis Wo Con dated 12/28/2020; Abdomen Exam Complete dated 08/13/2019 FINDINGS: The right kidney measures 9.1 cm. Re- demonstrated echogenic focus in the lower pole of the right kidney measuring 8 millimeters. No stone is seen in the contemporaneous CT. 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 The left kidney measures 8.2. No hydronephrosis, focal mass or perinephric fluid. The bladder is decompressed with a Alfredo catheter. IMPRESSION: No evidence of hydronephrosis. No significant change from prior. CT scan: COMPARISON: No relevant prior studies available. FINDINGS: CHEST: Lungs: Mild centrilobular emphysema. Minimal biapical cortical thinning/scar. Mild left basilar consolidation. Small gallstone. No gallbladder wall thickening or pericholecystic fluid. No ductal dilation. Pancreas: Mild pancreatic parenchymal atrophy. No ductal dilation. Spleen: Unremarkable. No splenomegaly. Adrenals: Unremarkable. No mass. Kidneys and ureters: Unremarkable. No obstructing stones. No hydronephrosis. Stomach and bowel: Distal small bowel and colonic diverticula without adjacent inflammatory change. No obstruction. No mucosal thickening. PELVIS: Appendix: Normal caliber appendix. No findings to suggest acute appendicitis. Bladder: The urinary bladder is decompressed. No stones. Reproductive: Calcified uterine fibroid. CHEST, ABDOMEN and PELVIS: Intraperitoneal space: Small amount of free fluid within the abdomen and pelvis. No free air. Bones/joints: Osseous structures are osteopenic. Multilevel spondylosis. Anterior compression fractures at T5, T6, T7, T8, T9 and T11. Remote appearing right lateral 7th and 8th rib fractures. Anterior superior compression fractures at L1, L2, L3 and to a lesser extent at L4 and L5. Healing right sacral, right parasymphyseal, right superior pubic ramus acetabular junction and inferior pubic rami fractures. Mild widening of the right SI joint. No dislocation. Soft tissues: Lipoma located between the scapular portion of the deltoid muscle and the infraspinatus muscle on the right. Vasculature: Mild to moderate atherosclerotic disease. No thoracic aortic aneurysm. Moderate to severe atherosclerotic disease. No abdominal aortic aneurysm. Lymph nodes: Unremarkable. No enlarged lymph nodes. IMPRESSION: 1. Small to moderate left pleural effusion and adjacent consolidation (atelectasis and/or infiltrate). 2. Moderate to large pericardial effusion. 3. Findings suggestive of hepatic cirrhosis. Small amount of abdominal and pelvic ascites. 4. Healing right sacral and pelvic fractures. Mild widening of the SI joint. Multiple thoracolumbar compression deformities. Given generalized osteopenia, the possibility of underlying acute or subacute components cannot be excluded. 5. Other findings as above. Follow up CXR: COMPARISON: Chest Single View dated 12/31/2020; Chest Single View dated 12/28/2020; Chest Single View dated 10/10/2020; Chest Single View dated 11/18/2017; Chest Abd Pelvis Wo Con dated 12/28/2020 FINDINGS: Lines: None. Lungs: Improved aeration of the lungs likely representing some resolving edema. Pleural: Moderate left pleural effusions grossly similar. Cardiac: Enlarged cardiopericardial silhouette again noted. Bones: No acute fractures. IMPRESSION: Improved aeration lungs likely representing resolving edema. Similar moderate left pleural effusion and presumably underlying atelectasis. Medical Problem List: Septic shock secondary to UTIE. coliESBL Hypocalcemia with hypokalemia Hypertension Hyperlipidemia History of primary biliary cirrhosis Moderate to large pericardial effusion Small to moderate left pleural effusion with atelectasis Brief History of Present Illness: 66-year-old female with history of primary biliary cirrhosis, hypertension, hyperlipidemia presented with several weeks of weakness, intermittent diarrhea. Patient also with diffuse abdominal pain. Decreased urination also identified. Patient was recently discharged from [place] with severe sepsis secondary to UTI. Patient found to have small to moderate left pleural effusion, moderate to large pericardial effusion. Patient with septic shock. Patient admitted for further treatment. Hospital Course: Patient presented with septic shock secondary to UTI. Patient recently hospitalized in [place] for severe sepsis. Patient was admitted for treatment. Urine culture was positive for E. coliESBL. Patient received IV meropenem for 7 days blood cultures negative. Repeat urine culture negative. Patient has done well. UTI prevention provided. Recommend follow-up with PCP in 1 week to follow-up as authorization and continue her care. Home health and physical therapy will be arranged prior to discharge. Skilled placement was considered but patient preferred to go home. During the course of her stay patient did have some hypocalcemia and hypokalemia due to septic shock. Replacement was done. Nephrology was consulted to help with this. At discharge patient will continue with Calcitrol 0.5 mcg every 48 hours and Tums 1000 mg 4 times a day. Recommend to recheck labCMP and follow- up with nephrology within 1 week to follow-up his hospitalization and continue her care. Further adjustment can be done by nephrology. Patient also noted to have moderate to large pericardial effusion and small to moderate left pleural effusion with atelectasis. Patient doing well at this time. Echocardiogram performed showed no tamponade. Cardiology was consulted. No intervention was required. Recommend follow-up with cardiology in 1 to 2 weeks. Recommend to recheck echocardiogram in 2 to 4 weeks to monitor resolution of pericardial effusion. Patient on room air at this time. No requirement for oxygen. Patient will continue with physical therapy. Continue to encourage incentive spirometer. Overall stable. Patient with primary biliary cirrhosis. Patient remains on diuretic therapy. Patient will continue with the 1500 cc/day fluid restriction and low-salt diet. At discharge she will continue with Aldactone 50 mg 1 pill twice daily, Inderal 20 mg 1 pill twice daily, and Lasix 40 mg 1 pill twice daily. Recommend follow- up with GI to further monitor her condition. Further adjustment in medication can be done by GI or her PCP. Patient with history of hyperlipidemia. Patient had been taking Lipitor. Recommend to hold medication at this time due to her cirrhosis. Patient with history of hypertension. Patient previously on lisinopril chlorothiazide, metoprolol. Both medications discontinued. Blood pressure remained stable. Patient is requiring midodrine 5 mg 1 pill twice daily. Recommend to hold midodrine if blood pressure systolic greater than 130. Patient with history of GERD. Patient previously on Prilosec. Recommend to continue Protonix 40 mg twice daily instead. Patient will continue with Ensure supplementation twice daily. Patient may also continue with thiamine 100 mg daily. Vital Signs/Physical Exam: Temp Pulse Resp BP Pulse Ox 97 F 83 18 130/78 92 01/06/21 09:18 01/06/21 09:18 01/06/21 09:18 01/06/21 09:18 01/06/21 09:18 General: Alert, In no apparent distress, Oriented x3, Cooperative HEENT: Atraumatic Neck: Supple Respiratory: Clear to auscultation bilaterally Cardiovascular: Normal pulses, Regular rate/rhythm Gastrointestinal: Normal bowel sounds, No ascites, No tenderness, No masses, No rebound, No guarding Musculoskeletal: No erythema, No tenderness, No warmth Integumentary: No tenderness/swelling Neurological: Normal speech, Normal strength at 5/5 x4 extr, Normal tone Laboratory Data at Discharge: WBC 8.40 K/uL (4.3-10.9) 01/06/21 05:13 Hgb 13.4 g/dL (12.0-15.0) 01/06/21 05:13 Hct 41.3 % (36.0-45.0) 01/06/21 05:13 Plt Count 96 K/uL (152-406) L 01/06/21 05:13 PT 15.2 SECONDS (9.5-12.5) H 12/29/20 02:21 INR 1.32 12/29/20 02:21 APTT 35.5 SECONDS (24.3-36.9) 12/29/20 02:21 Sodium 135 mmol/L (136-145) L 01/06/21 05:13 Potassium 3.2 mmol/L (3.5-5.1) L 01/06/21 05:13 BUN 13 mg/dL (7-18) 01/06/21 05:13 Creatinine 0.58 mg/dL (0.55-1.3) 01/06/21 05:13 Glucose 166 mg/dL (74-106) H 01/06/21 05:13 Uric Acid 5.0 mg/dL (2.6-6.0) D 12/29/20 05:14 Phosphorus 3.5 mg/dL (2.5-4.9) 01/03/21 04:35 Magnesium 1.8 mg/dL (1.8-2.4) 01/06/21 05:13 Total Bilirubin 2.5 mg/dL (0.2-1.0) H 01/06/21 05:13 AST 48 U/L (15-37) H 01/06/21 05:13 ALT 33 U/L (12-78) 01/06/21 05:13 Alkaline Phosphatase 590 U/L (45-117) H 01/06/21 05:13 Troponin I 2.39 ng/mL (0.0-0.045) H* 12/30/20 10:45 Triglycerides 119 mg/dL (<150) 12/30/20 03:30 Cholesterol 102 mg/dL (<200) 12/30/20 03:30 HDL Cholesterol 9 mg/dL (40-60) L 12/30/20 03:30 Cholesterol/HDL Ratio 11.33 12/30/20 03:30 Amylase 84 U/L (25-115) 12/28/20 20:42 Lipase 304 U/L (73-393) 12/28/20 20:42 Home Medications: Calcitrol [Rocaltrol*] 0.5 mcg PO Q48H #30 cap 01/06/21 Calcium Carbonate [Tums Regular*] 1,000 mg PO QID PRN #90 tab 01/06/21 Ensure Enlive 237 ml PO BID #60 can 01/06/21 Furosemide [Lasix*] 40 mg PO BIDL #60 tab 01/06/21 Midodrine HCl [Proamatine*] 5 mg PO BID #60 tab 01/06/21 Pantoprazole [Protonix Tab*] 40 mg PO BIDAC #60 tab 01/06/21 Propranolol [Inderal*] 20 mg PO BID #120 tab 01/06/21 Spironolactone [Aldactone*] 50 mg PO BID #120 tab 01/06/21 New Medications: Spironolactone [Aldactone*] 50 mg PO BID #120 tab Ensure Enlive 237 ml PO BID #60 can Propranolol [Inderal*] 20 mg PO BID #120 tab Furosemide [Lasix*] 40 mg PO BIDL #60 tab Midodrine HCl [Proamatine*] 5 mg PO BID #60 tab Pantoprazole [Protonix Tab*] 40 mg PO BIDAC #60 tab Calcitrol [Rocaltrol*] 0.5 mcg PO Q48H #30 cap Calcium Carbonate [Tums Regular*] 1,000 mg PO QID PRN #90 tab PRN Reason: Indigestion Physician Discharge Instructions: Patient presented with septic shock secondary to UTI. Patient recently hospitalized in [place] for severe sepsis. Patient was admitted for treatment. Urine culture was positive for E. coliESBL. Patient received IV meropenem for 7 days blood cultures negative. Repeat urine culture negative. Patient has done well. UTI prevention provided. Recommend follow-up with PCP in 1 week to follow-up as authorization and continue her care. Home health and physical therapy will be arranged prior to discharge. Skilled placement was considered but patient preferred to go home. During the course of her stay patient did have some hypocalcemia and hypokalemia due to septic shock. Replacement was done. Nephrology was consulted to help with this. At discharge patient will continue with Calcitrol 0.5 mcg every 48 hours and Tums 1000 mg 4 times a day. Recommend to recheck labCMP and follow- up with nephrology within 1 week to follow-up his hospitalization and continue her care. Further adjustment can be done by nephrology. Patient also noted to have moderate to large pericardial effusion and small to moderate left pleural effusion with atelectasis. Patient doing well at this time. Echocardiogram performed showed no tamponade. Cardiology was consulted. No intervention was required. Recommend follow-up with cardiology in 1 to 2 weeks. Recommend to recheck echocardiogram in 2 to 4 weeks to monitor resolution of pericardial effusion. Patient on room air at this time. No requirement for oxygen. Patient will continue with physical therapy. Continue to encourage incentive spirometer. Overall stable. Patient with primary biliary cirrhosis. Patient remains on diuretic therapy. Patient will continue with the 1500 cc/day fluid restriction and low-salt diet. At discharge she will continue with Aldactone 50 mg 1 pill twice daily, Inderal 20 mg 1 pill twice daily, and Lasix 40 mg 1 pill twice daily. Recommend follow- up with GI to further monitor her condition. Further adjustment in medication can be done by GI or her PCP. Patient with history of hyperlipidemia. Patient had been taking Lipitor. Recommend to hold medication at this time due to her cirrhosis. Patient with history of hypertension. Patient previously on lisinopril chlorothiazide, metoprolol. Both medications discontinued. Blood pressure remained stable. Patient is requiring midodrine 5 mg 1 pill twice daily. Recommend to hold midodrine if blood pressure systolic greater than 130. Patient with history of GERD. Patient previously on Prilosec. Recommend to continue Protonix 40 mg twice daily instead. Patient will continue with Ensure supplementation twice daily. Patient may also continue with thiamine 100 mg daily. Diet: AHA Activity: Fall precautions Followup: NONE,NONE [Primary Care Provider] - Time spent managing pt's care (in minutes): 55
--- NOTE | 2021-01-06 10:58 | P.PN ---
Subjective Date of Service: 01/06/21 Primary Care Provider: Dr. Zuñiga Chief Complaint: severe sepsis Patient seen examined at bedside, doing well no acute complaints. Repeat UA negative. Review of Systems 10-point ROS is otherwise unremarkable Physical Examination - Vital Signs Temperature: 97 F Blood Pressure: 130/78 Pulse: 83 Respirations: 18 Pulse Ox (%): 92 - Studies Laboratory Last Values WBC 16.70 K/uL (4.3-10.9) H 12/28/20 20:43 RBC 4.64 M/uL (3.86-4.86) 12/28/20 20:43 Hgb 12.9 g/dL (12.0-15.0) 12/28/20 20:43 Hct 41.4 % (36.0-45.0) 12/28/20 20:43 MCV 89.2 fL (80-100) 12/28/20 20:43 MCH 27.8 pg (27.0-35.0) 12/28/20 20:43 MCHC 31.2 g/dL (32.0-36.0) L 12/28/20 20:43 RDW 21.0 % (12.1-15.2) H 12/28/20 20:43 Plt Count 281 K/uL (152-406) 12/28/20 20:43 MPV 9.2 fL (7.6-11.3) 12/28/20 20:43 Neutrophils % 85.8 % (41.7-73.7) H 12/28/20 20:43 Lymphocytes % 8.3 % (15.3-44.8) L 12/28/20 20:43 Monocytes % 5.6 % (3.3-12.3) 12/28/20 20:43 Eosinophils % 0.1 % (0-4.4) 12/28/20 20:43 Basophils % 0.2 % (0-1.3) 12/28/20 20:43 Absolute Neutrophils 14.3 K/uL (1.8-8.0) H 12/28/20 20:43 Absolute Lymphocytes 1.4 K/uL (0.7-4.9) 12/28/20 20:43 Absolute Monocytes 0.9 K/uL (0.1-1.3) 12/28/20 20:43 Absolute Eosinophils 0.0 K/uL (0-0.5) 12/28/20 20:43 Absolute Basophils 0.0 K/uL (0-0.5) 12/28/20 20:43 Platelet Estimate Adeq 12/28/20 20:43 Anisocytosis 1+ 12/28/20 20:43 Microcytosis 1+ 12/28/20 20:43 Morphology Comment Noted (NOT SEEN) 12/28/20 20:43 PT 15.2 SECONDS (9.5-12.5) H 12/29/20 02:21 INR 1.32 12/29/20 02:21 APTT 35.5 SECONDS (24.3-36.9) 12/29/20 02:21 pH 7.26 (7.35-7.45) L 12/29/20 03:00 pCO2 19.6 mmHG (35-45) L 12/29/20 03:00 pO2 123.0 mmHG (75-100) H 12/29/20 03:00 HCO3 8.6 mmol/L (22-28) L 12/29/20 03:00 Base Excess -17.2 mmol/L 12/29/20 03:00 Oxyhemoglobin 96.2 % (94-97) 12/29/20 03:00 ABG O2 Sat (Measured) 98.3 % (92-98.5) 12/29/20 03:00 ABG Carboxyhemoglobin 1.0 % (0-1.5) 12/29/20 03:00 ABG Methemoglobin 1.1 % (0-1.5) 12/29/20 03:00 Other Total Hgb 11.0 g/dl (12-18) L 12/29/20 03:00 Inspired O2 21.0 % 12/29/20 03:00 Sodium 143 mmol/L (136-145) 12/28/20 20:43 Potassium 3.6 mmol/L (3.5-5.1) 12/28/20 20:43 Chloride 118 mmol/L (98-107) H 12/28/20 20:43 Carbon Dioxide 8 mmol/L (21-32) L* 12/28/20 20:43 BUN 25 mg/dL (7-18) H 12/28/20 20:43 Creatinine 2.43 mg/dL (0.55-1.3) H 12/28/20 20:43 Estimated GFR 20 mL/min (=/>90) L 12/28/20 20:43 Glucose 99 mg/dL (74-106) 12/28/20 20:43 Lactic Acid 3.5 mmol/L (0.4-2.0) H 12/29/20 02:01 Calcium 7.9 mg/dL (8.5-10.1) L 12/28/20 20:43 Total Bilirubin 4.0 mg/dL (0.2-1.0) H 12/28/20 20:42 Direct Bilirubin 3.3 mg/dL (0-0.2) H 12/28/20 20:42 AST 157 U/L (15-37) H 12/28/20 20:42 ALT 61 U/L (12-78) 12/28/20 20:42 Alkaline Phosphatase 736 U/L (45-117) H 12/28/20 20:42 Ammonia 25 umol/L (19-54) 12/29/20 02:01 Troponin I 2.43 ng/mL (0.0-0.045) H* 12/28/20 20:43 Serum Total Protein 6.4 g/dL (6.4-8.2) 12/28/20 20:42 Albumin 2.2 g/dL (3.4-5.0) L 12/28/20 20:42 Globulin 4.2 g/dL (2.3-3.5) H 12/28/20 20:42 Albumin/Globulin Ratio 0.5 (1.1-1.8) L 12/28/20 20:42 Amylase 84 U/L (25-115) 12/28/20 20:42 Lipase 304 U/L (73-393) 12/28/20 20:42 Procalcitonin 0.91 ng/mL (<0.050) H 12/28/20 20:43 Urine pH 5.0 (5.0-7.0) 12/29/20 00:27 Ur Specific [place] 1.025 (1.005-1.030) 12/29/20 00:27 Glucose (UA)(Auto) Trace (Negative) 12/29/20 00:27 Urine Ketones 1+ (Negative) H 12/29/20 00:27 Urine Blood 2+ (Negative) H 12/29/20 00:27 Urine Nitrite Negative (Negative) 12/29/20 00:27 Ur Leukocyte Esterase Negative (Negative) 12/29/20 00:27 Urine RBC 5-10 /HPF (NONE SEEN) H 12/29/20 00:20 Urine WBC 5-10 /HPF (<5) H 12/29/20 00:20 Ur Squamous Epith Cells 5-10 /HPF (NONE SEEN) H 12/29/20 00:20 Ur Urothelial Cells Cancelled 12/28/20 21:38 Calcium Oxalate Crystal Cancelled 12/28/20 21:38 Uric Acid Crystals Cancelled 12/28/20 21:38 Triple Phos Crystals Cancelled 12/28/20 21:38 Other Crystals Cancelled 12/28/20 21:38 Amorphous Sediment 2+ /HPF (NONE SEEN) H 12/29/20 00:20 Glitter Cells Cancelled 12/28/20 21:38 Urine Bacteria >50 /HPF (<20) H 12/29/20 00:20 Hyaline Casts 5-10 /LPF (NONE SEEN) 12/29/20 00:20 Fine Granular Casts Cancelled 12/28/20 21:38 Coarse Granular Casts Cancelled 12/28/20 21:38 Waxy Casts Cancelled 12/28/20 21:38 RBC Casts Cancelled 12/28/20 21:38 WBC Casts Cancelled 12/28/20 21:38 Urine Mucus 2+ /HPF (NONE SEEN) 12/29/20 00:20 Urine Other Cancelled 12/28/20 21:38 Urine Trichomonas Cancelled 12/28/20 21:38 Urine Yeast Cancelled 12/28/20 21:38 Ur Yeast w Hyphae Cancelled 12/28/20 21:38 Urine Yeast (Budding) Cancelled 12/28/20 21:38 Urine Sperm Cancelled 12/28/20 21:38 Urine Culture Reflexed Reflexed 12/29/20 00:20 Urine Total Volume Cancelled 12/28/20 21:38 Urine Total Protein 2+ (Negative) H 12/29/20 00:27 Influenza Type A RNA Negative (NEGATIVE) 12/28/20 20:40 Influenza Type B RNA Negative (NEGATIVE) 12/28/20 20:40 SARS-CoV-2 RNA (RT-PCR) Negative (NEGATIVE) 12/28/20 20:40 Smear Scan Ok (OK) 12/28/20 20:43 Medications List Reviewed: Yes Assessment And Plan - Plan Physical Exam: General: Alert, In no apparent distress, Oriented x3, Cachectic HEENT: Atraumatic, Normocephalic, Scleral icterus Neck: Supple, 2+ carotid pulse no bruit Respiratory: Expiratory wheezing, bilateral crackles/rales Cardiovascular: No edema, Regular rate/rhythm, Normal S1 S2 Capillary refill: <2 Seconds Gastrointestinal: Rigidity, Distended, Tenderness Musculoskeletal: No clubbing, No swelling, No contractures Integumentary: No rashes, No breakdown, No significant lesion Neurological: Normal gait, Normal speech Conclusions/Impression: Assessment/plan Severe sepsis On admission patient found to be in severe sepsis with NOE, hypotension, and elevated lactic acid. Patient empirically placed on oral vancomycin, Flagyl, Rocephin. Blood cultures show no growth, urine cultures growing ESBL E coli. Patient has completed course of IV meropenem. Patient still has right femoral line placed, recommend removal. Repeat UA negative. Leukocytosis with left shift Continue to monitor WBC trend. WBC now within normal range. Patient remains afebrile. Severe malnutrition Low albumin, recommend supplemental Ensure protein drinks PBC, NOE, anemia, liver cirrhosis Medical management per primary team Plan of care discussed with Dr. Ricks Thank you for consultation
--- NOTE | 2021-01-06 12:42 | PN ---
Date of Progress Note: 01/06/2021 Subjective: The patient was admitted with septic shock secondary to UTI secondary to E coli. The pa pura was treated. The acute kidney injury was secondary to hepatorenal, toxic ATN, and poor perfusi on, ATN secondary to low blood pressure. The patient's kidney function has been normalized, blood pr essure stabilized. Physical Examination: Vital Signs: When I saw the patient; blood pressure 129/77, pulse of 78, afebrile. The patient had good urine output of 1200. Chest: Clear to auscultation. Heart S1, S2. Regular. Abdomen: Soft, nontender. No ascites. Extremities: No edema. Neurologic: Alert. No focality. Laboratory Data: WBC 8.4, H and H 13.4/31.3. Sodium 135, potassium 3.2, bicarb 33, BUN 13, creatini ne 0.5, calcium 8.2, magnesium 1.8, albumin 3.1. Corrected calcium is 9. Assessment And Plan: 1.Acute kidney injury, multifactorial, poor perfusion, ATN, hepatorenal syndrome and toxic ATN. Rec overed, resolved. Looked to me on the normal volume side. I am going to go ahead and increase tom nolactone to 50 b.i.d. and decrease the Lasix to once a day and we will follow up the patient. 2.Hypokalemia, hypomagnesemia. We will supplement. We will increase spironolactone. 3.Hypertension, controlled, optimal with the presence of cirrhosis. We will decrease Lasix and incr ease spironolactone. Continue Inderal. 4.Hypomagnesemia. We will supplement. 5.Acidosis, resolved. Keep holding bicarb. 6.Non-ST elevation myocardial infarction as by Cardiology. 7.Urinary tract infection secondary to Escherichia coli, status post treatment. We will follow up w ith primary. CODY/GARRET Voice ID: [id number] Report ID: [id number]
[2021-01-07] MEDS: ENSURE ENLIVE 237 ML CAN PO SCH ×2 (09:00→21:00)
--- NOTE | 2021-01-07 09:06 | P.DS ---
Admission Date: 12/29/20 Discharge Date: 01/07/21 Primary Care Provider: Dr. Zuñiga Disposition: DC HOME/HOME HEALTH CARE Discharge Condition: GOOD Reason for Admission: severe sepsis Consultations: Nephrology-Dr. Butler Cardiology-Dr. Bernard GI-Dr. Mcintyre Procedures: COVID: negative ECHO: MEASUREMENTS (cm) DIASTOLIC (NORMALS) SYSTOLIC (NORMALS) IVSd 0.9 (0.6-1.2) LA Diam 2.3 (1.9-4.0) LVEF 77% LVIDd 3.4 (3.5-5.7) LVIDs 1.9 (2.0-3.5) %FS 45% LVPWd 0.9 (0.6-1.2) Ao Diam 2.6 (2.0-3.7) 2 DIMENSIONAL ASSESSMENT: RIGHT ATRIUM: NORMAL LEFT ATRIUM: NORMAL RIGHT VENTRICLE: NORMAL LEFT VENTRICLE: NORMAL TRICUSPID VALVE: NORMAL MITRAL VALVE: NORMAL PULMONIC VALVE: NORMAL AORTIC VALVE: NORMAL PERICARDIAL EFFUSION: MODERATE TO LARGE AORTIC ROOT: NORMAL LEFT VENTRICULAR WALL MOTION: NORMAL DOPPLER/COLOR FLOW: NORMAL COMMENTS: MODERATE TO LARGE PERICARDIAL EFFUSION NO TAMPONADE. NORMAL LEFT VENTRICULAR SIZE AND FUNCTION. Renal US: COMPARISON: Abdomen Exam Limited dated 10/10/2020; Chest Abd Pelvis Wo Con dated 12/28/2020bdomen Exam Limited dated 10/10/2020; Chest Abd Pelvis Wo Con dated 12/28/2020; Abdomen Exam Complete dated 08/13/2019 FINDINGS: The right kidney measures 9.1 cm. Re- demonstrated echogenic focus in the lower pole of the right kidney measuring 8 millimeters. No stone is seen in the contemporaneous CT. 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 The left kidney measures 8.2. No hydronephrosis, focal mass or perinephric fluid. The bladder is decompressed with a Alfredo catheter. IMPRESSION: No evidence of hydronephrosis. No significant change from prior. CT scan: COMPARISON: No relevant prior studies available. FINDINGS: CHEST: Lungs: Mild centrilobular emphysema. Minimal biapical cortical thinning/scar. Mild left basilar consolidation. Small gallstone. No gallbladder wall thickening or pericholecystic fluid. No ductal dilation. Pancreas: Mild pancreatic parenchymal atrophy. No ductal dilation. Spleen: Unremarkable. No splenomegaly. Adrenals: Unremarkable. No mass. Kidneys and ureters: Unremarkable. No obstructing stones. No hydronephrosis. Stomach and bowel: Distal small bowel and colonic diverticula without adjacent inflammatory change. No obstruction. No mucosal thickening. PELVIS: Appendix: Normal caliber appendix. No findings to suggest acute appendicitis. Bladder: The urinary bladder is decompressed. No stones. Reproductive: Calcified uterine fibroid. CHEST, ABDOMEN and PELVIS: Intraperitoneal space: Small amount of free fluid within the abdomen and pelvis. No free air. Bones/joints: Osseous structures are osteopenic. Multilevel spondylosis. Anterior compression fractures at T5, T6, T7, T8, T9 and T11. Remote appearing right lateral 7th and 8th rib fractures. Anterior superior compression fractures at L1, L2, L3 and to a lesser extent at L4 and L5. Healing right sacral, right parasymphyseal, right superior pubic ramus acetabular junction and inferior pubic rami fractures. Mild widening of the right SI joint. No dislocation. Soft tissues: Lipoma located between the scapular portion of the deltoid muscle and the infraspinatus muscle on the right. Vasculature: Mild to moderate atherosclerotic disease. No thoracic aortic aneurysm. Moderate to severe atherosclerotic disease. No abdominal aortic aneurysm. Lymph nodes: Unremarkable. No enlarged lymph nodes. IMPRESSION: 1. Small to moderate left pleural effusion and adjacent consolidation (atelectasis and/or infiltrate). 2. Moderate to large pericardial effusion. 3. Findings suggestive of hepatic cirrhosis. Small amount of abdominal and pelvic ascites. 4. Healing right sacral and pelvic fractures. Mild widening of the SI joint. Multiple thoracolumbar compression deformities. Given generalized osteopenia, the possibility of underlying acute or subacute components cannot be excluded. 5. Other findings as above. Follow up CXR: COMPARISON: Chest Single View dated 12/31/2020; Chest Single View dated 12/28/2020; Chest Single View dated 10/10/2020; Chest Single View dated 11/18/2017; Chest Abd Pelvis Wo Con dated 12/28/2020 FINDINGS: Lines: None. Lungs: Improved aeration of the lungs likely representing some resolving edema. Pleural: Moderate left pleural effusions grossly similar. Cardiac: Enlarged cardiopericardial silhouette again noted. Bones: No acute fractures. IMPRESSION: Improved aeration lungs likely representing resolving edema. Similar moderate left pleural effusion and presumably underlying atelectasis. Medical Problem List: Septic shock secondary to UTIE. coliESBL Hypocalcemia with hypokalemia Hypertension Hyperlipidemia History of primary biliary cirrhosis Moderate to large pericardial effusion Small to moderate left pleural effusion with atelectasis Brief History of Present Illness: 66-year-old female with history of primary biliary cirrhosis, hypertension, hyperlipidemia presented with several weeks of weakness, intermittent diarrhea. Patient also with diffuse abdominal pain. Decreased urination also identified. Patient was recently discharged from [place] with severe sepsis secondary to UTI. Patient found to have small to moderate left pleural effusion, moderate to large pericardial effusion. Patient with septic shock. Patient admitted for further treatment. Hospital Course: Patient presented with septic shock secondary to UTI. Patient recently hospitalized in [place] for severe sepsis. Patient was admitted for treatment. Urine culture was positive for E. coliESBL. Patient received IV meropenem for 7 days blood cultures negative. Repeat urine culture negative. Patient has done well. UTI prevention provided. Recommend follow-up with PCP in 1 week to follow-up as authorization and continue her care. Home health and physical therapy will be arranged prior to discharge. Skilled placement was considered but patient preferred to go home. Discharge was held 1 day due to lack of electricity at home. Patient stable at this time. Patient will be d ischarged home. During the course of her stay patient did have some hypocalcemia and hypokalemia due to septic shock. Replacement was done. Nephrology was consulted to help with this. At discharge patient will continue with Calcitrol 0.5 mcg every 48 hours and Tums 1000 mg 4 times a day. Recommend to recheck labCMP and follow- up with nephrology within 1 week to follow-up his hospitalization and continue her care. Further adjustment can be done by nephrology. Patient also noted to have moderate to large pericardial effusion and small to moderate left pleural effusion with atelectasis. Patient doing well at this time. Echocardiogram performed showed no tamponade. Cardiology was consulted. No intervention was required. Recommend follow-up with cardiology in 1 to 2 weeks. Recommend to recheck echocardiogram in 2 to 4 weeks to monitor resolution of pericardial effusion. Patient on room air at this time. No requirement for oxygen. Patient will continue with physical therapy. Continue to encourage incentive spirometer. Overall stable. Patient with primary biliary cirrhosis. Patient remains on diuretic therapy. Patient will continue with the 1500 cc/day fluid restriction and low-salt diet. At discharge she will continue with Aldactone 50 mg 1 pill twice daily, Inderal 20 mg 1 pill twice daily, and Lasix 40 mg 1 pill twice daily. Recommend follow- up with GI to further monitor her condition. Further adjustment in medication can be done by GI or her PCP. Patient with history of hyperlipidemia. Patient had been taking Lipitor. Recommend to hold medication at this time due to her cirrhosis. Patient with history of hypertension. Patient previously on lisinopril chlorothiazide, metoprolol. Both medications discontinued. Blood pressure remained stable. Patient is requiring midodrine 5 mg 1 pill twice daily. Recommend to hold midodrine if blood pressure systolic greater than 130. Patient with history of GERD. Patient previously on Prilosec. Recommend to continue Protonix 40 mg twice daily instead. Patient will continue with Ensure supplementation twice daily. Patient may also continue with thiamine 100 mg daily. Vital Signs/Physical Exam: Temp Pulse Resp BP Pulse Ox 97.6 F 72 18 135/79 93 01/07/21 08:00 01/07/21 08:00 01/07/21 08:00 01/07/21 08:00 01/07/21 08:00 General: Alert, In no apparent distress, Oriented x3, Cooperative HEENT: Atraumatic Neck: Supple Respiratory: Clear to auscultation bilaterally, Normal air movement Cardiovascular: Normal pulses, Regular rate/rhythm Gastrointestinal: Normal bowel sounds Musculoskeletal: No erythema, No tenderness, No warmth Integumentary: No tenderness/swelling Neurological: Normal speech, Normal strength at 5/5 x4 extr, Normal tone Laboratory Data at Discharge: WBC 8.40 K/uL (4.3-10.9) 01/06/21 05:13 Hgb 13.4 g/dL (12.0-15.0) 01/06/21 05:13 Hct 41.3 % (36.0-45.0) 01/06/21 05:13 Plt Count 96 K/uL (152-406) L 01/06/21 05:13 PT 15.2 SECONDS (9.5-12.5) H 12/29/20 02:21 INR 1.32 12/29/20 02:21 APTT 35.5 SECONDS (24.3-36.9) 12/29/20 02:21 Sodium 135 mmol/L (136-145) L 01/06/21 05:13 Potassium 4.7 mmol/L (3.5-5.1) 01/06/21 15:50 BUN 13 mg/dL (7-18) 01/06/21 05:13 Creatinine 0.58 mg/dL (0.55-1.3) 01/06/21 05:13 Glucose 166 mg/dL (74-106) H 01/06/21 05:13 Uric Acid 5.0 mg/dL (2.6-6.0) D 12/29/20 05:14 Phosphorus 3.5 mg/dL (2.5-4.9) 01/03/21 04:35 Magnesium 1.8 mg/dL (1.8-2.4) 01/06/21 05:13 Total Bilirubin 2.5 mg/dL (0.2-1.0) H 01/06/21 05:13 AST 48 U/L (15-37) H 01/06/21 05:13 ALT 33 U/L (12-78) 01/06/21 05:13 Alkaline Phosphatase 590 U/L (45-117) H 01/06/21 05:13 Troponin I 2.39 ng/mL (0.0-0.045) H* 12/30/20 10:45 Triglycerides 119 mg/dL (<150) 12/30/20 03:30 Cholesterol 102 mg/dL (<200) 12/30/20 03:30 HDL Cholesterol 9 mg/dL (40-60) L 12/30/20 03:30 Cholesterol/HDL Ratio 11.33 12/30/20 03:30 Amylase 84 U/L (25-115) 12/28/20 20:42 Lipase 304 U/L (73-393) 12/28/20 20:42 Home Medications: Calcitrol [Rocaltrol*] 0.5 mcg PO Q48H #30 cap 01/06/21 Calcium Carbonate [Tums Regular*] 1,000 mg PO QID PRN #90 tab 01/06/21 Ensure Enlive 237 ml PO BID #60 can 01/06/21 Furosemide [Lasix*] 40 mg PO BIDL #60 tab 01/06/21 Midodrine HCl [Proamatine*] 5 mg PO BID #60 tab 01/06/21 Pantoprazole [Protonix Tab*] 40 mg PO BIDAC #60 tab 01/06/21 Propranolol [Inderal*] 20 mg PO BID #120 tab 01/06/21 Spironolactone [Aldactone*] 50 mg PO BID #120 tab 01/06/21 New Medications: Spironolactone [Aldactone*] 50 mg PO BID #120 tab Ensure Enlive 237 ml PO BID #60 can Propranolol [Inderal*] 20 mg PO BID #120 tab Furosemide [Lasix*] 40 mg PO BIDL #60 tab Midodrine HCl [Proamatine*] 5 mg PO BID #60 tab Pantoprazole [Protonix Tab*] 40 mg PO BIDAC #60 tab Calcitrol [Rocaltrol*] 0.5 mcg PO Q48H #30 cap Calcium Carbonate [Tums Regular*] 1,000 mg PO QID PRN #90 tab PRN Reason: Indigestion Physician Discharge Instructions: PROBLEM: (list out Acute Problems for the Current visit) GOAL: Clear understanding of disease process INSTRUCTIONS: Patient presented with septic shock secondary to UTI. Patient recently hospitalized in [place] for severe sepsis. Patient was admitted for treatment. Urine culture was positive for E. coliESBL. Patient received IV meropenem for 7 days blood cultures negative. Repeat urine culture negative. Patient has done well. UTI prevention provided. Recommend follow-up with PCP in 1 week to follow-up as authorization and continue her care. Home health and physical therapy will be arranged prior to discharge. Skilled placement was considered but patient preferred to go home. During the course of her stay patient did have some hypocalcemia and hypokalemia due to septic shock. Replacement was done. Nephrology was consulted to help with this. At discharge patient will continue with Calcitrol 0.5 mcg every 48 hours and Tums 1000 mg 4 times a day. Recommend to recheck labCMP and follow- up with nephrology within 1 week to follow-up his hospitalization and continue her care. Further adjustment can be done by nephrology. Patient also noted to have moderate to large pericardial effusion and small to moderate left pleural effusion with atelectasis. Patient doing well at this time. Echocardiogram performed showed no tamponade. Cardiology was consulted. No intervention was required. Recommend follow-up with cardiology in 1 to 2 weeks. Recommend to recheck echocardiogram in 2 to 4 weeks to monitor resolution of pericardial effusion. Patient on room air at this time. No requirement for oxygen. Patient will continue with physical therapy. Continue to encourage incentive spirometer. Overall stable. Patient with primary biliary cirrhosis. Patient remains on diuretic therapy. Patient will continue with the 1500 cc/day fluid restriction and low-salt diet. At discharge she will continue with Aldactone 50 mg 1 pill twice daily, Inderal 20 mg 1 pill twice daily, and Lasix 40 mg 1 pill twice daily. Recommend follow- up with GI to further monitor her condition. Further adjustment in medication can be done by GI or her PCP. Patient with history of hyperlipidemia. Patient had been taking Lipitor. Recommend to hold medication at this time due to her cirrhosis. Patient with history of hypertension. Patient previously on lisinopril chlorothiazide, metoprolol. Both medications discontinued. Blood pressure remained stable. Patient is requiring midodrine 5 mg 1 pill twice daily. Recommend to hold midodrine if blood pressure systolic greater than 130. Patient with history of GERD. Patient previously on Prilosec. Recommend to continue Protonix 40 mg twice daily instead. Patient will continue with Ensure supplementation twice daily. Patient may also continue with thiamine 100 mg daily. If symptoms worsen, please go to the ER. If you have any questions regarding hospital stay, feel free to call . Diet: AHA Activity: Fall precautions DME DME: Date Ordered: Name of Company: [employer] Services Needed: Skilled Nursing Name of Company: [facility] Date or Referral: IMMUNIZATION Influenza Vaccine Indicated: Influenza Vaccine Given: Date Given: Pneumonia Vaccine Indicated: No Pneumonia Vaccine Given: Date Given: Diet: AHA Activity: Fall precautions Followup: NONE,NONE [Primary Care Provider] - Time spent managing pt's care (in minutes): 55
[2021-01-07] MEDS: FUROSEMIDE 40 MG TABLET PO SCH (10:04)
[2021-01-07] MEDS: POTASSIUM 25 MEQ EFFERV TAB PO SCH (10:04)
[2021-01-07] MEDS: SPIRONOLACTONE 25 MG TABLET PO SCH ×2 (10:04→21:00)
[2021-01-07] MEDS: MIDODRINE HCL 5 MG TABLET PO SCH (10:05)
[2021-01-07] MEDS: PROPRANOLOL HCL 10 MG TAB PO SCH ×2 (10:05→22:02)
[2021-01-07] MEDS: THIAMINE 200 MG/2 ML INJ IVP SCH (10:05)
[2021-01-07] MEDS: PANTOPRAZOLE 40MG TABLET PO SCH ×2 (10:07→17:07)
[2021-01-07] MEDS ORDERED: MAGNESIUM SULFATE 1 gm IVPB 1 GM/100 ML BAG IV ONE (10:09)
[2021-01-07] MEDS ORDERED: POTASSIUM CL SA 10 MEQ TAB PO ONE (10:09)
[2021-01-07] MEDS ORDERED: POTASSIUM CL 40 MEQ in NA CHLORIDE 0.9% 500 ML IV SCH (11:00)
--- NOTE | 2021-01-07 11:01 | P.PN ---
Subjective Date of Service: 01/07/21 Primary Care Provider: Dr. Zuñiga Chief Complaint: severe sepsis Patient seen examined at bedside, no acute events over past 24 hr. Plan for Dc today. Review of Systems 10-point ROS is otherwise unremarkable Physical Examination - Vital Signs Temperature: 97.6 F Blood Pressure: 135/79 Pulse: 72 Respirations: 18 Pulse Ox (%): 93 - Studies Laboratory Last Values WBC 16.70 K/uL (4.3-10.9) H 12/28/20 20:43 RBC 4.64 M/uL (3.86-4.86) 12/28/20 20:43 Hgb 12.9 g/dL (12.0-15.0) 12/28/20 20:43 Hct 41.4 % (36.0-45.0) 12/28/20 20:43 MCV 89.2 fL (80-100) 12/28/20 20:43 MCH 27.8 pg (27.0-35.0) 12/28/20 20:43 MCHC 31.2 g/dL (32.0-36.0) L 12/28/20 20:43 RDW 21.0 % (12.1-15.2) H 12/28/20 20:43 Plt Count 281 K/uL (152-406) 12/28/20 20:43 MPV 9.2 fL (7.6-11.3) 12/28/20 20:43 Neutrophils % 85.8 % (41.7-73.7) H 12/28/20 20:43 Lymphocytes % 8.3 % (15.3-44.8) L 12/28/20 20:43 Monocytes % 5.6 % (3.3-12.3) 12/28/20 20:43 Eosinophils % 0.1 % (0-4.4) 12/28/20 20:43 Basophils % 0.2 % (0-1.3) 12/28/20 20:43 Absolute Neutrophils 14.3 K/uL (1.8-8.0) H 12/28/20 20:43 Absolute Lymphocytes 1.4 K/uL (0.7-4.9) 12/28/20 20:43 Absolute Monocytes 0.9 K/uL (0.1-1.3) 12/28/20 20:43 Absolute Eosinophils 0.0 K/uL (0-0.5) 12/28/20 20:43 Absolute Basophils 0.0 K/uL (0-0.5) 12/28/20 20:43 Platelet Estimate Adeq 12/28/20 20:43 Anisocytosis 1+ 12/28/20 20:43 Microcytosis 1+ 12/28/20 20:43 Morphology Comment Noted (NOT SEEN) 12/28/20 20:43 PT 15.2 SECONDS (9.5-12.5) H 12/29/20 02:21 INR 1.32 12/29/20 02:21 APTT 35.5 SECONDS (24.3-36.9) 12/29/20 02:21 pH 7.26 (7.35-7.45) L 12/29/20 03:00 pCO2 19.6 mmHG (35-45) L 12/29/20 03:00 pO2 123.0 mmHG (75-100) H 12/29/20 03:00 HCO3 8.6 mmol/L (22-28) L 12/29/20 03:00 Base Excess -17.2 mmol/L 12/29/20 03:00 Oxyhemoglobin 96.2 % (94-97) 12/29/20 03:00 ABG O2 Sat (Measured) 98.3 % (92-98.5) 12/29/20 03:00 ABG Carboxyhemoglobin 1.0 % (0-1.5) 12/29/20 03:00 ABG Methemoglobin 1.1 % (0-1.5) 12/29/20 03:00 Other Total Hgb 11.0 g/dl (12-18) L 12/29/20 03:00 Inspired O2 21.0 % 12/29/20 03:00 Sodium 143 mmol/L (136-145) 12/28/20 20:43 Potassium 3.6 mmol/L (3.5-5.1) 12/28/20 20:43 Chloride 118 mmol/L (98-107) H 12/28/20 20:43 Carbon Dioxide 8 mmol/L (21-32) L* 12/28/20 20:43 BUN 25 mg/dL (7-18) H 12/28/20 20:43 Creatinine 2.43 mg/dL (0.55-1.3) H 12/28/20 20:43 Estimated GFR 20 mL/min (=/>90) L 12/28/20 20:43 Glucose 99 mg/dL (74-106) 12/28/20 20:43 Lactic Acid 3.5 mmol/L (0.4-2.0) H 12/29/20 02:01 Calcium 7.9 mg/dL (8.5-10.1) L 12/28/20 20:43 Total Bilirubin 4.0 mg/dL (0.2-1.0) H 12/28/20 20:42 Direct Bilirubin 3.3 mg/dL (0-0.2) H 12/28/20 20:42 AST 157 U/L (15-37) H 12/28/20 20:42 ALT 61 U/L (12-78) 12/28/20 20:42 Alkaline Phosphatase 736 U/L (45-117) H 12/28/20 20:42 Ammonia 25 umol/L (19-54) 12/29/20 02:01 Troponin I 2.43 ng/mL (0.0-0.045) H* 12/28/20 20:43 Serum Total Protein 6.4 g/dL (6.4-8.2) 12/28/20 20:42 Albumin 2.2 g/dL (3.4-5.0) L 12/28/20 20:42 Globulin 4.2 g/dL (2.3-3.5) H 12/28/20 20:42 Albumin/Globulin Ratio 0.5 (1.1-1.8) L 12/28/20 20:42 Amylase 84 U/L (25-115) 12/28/20 20:42 Lipase 304 U/L (73-393) 12/28/20 20:42 Procalcitonin 0.91 ng/mL (<0.050) H 12/28/20 20:43 Urine pH 5.0 (5.0-7.0) 12/29/20 00:27 Ur Specific [place] 1.025 (1.005-1.030) 12/29/20 00:27 Glucose (UA)(Auto) Trace (Negative) 12/29/20 00:27 Urine Ketones 1+ (Negative) H 12/29/20 00:27 Urine Blood 2+ (Negative) H 12/29/20 00:27 Urine Nitrite Negative (Negative) 12/29/20 00:27 Ur Leukocyte Esterase Negative (Negative) 12/29/20 00:27 Urine RBC 5-10 /HPF (NONE SEEN) H 12/29/20 00:20 Urine WBC 5-10 /HPF (<5) H 12/29/20 00:20 Ur Squamous Epith Cells 5-10 /HPF (NONE SEEN) H 12/29/20 00:20 Ur Urothelial Cells Cancelled 12/28/20 21:38 Calcium Oxalate Crystal Cancelled 12/28/20 21:38 Uric Acid Crystals Cancelled 12/28/20 21:38 Triple Phos Crystals Cancelled 12/28/20 21:38 Other Crystals Cancelled 12/28/20 21:38 Amorphous Sediment 2+ /HPF (NONE SEEN) H 12/29/20 00:20 Glitter Cells Cancelled 12/28/20 21:38 Urine Bacteria >50 /HPF (<20) H 12/29/20 00:20 Hyaline Casts 5-10 /LPF (NONE SEEN) 12/29/20 00:20 Fine Granular Casts Cancelled 12/28/20 21:38 Coarse Granular Casts Cancelled 12/28/20 21:38 Waxy Casts Cancelled 12/28/20 21:38 RBC Casts Cancelled 12/28/20 21:38 WBC Casts Cancelled 12/28/20 21:38 Urine Mucus 2+ /HPF (NONE SEEN) 12/29/20 00:20 Urine Other Cancelled 12/28/20 21:38 Urine Trichomonas Cancelled 12/28/20 21:38 Urine Yeast Cancelled 12/28/20 21:38 Ur Yeast w Hyphae Cancelled 12/28/20 21:38 Urine Yeast (Budding) Cancelled 12/28/20 21:38 Urine Sperm Cancelled 12/28/20 21:38 Urine Culture Reflexed Reflexed 12/29/20 00:20 Urine Total Volume Cancelled 12/28/20 21:38 Urine Total Protein 2+ (Negative) H 12/29/20 00:27 Influenza Type A RNA Negative (NEGATIVE) 12/28/20 20:40 Influenza Type B RNA Negative (NEGATIVE) 12/28/20 20:40 SARS-CoV-2 RNA (RT-PCR) Negative (NEGATIVE) 12/28/20 20:40 Smear Scan Ok (OK) 12/28/20 20:43 Medications List Reviewed: Yes Assessment And Plan - Plan Physical Exam: General: Alert, In no apparent distress, Oriented x3, Cachectic HEENT: Atraumatic, Normocephalic, Scleral icterus Neck: Supple, 2+ carotid pulse no bruit Respiratory: Expiratory wheezing, bilateral crackles/rales Cardiovascular: No edema, Regular rate/rhythm, Normal S1 S2 Capillary refill: <2 Seconds Gastrointestinal: Rigidity, Distended, Tenderness Musculoskeletal: No clubbing, No swelling, No contractures Integumentary: No rashes, No breakdown, No significant lesion Neurological: Normal gait, Normal speech Conclusions/Impression: Assessment/plan Severe sepsis On admission patient found to be in severe sepsis with NOE, hypotension, and elevated lactic acid. Patient empirically placed on oral vancomycin, Flagyl, Rocephin. Blood cultures show no growth, urine cultures growing ESBL E coli. Patient has completed course of IV meropenem. Patient still has right femoral line placed, recommend removal. Repeat UA negative. Leukocytosis with left shift Continue to monitor WBC trend. WBC now within normal range. Patient remains afebrile. Severe malnutrition Low albumin, recommend supplemental Ensure protein drinks PBC, NOE, anemia, liver cirrhosis Medical management per primary team Plan of care discussed with Dr. Ricks Thank you for consultation
--- NOTE | 2021-01-07 17:25 | PN ---
Date of Progress Note: 01/07/2021 Subjective: The patient was admitted with acute kidney injury, septic shock. The acute kidney injur y was poor perfusion, ATN, hepatorenal. The patient was treated with fluid expansion. Kidney functi on has been normalized. The patient had over volume. For that reason, the patient was started on di uresis, spironolactone was added. Blood pressure, being controlled. Physical Examination: Vital Signs: Blood pressure 123/79, pulse of 72, afebrile. The patient had good urine output of 120 0. Chest: Clear to auscultation. Heart: S1, S2. Regular. Abdomen: Soft, nontender. Extremities: No edema. Neurologic: Alert. No focality. Laboratory Data: H and H of 13.4/41.3. Sodium 135, potassium 3.2, bicarb 33, BUN 13, creatinine 0.5 . Calcium 8.2, magnesium 1.8. Current Medications: The patient on include; 1.Midodrine 5 mg b.i.d. 2.Albuterol. 3.Inderal 20 b.i.d. 4.Spironolactone 50 b.i.d. 5.Lasix 40 daily. 6.Pantoprazole. Assessment And Plan: 1.Acute kidney injury secondary to hepatorenal/poor perfusion, acute tubular necrosis/toxic acute tu bular necrosis secondary to sepsis, recovered, resolved, currently normal volume. I am going to cont inue current diuresis dose. 2.Hypertension. Currently, blood pressure stabilized. I going to go ahead and discontinue midodrin e. We will follow up the patient. Continue Inderal and diuresis. 3.Hypokalemia. We will supplement. 4.Hypomagnesemia. We will supplement. 5.Cirrhosis. Continue Lasix and spironolactone. 6.Urinary tract infection secondary to Escherichia coli, status post treatment, recovered, resolved. The patient cleared from the renal standpoint for discharge planning. We will follow up with the zenaida soares. CONCHA Voice ID: [id number] Report ID: [id number]
[2021-01-07] MEDS ORDERED: FUROSEMIDE 40 MG/4 ML VIAL IV ONE (21:20)
[2021-01-07] MEDS ORDERED: SOD POLYSTYREN SUL 15 GM/60 ML UCUP PO ONE (21:20)
[2021-01-07] MEDS ORDERED: CALCIUM GLUC 10% INJ 4.65 MEQ in NA CHLORIDE 0.9% 100 ML IV ONE (21:20)
[2021-01-07] MEDS ORDERED: D50W 25 GM/50 ML SYRINGE IV ONE (21:21)
[2021-01-07] MEDS ORDERED: INSULIN -REGULAR HUMAN 50 UNIT/0.5 ML ML IV ONE (21:21)
[2021-01-07] MEDS ORDERED: NA CHLORIDE 0.9% 0 ML ONE (22:17)
[2021-01-07] MEDS ORDERED: CALCIUM GLUCONATE 1 GM IVPB 1 GM/50 ML BAG IV ONE (22:34)
--- NOTE | 2021-01-08 06:06 | P.DS ---
Admission Date: 12/29/20 Discharge Date: 01/18/21 Primary Care Provider: Dr. Zuñiga Discharge Condition: GOOD Reason for Admission: severe sepsis Consultations: Nephrology-Dr. Butler Cardiology-Dr. Bernard GI-Dr. Mcintyre Procedures: COVID: negative ECHO: MEASUREMENTS (cm) DIASTOLIC (NORMALS) SYSTOLIC (NORMALS) IVSd 0.9 (0.6-1.2) LA Diam 2.3 (1.9-4.0) LVEF 77% LVIDd 3.4 (3.5-5.7) LVIDs 1.9 (2.0-3.5) %FS 45% LVPWd 0.9 (0.6-1.2) Ao Diam 2.6 (2.0-3.7) 2 DIMENSIONAL ASSESSMENT: RIGHT ATRIUM: NORMAL LEFT ATRIUM: NORMAL RIGHT VENTRICLE: NORMAL LEFT VENTRICLE: NORMAL TRICUSPID VALVE: NORMAL MITRAL VALVE: NORMAL PULMONIC VALVE: NORMAL AORTIC VALVE: NORMAL PERICARDIAL EFFUSION: MODERATE TO LARGE AORTIC ROOT: NORMAL LEFT VENTRICULAR WALL MOTION: NORMAL DOPPLER/COLOR FLOW: NORMAL COMMENTS: MODERATE TO LARGE PERICARDIAL EFFUSION NO TAMPONADE. NORMAL LEFT VENTRICULAR SIZE AND FUNCTION. Renal US: COMPARISON: Abdomen Exam Limited dated 10/10/2020; Chest Abd Pelvis Wo Con dated 12/28/2020bdomen Exam Limited dated 10/10/2020; Chest Abd Pelvis Wo Con dated 12/28/2020; Abdomen Exam Complete dated 08/13/2019 FINDINGS: The right kidney measures 9.1 cm. Re- demonstrated echogenic focus in the lower pole of the right kidney measuring 8 millimeters. No stone is seen in the co ntemporaneous CT. 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 The left kidney measures 8.2. No hydronephrosis, focal mass or perinephric fluid. The bladder is decompressed with a Alfredo catheter. IMPRESSION: No evidence of hydronephrosis. No significant change from prior. CT scan: COMPARISON: No relevant prior studies available. FINDINGS: CHEST: Lungs: Mild centrilobular emphysema. Minimal biapical cortical thinning/scar. Mild left basilar consolidation. Small gallstone. No gallbladder wall thickening or pericholecystic fluid. No ductal dilation. Pancreas: Mild pancreatic parenchymal atrophy. No ductal dilation. Spleen: Unremarkable. No splenomegaly. Adrenals: Unremarkable. No mass. Kidneys and ureters: Unremarkable. No obstructing stones. No hydronephrosis. Stomach and bowel: Distal small bowel and colonic diverticula without adjacent inflammatory change. No obstruction. No mucosal thickening. PELVIS: Appendix: Normal caliber appendix. No findings to suggest acute appendicitis. Bladder: The urinary bladder is decompressed. No stones. Reproductive: Calcified uterine fibroid. CHEST, ABDOMEN and PELVIS: Intraperitoneal space: Small amount of free fluid within the abdomen and pelvis. No free air. Bones/joints: Osseous structures are osteopenic. Multilevel spondylosis. Anterior compression fractures at T5, T6, T7, T8, T9 and T11. Remote appearing right lateral 7th and 8th rib fractures. Anterior superior compression fractures at L1, L2, L3 and to a lesser extent at L4 and L5. Healing right sacral, right parasymphyseal, right superior pubic ramus acetabular junction and inferior pubic rami fractures. Mild widening of the right SI joint. No dislocation. Soft tissues: Lipoma located between the scapular portion of the deltoid muscle and the infraspinatus muscle on the right. Vasculature: Mild to moderate atherosclerotic disease. No thoracic aortic aneurysm. Moderate to severe atherosclerotic disease. No abdominal aortic aneurysm. Lymph nodes: Unremarkable. No enlarged lymph nodes. IMPRESSION: 1. Small to moderate left pleural effusion and adjacent consolidation (atelectasis and/or infiltrate). 2. Moderate to large pericardial effusion. 3. Findings suggestive of hepatic cirrhosis. Small amount of abdominal and pelvic ascites. 4. Healing right sacral and pelvic fractures. Mild widening of the SI joint. Multiple thoracolumbar compression deformities. Given generalized osteopenia, the possibility of underlying acute or subacute components cannot be excluded. 5. Other findings as above. Follow up CXR: COMPARISON: Chest Single View dated 12/31/2020; Chest Single View dated 12/28/2020; Chest Single View dated 10/10/2020; Chest Single View dated 11/18/2017; Chest Abd Pelvis Wo Con dated 12/28/2020 FINDINGS: Lines: None. Lungs: Improved aeration of the lungs likely representing some resolving edema. Pleural: Moderate left pleural effusions grossly similar. Cardiac: Enlarged cardiopericardial silhouette again noted. Bones: No acute fractures. IMPRESSION: Improved aeration lungs likely representing resolving edema. Similar moderate left pleural effusion and presumably underlying atelectasis. Medical Problem List: Septic shock secondary to UTIE. coliESBL Hypocalcemia with hypokalemia Hypertension Hyperlipidemia History of primary biliary cirrhosis Moderate to large pericardial effusion Small to moderate left pleural effusion with atelectasis Brief History of Present Illness: 66-year-old female with history of primary biliary cirrhosis, hypertension, hyperlipidemia presented with several weeks of weakness, intermittent diarrhea. Patient also with diffuse abdominal pain. Decreased urination also identified. Patient was recently discharged from [place] with severe sepsis secondary to UTI. Patient found to have small to moderate left pleural effusion, moderate to large pericardial effusion. Patient with septic shock. Patient admitted for further treatment. Hospital Course: Patient presented with septic shock secondary to UTI. Patient recently hospitalized in [place] for severe sepsis. Patient was admitted for treatment. Urine culture was positive for E. coliESBL. Patient received IV meropenem for 7 days blood cultures negative. Repeat urine culture negative. Patient has done well. UTI prevention provided. Recommend follow-up with PCP in 1 week to follow-up as authorization and continue her care. Home health and physical therapy will be arranged prior to discharge. Skilled placement was considered but patient preferred to go home. Discharge was held 1 day due to lack of electricity at home. Patient stable at this time. Patient will be discharged home. During the course of her stay patient did have some hypocalcemia and hypokalemia due to septic shock. Replacement was done. Nephrology was consulted to help with this. At discharge patient will continue with Calcitrol 0.5 mcg every 48 hours and Tums 1000 mg 4 times a day. Recommend to recheck labCMP and follow- up with nephrology within 1 week to follow-up his hospitalization and continue her care. Further adjustment can be done by nephrology. Patient also noted to have moderate to large pericardial effusion and small to moderate left pleural effusion with atelectasis. Patient doing well at this time. Echocardiogram performed showed no tamponade. Cardiology was consulted. No intervention was required. Recommend follow-up with cardiology in 1 to 2 weeks. Recommend to recheck echocardiogram in 2 to 4 weeks to monitor resolution of pericardial effusion. Patient on room air at this time. No requirement for oxygen. Patient will continue with physical therapy. Continue to encourage incentive spirometer. Overall stable. Patient with primary biliary cirrhosis. Patient remains on diuretic therapy. Patient will continue with the 1500 cc/day fluid restriction and low-salt diet. At discharge she will continue with Aldactone 50 mg 1 pill twice daily, Inderal 20 mg 1 pill twice daily, and Lasix 40 mg 1 pill twice daily. Recommend follow- up with GI to further monitor her condition. Further adjustment in medication can be done by GI or her PCP. Patient with history of hyperlipidemia. Patient had been taking Lipitor. Recommend to hold medication at this time due to her cirrhosis. Patient with history of hypertension. Patient previously on lisinopril chlorothiazide, metoprolol. Both medications discontinued. Blood pressure remained stable. Patient is requiring midodrine 5 mg 1 pill twice daily. Recommend to hold midodrine if blood pressure systolic greater than 130. Patient with history of GERD. Patient previously on Prilosec. Recommend to continue Protonix 40 mg twice daily instead. Patient will continue with Ensure supplementation twice daily. Patient may also continue with thiamine 100 mg daily. Vital Signs/Physical Exam: Temp Pulse Resp BP Pulse Ox 97.1 F 79 18 116/78 94 01/08/21 04:00 01/08/21 04:00 01/08/21 04:00 01/08/21 04:00 01/08/21 04:00 Laboratory Data at Discharge: WBC 8.40 K/uL (4.3-10.9) 01/06/21 05:13 Hgb 13.4 g/dL (12.0-15.0) 01/06/21 05:13 Hct 41.3 % (36.0-45.0) 01/06/21 05:13 Plt Count 96 K/uL (152-406) L 01/06/21 05:13 PT 15.2 SECONDS (9.5-12.5) H 12/29/20 02:21 INR 1.32 12/29/20 02:21 APTT 35.5 SECONDS (24.3-36.9) 12/29/20 02:21 Sodium 135 mmol/L (136-145) L 01/06/21 05:13 Potassium 4.6 mmol/L (3.5-5.1) 01/08/21 00:26 BUN 13 mg/dL (7-18) 01/06/21 05:13 Creatinine 0.58 mg/dL (0.55-1.3) 01/06/21 05:13 Glucose 166 mg/dL (74-106) H 01/06/21 05:13 Uric Acid 5.0 mg/dL (2.6-6.0) D 12/29/20 05:14 Phosphorus 3.5 mg/dL (2.5-4.9) 01/03/21 04:35 Magnesium 1.8 mg/dL (1.8-2.4) 01/06/21 05:13 Total Bilirubin 2.5 mg/dL (0.2-1.0) H 01/06/21 05:13 AST 48 U/L (15-37) H 01/06/21 05:13 ALT 33 U/L (12-78) 01/06/21 05:13 Alkaline Phosphatase 590 U/L (45-117) H 01/06/21 05:13 Troponin I 2.39 ng/mL (0.0-0.045) H* 12/30/20 10:45 Triglycerides 119 mg/dL (<150) 12/30/20 03:30 Cholesterol 102 mg/dL (<200) 12/30/20 03:30 HDL Cholesterol 9 mg/dL (40-60) L 12/30/20 03:30 Cholesterol/HDL Ratio 11.33 12/30/20 03:30 Amylase 84 U/L (25-115) 12/28/20 20:42 Lipase 304 U/L (73-393) 12/28/20 20:42 Home Medications: Calcitrol [Rocaltrol*] 0.5 mcg PO Q48H #30 cap 01/06/21 Calcium Carbonate [Tums Regular*] 1,000 mg PO QID PRN #90 tab 01/06/21 Ensure Enlive 237 ml PO BID #60 can 01/06/21 Furosemide [Lasix*] 40 mg PO BIDL #60 tab 01/06/21 Midodrine HCl [Proamatine*] 5 mg PO BID #60 tab 01/06/21 Pantoprazole [Protonix Tab*] 40 mg PO BIDAC #60 tab 01/06/21 Propranolol [Inderal*] 20 mg PO BID #120 tab 01/06/21 Spironolactone [Aldactone*] 50 mg PO BID #120 tab 01/06/21 New Medications: Spironolactone [Aldactone*] 50 mg PO BID #120 tab Ensure Enlive 237 ml PO BID #60 can Propranolol [Inderal*] 20 mg PO BID #120 tab Furosemide [Lasix*] 40 mg PO BIDL #60 tab Midodrine HCl [Proamatine*] 5 mg PO BID #60 tab Pantoprazole [Protonix Tab*] 40 mg PO BIDAC #60 tab Calcitrol [Rocaltrol*] 0.5 mcg PO Q48H #30 cap Calcium Carbonate [Tums Regular*] 1,000 mg PO QID PRN #90 tab PRN Reason: Indigestion Physician Discharge Instructions: PROBLEM: (list out Acute Problems for the Current visit) GOAL: Clear understanding of disease process INSTRUCTIONS: Patient presented with septic shock secondary to UTI. Patient recently hospitalized in [place] for severe sepsis. Patient was admitted for treatment. Urine culture was positive for E. coliESBL. Patient received IV meropenem for 7 days blood cultures negative. Repeat urine culture negative. Patient has done well. UTI prevention provided. Recommend follow-up with PCP in 1 week to follow-up as authorization and continue her care. Home health and physical therapy will be arranged prior to discharge. Skilled placement was considered but patient preferred to go home. During the course of her stay patient did have some hypocalcemia and hypokalemia due to septic shock. Replacement was done. Nephrology was consulted to help with this. At discharge patient will continue with Calcitrol 0.5 mcg every 48 hours and Tums 1000 mg 4 times a day. Recommend to recheck labCMP and follow- up with nephrology within 1 week to follow-up his hospitalization and continue her care. Further adjustment can be done by nephrology. Patient also noted to have moderate to large pericardial effusion and small to moderate left pleural effusion with atelectasis. Patient doing well at this time. Echocardiogram performed showed no tamponade. Cardiology was consulted. No intervention was required. Recommend follow-up with cardiology in 1 to 2 weeks. Recommend to recheck echocardiogram in 2 to 4 weeks to monitor resolution of pericardial effusion. Patient on room air at this time. No requirement for oxygen. Patient will continue with physical therapy. Continue to encourage incentive spirometer. Overall stable. Patient with primary biliary cirrhosis. Patient remains on diuretic therapy. Patient will continue with the 1500 cc/day fluid restriction and low-salt diet. At discharge she will continue with Aldactone 50 mg 1 pill twice daily, Inderal 20 mg 1 pill twice daily, and Lasix 40 mg 1 pill twice daily. Recommend follow- up with GI to further monitor her condition. Further adjustment in medication can be done by GI or her PCP. Patient with history of hyperlipidemia. Patient had been taking Lipitor. Recommend to hold medication at this time due to her cirrhosis. Patient with history of hypertension. Patient previously on lisinopril chlorothiazide, metoprolol. Both medications discontinued. Blood pressure remained stable. Patient is requiring midodrine 5 mg 1 pill twice daily. Recommend to hold midodrine if blood pressure systolic greater than 130. Patient with history of GERD. Patient previously on Prilosec. Recommend to continue Protonix 40 mg twice daily instead. Patient will continue with Ensure supplementation twice daily. Patient may also continue with thiamine 100 mg daily. If symptoms worsen, please go to the ER. If you have any questions regarding hospital stay, feel free to call [phone]. Your prescriptions were called in to [facility] Diet: AHA Activity: Fall precautions DME DME: Date Ordered: Name of Company: [facility] Services Needed: Residential Name of Company: [facility] Date or Referral: IMMUNIZATION Influenza Vaccine Indicated: Influenza Vaccine Given: Date Given: Pneumonia Vaccine Indicated: No Pneumonia Vaccine Given: Date Given: Diet: AHA Activity: Fall precautions Followup: Candelario Bernard MD [ACTIVE - CAN ADMIT] - NONE,NONE [Primary Care Provider] -
[2021-01-08] MEDS: ENSURE ENLIVE 237 ML CAN PO SCH ×2 (09:00→21:00)
--- NOTE | 2021-01-08 10:00 | P.PN ---
Subjective Date of Service: 01/08/21 Primary Care Provider: Dr. Zuñiga Chief Complaint: severe sepsis Subjective: No new changes Physical Examination - Vital Signs Temperature: 97.4 F Blood Pressure: 111/67 Pulse: 87 Respirations: 16 Pulse Ox (%): 97 - Physical Exam General: Other (appears as her stated age) HEENT: Atraumatic, Normocephalic Neck: Supple Respiratory: Other (symmetric chest expansion) Cardiovascular: No rubs, No murmurs Gastrointestinal: Soft and benign Musculoskeletal: No clubbing Integumentary: No warmth Neurological: Normal speech, Normal tone Urinary: Other (no bladder distention) - Studies Medications List Reviewed: Yes Assessment And Plan - Plan # NOE secondary to prerenal state + ATN Resolved Monitor input and output, renal panel # Septic shock secondary to UTI resolved Received Merrem Urine culture grew ESBL E. coli # Pericardial effusion, NSTEMI TTE on 12/29/2020 showed moderate to large pericardial effusion BNP 17,000, troponin 2.4 +STUART Continue Lasix at 20 mg po bid Recheck TTE in the near future to reassess effusion Cardiology following # Hyperkalemia Resolved Monitor # Hypomagnesemia improved Replete prn # Liver cirrhosis Compensated, monitor # Anemia, thrombocytopenia Likely secondary to liver disease LDH wnl, f/u serum haptoglobin # Disposition Dc to home when her home electricity is restored
[2021-01-08] MEDS: THIAMINE 200 MG/2 ML INJ IVP SCH (10:24)
[2021-01-08] MEDS: SPIRONOLACTONE 25 MG TABLET PO SCH ×2 (10:25→21:46)
[2021-01-08] MEDS: CALCITROL 0.25 MCG CAP PO SCH (10:25)
[2021-01-08] MEDS: FUROSEMIDE 40 MG TABLET PO SCH (10:26)
[2021-01-08] MEDS: PROPRANOLOL HCL 10 MG TAB PO SCH ×2 (10:26→21:45)
[2021-01-08] MEDS: PANTOPRAZOLE 40MG TABLET PO SCH ×2 (10:26→18:20)
--- NOTE | 2021-01-08 10:53 | P.PN ---
Subjective Date of Service: 01/08/21 Primary Care Provider: Dr. Zuñiga Chief Complaint: severe sepsis Subjective: Improving, Doing well (Discharge has been delayed due to lack of electricity at home. Patient overall stable. No complaints noted.) Physical Examination - Vital Signs Temperature: 97.4 F Blood Pressure: 111/67 Pulse: 87 Respirations: 16 Pulse Ox (%): 97 - Studies Medications List Reviewed: Yes Assessment & Plan Discharge Plan: Home Plan to discharge in: 24 Hours Physician Review Additional Text: COVID: negative ECHO: MEASUREMENTS (cm) DIASTOLIC (NORMALS) SYSTOLIC (NORMALS) IVSd 0.9 (0.6-1.2) LA Diam 2.3 (1.9-4.0) LVEF 77% LVIDd 3.4 (3.5-5.7) LVIDs 1.9 (2.0-3.5) %FS 45% LVPWd 0.9 (0.6-1.2) Ao Diam 2.6 (2.0-3.7) 2 DIMENSIONAL ASSESSMENT: RIGHT ATRIUM: NORMAL LEFT ATRIUM: NORMAL RIGHT VENTRICLE: NORMAL LEFT VENTRICLE: NORMAL TRICUSPID VALVE: NORMAL MITRAL VALVE: NORMAL PULMONIC VALVE: NORMAL AORTIC VALVE: NORMAL PERICARDIAL EFFUSION: MODERATE TO LARGE AORTIC ROOT: NORMAL LEFT VENTRICULAR WALL MOTION: NORMAL DOPPLER/COLOR FLOW: NORMAL COMMENTS: MODERATE TO LARGE PERICARDIAL EFFUSION NO TAMPONADE. NORMAL LEFT VENTRICULAR SIZE AND FUNCTION. Renal US: COMPARISON: Abdomen Exam Limited dated 10/10/2020; Chest Abd Pelvis Wo Con dated 12/28/2020bdomen Exam Limited dated 10/10/2020; Chest Abd Pelvis Wo Con dated 12/28/2020; Abdomen Exam Complete dated 08/13/2019 FINDINGS: The right kidney measures 9.1 cm. Re- demonstrated echogenic focus in the lower pole of the right kidney measuring 8 millimeters. No stone is seen in the contemporaneous CT. 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 The left kidney measures 8.2. No hydronephrosis, focal mass or perinephric fluid. The bladder is decompressed with a Alfredo catheter. IMPRESSION: No evidence of hydronephrosis. No significant change from prior. CT scan: COMPARISON: No relevant prior studies available. FINDINGS: CHEST: Lungs: Mild centrilobular emphysema. Minimal biapical cortical thinning/scar. Mild left basilar consolidation. Small gallstone. No gallbladder wall thickening or pericholecystic fluid. No ductal dilation. Pancreas: Mild pancreatic parenchymal atrophy. No ductal dilation. Spleen: Unremarkable. No splenomegaly. Adrenals: Unremarkable. No mass. Kidneys and ureters: Unremarkable. No obstructing stones. No hydronephrosis. Stomach and bowel: Distal small bowel and colonic diverticula without adjacent inflammatory change. No obstruction. No mucosal thickening. PELVIS: Appendix: Normal caliber appendix. No findings to suggest acute appendicitis. Bladder: The urinary bladder is decompressed. No stones. Reproductive: Calcified uterine fibroid. CHEST, ABDOMEN and PELVIS: Intraperitoneal space: Small amount of free fluid within the abdomen and pelvis. No free air. Bones/joints: Osseous structures are osteopenic. Multilevel spondylosis. Anterior compression fractures at T5, T6, T7, T8, T9 and T11. Remote appearing right lateral 7th and 8th rib fractures. Anterior superior compression fractures at L1, L2, L3 and to a lesser extent at L4 and L5. Healing right sacral, right parasymphyseal, right superior pubic ramus acetabular junction and inferior pubic rami fractures. Mild widening of the right SI joint. No dislocation. Soft tissues: Lipoma located between the scapular portion of the deltoid muscle and the infraspinatus muscle on the right. Vasculature: Mild to moderate atherosclerotic disease. No thoracic aortic aneurysm. Moderate to severe atherosclerotic disease. No abdominal aortic aneurysm. Lymph nodes: Unremarkable. No enlarged lymph nodes. IMPRESSION: 1. Small to moderate left pleural effusion and adjacent consolidation (atelectasis and/or infiltrate). 2. Moderate to large pericardial effusion. 3. Findings suggestive of hepatic cirrhosis. Small amount of abdominal and pelvic ascites. 4. Healing right sacral and pelvic fractures. Mild widening of the SI joint. Multiple thoracolumbar compression deformities. Given generalized osteopenia, the possibility of underlying acute or subacute components cannot be excluded. 5. Other findings as above. Follow up CXR: COMPARISON: Chest Single View dated 12/31/2020; Chest Single View dated 12/28/2020; Chest Single View dated 10/10/2020; Chest Single View dated 11/18/2017; Chest Abd Pelvis Wo Con dated 12/28/2020 FINDINGS: Lines: None. Lungs: Improved aeration of the lungs likely representing some resolving edema. Pleural: Moderate left pleural effusions grossly similar. Cardiac: Enlarged cardiopericardial silhouette again noted. Bones: No acute fractures. IMPRESSION: Improved aeration lungs likely representing resolving edema. Similar moderate left pleural effusion and presumably underlying atelectasis. Physical Exam: General: Alert, In no apparent distress, Oriented x3 Respiratory: Clear bilaterally. Currently on room air Cardiovascular: Regular rate/rhythm, Normal S1 S2, No murmurs Gastrointestinal: Normal bowel sounds, Soft and benign, Non-distended, No tenderness Musculoskeletal: No clubbing, No swelling, No tenderness Neurological: no focal deficits; generalized weakness Impression: Septic shock secondary to UTIE. coliESBL Hypocalcemia with hypokalemia Hypertension Hyperlipidemia History of primary biliary cirrhosis Moderate to large pericardial effusion Small to moderate left pleural effusion with atelectasis Plan: Septic shock secondary to UTIE. coliESBL: Patient has completed IV meropenem. Continue physical therapy. Encourage incentive spirometer. Discharge home has been delayed due to lack of electricity at home. If with electricity will come to you with discharge process. Hypocalcemia with hypokalemia: Continue with replacement. Overall stable. Continue with nephrology recommendations. Hypertension: Overall stable. Currently off home medicationslisinopril hydrochlorothiazide. Continue midodrine Hyperlipidemia: Off Lipitor due to elevated liver function upon admission. This has improved. History of primary biliary cirrhosis: Currently on Aldactone, Lasix, Inderal Moderate to large pericardial effusion: No tamponade noted as per cardiology. This will need to be monitored closely. Spoke with cardiology at length. Patient will require repeat echocardiogram in 1 month to monitor stability. Small to moderate left pleural effusion with atelectasis: Encouraged to spirometer. Patient on room air DVT prophylaxis: SCD CODE STATUS: Full code [facility] care [id number] minutes: Home at discharge. Awaiting for electricity at home to be restarted so that discharge process can occur. Time Spent Managing Pts Care (In Minutes): 55
--- NOTE | 2021-01-08 12:06 | P.PN ---
Subjective Date of Service: 01/08/21 Primary Care Provider: Dr. Zuñiga Chief Complaint: severe sepsis Patient seen examined at bedside, feeling well. Afebrile. Review of Systems 10-point ROS is otherwise unremarkable Physical Examination - Vital Signs Temperature: 97.4 F Blood Pressure: 111/67 Pulse: 87 Respirations: 16 Pulse Ox (%): 97 - Studies Laboratory Last Values WBC 16.70 K/uL (4.3-10.9) H 12/28/20 20:43 RBC 4.64 M/uL (3.86-4.86) 12/28/20 20:43 Hgb 12.9 g/dL (12.0-15.0) 12/28/20 20:43 Hct 41.4 % (36.0-45.0) 12/28/20 20:43 MCV 89.2 fL (80-100) 12/28/20 20:43 MCH 27.8 pg (27.0-35.0) 12/28/20 20:43 MCHC 31.2 g/dL (32.0-36.0) L 12/28/20 20:43 RDW 21.0 % (12.1-15.2) H 12/28/20 20:43 Plt Count 281 K/uL (152-406) 12/28/20 20:43 MPV 9.2 fL (7.6-11.3) 12/28/20 20:43 Neutrophils % 85.8 % (41.7-73.7) H 12/28/20 20:43 Lymphocytes % 8.3 % (15.3-44.8) L 12/28/20 20:43 Monocytes % 5.6 % (3.3-12.3) 12/28/20 20:43 Eosinophils % 0.1 % (0-4.4) 12/28/20 20:43 Basophils % 0.2 % (0-1.3) 12/28/20 20:43 Absolute Neutrophils 14.3 K/uL (1.8-8.0) H 12/28/20 20:43 Absolute Lymphocytes 1.4 K/uL (0.7-4.9) 12/28/20 20:43 Absolute Monocytes 0.9 K/uL (0.1-1.3) 12/28/20 20:43 Absolute Eosinophils 0.0 K/uL (0-0.5) 12/28/20 20:43 Absolute Basophils 0.0 K/uL (0-0.5) 12/28/20 20:43 Platelet Estimate Adeq 12/28/20 20:43 Anisocytosis 1+ 12/28/20 20:43 Microcytosis 1+ 12/28/20 20:43 Morphology Comment Noted (NOT SEEN) 12/28/20 20:43 PT 15.2 SECONDS (9.5-12.5) H 12/29/20 02:21 INR 1.32 12/29/20 02:21 APTT 35.5 SECONDS (24.3-36.9) 12/29/20 02:21 pH 7.26 (7.35-7.45) L 12/29/20 03:00 pCO2 19.6 mmHG (35-45) L 12/29/20 03:00 pO2 123.0 mmHG (75-100) H 12/29/20 03:00 HCO3 8.6 mmol/L (22-28) L 12/29/20 03:00 Base Excess -17.2 mmol/L 12/29/20 03:00 Oxyhemoglobin 96.2 % (94-97) 12/29/20 03:00 ABG O2 Sat (Measured) 98.3 % (92-98.5) 12/29/20 03:00 ABG Carboxyhemoglobin 1.0 % (0-1.5) 12/29/20 03:00 ABG Methemoglobin 1.1 % (0-1.5) 12/29/20 03:00 Other Total Hgb 11.0 g/dl (12-18) L 12/29/20 03:00 Inspired O2 21.0 % 12/29/20 03:00 Sodium 143 mmol/L (136-145) 12/28/20 20:43 Potassium 3.6 mmol/L (3.5-5.1) 12/28/20 20:43 Chloride 118 mmol/L (98-107) H 12/28/20 20:43 Carbon Dioxide 8 mmol/L (21-32) L* 12/28/20 20:43 BUN 25 mg/dL (7-18) H 12/28/20 20:43 Creatinine 2.43 mg/dL (0.55-1.3) H 12/28/20 20:43 Estimated GFR 20 mL/min (=/>90) L 12/28/20 20:43 Glucose 99 mg/dL (74-106) 12/28/20 20:43 Lactic Acid 3.5 mmol/L (0.4-2.0) H 12/29/20 02:01 Calcium 7.9 mg/dL (8.5-10.1) L 12/28/20 20:43 Total Bilirubin 4.0 mg/dL (0.2-1.0) H 12/28/20 20:42 Direct Bilirubin 3.3 mg/dL (0-0.2) H 12/28/20 20:42 AST 157 U/L (15-37) H 12/28/20 20:42 ALT 61 U/L (12-78) 12/28/20 20:42 Alkaline Phosphatase 736 U/L (45-117) H 12/28/20 20:42 Ammonia 25 umol/L (19-54) 12/29/20 02:01 Troponin I 2.43 ng/mL (0.0-0.045) H* 12/28/20 20:43 Serum Total Protein 6.4 g/dL (6.4-8.2) 12/28/20 20:42 Albumin 2.2 g/dL (3.4-5.0) L 12/28/20 20:42 Globulin 4.2 g/dL (2.3-3.5) H 12/28/20 20:42 Albumin/Globulin Ratio 0.5 (1.1-1.8) L 12/28/20 20:42 Amylase 84 U/L (25-115) 12/28/20 20:42 Lipase 304 U/L (73-393) 12/28/20 20:42 Procalcitonin 0.91 ng/mL (<0.050) H 12/28/20 20:43 Urine pH 5.0 (5.0-7.0) 12/29/20 00:27 Ur Specific [place] 1.025 (1.005-1.030) 12/29/20 00:27 Glucose (UA)(Auto) Trace (Negative) 12/29/20 00:27 Urine Ketones 1+ (Negative) H 12/29/20 00:27 Urine Blood 2+ (Negative) H 12/29/20 00:27 Urine Nitrite Negative (Negative) 12/29/20 00:27 Ur Leukocyte Esterase Negative (Negative) 12/29/20 00:27 Urine RBC 5-10 /HPF (NONE SEEN) H 12/29/20 00:20 Urine WBC 5-10 /HPF (<5) H 12/29/20 00:20 Ur Squamous Epith Cells 5-10 /HPF (NONE SEEN) H 12/29/20 00:20 Ur Urothelial Cells Cancelled 12/28/20 21:38 Calcium Oxalate Crystal Cancelled 12/28/20 21:38 Uric Acid Crystals Cancelled 12/28/20 21:38 Triple Phos Crystals Cancelled 12/28/20 21:38 Other Crystals Cancelled 12/28/20 21:38 Amorphous Sediment 2+ /HPF (NONE SEEN) H 12/29/20 00:20 Glitter Cells Cancelled 12/28/20 21:38 Urine Bacteria >50 /HPF (<20) H 12/29/20 00:20 Hyaline Casts 5-10 /LPF (NONE SEEN) 12/29/20 00:20 Fine Granular Casts Cancelled 12/28/20 21:38 Coarse Granular Casts Cancelled 12/28/20 21:38 Waxy Casts Cancelled 12/28/20 21:38 RBC Casts Cancelled 12/28/20 21:38 WBC Casts Cancelled 12/28/20 21:38 Urine Mucus 2+ /HPF (NONE SEEN) 12/29/20 00:20 Urine Other Cancelled 12/28/20 21:38 Urine Trichomonas Cancelled 12/28/20 21:38 Urine Yeast Cancelled 12/28/20 21:38 Ur Yeast w Hyphae Cancelled 12/28/20 21:38 Urine Yeast (Budding) Cancelled 12/28/20 21:38 Urine Sperm Cancelled 12/28/20 21:38 Urine Culture Reflexed Reflexed 12/29/20 00:20 Urine Total Volume Cancelled 12/28/20 21:38 Urine Total Protein 2+ (Negative) H 12/29/20 00:27 Influenza Type A RNA Negative (NEGATIVE) 12/28/20 20:40 Influenza Type B RNA Negative (NEGATIVE) 12/28/20 20:40 SARS-CoV-2 RNA (RT-PCR) Negative (NEGATIVE) 12/28/20 20:40 Smear Scan Ok (OK) 12/28/20 20:43 Medications List Reviewed: Yes Assessment And Plan - Plan Physical Exam: General: Alert, In no apparent distress, Oriented x3, Cachectic HEENT: Atraumatic, Normocephalic, Scleral icterus Neck: Supple, 2+ carotid pulse no bruit Respiratory: Expiratory wheezing, bilateral crackles/rales Cardiovascular: No edema, Regular rate/rhythm, Normal S1 S2 Capillary refill: <2 Seconds Gastrointestinal: Rigidity, Distended, Tenderness Musculoskeletal: No clubbing, No swelling, No contractures Integumentary: No rashes, No breakdown, No significant lesion Neurological: Normal gait, Normal speech Conclusions/Impression: Assessment/plan Severe sepsis On admission patient found to be in severe sepsis with NOE, hypotension, and elevated lactic acid. Patient empirically placed on oral vancomycin, Flagyl, Rocephin. Blood cultures show no growth, urine cultures growing ESBL E coli. Patient has completed course of IV meropenem. Repeat UA negative. Leukocytosis with left shift Continue to monitor WBC trend. WBC now within normal range. Patient remains afebrile. Severe malnutrition Low albumin, recommend supplemental Ensure protein drinks PBC, NOE, anemia, liver cirrhosis Medical management per primary team Plan of care discussed with Dr. Ricks Thank you for consultation
[2021-01-09] MEDS: THIAMINE 200 MG/2 ML INJ IVP SCH (08:47)
[2021-01-09] MEDS: ENSURE ENLIVE 237 ML CAN PO SCH (08:48)
[2021-01-09] MEDS: PANTOPRAZOLE 40MG TABLET PO SCH (08:48)
[2021-01-09] MEDS: PROPRANOLOL HCL 10 MG TAB PO SCH (08:50)
[2021-01-09] MEDS ORDERED: FUROSEMIDE 20 MG TABLET PO SCH (09:00)
[2021-01-09] MEDS: SPIRONOLACTONE 25 MG TABLET PO SCH (09:03)
[2021-01-09 09:48] VITALS: O2SAT 97
[2021-01-09 11:37] LABS: Magnesium 1.9 mg/dL (1.8-2.4); Phosphorus 5.2 mg/dL (2.5-4.9); Potassium 4.5 mmol/L (3.5-5.1)
[2021-01-09 12:41] VITALS: BP 110/75; TEMP 97.2
--- NOTE | 2021-01-09 12:52 | P.PN ---
Subjective Date of Service: 01/09/21 Primary Care Provider: Dr. Zuñiga Chief Complaint: severe sepsis Subjective p with NOE, electrolytes abnormalities , improved on IVF today no overnight events cr at baseline Physical exam general: AAOX3, NAD , thin Neck; Supple, No elevated JVD chest CTAB, no rlaes or wheezes hear: RRR, normal S1,2 no murmur or rub Chest: CTAB, no rales or wheezes Abdomen: Soft , Nt Extremities No edema or ulcer A/P # NOE secondary to prerenal state + ATN Resolved Monitor input and output, renal panel # Septic shock secondary to UTI resolved Received Merrem Urine culture grew ESBL E. coli # Pericardial effusion, NSTEMI TTE on 12/29/2020 showed moderate to large pericardial effusion BNP 17,000, troponin 2.4 +STUART Continue Lasix at 20 mg po bid Recheck TTE in the near future to reassess effusion Cardiology following # Hyperkalemia Resolved Monitor # Hypomagnesemia improved Replete prn # Liver cirrhosis Compensated, monitor # Anemia, thrombocytopenia Likely secondary to liver disease LDH wnl Physical Examination - Vital Signs Temperature: 97.2 F Blood Pressure: 110/75 Pulse: 80 Respirations: 18 Pulse Ox (%): 95 - Studies Medications List Reviewed: Yes
--- NOTE | 2021-01-09 13:33 | P.DS ---
Admission Date: 12/29/20 Discharge Date: 01/09/21 Primary Care Provider: Dr. Zuñiga Disposition: ROUTINE DISCHARGE Discharge Condition: GOOD Reason for Admission: severe sepsis Hospital Course: Discharge Summary Patient Name: ANUM HESTER Date of : 1955 Patient Status: Inpatient Attending Provider: Judy Soliz Date: 01/08/21 06:05 Initialization Date: 01/08/21 06:05 Admission Date: 12/29/20 Discharge Date: 01/09/21 Primary Care Provider: Dr. Zuñiga Disposition: DC HOME/HOME HEALTH CARE Discharge Condition: GOOD Reason for Admission: severe sepsis Consultations: Nephrology-Dr. Butler Cardiology-Dr. Bernard GI-Dr. Mcintyre Procedures: COVID: negative ECHO: MEASUREMENTS (cm) DIASTOLIC (NORMALS) SYSTOLIC (NORMALS) IVSd 0.9 (0.6-1.2) LA Diam 2.3 (1.9-4.0) LVEF 77% LVIDd 3.4 (3.5-5.7) LVIDs 1.9 (2.0-3.5) %FS 45% LVPWd 0.9 (0.6-1.2) Ao Diam 2.6 (2.0-3.7) 2 DIMENSIONAL ASSESSMENT: RIGHT ATRIUM: NORMAL LEFT ATRIUM: NORMAL RIGHT VENTRICLE: NORMAL LEFT VENTRICLE: NORMAL TRICUSPID VALVE: NORMAL MITRAL VALVE: NORMAL PULMONIC VALVE: NORMAL AORTIC VALVE: NORMAL PERICARDIAL EFFUSION: MODERATE TO LARGE AORTIC ROOT: NORMAL LEFT VENTRICULAR WALL MOTION: NORMAL DOPPLER/COLOR FLOW: NORMAL COMMENTS: MODERATE TO LARGE PERICARDIAL EFFUSION NO TAMPONADE. NORMAL LEFT VENTRICULAR SIZE AND FUNCTION. Renal US: COMPARISON: Abdomen Exam Limited dated 10/10/2020; Chest Abd Pelvis Wo Con dated 12/28/2020bdomen Exam Limited dated 10/10/2020; Chest Abd Pelvis Wo Con dated 12/28/2020; Abdomen Exam Complete dated 08/13/2019 FINDINGS: The right kidney measures 9.1 cm. Re- demonstrated echogenic focus in the lower pole of the right kidney measuring 8 millimeters. No stone is seen in the contemporaneous CT. 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 The left kidney measures 8.2. No hydronephrosis, focal mass or perinephric fluid. The bladder is decompressed with a Alfredo catheter. IMPRESSION: No evidence of hydronephrosis. No significant change from prior. CT scan: COMPARISON: No relevant prior studies available. FINDINGS: CHEST: Lungs: Mild centrilobular emphysema. Minimal biapical cortical thinning/scar. Mild left basilar consolidation. Small gallstone. No gallbladder wall thickening or pericholecystic fluid. No ductal dilation. Pancreas: Mild pancreatic parenchymal atrophy. No ductal dilation. Spleen: Unremarkable. No splenomegaly. Adrenals: Unremarkable. No mass. Kidneys and ureters: Unremarkable. No obstructing stones. No hydronephrosis. Stomach and bowel: Distal small bowel and colonic diverticula without adjacent inflammatory change. No obstruction. No mucosal thickening. PELVIS: Appendix: Normal caliber appendix. No findings to suggest acute appendicitis. Bladder: The urinary bladder is decompressed. No stones. Reproductive: Calcified uterine fibroid. CHEST, ABDOMEN and PELVIS: Intraperitoneal space: Small amount of free fluid within the abdomen and pelvis. No free air. Bones/joints: Osseous structures are osteopenic. Multilevel spondylosis. Anterior compression fractures at T5, T6, T7, T8, T9 and T11. Remote appearing right lateral 7th and 8th rib fractures. Anterior superior compression fractures at L1, L2, L3 and to a lesser extent at L4 and L5. Healing right sacral, right parasymphyseal, right superior pubic ramus acetabular junction and inferior pubic rami fractures. Mild widening of the right SI joint. No dislocation. Soft tissues: Lipoma located between the scapular portion of the deltoid muscle and the infraspinatus muscle on the right. Vasculature: Mild to moderate atherosclerotic disease. No thoracic aortic aneurysm. Moderate to severe atherosclerotic disease. No abdominal aortic aneurysm. Lymph nodes: Unremarkable. No enlarged lymph nodes. IMPRESSION: 1. Small to moderate left pleural effusion and adjacent consolidation (atelectasis and/or infiltrate). 2. Moderate to large pericardial effusion. 3. Findings suggestive of hepatic cirrhosis. Small amount of abdominal and pelvic ascites. 4. Healing right sacral and pelvic fractures. Mild widening of the SI joint. Multiple thoracolumbar compression deformities. Given generalized osteopenia, the possibility of underlying acute or subacute components cannot be excluded. 5. Other findings as above. Follow up CXR: COMPARISON: Chest Single View dated 12/31/2020; Chest Single View dated 12/28/2020; Chest Single View dated 10/10/2020; Chest Single View dated 11/18/2017; Chest Abd Pelvis Wo Con dated 12/28/2020 FINDINGS: Lines: None. Lungs: Improved aeration of the lungs likely representing some resolving edema. Pleural: Moderate left pleural effusions grossly similar. Cardiac: Enlarged cardiopericardial silhouette again noted. Bones: No acute fractures. IMPRESSION: Improved aeration lungs likely representing resolving edema. Similar moderate left pleural effusion and presumably underlying atelectasis. Medical Problem List: Septic shock secondary to UTIE. coliESBL Hypocalcemia with hypokalemia Hypertension Hyperlipidemia History of primary biliary cirrhosis Moderate to large pericardial effusion Small to moderate left pleural effusion with atelectasis Brief History of Present Illness: 66-year-old female with history of primary biliary cirrhosis, hypertension, hyperlipidemia presented with several weeks of weakness, intermittent diarrhea. Patient also with diffuse abdominal pain. Decreased urination also identified. Patient was recently discharged from [place] with severe sepsis secondary to UTI. Patient found to have small to moderate left pleural effusion, moderate to large pericardial effusion. Patient with septic shock. Patient admitted for further treatment. Hospital Course: Patient presented with septic shock secondary to UTI. Patient recently hos pitalized in [place] for severe sepsis. Patient was admitted for treatment. Urine culture was positive for E. coliESBL. Patient received IV meropenem for 7 days blood cultures negative. Repeat urine culture negative. Patient has done well. UTI prevention provided. Recommend follow-up with PCP in 1 week to follow-up as authorization and continue her care. Home health and physical therapy will be arranged prior to discharge. Skilled placement was considered but patient preferred to go home. Discharge was held 1 day due to lack of electricity at home. Patient stable at this time. Patient will be discharged home. During the course of her stay patient did have some hypocalcemia and hypokalemia due to septic shock. Replacement was done. Nephrology was consulted to help with this. At discharge patient will continue with Calcitrol 0.5 mcg every 48 hours and Tums 1000 mg 4 times a day. Recommend to recheck labCMP and follow- up with nephrology within 1 week to follow-up his hospitalization and continue her care. Further adjustment can be done by nephrology. Patient also noted to have moderate to large pericardial effusion and small to moderate left pleural effusion with atelectasis. Patient doing well at this time. Echocardiogram performed showed no tamponade. Cardiology was consulted. No intervention was required. Recommend follow-up with cardiology in 1 to 2 weeks. Recommend to recheck echocardiogram in 2 to 4 weeks to monitor resolution of pericardial effusion. Patient on room air at this time. No requirement for oxygen. Patient will continue with physical therapy. Continue to encourage incentive spirometer. Overall stable. Patient with primary biliary cirrhosis. Patient remains on diuretic therapy. Patient will continue with the 1500 cc/day fluid restriction and low-salt diet. At discharge she will continue with Aldactone 50 mg 1 pill twice daily, Inderal 20 mg 1 pill twice daily, and Lasix 40 mg 1 pill twice daily. Recommend follow- up with GI to further monitor her condition. Further adjustment in medication can be done by GI or her PCP. Patient with history of hyperlipidemia. Patient had been taking Lipitor. Recommend to hold medication at this time due to her cirrhosis. Patient with history of hypertension. Patient previously on lisinopril chlorothiazide, metoprolol. Both medications discontinued. Blood pressure remained stable. Patient is requiring midodrine 5 mg 1 pill twice daily. Recommend to hold midodrine if blood pressure systolic greater than 130. Patient with history of GERD. Patient previously on Prilosec. Recommend to continue Protonix 40 mg twice daily instead. Patient will continue with Ensure supplementation twice daily. Patient may also continue with thiamine 100 mg daily. Services Needed: Correction Name of Company: [employer] Date or Referral: Diet: AHA Activity: Fall precautions Followup: NONE,NONE [Primary Care Provider] - Vital Signs/Physical Exam: Temp Pulse Resp BP Pulse Ox 97.2 F 80 18 110/75 95 01/09/21 12:52 01/09/21 12:52 01/09/21 12:52 01/09/21 12:52 01/09/21 12:52 Laboratory Data at Discharge: WBC 8.40 K/uL (4.3-10.9) 01/06/21 05:13 Hgb 13.4 g/dL (12.0-15.0) 01/06/21 05:13 Hct 41.3 % (36.0-45.0) 01/06/21 05:13 Plt Count 96 K/uL (152-406) L 01/06/21 05:13 PT 15.2 SECONDS (9.5-12.5) H 12/29/20 02:21 INR 1.32 12/29/20 02:21 APTT 35.5 SECONDS (24.3-36.9) 12/29/20 02:21 Sodium 136 mmol/L (136-145) 01/09/21 11:00 Potassium 4.5 mmol/L (3.5-5.1) 01/09/21 11:00 BUN 20 mg/dL (7-18) H 01/09/21 11:00 Creatinine 0.74 mg/dL (0.55-1.3) 01/09/21 11:00 Glucose 126 mg/dL (74-106) H 01/09/21 11:00 Uric Acid 5.0 mg/dL (2.6-6.0) D 12/29/20 05:14 Phosphorus 5.2 mg/dL (2.5-4.9) H 01/09/21 11:00 Magnesium 1.9 mg/dL (1.8-2.4) 01/09/21 11:00 Total Bilirubin 2.5 mg/dL (0.2-1.0) H 01/06/21 05:13 AST 48 U/L (15-37) H 01/06/21 05:13 ALT 33 U/L (12-78) 01/06/21 05:13 Alkaline Phosphatase 590 U/L (45-117) H 01/06/21 05:13 Troponin I 2.39 ng/mL (0.0-0.045) H* 12/30/20 10:45 Triglycerides 119 mg/dL (<150) 12/30/20 03:30 Cholesterol 102 mg/dL (<200) 12/30/20 03:30 HDL Cholesterol 9 mg/dL (40-60) L 12/30/20 03:30 Cholesterol/HDL Ratio 11.33 12/30/20 03:30 Amylase 84 U/L (25-115) 12/28/20 20:42 Lipase 304 U/L (73-393) 12/28/20 20:42 Home Medications: Calcitrol [Rocaltrol*] 0.5 mcg PO Q48H #30 cap 01/06/21 Calcium Carbonate [Tums Regular*] 1,000 mg PO QID PRN #90 tab 01/06/21 Ensure Enlive 237 ml PO BID #60 can 01/06/21 Furosemide [Lasix*] 40 mg PO BIDL #60 tab 01/06/21 Midodrine HCl [Proamatine*] 5 mg PO BID #60 tab 01/06/21 Pantoprazole [Protonix Tab*] 40 mg PO BIDAC #60 tab 01/06/21 Propranolol [Inderal*] 20 mg PO BID #120 tab 01/06/21 Spironolactone [Aldactone*] 50 mg PO BID #120 tab 01/06/21 New Medications: Spironolactone [Aldactone*] 50 mg PO BID #120 tab Ensure Enlive 237 ml PO BID #60 can Propranolol [Inderal*] 20 mg PO BID #120 tab Furosemide [Lasix*] 40 mg PO BIDL #60 tab Midodrine HCl [Proamatine*] 5 mg PO BID #60 tab Pantoprazole [Protonix Tab*] 40 mg PO BIDAC #60 tab Calcitrol [Rocaltrol*] 0.5 mcg PO Q48H #30 cap Calcium Carbonate [Tums Regular*] 1,000 mg PO QID PRN #90 tab PRN Reason: Indigestion Physician Discharge Instructions: PROBLEM: (list out Acute Problems for the Current visit) GOAL: Clear understanding of disease process INSTRUCTIONS: Patient presented with septic shock secondary to UTI. Patient recently hospitalized in [place] for severe sepsis. Patient was admitted for treatment. Urine culture was positive for E. coliESBL. Patient received IV meropenem for 7 days blood cultures negative. Repeat urine culture negative. Patient has done well. UTI prevention provided. Recommend follow-up with PCP in 1 week to follow-up as authorization and continue her care. Home health and physical therapy will be arranged prior to discharge. Skilled placement was considered but patient preferred to go home. During the course of her stay patient did have some hypocalcemia and hypokalemia due to septic shock. Replacement was done. Nephrology was consulted to help with this. At discharge patient will continue with Calcitrol 0.5 mcg every 48 hours and Tums 1000 mg 4 times a day. Recommend to recheck labCMP and follow- up with nephrology within 1 week to follow-up his hospitalization and continue her care. Further adjustment can be done by nephrology. Patient also noted to have moderate to large pericardial effusion and small to moderate left pleural effusion with atelectasis. Patient doing well at this time. Echocardiogram performed showed no tamponade. Cardiology was consulted. No intervention was required. Recommend follow-up with cardiology in 1 to 2 weeks. Recommend to recheck echocardiogram in 2 to 4 weeks to monitor resolution of pericardial effusion. Patient on room air at this time. No requirement for oxygen. Patient will continue with physical therapy. Continue to encourage incentive spirometer. Overall stable. Patient with primary biliary cirrhosis. Patient remains on diuretic therapy. Patient will continue with the 1500 cc/day fluid restriction and low-salt diet. At discharge she will continue with Aldactone 50 mg 1 pill twice daily, Inderal 20 mg 1 pill twice daily, and Lasix 40 mg 1 pill twice daily. Recommend follow- up with GI to further monitor her condition. Further adjustment in medication can be done by GI or her PCP. Patient with history of hyperlipidemia. Patient had been taking Lipitor. Recommend to hold medication at this time due to her cirrhosis. Patient with history of hypertension. Patient previously on lisinopril chlorothiazide, metoprolol. Both medications discontinued. Blood pressure remained stable. Patient is requiring midodrine 5 mg 1 pill twice daily. Recommend to hold midodrine if blood pressure systolic greater than 130. Patient with history of GERD. Patient previously on Prilosec. Recommend to continue Protonix 40 mg twice daily instead. Patient will continue with Ensure supplementation twice daily. Patient may also continue with thiamine 100 mg daily. If symptoms worsen, please go to the ER. If you have any questions regarding hospital stay, feel free to call . Diet: AHA Activity: Fall precautions DME DME: Date Ordered: Name of Company: [employer] Services Needed: Correction Name of Company: [facility] Date or Referral: IMMUNIZATION Influenza Vaccine Indicated: Influenza Vaccine Given: Date Given: Pneumonia Vaccine Indicated: No Pneumonia Vaccine Given: Date Given: Diet: AHA Activity: Fall precautions Followup: NONE,NONE [Primary Care Provider] -
== END 2021-01-09 15:31 | disposition home health service (06) | DRG 871 ==
LOC: ER 19:19 → ERHOLD 12-29 04:18 → 2ND 01-01 14:21
PROVIDERS: ADMIT Hospitalist; ATTEND Family Medicine
PROC: 0JHN3WZ Insertion of Totally Implantable Vascular Access Device into Right Lower Leg Subcutaneous Tissue and Fascia, Percutaneous Approach (ICD-10-PCS; principal; 2020-12-28)
PROC: 06HY33Z Insertion of Infusion Device into Lower Vein, Percutaneous Approach (ICD-10-PCS; 2020-12-28)
DX: A41.9 Sepsis, unspecified organism (principal); R65.21 Severe sepsis with septic shock; E43 Unspecified severe protein-calorie malnutrition; N17.0 Acute kidney failure with tubular necrosis; I21.4 Non-ST elevation (NSTEMI) myocardial infarction; N39.0 Urinary tract infection, site not specified; Z68.1 Body mass index [BMI] 19.9 or less, adult; E87.2 Acidosis; I31.3 Pericardial effusion (noninflammatory); N25.81 Secondary hyperparathyroidism of renal origin; J90 Pleural effusion, not elsewhere classified; J98.11 Atelectasis; E78.5 Hyperlipidemia, unspecified; I10 Essential (primary) hypertension; F17.200 Nicotine dependence, unspecified, uncomplicated; K74.3 Primary biliary cirrhosis; E83.51 Hypocalcemia; E87.6 Hypokalemia; K21.9 Gastro-esophageal reflux disease without esophagitis; E03.9 Hypothyroidism, unspecified; E83.42 Hypomagnesemia; E83.39 Other disorders of phosphorus metabolism; D63.1 Anemia in chronic kidney disease; K74.60 Unspecified cirrhosis of liver; K52.9 Noninfective gastroenteritis and colitis, unspecified; B96.20 Unspecified Escherichia coli [E. coli] as the cause of diseases classified elsewhere; D69.6 Thrombocytopenia, unspecified; Z20.828 Contact with and (suspected) exposure to other viral communicable diseases
CPT/HCPCS: 0240U; 36415; 36430; 51702; 71045; 71250; 74176; 76770; 80048; 80053; 80061; 80069; 80076; 81003; 81015; 82140; 82150; 82274; 82533; 82550; 82607; 82652; 82728; 82746; 82805; 82947; 83010; 83520; 83540; 83605; 83615; 83690; 83735; 83880; 83970; 84100; 84132; 84145; 84165; 84300; 84439; 84443; 84466; 84484; 84550; 85025; 85044; 85610; 85730; 86021; 86038; 86160; 86225; 86317; 86430; 86704; 86706; 86850; 86900; 86901; 87040; 87045; 87046; 87077; 87086; 87088; 87177; 87186; 87209; 87324; 87340; 87389; 87425; 87449; 87522; 93306; 94010; 94640; 97110; 97112; 97116; 97161; 97530; 99291; C9113; J0610; J0696; J1644; J1940; J2185; J2354; J2405; J3010; J3411; J3475; J3480; J7030; J7040; J7050; J7060; P9016; P9047; Q5106